=== PATIENT | male | born 1955 | race Caucasian/White ===

== ENCOUNTER 2020-11-22 17:09 | Inpatient (IN) | payer BC ==
--- NOTE | 2020-11-22 18:07 | EDM.PDOC ---
ED HPI GENERAL MEDICAL PROBLEM - General Chief Complaint: General Stated Complaint: FLUE/COLD Time Seen by Provider: 11/22/20 17:52 Source of Information: Reports: Patient History Limitations: Reports: No Limitations - History of Present Illness INITIAL COMMENTS - FREE TEXT/NARRATIVE: 65-year-old male presents to the emergency department today with complaints of shortness of breath, cough, chills, body aches, decreased appetite and diarrhea. Patient states this started about 6 days ago. He has no known contact with any sick individuals. States he has been more short of breath and he does wear CPAP at night however it has been difficult to keep that on. - Related Data Allergies Allergy/AdvReac Type Severity Reaction Status Date / Time No Known Allergies Allergy Verified 11/22/20 21:25 Home Meds: Home Meds Aspirin [Children's Aspirin] 81 mg PO DAILY 03/27/16 [History] Dulaglutide [Trulicity] 1.5 mg SQ WEEKLY 03/27/16 [History] Losartan [Cozaar] 25 mg PO DAILY 03/27/16 [History] Rosuvastatin Calcium [Crestor] 10 mg PO DAILY 03/27/16 [History] Sertraline [Zoloft] 50 mg PO DAILY 03/27/16 [History] Clopidogrel [Plavix] 75 mg PO DAILY 09/09/18 [History] Empagliflozin/Metformin HCl [Synjardy Xr 25-1,000 mg Tablet] 1 each PO DAILY 09/09/18 [History] Glimepiride [Amaryl] 2 mg PO DAILY 09/09/18 [History] Metoprolol Tartrate 75 mg PO BID 09/09/18 [History] Topiramate 50 mg PO BID 11/23/20 [History] Past Medical History Other HEENT History: Recent dental abscess requiring oral surgery Cardiovascular History: Reports: High Cholesterol, Hypertension Respiratory History: Reports: Sleep Apnea Other Gastrointestinal History: Prior food obstruction - 1999 Genitourinary History: Reports: Renal Calculus Other Neuro History: Patient states they were working him up for some type of aneurysm in [place], but doesn't think he had it or they would not have proceeded with oral surgery. Psychiatric History: Reports: Depression Endocrine/Metabolic History: Reports: Diabetes, Type II, Obesity/BMI 30+ Other Dermatologic History: Multiple skin tags - Infectious Disease History Infectious Disease History: Reports: Measles - Past Surgical History HEENT Surgical History: Reports: Other (See Below) Cardiovascular Surgical History: Reports: Coronary Artery Bypass, Other (See Below) Other Cardiovascular Surgeries/Procedures: triple bypass GI Surgical History: Reports: Colonoscopy Male Surgical History: Reports: Kidney Stone Extraction Social & Family History - Tobacco Use Tobacco Use Status *Q: Never Tobacco User - Recreational Drug Use Recreational Drug Use: No - Living Situation & Occupation Living situation: Reports: Occupation: Employed ED ROS GENERAL - Review of Systems Review Of Systems: See Below Constitutional: Reports: Chills, Malaise, Fatigue, Decreased Appetite. Denies: Fever, Diaphoresis HEENT: Reports: No Symptoms Respiratory: Reports: Shortness of Breath, Cough. Denies: Pleuritic Chest Pain, Sputum Cardiovascular: Reports: No Symptoms Endocrine: Reports: No Symptoms GI/Abdominal: Reports: Diarrhea, Decreased Appetite Musculoskeletal: Reports: Other (Generalized body aches) Skin: Reports: No Symptoms Neurological: Reports: No Symptoms. Denies: Headache Psychiatric: Reports: No Symptoms Hematologic/Lymphatic: Reports: No Symptoms Immunologic: Reports: No Symptoms ED EXAM, GENERAL - Physical Exam Exam: See Below Exam Limited By: No Limitations General Appearance: Alert, WD/WN, Mild Distress Eye Exam: Bilateral Eye: PERRL Ears: Normal External Exam, Hearing Grossly Normal Nose: Normal Inspection Throat/Mouth: Normal Inspection, Normal Lips, Normal Voice, No Airway Compromise Head: Atraumatic, Normocephalic Neck: Normal Inspection, Supple, Non-Tender, Full Range of Motion Respiratory/Chest: No Respiratory Distress, No Accessory Muscle Use, Chest Non- Tender, Crackles (Bilateral bases). No: Lungs Clear, Normal Breath Sounds Cardiovascular: Normal Peripheral Pulses, Regular Rate, Rhythm, No Edema, No Murmur Peripheral Pulses: 2+: Radial (L), Radial (R) GI/Abdominal: Normal Bowel Sounds, Soft, Non-Tender, No Distention (Male) Exam: Deferred Rectal (Males) Exam: Deferred Back Exam: Normal Inspection, Full Range of Motion Extremities: Normal Inspection, Normal Range of Motion, Non-Tender, No Pedal Edema, Normal Capillary Refill Neurological: Alert, Oriented, Normal Cognition Psychiatric: Normal Affect, Normal Mood Skin Exam: Warm, Dry, Intact, Normal Color, No Rash Lymphatic: No Adenopathy #1 Interpretation EKG Date: 11/22/20 Time: 17:43 Rhythm: A-Fib Rate (Beats/Min): 110 P-Wave: Absent QRS: Normal ST-T: Normal QT: Normal EKG Interpretation Comments: EKG interpretation per Dr. Higgins: Atrial fib/flutter, rate 110, nonspecific ST changes Course - Vital Signs Text/Narrative:: 65-year-old male with a 6-day history of body aches, chills, cough, shortness of breath, and diarrhea. States that he has had a decreased appetite however he does still have his taste and smell. Upon assessment patient is tachycardic, lung sounds have crackles noted to the bilateral bases. O2 sats upon presentation to the emergency department were 83% on room air. Patient is currently 94% on 2-1/2 L of oxygen per nasal cannula. Patient has a history of quadruple bypass 2 years ago, hypertension and diabetes for which she takes oral agents. I have ordered labs, chest x-ray, Covid swab, and a EKG. Last Recorded V/S: Last Vital Signs Temp 98.2 F 11/23/20 03:22 Pulse 80 11/23/20 09:22 Resp 18 11/23/20 03:22 BP 136/81 11/23/20 09:22 Pulse Ox 93 L 11/23/20 03:22 - Orders/Labs/Meds Orders: Active Orders 24 hr Category Date Time Status Chest 1V Frontal [CR] Stat Exams 11/22/20 18:00 Taken CULTURE BLOOD [BC] Stat Lab 11/22/20 18:18 Received Blood Culture x2 Reflex Set [OM.PC] Stat Oth 11/22/20 18:07 Ordered Isolation [COMM] Routine Oth 11/22/20 18:00 Ordered Medication Orders Acetaminophen (Tylenol) 650 mg PO Q4H PRN PRN Reason: Pain (Mild 1-3)/fever Last Admin: 11/22/20 23:50 Dose: 650 mg Documented by: MARINO Albuterol/Ipratropium (Duoneb 3.0-0.5 Mg/3 Ml) 3 ml NEB Q4H PRN PRN Reason: Shortness Of Breath/wheezing Apixaban (Eliquis) 5 mg PO BID JOJO Last Admin: 11/23/20 09:11 Dose: 5 mg Documented by: Admin: 11/22/20 23:49 Dose: 5 mg Documented by: MARINO Aspirin (Halfprin) 81 mg PO DAILY [facility] Last Admin: 11/23/20 09:21 Dose: 81 mg Documented by: IVORY Cholecalciferol (Vitamin D3) 5,000 unit PO DAILY [facility] [place] Last Admin: 11/23/20 09:11 Dose: 5,000 unit Documented by: IVORY Clopidogrel Bisulfate (Plavix) 75 mg PO DAILY [facility] [place] Last Admin: 11/23/20 09:22 Dose: 75 mg Documented by: IVORY Dexamethasone (Dexamethasone) 6 mg PO DAILY [facility] [place] Stop: 12/01/20 09:01 Last Admin: 11/23/20 09:12 Dose: 6 mg Documented by: Admin: 11/22/20 23:47 Dose: 6 mg Documented by: MARINO Famotidine (Pepcid) 20 mg PO BID [facility] [place] Last Admin: 11/23/20 09:11 Dose: 20 mg Documented by: Admin: 11/22/20 23:49 Dose: 20 mg Documented by: MARINO Remdesivir 100 mg/ Sodium (Chloride) 100 mls @ 100 mls/hr IV Q24H [facility] [place] Stop: 11/26/20 21:59 Ceftriaxone Sodium 2 gm/ (Sodium Chloride) 100 mls @ 200 mls/hr IV Q24H [facility] [place] Stop: 11/26/20 21:59 Last Admin: 11/22/20 23:45 Dose: 200 mls/hr Documented by: MARINO Azithromycin 500 mg/ Sodium (Chloride) 250 mls @ 250 mls/hr IV Q24H [facility] [place] Stop: 11/24/20 21:59 Last Admin: 11/22/20 23:45 Dose: 250 mls/hr Documented by: MARINO Tocilizumab 800 mg/ Sodium (Chloride) 100 mls @ 100 mls/hr IV ONETIME ONE Stop: 11/23/20 12:59 Insulin Glargine (Lantus) 7 unit SUBCUT BIDAC [facility] Insulin Human Lispro (Humalog) 0 unit SUBCUT QIDACANDBED [facility] [place]; Protocol Losartan Potassium (Cozaar) 25 mg PO DAILY [facility] [place] Last Admin: 11/23/20 09:22 Dose: 25 mg Documented by: IVORY Melatonin (Melatonin) 9 mg PO BEDTIME [facility] Metoprolol Tartrate (Lopressor) 75 mg PO BID [facility] [place] Last Admin: 11/23/20 09:22 Dose: 75 mg Documented by: IVORY Rosuvastatin Calcium (Crestor) 10 mg PO DAILY [facility] Last Admin: 11/23/20 09:21 Dose: 10 mg Documented by: IVORY Sertraline HCl (Zoloft) 50 mg PO DAILY [facility] [place] Last Admin: 11/23/20 09:21 Dose: 50 mg Documented by: IVORY Topiramate (Topamax) 50 mg PO BID [facility] [place] Last Admin: 11/23/20 09:22 Dose: 50 mg Documented by: IVORY Zinc Sulfate (Zincate) 220 mg PO DAILY [facility] Last Admin: 11/23/20 09:11 Dose: 220 mg Documented by: IVORY Labs: Laboratory Tests 11/22/20 11/22/20 11/22/20 Range/Units 18:00 18:18 18:18 WBC 3.68 L (4.23-9.07) K/mm3 RBC 4.83 (4.63-6.08) M/mm3 Hgb 14.4 (13.7-17.5) gm/dl Hct 43.3 (40.1-51.0) % MCV 89.6 (79.0-92.2) fl MCH 29.8 (25.7-32.2) pg MCHC 33.3 (32.2-35.5) g/dl RDW Std Deviation 46.1 H (35.1-43.9) fL Plt Count 158 L (163-337) K/mm3 MPV 9.5 (9.4-12.3) fl Neutrophils % (Manual) 66 H (40-60) % Band Neutrophils % 1 (0-10) % Lymphocytes % (Manual) 23 (20-40) % Atypical Lymphs % 0 % Monocytes % (Manual) 9 (2-10) % Eosinophils % (Manual) 1 (0.8-7.0) % Basophils % (Manual) 0 L (0.2-1.2) Platelet Estimate Adequate RBC Morph Comment Normal PT 11.3 (9.7-12.0) SECONDS INR 1.06 D-Dimer, Quantitative 0.61 H (0.19-0.50) mg/L Puncture Site ABG pH (7.35-7.45) ABG pCO2 (35.0-45.0) mmHg ABG pO2 (80.0-100.0) mmHg ABG HCO3 (22.0-26.0) meq/L ABG O2 Saturation (96.0-97.0) % ABG Base Excess (-2-2.0) Joo Test A-a Gradient mmHg O2 Delivery Device Oxygen Flow Rate FiO2 (21.00-100.00) % Sodium (136-145) mEq/L Potassium (3.5-5.1) mEq/L Chloride (98-107) mEq/L Carbon Dioxide (21-32) mEq/L Anion Gap (5-15) BUN (7-18) mg/dL Creatinine (0.7-1.3) mg/dL Est Cr Clr Drug Dosing mL/min Estimated GFR (MDRD) (>60) mL/min BUN/Creatinine Ratio (14-18) Glucose (80-115) mg/dL Lactic Acid (0.4-2.0) mmol/L Calcium (8.5-10.1) mg/dL Magnesium (1.8-2.4) mg/dl Ferritin (26-388) ng/ml Total Bilirubin (0.2-1.0) mg/dL AST (15-37) U/L ALT (16-63) U/L Alkaline Phosphatase (46-116) U/L Lactate Dehydrogenase (85-227) U/L Troponin I (0.00-0.056) ng/mL C-Reactive Protein (<1.0) mg/dL NT-Pro-B Natriuret Pep (0-125) pg/mL Total Protein (6.4-8.2) g/dl Albumin (3.4-5.0) g/dl Globulin gm/dL Albumin/Globulin Ratio (1-2) Influenza Type A RNA Negative (NEGATIVE) Influenza Type B RNA Negative (NEGATIVE) SARS-CoV-2 RNA (MARVIN) Positive H (NEGATIVE) 11/22/20 11/22/20 11/22/20 Range/Units 18:18 18:18 18:18 WBC (4.23-9.07) K/mm3 RBC (4.63-6.08) M/mm3 Hgb (13.7-17.5) gm/dl Hct (40.1-51.0) % MCV (79.0-92.2) fl MCH (25.7-32.2) pg MCHC (32.2-35.5) g/dl RDW Std Deviation (35.1-43.9) fL Plt Count (163-337) K/mm3 MPV (9.4-12.3) fl Neutrophils % (Manual) (40-60) % Band Neutrophils % (0-10) % Lymphocytes % (Manual) (20-40) % Atypical Lymphs % % Monocytes % (Manual) (2-10) % Eosinophils % (Manual) (0.8-7.0) % Basophils % (Manual) (0.2-1.2) Platelet Estimate RBC Morph Comment PT (9.7-12.0) SECONDS INR D-Dimer, Quantitative (0.19-0.50) mg/L Puncture Site ABG pH (7.35-7.45) ABG pCO2 (35.0-45.0) mmHg ABG pO2 (80.0-100.0) mmHg ABG HCO3 (22.0-26.0) meq/L ABG O2 Saturation (96.0-97.0) % ABG Base Excess (-2-2.0) Joo Test A-a Gradient mmHg O2 Delivery Device Oxygen Flow Rate FiO2 (21.00-100.00) % Sodium 139 (136-145) mEq/L Potassium 4.0 (3.5-5.1) mEq/L Chloride 102 (98-107) mEq/L Carbon Dioxide 21 (21-32) mEq/L Anion Gap 20.0 H (5-15) BUN 20 H (7-18) mg/dL Creatinine 1.0 (0.7-1.3) mg/dL Est Cr Clr Drug Dosing 86.77 mL/min Estimated GFR (MDRD) > 60 (>60) mL/min BUN/Creatinine Ratio 20.0 H (14-18) Glucose 147 H (80-115) mg/dL Lactic Acid 0.9 (0.4-2.0) mmol/L Calcium 8.3 L (8.5-10.1) mg/dL Magnesium (1.8-2.4) mg/dl Ferritin 659 H (26-388) ng/ml Total Bilirubin 0.6 (0.2-1.0) mg/dL AST 23 (15-37) U/L ALT 21 (16-63) U/L Alkaline Phosphatase 74 (46-116) U/L Lactate Dehydrogenase (85-227) U/L Troponin I (0.00-0.056) ng/mL C-Reactive Protein 6.6 H* (<1.0) mg/dL NT-Pro-B Natriuret Pep (0-125) pg/mL Total Protein 7.7 (6.4-8.2) g/dl Albumin 3.4 (3.4-5.0) g/dl Globulin 4.3 gm/dL Albumin/Globulin Ratio 0.8 L (1-2) Influenza Type A RNA (NEGATIVE) Influenza Type B RNA (NEGATIVE) SARS-CoV-2 RNA (MARVIN) (NEGATIVE) 11/22/20 11/22/20 11/22/20 Range/Units 18:18 18:18 18:30 WBC (4.23-9.07) K/mm3 RBC (4.63-6.08) M/mm3 Hgb (13.7-17.5) gm/dl Hct (40.1-51.0) % MCV (79.0-92.2) fl MCH (25.7-32.2) pg MCHC (32.2-35.5) g/dl RDW Std Deviation (35.1-43.9) fL Plt Count (163-337) K/mm3 MPV (9.4-12.3) fl Neutrophils % (Manual) (40-60) % Band Neutrophils % (0-10) % Lymphocytes % (Manual) (20-40) % Atypical Lymphs % % Monocytes % (Manual) (2-10) % Eosinophils % (Manual) (0.8-7.0) % Basophils % (Manual) (0.2-1.2) Platelet Estimate RBC Morph Comment PT (9.7-12.0) SECONDS INR D-Dimer, Quantitative (0.19-0.50) mg/L Puncture Site Lt radial ABG pH 7.35 (7.35-7.45) ABG pCO2 38.2 (35.0-45.0) mmHg ABG pO2 75.0 L (80.0-100.0) mmHg ABG HCO3 20.5 L (22.0-26.0) meq/L ABG O2 Saturation 94.4 L (96.0-97.0) % ABG Base Excess -4.2 L (-2-2.0) Joo Test Positive A-a Gradient 105 mmHg O2 Delivery Device Nasal cannula Oxygen Flow Rate 3.0 FiO2 32.00 (21.00-100.00) % Sodium (136-145) mEq/L Potassium (3.5-5.1) mEq/L Chloride (98-107) mEq/L Carbon Dioxide (21-32) mEq/L Anion Gap (5-15) BUN (7-18) mg/dL Creatinine (0.7-1.3) mg/dL Est Cr Clr Drug Dosing mL/min Estimated GFR (MDRD) (>60) mL/min BUN/Creatinine Ratio (14-18) Glucose (80-115) mg/dL Lactic Acid (0.4-2.0) mmol/L Calcium (8.5-10.1) mg/dL Magnesium 2.0 (1.8-2.4) mg/dl Ferritin (26-388) ng/ml Total Bilirubin (0.2-1.0) mg/dL AST (15-37) U/L ALT (16-63) U/L Alkaline Phosphatase (46-116) U/L Lactate Dehydrogenase 284 H (85-227) U/L Troponin I 0.023 (0.00-0.056) ng/mL C-Reactive Protein (<1.0) mg/dL NT-Pro-B Natriuret Pep 81 (0-125) pg/mL Total Protein (6.4-8.2) g/dl Albumin (3.4-5.0) g/dl Globulin gm/dL Albumin/Globulin Ratio (1-2) Influenza Type A RNA (NEGATIVE) Influenza Type B RNA (NEGATIVE) SARS-CoV-2 RNA (MARVIN) (NEGATIVE) Meds: Medications Generic Name Dose Route Start Last Admin Trade Name Freq PRN Reason Stop Dose Admin Acetaminophen 650 mg 11/22/20 21:08 11/22/20 23:50 Tylenol PO 650 mg Q4H PRN Administration Pain (Mild 1-3)/fever Albuterol/Ipratropium 3 ml 11/22/20 21:08 Duoneb 3.0-0.5 Mg/3 Ml NEB Q4H PRN Shortness Of Breath/wheezing Apixaban 5 mg 11/22/20 21:45 11/23/20 09:11 Eliquis PO 5 mg BID JOJO Administration Aspirin 81 mg 11/23/20 09:00 11/23/20 09:21 Halfprin PO 81 mg DAILY JOJO Administration Cholecalciferol 5,000 unit 11/23/20 09:00 11/23/20 09:11 Vitamin D3 PO 5,000 unit DAILY JOJO Administration Clopidogrel Bisulfate 75 mg 11/23/20 09:00 11/23/20 09:22 Plavix PO 75 mg DAILY JOJO Administration Dexamethasone 6 mg 11/22/20 21:15 11/23/20 09:12 Dexamethasone PO 12/01/20 09:01 6 mg DAILY JOJO Administration Famotidine 20 mg 11/22/20 21:30 11/23/20 09:11 Pepcid PO 20 mg BID JOJO Administration Remdesivir 100 mg/ Sodium 100 mls @ 100 mls/hr 11/23/20 21:00 Chloride IV 11/26/20 21:59 Q24H JOJO Ceftriaxone Sodium 2 gm/ 100 mls @ 200 mls/hr 11/22/20 21:30 11/22/20 23:45 Sodium Chloride IV 11/26/20 21:59 200 mls/hr Q24H JOJO Administration Azithromycin 500 mg/ Sodium 250 mls @ 250 mls/hr 11/22/20 21:00 11/22/20 23:45 Chloride IV 11/24/20 21:59 250 mls/hr Q24H JOJO Administration Tocilizumab 800 mg/ Sodium 100 mls @ 100 mls/hr 11/23/20 12:00 Chloride IV 11/23/20 12:59 ONETIME ONE Insulin Glargine 7 unit 11/23/20 16:00 Lantus SUBCUT BIDAC [facility] Insulin Human Lispro 0 unit 11/23/20 11:00 Humalog SUBCUT QIDACANDBED [facility] Protocol Losartan Potassium 25 mg 11/23/20 09:00 11/23/20 09:22 Cozaar PO 25 mg DAILY JOJO Administration Melatonin 9 mg 11/23/20 21:00 Melatonin PO BEDTIME JOJO Metoprolol Tartrate 75 mg 11/23/20 09:00 11/23/20 09:22 Lopressor PO 75 mg BID JOJO Administration Rosuvastatin Calcium 10 mg 11/23/20 09:00 11/23/20 09:21 Crestor PO 10 mg DAILY JOJO Administration Sertraline HCl 50 mg 11/23/20 09:00 11/23/20 09:21 Zoloft PO 50 mg DAILY JOJO Administration Topiramate 50 mg 11/23/20 09:00 11/23/20 09:22 Topamax PO 50 mg BID JOJO Administration Zinc Sulfate 220 mg 11/23/20 09:00 11/23/20 09:11 Zincate PO 220 mg DAILY JOJO Administration Discontinued Medications Generic Name Dose Route Start Last Admin Trade Name Jarrell PRN Reason Stop Dose Admin Remdesivir 200 mg/ Sodium 250 mls @ 250 mls/hr 11/22/20 21:08 11/22/20 23:46 Chloride IV 11/22/20 21:09 250 mls/hr ONETIME ONE Administration Influenza Virus Vaccine 60 mcg 11/23/20 09:00 Fluzone Quad [id number] Syringe IM 11/23/20 09:01 .ONCE ONE Metoprolol Tartrate 75 mg 11/22/20 21:08 11/22/20 23:47 Lopressor PO 11/22/20 21:09 75 mg ONETIME ONE Administration - Radiology Interpretation Free Text/Narrative:: Portable view of the chest reveals infiltrates in the bilateral lobes. Trachea is midline. - Re-Assessments/Exams Free Text/Narrative Re-Assessment/Exam: 11/22/20 19:27 Labs reveal a WBC of 3.68, platelet count 158, PT 11.3, INR 1.06, D-dimer 0.61, sodium 139, potassium 4.0, anion gap 20.0, BUN 20, creatinine 1.0 glucose 147, lactic acid 0.9, calcium 8.3, magnesium 2.0, ferritin 659, LDH 284, troponin 0 0.023, C-reactive protein 6.6, patient is Covid positive 11/22/20 19:[address] Lamas regarding admitting the patient as he is positive for Covid with low O2 saturations and pneumonia. He has accepted care of this patient will be admitting the patient to the hospital. Departure - Departure Time of Disposition: 20:59 Disposition: DC/Tfer to [facility] Condition: Fair Clinical Impression: COVID-19 - Discharge Information Sepsis Event Note (ED) - Evaluation Sepsis Screening Result: No Definite Risk - My Orders Last 24 Hours: My Active Orders 11/22/20 18:00 Chest 1V Frontal [CR] Stat Isolation [COMM] Routine 11/22/20 18:07 Blood Culture x2 Reflex Set [OM.PC] Stat 11/22/20 18:18 CULTURE BLOOD [BC] Stat - Assessment/Plan Last 24 Hours: My Active Orders 11/22/20 18:00 Chest 1V Frontal [CR] Stat Isolation [COMM] Routine 11/22/20 18:07 Blood Culture x2 Reflex Set [OM.PC] Stat 11/22/20 18:18 CULTURE BLOOD [BC] Stat
[2020-11-22 18:49] LABS: CORONAVIRUS COVID-19 NAA POSITIVE (NEGATIVE)
[2020-11-22] MEDS ORDERED: Metoprolol Tartrate 25 MG Tab PO ONE (21:08)
[2020-11-22] MEDS ORDERED: REMDESIVIR 200 MG in Sodium Chloride 0.9% 250 ML IV ONE (21:08)
[2020-11-22] MEDS ORDERED: Albuterol/Ipratropium 3.0-0.5 MG/3 ML Neb Soln NEB PRN (21:08)
--- NOTE | 2020-11-22 21:34 | PCM.HP.2 ---
H&P History of Present Illness - General Date of Service: 11/22/20 Admit Problem/Dx: Admission Diagnosis/Problem Admission Diagnosis/Problem Hypoxia - History of Present Illness Initial Comments - Free Text/Narative: 65-year-old male with history of coronary artery disease, depression, obesity, sleep apnea, type 2 diabetes presents to the emergency department with increasing shortness of breath, cough, chills, body aches, anorexia, and diarrhea. Patient states that his symptoms started approximately 6 days ago. He does not know of any sick close contacts. His has been immunized for COVID-19. Patient was recently seen by his primary care provider and recent labs did show a C-reactive protein of 0.4, TSH 2.350, glycosylated hemoglobin of 7.5. He also had elevated PSA in which his primary care provider referred him to urology. In the emergency department patient was found to be in atrial fibri llation with RVR. Patient is on metoprolol and has not taken that today. Patient states he did not take any of his medications today. SARS-CoV-2 was positive. Patient had a significant hypoxemia requiring 2 to 3 L of FiO2 via nasal cannula. When he initially presented his oxygen saturations were 83%. Today his C-reactive protein is up to 6.6. His white count is slightly low at 3.68. Chest x-ray shows scattered bilateral infiltrates consistent with COVID- 19. Patient does meet SIRS criteria with his heart rate above 90 and his white blood cell count below 4. Unfortunately this is misleading because his heart rate is elevated secondary to atrial fibrillation with RVR not necessarily b ecause of proBNP and troponin were negative. Lactic acid was low at 0.9. - Related Data Allergies/Adverse Reactions: Allergies Allergy/AdvReac Type Severity Reaction Status Date / Time No Known Allergies Allergy Verified 11/22/20 21:25 Home Medications: Home Meds Aspirin [Children's Aspirin] 81 mg PO DAILY 03/27/16 [History] Dulaglutide [Trulicity] 1.5 mg SQ WEEKLY 03/27/16 [History] Losartan [Cozaar] 25 mg PO DAILY 03/27/16 [History] Rosuvastatin Calcium [Crestor] 10 mg PO DAILY 03/27/16 [History] Sertraline [Zoloft] 50 mg PO DAILY 03/27/16 [History] Clopidogrel [Plavix] 75 mg PO DAILY 09/09/18 [History] Empagliflozin/Metformin HCl [Synjardy Xr 25-1,000 mg Tablet] 1 each PO DAILY 09/09/18 [History] Glimepiride [Amaryl] 2 mg PO DAILY 09/09/18 [History] Metoprolol Tartrate 75 mg PO BID 09/09/18 [History] Topiramate 50 mg PO BID 11/23/20 [History] Past Medical History Other HEENT History: Recent dental abscess requiring oral surgery Cardiovascular History: Reports: High Cholesterol, Hypertension Respiratory History: Reports: Sleep Apnea Other Gastrointestinal History: Prior food obstruction - 1999 Genitourinary History: Reports: Renal Calculus Other Neuro History: Patient states they were working him up for some type of aneurysm in [place], but doesn't think he had it or they would not have proceeded with oral surgery. Psychiatric History: Reports: Depression Endocrine/Metabolic History: Reports: Diabetes, Type II, Obesity/BMI 30+ Other Dermatologic History: Multiple skin tags - Infectious Disease History Infectious Disease History: Reports: Measles - Past Surgical History HEENT Surgical History: Reports: Other (See Below) Cardiovascular Surgical History: Reports: Coronary Artery Bypass, Other (See Below) Other Cardiovascular Surgeries/Procedures: triple bypass GI Surgical History: Reports: Colonoscopy Male Surgical History: Reports: Kidney Stone Extraction Social & Family History - Tobacco Use Tobacco Use Status *Q: Never Tobacco User - Recreational Drug Use Recreational Drug Use: No - Living Situation & Occupation Living situation: Reports: Occupation: Employed H&P Review of Systems - Review of Systems: Review Of Systems: Comprehensive ROS is negative, except as noted in HPI. Exam - Exam Exam: See Below - Vital Signs Vital Signs: Last Vital Signs Temp 100.4 F 11/22/20 17:29 Pulse 107 H 11/22/20 20:45 Resp 20 11/22/20 17:29 BP 148/85 H 11/22/20 20:45 Pulse Ox 95 11/22/20 20:45 Weight: 300 lb - Exam Quality Assessment: Supplemental Oxygen General: Alert, Oriented, 4 HEENT: Conjunctiva Clear, Hearing Intact, Mucosa Moist & [place], Normal Nasal Septum Neck: Supple, Trachea Midline Lungs: Normal Respiratory Effort, Crackles (Bibasilar) Cardiovascular: Regular Rate, Regular Rhythm GI/Abdominal Exam: Normal Bowel Sounds, Soft, Non-Tender, No Organomegaly, No Distention, No Abnormal Bruit, No Mass Extremities: Normal Inspection, Normal Range of Motion, Non-Tender, No Pedal Edema, Normal Capillary Refill Peripheral Pulses: 1+: Posterior Tibial (L), Posterior Tibial (R), Dorsalis Pedis (L), Dorsalis Pedis (R) Skin: Warm, Dry, Intact Neuro Extensive - Mental Status: Alert, Oriented x3, Normal Mood/Affect, Normal Cognition, Memory Intact Neuro Extensive - Motor, Sensory, Reflexes: CN II-XII Intact, Normal Gait Psychiatric: Alert, Normal Affect, Normal Mood - Patient Data Lab Results Last 24 hrs: Laboratory Results - last 24 hr 11/22/20 11/22/20 11/22/20 Range/Units 18:00 18:18 18:18 WBC 3.68 L (4.23-9.07) K/mm3 RBC 4.83 (4.63-6.08) M/mm3 Hgb 14.4 (13.7-17.5) gm/dl Hct 43.3 (40.1-51.0) % MCV 89.6 (79.0-92.2) fl MCH 29.8 (25.7-32.2) pg MCHC 33.3 (32.2-35.5) g/dl RDW Std Deviation 46.1 H (35.1-43.9) fL Plt Count 158 L (163-337) K/mm3 MPV 9.5 (9.4-12.3) fl Neutrophils % (Manual) 66 H (40-60) % Band Neutrophils % 1 (0-10) % Lymphocytes % (Manual) 23 (20-40) % Atypical Lymphs % 0 % Monocytes % (Manual) 9 (2-10) % Eosinophils % (Manual) 1 (0.8-7.0) % Basophils % (Manual) 0 L (0.2-1.2) Platelet Estimate Adequate RBC Morph Comment Normal PT 11.3 (9.7-12.0) SECONDS INR 1.06 D-Dimer, Quantitative 0.61 H (0.19-0.50) mg/L Puncture Site ABG pH (7.35-7.45) ABG pCO2 (35.0-45.0) mmHg ABG pO2 (80.0-100.0) mmHg ABG HCO3 (22.0-26.0) meq/L ABG O2 Saturation (96.0-97.0) % ABG Base Excess (-2-2.0) Joo Test A-a Gradient mmHg O2 Delivery Device Oxygen Flow Rate FiO2 (21.00-100.00) % Sodium (136-145) mEq/L Potassium (3.5-5.1) mEq/L Chloride (98-107) mEq/L Carbon Dioxide (21-32) mEq/L Anion Gap (5-15) BUN (7-18) mg/dL Creatinine (0.7-1.3) mg/dL Est Cr Clr Drug Dosing mL/min Estimated GFR (MDRD) (>60) mL/min BUN/Creatinine Ratio (14-18) Glucose (80-115) mg/dL Lactic Acid (0.4-2.0) mmol/L Calcium (8.5-10.1) mg/dL Magnesium (1.8-2.4) mg/dl Ferritin (26-388) ng/ml Total Bilirubin (0.2-1.0) mg/dL AST (15-37) U/L ALT (16-63) U/L Alkaline Phosphatase (46-116) U/L Lactate Dehydrogenase (85-227) U/L Troponin I (0.00-0.056) ng/mL C-Reactive Protein (<1.0) mg/dL NT-Pro-B Natriuret Pep (0-125) pg/mL Total Protein (6.4-8.2) g/dl Albumin (3.4-5.0) g/dl Globulin gm/dL Albumin/Globulin Ratio (1-2) Influenza Type A RNA Negative (NEGATIVE) Influenza Type B RNA Negative (NEGATIVE) SARS-CoV-2 RNA (MARVIN) Positive H (NEGATIVE) 11/22/20 11/22/20 11/22/20 Range/Units 18:18 18:18 18:18 WBC (4.23-9.07) K/mm3 RBC (4.63-6.08) M/mm3 Hgb (13.7-17.5) gm/dl Hct (40.1-51.0) % MCV (79.0-92.2) fl MCH (25.7-32.2) pg MCHC (32.2-35.5) g/dl RDW Std Deviation (35.1-43.9) fL Plt Count (163-337) K/mm3 MPV (9.4-12.3) fl Neutrophils % (Manual) (40-60) % Band Neutrophils % (0-10) % Lymphocytes % (Manual) (20-40) % Atypical Lymphs % % Monocytes % (Manual) (2-10) % Eosinophils % (Manual) (0.8-7.0) % Basophils % (Manual) (0.2-1.2) Platelet Estimate RBC Morph Comment PT (9.7-12.0) SECONDS INR D-Dimer, Quantitative (0.19-0.50) mg/L Puncture Site ABG pH (7.35-7.45) ABG pCO2 (35.0-45.0) mmHg ABG pO2 (80.0-100.0) mmHg ABG HCO3 (22.0-26.0) meq/L ABG O2 Saturation (96.0-97.0) % ABG Base Excess (-2-2.0) Joo Test A-a Gradient mmHg O2 Delivery Device Oxygen Flow Rate FiO2 (21.00-100.00) % Sodium 139 (136-145) mEq/L Potassium 4.0 (3.5-5.1) mEq/L Chloride 102 (98-107) mEq/L Carbon Dioxide 21 (21-32) mEq/L Anion Gap 20.0 H (5-15) BUN 20 H (7-18) mg/dL Creatinine 1.0 (0.7-1.3) mg/dL Est Cr Clr Drug Dosing 86.77 mL/min Estimated GFR (MDRD) > 60 (>60) mL/min BUN/Creatinine Ratio 20.0 H (14-18) Glucose 147 H (80-115) mg/dL Lactic Acid 0.9 (0.4-2.0) mmol/L Calcium 8.3 L (8.5-10.1) mg/dL Magnesium (1.8-2.4) mg/dl Ferritin 659 H (26-388) ng/ml Total Bilirubin 0.6 (0.2-1.0) mg/dL AST 23 (15-37) U/L ALT 21 (16-63) U/L Alkaline Phosphatase 74 (46-116) U/L Lactate Dehydrogenase (85-227) U/L Troponin I (0.00-0.056) ng/mL C-Reactive Protein 6.6 H* (<1.0) mg/dL NT-Pro-B Natriuret Pep (0-125) pg/mL Total Protein 7.7 (6.4-8.2) g/dl Albumin 3.4 (3.4-5.0) g/dl Globulin 4.3 gm/dL Albumin/Globulin Ratio 0.8 L (1-2) Influenza Type A RNA (NEGATIVE) Influenza Type B RNA (NEGATIVE) SARS-CoV-2 RNA (MARVIN) (NEGATIVE) 11/22/20 11/22/20 11/22/20 Range/Units 18:18 18:18 18:30 WBC (4.23-9.07) K/mm3 RBC (4.63-6.08) M/mm3 Hgb (13.7-17.5) gm/dl Hct (40.1-51.0) % MCV (79.0-92.2) fl MCH (25.7-32.2) pg MCHC (32.2-35.5) g/dl RDW Std Deviation (35.1-43.9) fL Plt Count (163-337) K/mm3 MPV (9.4-12.3) fl Neutrophils % (Manual) (40-60) % Band Neutrophils % (0-10) % Lymphocytes % (Manual) (20-40) % Atypical Lymphs % % Monocytes % (Manual) (2-10) % Eosinophils % (Manual) (0.8-7.0) % Basophils % (Manual) (0.2-1.2) Platelet Estimate RBC Morph Comment PT (9.7-12.0) SECONDS INR D-Dimer, Quantitative (0.19-0.50) mg/L Puncture Site Lt radial ABG pH 7.35 (7.35-7.45) ABG pCO2 38.2 (35.0-45.0) mmHg ABG pO2 75.0 L (80.0-100.0) mmHg ABG HCO3 20.5 L (22.0-26.0) meq/L ABG O2 Saturation 94.4 L (96.0-97.0) % ABG Base Excess -4.2 L (-2-2.0) Joo Test Positive A-a Gradient 105 mmHg O2 Delivery Device Nasal cannula Oxygen Flow Rate 3.0 FiO2 32.00 (21.00-100.00) % Sodium (136-145) mEq/L Potassium (3.5-5.1) mEq/L Chloride (98-107) mEq/L Carbon Dioxide (21-32) mEq/L Anion Gap (5-15) BUN (7-18) mg/dL Creatinine (0.7-1.3) mg/dL Est Cr Clr Drug Dosing mL/min Estimated GFR (MDRD) (>60) mL/min BUN/Creatinine Ratio (14-18) Glucose (80-115) mg/dL Lactic Acid (0.4-2.0) mmol/L Calcium (8.5-10.1) mg/dL Magnesium 2.0 (1.8-2.4) mg/dl Ferritin (26-388) ng/ml Total Bilirubin (0.2-1.0) mg/dL AST (15-37) U/L ALT (16-63) U/L Alkaline Phosphatase (46-116) U/L Lactate Dehydrogenase 284 H (85-227) U/L Troponin I 0.023 (0.00-0.056) ng/mL C-Reactive Protein (<1.0) mg/dL NT-Pro-B Natriuret Pep 81 (0-125) pg/mL Total Protein (6.4-8.2) g/dl Albumin (3.4-5.0) g/dl Globulin gm/dL Albumin/Globulin Ratio (1-2) Influenza Type A RNA (NEGATIVE) Influenza Type B RNA (NEGATIVE) SARS-CoV-2 RNA (MARVIN) (NEGATIVE) Result Diagrams: 11/23/20 06:32 11/23/20 06:32 #1 Interpretation EKG Date: 11/23/20 Rhythm: A-Fib Rate (Beats/Min): 110 [place]: Normal P-Wave: Absent QRS: RBBB ST-T: Depressed QT: Normal Sepsis Event Note - Evaluation Sepsis Screening Result: No Definite Risk - Focused Exam Vital Signs: Vital Signs Temp Pulse Resp BP Pulse Ox 11/22/20 20:45 107 H 148/85 H 95 11/22/20 19:45 105 H 142/84 H 93 L 11/22/20 18:45 115 H 137/94 H 94 L 11/22/20 17:29 100.4 F 94 20 173/103 H 83 L - Problem List (1) Coronary artery disease SNOMED Code(s): 72059737 ICD Code: I25.10 - ATHSCL HEART DISEASE OF [place] CORONARY ARTERY W/O ANG PCTRS Status: Acute Current Visit: Yes (2) Atrial fibrillation with RVR SNOMED Code(s): 229349791052318 ICD Code: I48.91 - UNSPECIFIED ATRIAL FIBRILLATION Status: Acute Current Visit: Yes (3) Diabetes mellitus SNOMED Code(s): 61564712 ICD Code: E11.9 - TYPE 2 DIABETES MELLITUS WITHOUT COMPLICATIONS Status: Acute Current Visit: Yes (4) Acute hypoxemic respiratory failure due to COVID-19 SNOMED Code(s): 861378862 ICD Code: U07.1 - COVID-19; J96.01 - ACUTE RESPIRATORY FAILURE WITH HYPOXIA Status: Acute Current Visit: Yes (5) COVID-19 SNOMED Code(s): 387593566 ICD Code: U07.1 - COVID-19 Status: Acute Current Visit: Yes Problem List Initiated/Reviewed/Updated: Yes Orders Last 24hrs: Active Orders 24 hr Category Date Time Status Admission Status [Patient Status] [ADT] Routine ADT 11/22/20 20:09 Active Influenza Vaccine Charge [RC] .DISCHARGE Care 11/22/20 21:27 Active Oxygen Therapy [RC] PRN Care 11/22/20 21:08 Ordered Positioning, Patient [RC] ASDIRECTED Care 11/22/20 21:14 Ordered Pulse Oximetry [RC] CONTINUOUS Care 11/22/20 21:09 Ordered RT Aerosol Therapy [RC] ASDIRECTED Care 11/22/20 21:16 Ordered RT Chest Physiotherapy [RC] ASDIRECTED Care 11/22/20 21:17 Ordered RT Incentive Spirometry [RC] ASDIRECTED Care 11/22/20 21:17 Ordered Up ad Es [RC] ASDIRECTED Care 11/22/20 21:08 Ordered VTE/DVT Education [RC] PER UNIT ROUTINE Care 11/22/20 21:08 Ordered Vital Signs [RC] Q4H Care 11/22/20 21:08 Ordered Regular Diet [DIET] Diet 11/23/20 Breakfast Ordered Chest 1V Frontal [CR] Stat Exams 11/22/20 18:00 Taken C-REACTIVE PROTEIN [CHEM] AM Lab 11/23/20 05:11 Ordered CBC WITH AUTO DIFF [HEME] AM Lab 11/23/20 05:11 Ordered CMP [COMPREHENSIVE METABOLIC PN,CMP] [CHEM] AM Lab 11/23/20 05:11 Ordered CULTURE BLOOD [BC] Stat Lab 11/22/20 18:18 Received DD [D-DIMER QUANTITATIVE] [COAG] AM Lab 11/23/20 05:11 Ordered MAGNESIUM [CHEM] AM Lab 11/23/20 05:11 Ordered PHOSPHORUS [CHEM] AM Lab 11/23/20 05:11 Ordered PROCALCITONIN [REF] Stat Lab 11/22/20 21:08 Ordered Acetaminophen [TylenoL] Med 11/22/20 21:08 Ordered 650 mg PO Q4H PRN Albuterol/Ipratropium [DuoNeb 3.0-0.5 MG/3 ML] Med 11/22/20 21:08 Ordered 3 ml NEB Q4H PRN Apixaban [Eliquis] Med 11/22/20 21:45 Ordered 5 mg PO BID Azithromycin [Zithromax] 500 mg Med 11/22/20 21:30 Ordered Sodium Chloride 0.9% [Normal Saline (AdvBag)] 250 ml IV Q24H Cholecalciferol (Vitamin D3) [Vitamin D3] Med 11/23/20 09:00 Ordered 5,000 unit PO DAILY Famotidine [Pepcid] Med 11/22/20 21:30 Ordered 20 mg PO BID Melatonin Med 11/23/20 21:00 Ordered 9 mg PO BEDTIME Pharmacy to Dose - InFluenza V [Pharmacy to Dose - Med 11/22/20 21:27 Once InFluenza Vaccine] 1 each IM ONETIME ONE Remdesivir 100 mg Med 11/23/20 21:15 Ordered Sodium Chloride 0.9% [Normal Saline] 100 ml IV Q24H Zinc Sulfate [Zincate] Med 11/23/20 09:00 Ordered 220 mg PO DAILY cefTRIAXone [Rocephin] 2 gm Med 11/22/20 21:30 Ordered Sodium Chloride 0.9% [Normal Saline] 100 ml IV Q24H dexAMETHasone Med 11/22/20 21:15 Ordered 6 mg PO DAILY Blood Culture x2 Reflex Set [OM.PC] Stat Oth 11/22/20 18:07 Ordered Isolation [COMM] Routine Oth 11/22/20 18:00 Ordered Resuscitation Status Routine Resus Stat 11/22/20 21:08 Ordered Medication Orders Acetaminophen (Tylenol) 650 mg PO Q4H PRN PRN Reason: Pain (Mild 1-3)/fever Albuterol/Ipratropium (Duoneb 3.0-0.5 Mg/3 Ml) 3 ml NEB Q4H PRN PRN Reason: Shortness Of Breath/wheezing Cholecalciferol (Vitamin D3) 5,000 unit PO DAILY [facility] Dexamethasone (Dexamethasone) 6 mg PO DAILY JOJO Stop: 12/01/20 09:01 Famotidine (Pepcid) 20 mg PO BID [facility] Remdesivir 100 mg/ Sodium (Chloride) 100 mls @ 100 mls/hr IV Q24H JOJO Stop: 11/26/20 22:14 Ceftriaxone Sodium 2 gm/ (Sodium Chloride) 100 mls @ 200 mls/hr IV Q24H JOJO Stop: 11/26/20 21:59 Azithromycin 500 mg/ Sodium (Chloride) 250 mls @ 250 mls/hr IV Q24H JOJO Stop: 11/24/20 21:59 Influenza Virus Vaccine (Pharmacy To Dose - Influenza Vaccine) 1 each IM ONETIME ONE Stop: 11/22/20 21:28 Melatonin (Melatonin) 9 mg PO BEDTIME [facility] Zinc Sulfate (Zincate) 220 mg PO DAILY [facility] Assessment/Plan Comment:: Assessment 65-year-old male with history of coronary artery bypass and CAD, new onset atrial fibrillation, type 2 diabetes, obesity, presents to the emergency department after 6 days of feeling poorly and diagnosed with COVID-19. Unfortunately, this puts him at high risk for complications because of his multiple comorbidities. COVID-19 pneumonia with hypoxemia * Patient presented to the emergency department with oxygen saturations at 83% on room air * He required 2 to 3 L of FiO2 via nasal cannula to get saturations in the low 90s. * C-reactive protein was elevated at 6.6, ferritin 659, D-dimer slightly elevated at 0.61, white count low at 3.7. * Fortunately patient is a never smoker. No history of lung disease. New onset atrial fibrillation History of coronary artery disease with bypass graft * Patient did not take his metoprolol this morning and therefore his heart rate was above 100 with A. fib RVR * Patient is normally on metoprolol 75 mg twice daily. * Troponin and BNP was normal. Type 2 diabetes * Moderate control with his last hemoglobin A1c from November 14 of 7.5% * On for oral medications to control his blood sugars Other medical problems include depression, elevated PSA with BPH, hypertension, obesity, sleep apnea, kidney stones Plan * Admit to medical floor on telemetry * Continuous pulse ox * Remdesivir for 5 days loading dose today * Dexamethasone x10 days * Rocephin 2 g daily for 5 days for COVID-19 pneumonia * Azithromycin 500 mg daily for 3 days * Pepcid, melatonin, zinc, vitamin D. All of them have shown mixed results on treatment of COVID-19 but unlikely to cause any harm. * Encourage prone positioning when awake and asleep * Convalescent plasma has not shown improvement in outcomes will therefore hold on the treatment with convalescent plasma * FiO2 to keep SPO2 between 88 and 94%. * Follow blood sugars closely and likely start long-acting insulin * Stop home oral blood sugar medications because of inconsistencies with absorption and p.o. intake when hospitalized with COVID-19 * Blood sugars will likely worsen secondary to dexamethasone. * Sliding scale insulin * Fingerstick blood sugar 4 times a day * Follow CBC, CMP, magnesium, D-dimer, CRP * Actemra 800 mg if available * Patient is at very high risk for complications secondary to his multiple comorbidities * Start Eliquis 5 mg twice daily for his new onset A. fib * Echocardiogram on Wednesday since it is not available over the weekend * Patient is likely rate controlled on his metoprolol twice daily will start it as soon as pharmacy approves it * VTE prophylaxis will be with Eliquis * CODE STATUS full code - Mortality Measure Prognosis:: Poor
[2020-11-22] MEDS: cefTRIAXone 2 GM in Sodium Chloride 0.9% 100 ML IV SCH (23:45)
[2020-11-22] MEDS: Azithromycin 500 MG in Sodium Chloride 0.9% 250 ML IV SCH (23:45)
[2020-11-22] MEDS: Dexamethasone 4 MG Tab PO SCH (23:47)
[2020-11-22] MEDS: Apixaban 5 MG Tab PO SCH (23:49)
[2020-11-22] MEDS: Famotidine 20 MG Tab PO SCH (23:49)
[2020-11-22] MEDS: Acetaminophen 325 MG Tab PO PRN (23:50)
[2020-11-23] MEDS ORDERED: FLU VACC QS2020-21(6MOS UP)/PF 60 MCG/0.5 ML SYRINGE IM ONE (09:00)
[2020-11-23] MEDS: Cholecalciferol (Vitamin D3) 5,000 UNIT Cap PO SCH (09:11)
[2020-11-23] MEDS: Apixaban 5 MG Tab PO SCH ×2 (09:11→21:04)
[2020-11-23] MEDS: Famotidine 20 MG Tab PO SCH ×2 (09:11→21:04)
[2020-11-23] MEDS: Zinc Sulfate 220 MG Cap PO SCH (09:11)
[2020-11-23] MEDS: Dexamethasone 4 MG Tab PO SCH (09:12)
[2020-11-23] MEDS: Sertraline 50 MG Tab PO SCH (09:21)
[2020-11-23] MEDS: Aspirin 81 MG Tab.EC PO SCH (09:21)
[2020-11-23] MEDS: Rosuvastatin 10 MG Tab PO SCH (09:21)
[2020-11-23] MEDS: Clopidogrel 75 MG Tab PO SCH (09:22)
[2020-11-23] MEDS: Losartan 25 MG Tab PO SCH (09:22)
[2020-11-23] MEDS: Topiramate 25 MG Tab PO SCH ×2 (09:22→21:05)
[2020-11-23] MEDS: Metoprolol Tartrate 25 MG Tab PO SCH ×2 (09:22→21:05)
[2020-11-23 10:17] LABS: HEMOGLOBIN A1C 7.8 %
--- NOTE | 2020-11-23 12:38 | PCM.PN ---
- General Info Date of Service: 11/23/20 Admission Dx/Problem (Free Text): Admission Diagnosis/Problem Admission Diagnosis/Problem Hypoxia Subjective Update: Patient states he slept very well and is feeling better. No significant change in his SPO2. Were unable to get Actemra last night, but we should be able to get it today. Functional Status: Reports: Pain Controlled - Review of Systems General: Reports: No Symptoms HEENT: Reports: No Symptoms Pulmonary: Reports: Shortness of Breath, Cough Cardiovascular: Reports: No Symptoms Gastrointestinal: Reports: No Symptoms Musculoskeletal: Reports: No Symptoms Psychiatric: Reports: No Symptoms - Patient Data Vitals - Most Recent: Last Vital Signs Temp 98.2 F 11/23/20 03:22 Pulse 80 11/23/20 09:22 Resp 18 11/23/20 03:22 BP 136/81 11/23/20 09:22 Pulse Ox 93 L 11/23/20 03:22 Weight - Most Recent: 290 lb 1.6 oz I&O - Last 24 Hours: Intake & Output 11/22/20 11/23/20 11/23/20 22:59 06:59 14:59 Intake Total 1300 120 Output Total 675 Balance 625 120 Lab Results Last 24 Hours: Laboratory Results - last 24 hr 11/22/20 11/22/20 11/22/20 Range/Units 18:00 18:18 18:18 WBC 3.68 L (4.23-9.07) K/mm3 RBC 4.83 (4.63-6.08) M/mm3 Hgb 14.4 (13.7-17.5) gm/dl Hct 43.3 (40.1-51.0) % MCV 89.6 (79.0-92.2) fl MCH 29.8 (25.7-32.2) pg MCHC 33.3 (32.2-35.5) g/dl RDW Std Deviation 46.1 H (35.1-43.9) fL Plt Count 158 L (163-337) K/mm3 MPV 9.5 (9.4-12.3) fl Neut % (Auto) (34.0-67.9) % Lymph % (Auto) (21.8-53.1) % [place] % (Auto) (5.3-12.2) % Eos % (Auto) (0.8-7.0) Baso % (Auto) (0.1-1.2) % Neut # (Auto) (1.78-5.38) K/mm3 Lymph # (Auto) (1.32-3.57) K/mm3 [place] # (Auto) (0.30-0.82) K/mm3 Eos # (Auto) (0.04-0.54) K/mm3 Baso # (Auto) (0.01-0.08) K/mm3 Neutrophils % (Manual) 66 H (40-60) % Band Neutrophils % 1 (0-10) % Lymphocytes % (Manual) 23 (20-40) % Atypical Lymphs % 0 % Monocytes % (Manual) 9 (2-10) % Eosinophils % (Manual) 1 (0.8-7.0) % Basophils % (Manual) 0 L (0.2-1.2) Platelet Estimate Adequate RBC Morph Comment Normal PT 11.3 (9.7-12.0) SECONDS INR 1.06 D-Dimer, Quantitative 0.61 H (0.19-0.50) mg/L Puncture Site ABG pH (7.35-7.45) ABG pCO2 (35.0-45.0) mmHg ABG pO2 (80.0-100.0) mmHg ABG HCO3 (22.0-26.0) meq/L ABG O2 Saturation (96.0-97.0) % ABG Base Excess (-2-2.0) Joo Test A-a Gradient mmHg O2 Delivery Device Oxygen Flow Rate FiO2 (21.00-100.00) % Sodium (136-145) mEq/L Potassium (3.5-5.1) mEq/L Chloride (98-107) mEq/L Carbon Dioxide (21-32) mEq/L Anion Gap (5-15) BUN (7-18) mg/dL Creatinine (0.7-1.3) mg/dL Est Cr Clr Drug Dosing mL/min Estimated GFR (MDRD) (>60) mL/min BUN/Creatinine Ratio (14-18) Glucose (80-115) mg/dL POC Glucose (80-115) mg/dL Hemoglobin A1c ( - 5.6) % Lactic Acid (0.4-2.0) mmol/L Calcium (8.5-10.1) mg/dL Phosphorus (2.6-4.7) mg/dL Magnesium (1.8-2.4) mg/dl Ferritin (26-388) ng/ml Total Bilirubin (0.2-1.0) mg/dL AST (15-37) U/L ALT (16-63) U/L Alkaline Phosphatase (46-116) U/L Lactate Dehydrogenase (85-227) U/L Troponin I (0.00-0.056) ng/mL C-Reactive Protein (<1.0) mg/dL NT-Pro-B Natriuret Pep (0-125) pg/mL Total Protein (6.4-8.2) g/dl Albumin (3.4-5.0) g/dl Globulin gm/dL Albumin/Globulin Ratio (1-2) Influenza Type A RNA Negative (NEGATIVE) Influenza Type B RNA Negative (NEGATIVE) SARS-CoV-2 RNA (MARVIN) Positive H (NEGATIVE) 11/22/20 11/22/20 11/22/20 Range/Units 18:18 18:18 18:18 WBC (4.23-9.07) K/mm3 RBC (4.63-6.08) M/mm3 Hgb (13.7-17.5) gm/dl Hct (40.1-51.0) % MCV (79.0-92.2) fl MCH (25.7-32.2) pg MCHC (32.2-35.5) g/dl RDW Std Deviation (35.1-43.9) fL Plt Count (163-337) K/mm3 MPV (9.4-12.3) fl Neut % (Auto) (34.0-67.9) % Lymph % (Auto) (21.8-53.1) % [place] % (Auto) (5.3-12.2) % Eos % (Auto) (0.8-7.0) Baso % (Auto) (0.1-1.2) % Neut # (Auto) (1.78-5.38) K/mm3 Lymph # (Auto) (1.32-3.57) K/mm3 [place] # (Auto) (0.30-0.82) K/mm3 Eos # (Auto) (0.04-0.54) K/mm3 Baso # (Auto) (0.01-0.08) K/mm3 Neutrophils % (Manual) (40-60) % Band Neutrophils % (0-10) % Lymphocytes % (Manual) (20-40) % Atypical Lymphs % % Monocytes % (Manual) (2-10) % Eosinophils % (Manual) (0.8-7.0) % Basophils % (Manual) (0.2-1.2) Platelet Estimate RBC Morph Comment PT (9.7-12.0) SECONDS INR D-Dimer, Quantitative (0.19-0.50) mg/L Puncture Site ABG pH (7.35-7.45) ABG pCO2 (35.0-45.0) mmHg ABG pO2 (80.0-100.0) mmHg ABG HCO3 (22.0-26.0) meq/L ABG O2 Saturation (96.0-97.0) % ABG Base Excess (-2-2.0) Joo Test A-a Gradient mmHg O2 Delivery Device Oxygen Flow Rate FiO2 (21.00-100.00) % Sodium 139 (136-145) mEq/L Potassium 4.0 (3.5-5.1) mEq/L Chloride 102 (98-107) mEq/L Carbon Dioxide 21 (21-32) mEq/L Anion Gap 20.0 H (5-15) BUN 20 H (7-18) mg/dL Creatinine 1.0 (0.7-1.3) mg/dL Est Cr Clr Drug Dosing 86.77 mL/min Estimated GFR (MDRD) > 60 (>60) mL/min BUN/Creatinine Ratio 20.0 H (14-18) Glucose 147 H (80-115) mg/dL POC Glucose (80-115) mg/dL Hemoglobin A1c ( - 5.6) % Lactic Acid 0.9 (0.4-2.0) mmol/L Calcium 8.3 L (8.5-10.1) mg/dL Phosphorus (2.6-4.7) mg/dL Magnesium (1.8-2.4) mg/dl Ferritin 659 H (26-388) ng/ml Total Bilirubin 0.6 (0.2-1.0) mg/dL AST 23 (15-37) U/L ALT 21 (16-63) U/L Alkaline Phosphatase 74 (46-116) U/L Lactate Dehydrogenase (85-227) U/L Troponin I (0.00-0.056) ng/mL C-Reactive Protein 6.6 H* (<1.0) mg/dL NT-Pro-B Natriuret Pep (0-125) pg/mL Total Protein 7.7 (6.4-8.2) g/dl Albumin 3.4 (3.4-5.0) g/dl Globulin 4.3 gm/dL Albumin/Globulin Ratio 0.8 L (1-2) Influenza Type A RNA (NEGATIVE) Influenza Type B RNA (NEGATIVE) SARS-CoV-2 RNA (MARVIN) (NEGATIVE) 11/22/20 11/22/20 11/22/20 Range/Units 18:18 18:18 18:30 WBC (4.23-9.07) K/mm3 RBC (4.63-6.08) M/mm3 Hgb (13.7-17.5) gm/dl Hct (40.1-51.0) % MCV (79.0-92.2) fl MCH (25.7-32.2) pg MCHC (32.2-35.5) g/dl RDW Std Deviation (35.1-43.9) fL Plt Count (163-337) K/mm3 MPV (9.4-12.3) fl Neut % (Auto) (34.0-67.9) % Lymph % (Auto) (21.8-53.1) % [place] % (Auto) (5.3-12.2) % Eos % (Auto) (0.8-7.0) Baso % (Auto) (0.1-1.2) % Neut # (Auto) (1.78-5.38) K/mm3 Lymph # (Auto) (1.32-3.57) K/mm3 [place] # (Auto) (0.30-0.82) K/mm3 Eos # (Auto) (0.04-0.54) K/mm3 Baso # (Auto) (0.01-0.08) K/mm3 Neutrophils % (Manual) (40-60) % Band Neutrophils % (0-10) % Lymphocytes % (Manual) (20-40) % Atypical Lymphs % % Monocytes % (Manual) (2-10) % Eosinophils % (Manual) (0.8-7.0) % Basophils % (Manual) (0.2-1.2) Platelet Estimate RBC Morph Comment PT (9.7-12.0) SECONDS INR D-Dimer, Quantitative (0.19-0.50) mg/L Puncture Site Lt radial ABG pH 7.35 (7.35-7.45) ABG pCO2 38.2 (35.0-45.0) mmHg ABG pO2 75.0 L (80.0-100.0) mmHg ABG HCO3 20.5 L (22.0-26.0) meq/L ABG O2 Saturation 94.4 L (96.0-97.0) % ABG Base Excess -4.2 L (-2-2.0) Joo Test Positive A-a Gradient 105 mmHg O2 Delivery Device Nasal cannula Oxygen Flow Rate 3.0 FiO2 32.00 (21.00-100.00) % Sodium (136-145) mEq/L Potassium (3.5-5.1) mEq/L Chloride (98-107) mEq/L Carbon Dioxide (21-32) mEq/L Anion Gap (5-15) BUN (7-18) mg/dL Creatinine (0.7-1.3) mg/dL Est Cr Clr Drug Dosing mL/min Estimated GFR (MDRD) (>60) mL/min BUN/Creatinine Ratio (14-18) Glucose (80-115) mg/dL POC Glucose (80-115) mg/dL Hemoglobin A1c ( - 5.6) % Lactic Acid (0.4-2.0) mmol/L Calcium (8.5-10.1) mg/dL Phosphorus (2.6-4.7) mg/dL Magnesium 2.0 (1.8-2.4) mg/dl Ferritin (26-388) ng/ml Total Bilirubin (0.2-1.0) mg/dL AST (15-37) U/L ALT (16-63) U/L Alkaline Phosphatase (46-116) U/L Lactate Dehydrogenase 284 H (85-227) U/L Troponin I 0.023 (0.00-0.056) ng/mL C-Reactive Protein (<1.0) mg/dL NT-Pro-B Natriuret Pep 81 (0-125) pg/mL Total Protein (6.4-8.2) g/dl Albumin (3.4-5.0) g/dl Globulin gm/dL Albumin/Globulin Ratio (1-2) Influenza Type A RNA (NEGATIVE) Influenza Type B RNA (NEGATIVE) SARS-CoV-2 RNA (MARVIN) (NEGATIVE) 11/23/20 11/23/20 11/23/20 Range/Units 06:30 06:32 06:32 WBC 3.17 L (4.23-9.07) K/mm3 RBC 4.72 (4.63-6.08) M/mm3 Hgb 14.1 (13.7-17.5) gm/dl Hct 43.1 (40.1-51.0) % MCV 91.3 (79.0-92.2) fl MCH 29.9 (25.7-32.2) pg MCHC 32.7 (32.2-35.5) g/dl RDW Std Deviation 47.1 H (35.1-43.9) fL Plt Count 150 L (163-337) K/mm3 MPV 9.7 (9.4-12.3) fl Neut % (Auto) 72.9 H (34.0-67.9) % Lymph % (Auto) 19.9 L (21.8-53.1) % [place] % (Auto) 6.6 (5.3-12.2) % Eos % (Auto) 0.3 L (0.8-7.0) Baso % (Auto) 0.0 L (0.1-1.2) % Neut # (Auto) 2.31 (1.78-5.38) K/mm3 Lymph # (Auto) 0.63 L (1.32-3.57) K/mm3 [place] # (Auto) 0.21 L (0.30-0.82) K/mm3 Eos # (Auto) 0.01 L (0.04-0.54) K/mm3 Baso # (Auto) 0.00 L (0.01-0.08) K/mm3 Neutrophils % (Manual) (40-60) % Band Neutrophils % (0-10) % Lymphocytes % (Manual) (20-40) % Atypical Lymphs % % Monocytes % (Manual) (2-10) % Eosinophils % (Manual) (0.8-7.0) % Basophils % (Manual) (0.2-1.2) Platelet Estimate RBC Morph Comment PT (9.7-12.0) SECONDS INR D-Dimer, Quantitative 0.45 (0.19-0.50) mg/L Puncture Site ABG pH (7.35-7.45) ABG pCO2 (35.0-45.0) mmHg ABG pO2 (80.0-100.0) mmHg ABG HCO3 (22.0-26.0) meq/L ABG O2 Saturation (96.0-97.0) % ABG Base Excess (-2-2.0) Joo Test A-a Gradient mmHg O2 Delivery Device Oxygen Flow Rate FiO2 (21.00-100.00) % Sodium (136-145) mEq/L Potassium (3.5-5.1) mEq/L Chloride (98-107) mEq/L Carbon Dioxide (21-32) mEq/L Anion Gap (5-15) BUN (7-18) mg/dL Creatinine (0.7-1.3) mg/dL Est Cr Clr Drug Dosing mL/min Estimated GFR (MDRD) (>60) mL/min BUN/Creatinine Ratio (14-18) Glucose (80-115) mg/dL POC Glucose (80-115) mg/dL Hemoglobin A1c 7.8 H ( - 5.6) % Lactic Acid (0.4-2.0) mmol/L Calcium (8.5-10.1) mg/dL Phosphorus (2.6-4.7) mg/dL Magnesium (1.8-2.4) mg/dl Ferritin (26-388) ng/ml Total Bilirubin (0.2-1.0) mg/dL AST (15-37) U/L ALT (16-63) U/L Alkaline Phosphatase (46-116) U/L Lactate Dehydrogenase (85-227) U/L Troponin I (0.00-0.056) ng/mL C-Reactive Protein (<1.0) mg/dL NT-Pro-B Natriuret Pep (0-125) pg/mL Total Protein (6.4-8.2) g/dl Albumin (3.4-5.0) g/dl Globulin gm/dL Albumin/Globulin Ratio (1-2) Influenza Type A RNA (NEGATIVE) Influenza Type B RNA (NEGATIVE) SARS-CoV-2 RNA (MARVIN) (NEGATIVE) 11/23/20 11/23/20 Range/Units 06:32 12:06 WBC (4.23-9.07) K/mm3 RBC (4.63-6.08) M/mm3 Hgb (13.7-17.5) gm/dl Hct (40.1-51.0) % MCV (79.0-92.2) fl MCH (25.7-32.2) pg MCHC (32.2-35.5) g/dl RDW Std Deviation (35.1-43.9) fL Plt Count (163-337) K/mm3 MPV (9.4-12.3) fl Neut % (Auto) (34.0-67.9) % Lymph % (Auto) (21.8-53.1) % [place] % (Auto) (5.3-12.2) % Eos % (Auto) (0.8-7.0) Baso % (Auto) (0.1-1.2) % Neut # (Auto) (1.78-5.38) K/mm3 Lymph # (Auto) (1.32-3.57) K/mm3 [place] # (Auto) (0.30-0.82) K/mm3 Eos # (Auto) (0.04-0.54) K/mm3 Baso # (Auto) (0.01-0.08) K/mm3 Neutrophils % (Manual) (40-60) % Band Neutrophils % (0-10) % Lymphocytes % (Manual) (20-40) % Atypical Lymphs % % Monocytes % (Manual) (2-10) % Eosinophils % (Manual) (0.8-7.0) % Basophils % (Manual) (0.2-1.2) Platelet Estimate RBC Morph Comment PT (9.7-12.0) SECONDS INR D-Dimer, Quantitative (0.19-0.50) mg/L Puncture Site ABG pH (7.35-7.45) ABG pCO2 (35.0-45.0) mmHg ABG pO2 (80.0-100.0) mmHg ABG HCO3 (22.0-26.0) meq/L ABG O2 Saturation (96.0-97.0) % ABG Base Excess (-2-2.0) Joo Test A-a Gradient mmHg O2 Delivery Device Oxygen Flow Rate FiO2 (21.00-100.00) % Sodium 139 (136-145) mEq/L Potassium 5.1 (3.5-5.1) mEq/L Chloride 104 (98-107) mEq/L Carbon Dioxide 24 (21-32) mEq/L Anion Gap 16.1 H (5-15) BUN 21 H (7-18) mg/dL Creatinine 1.0 (0.7-1.3) mg/dL Est Cr Clr Drug Dosing 86.77 mL/min Estimated GFR (MDRD) > 60 (>60) mL/min BUN/Creatinine Ratio 21.0 H (14-18) Glucose 208 H (80-115) mg/dL POC Glucose 308 H (80-115) mg/dL Hemoglobin A1c ( - 5.6) % Lactic Acid (0.4-2.0) mmol/L Calcium 8.1 L (8.5-10.1) mg/dL Phosphorus 3.6 (2.6-4.7) mg/dL Magnesium 2.2 (1.8-2.4) mg/dl Ferritin (26-388) ng/ml Total Bilirubin 0.5 (0.2-1.0) mg/dL AST 27 (15-37) U/L ALT 25 (16-63) U/L Alkaline Phosphatase 68 (46-116) U/L Lactate Dehydrogenase (85-227) U/L Troponin I (0.00-0.056) ng/mL C-Reactive Protein 7.7 H* (<1.0) mg/dL NT-Pro-B Natriuret Pep (0-125) pg/mL Total Protein 7.9 (6.4-8.2) g/dl Albumin 3.1 L (3.4-5.0) g/dl Globulin 4.8 gm/dL Albumin/Globulin Ratio 0.7 L (1-2) Influenza Type A RNA (NEGATIVE) Influenza Type B RNA (NEGATIVE) SARS-CoV-2 RNA (MARVIN) (NEGATIVE) Med Orders - Current: Current Medications Acetaminophen (Tylenol) 650 mg PO Q4H PRN PRN Reason: Pain (Mild 1-3)/fever Last Admin: 11/22/20 23:50 Dose: 650 mg Documented by: Albuterol/Ipratropium (Duoneb 3.0-0.5 Mg/3 Ml) 3 ml NEB Q4H PRN PRN Reason: Shortness Of Breath/wheezing Apixaban (Eliquis) 5 mg PO BID [facility] Last Admin: 11/23/20 09:11 Dose: 5 mg Documented by: Aspirin (Halfprin) 81 mg PO DAILY [facility] Last Admin: 11/23/20 09:21 Dose: 81 mg Documented by: Cholecalciferol (Vitamin D3) 5,000 unit PO DAILY [facility] Last Admin: 11/23/20 09:11 Dose: 5,000 unit Documented by: Clopidogrel Bisulfate (Plavix) 75 mg PO DAILY [facility] Last Admin: 11/23/20 09:22 Dose: 75 mg Documented by: Dexamethasone (Dexamethasone) 6 mg PO DAILY [facility] Stop: 12/01/20 09:01 Last Admin: 11/23/20 09:12 Dose: 6 mg Documented by: Famotidine (Pepcid) 20 mg PO BID [facility] Last Admin: 11/23/20 09:11 Dose: 20 mg Documented by: Remdesivir 100 mg/ Sodium (Chloride) 100 mls @ 100 mls/hr IV Q24H [facility] Stop: 11/26/20 21:59 Ceftriaxone Sodium 2 gm/ (Sodium Chloride) 100 mls @ 200 mls/hr IV Q24H [facility] Stop: 11/26/20 21:59 Last Admin: 11/22/20 23:45 Dose: 200 mls/hr Documented by: Azithromycin 500 mg/ Sodium (Chloride) 250 mls @ 250 mls/hr IV Q24H [facility] Stop: 11/24/20 21:59 Last Admin: 11/22/20 23:45 Dose: 250 mls/hr Documented by: Tocilizumab 800 mg/ Sodium (Chloride) 100 mls @ 100 mls/hr IV ONETIME ONE Stop: 11/23/20 12:59 Insulin Glargine (Lantus) 7 unit SUBCUT BIDAC [facility] Insulin Human Lispro (Humalog) 0 unit SUBCUT QIDACANDBED [facility]; Protocol Losartan Potassium (Cozaar) 25 mg PO DAILY [facility] Last Admin: 11/23/20 09:22 Dose: 25 mg Documented by: Melatonin (Melatonin) 9 mg PO BEDTIME [facility] Metoprolol Tartrate (Lopressor) 75 mg PO BID [facility] Last Admin: 11/23/20 09:22 Dose: 75 mg Documented by: Rosuvastatin Calcium (Crestor) 10 mg PO DAILY [facility] Last Admin: 11/23/20 09:21 Dose: 10 mg Documented by: Sertraline HCl (Zoloft) 50 mg PO DAILY [facility] Last Admin: 11/23/20 09:21 Dose: 50 mg Documented by: Topiramate (Topamax) 50 mg PO BID [facility] Last Admin: 11/23/20 09:22 Dose: 50 mg Documented by: Zinc Sulfate (Zincate) 220 mg PO DAILY [facility] Last Admin: 11/23/20 09:11 Dose: 220 mg Documented by: Discontinued Medications Remdesivir 200 mg/ Sodium (Chloride) 250 mls @ 250 mls/hr IV ONETIME ONE Stop: 11/22/20 21:09 Last Admin: 11/22/20 23:46 Dose: 250 mls/hr Documented by: Influenza Virus Vaccine (Fluzone Quad Syringe) 60 mcg IM .ONCE ONE Stop: 11/23/20 09:01 Metoprolol Tartrate (Lopressor) 75 mg PO ONETIME ONE Stop: 11/22/20 21:09 Last Admin: 11/22/20 23:47 Dose: 75 mg Documented by: - Exam Quality Assessment: Supplemental Oxygen General: Alert, Oriented HEENT: Pupils Equal, Mucous Membr. Moist/[place] Neck: Supple Lungs: Normal Respiratory Effort, Crackles (Bibasilar) Cardiovascular: Regular Rate, Irregular Rhythm GI/Abdominal Exam: Normal Bowel Sounds, Soft, Non-Tender, No Organomegaly, No Distention Extremities: Normal Inspection, Normal Range of Motion, Non-Tender, No Pedal Edema, Normal Capillary Refill Peripheral Pulses: 2+: Posterior Tibial (L), Posterior Tibial (R), Dorsalis Pedis (L), Dorsalis Pedis (R) Skin: Warm, Dry, Intact Psy/Mental Status: Alert, Normal Affect, Normal Mood - Patient Data Lab Results Last 24 hrs: Laboratory Results - last 24 hr 11/22/20 11/22/20 11/22/20 Range/Units 18:00 18:18 18:18 WBC 3.68 L (4.23-9.07) K/mm3 RBC 4.83 (4.63-6.08) M/mm3 Hgb 14.4 (13.7-17.5) gm/dl Hct 43.3 (40.1-51.0) % MCV 89.6 (79.0-92.2) fl MCH 29.8 (25.7-32.2) pg MCHC 33.3 (32.2-35.5) g/dl RDW Std Deviation 46.1 H (35.1-43.9) fL Plt Count 158 L (163-337) K/mm3 MPV 9.5 (9.4-12.3) fl Neut % (Auto) (34.0-67.9) % Lymph % (Auto) (21.8-53.1) % [place] % (Auto) (5.3-12.2) % Eos % (Auto) (0.8-7.0) Baso % (Auto) (0.1-1.2) % Neut # (Auto) (1.78-5.38) K/mm3 Lymph # (Auto) (1.32-3.57) K/mm3 [place] # (Auto) (0.30-0.82) K/mm3 Eos # (Auto) (0.04-0.54) K/mm3 Baso # (Auto) (0.01-0.08) K/mm3 Neutrophils % (Manual) 66 H (40-60) % Band Neutrophils % 1 (0-10) % Lymphocytes % (Manual) 23 (20-40) % Atypical Lymphs % 0 % Monocytes % (Manual) 9 (2-10) % Eosinophils % (Manual) 1 (0.8-7.0) % Basophils % (Manual) 0 L (0.2-1.2) Platelet Estimate Adequate RBC Morph Comment Normal PT 11.3 (9.7-12.0) SECONDS INR 1.06 D-Dimer, Quantitative 0.61 H (0.19-0.50) mg/L Puncture Site ABG pH (7.35-7.45) ABG pCO2 (35.0-45.0) mmHg ABG pO2 (80.0-100.0) mmHg ABG HCO3 (22.0-26.0) meq/L ABG O2 Saturation (96.0-97.0) % ABG Base Excess (-2-2.0) Joo Test A-a Gradient mmHg O2 Delivery Device Oxygen Flow Rate FiO2 (21.00-100.00) % Sodium (136-145) mEq/L Potassium (3.5-5.1) mEq/L Chloride (98-107) mEq/L Carbon Dioxide (21-32) mEq/L Anion Gap (5-15) BUN (7-18) mg/dL Creatinine (0.7-1.3) mg/dL Est Cr Clr Drug Dosing mL/min Estimated GFR (MDRD) (>60) mL/min BUN/Creatinine Ratio (14-18) Glucose (80-115) mg/dL POC Glucose (80-115) mg/dL Hemoglobin A1c ( - 5.6) % Lactic Acid (0.4-2.0) mmol/L Calcium (8.5-10.1) mg/dL Phosphorus (2.6-4.7) mg/dL Magnesium (1.8-2.4) mg/dl Ferritin (26-388) ng/ml Total Bilirubin (0.2-1.0) mg/dL AST (15-37) U/L ALT (16-63) U/L Alkaline Phosphatase (46-116) U/L Lactate Dehydrogenase (85-227) U/L Troponin I (0.00-0.056) ng/mL C-Reactive Protein (<1.0) mg/dL NT-Pro-B Natriuret Pep (0-125) pg/mL Total Protein (6.4-8.2) g/dl Albumin (3.4-5.0) g/dl Globulin gm/dL Albumin/Globulin Ratio (1-2) Influenza Type A RNA Negative (NEGATIVE) Influenza Type B RNA Negative (NEGATIVE) SARS-CoV-2 RNA (MARVIN) Positive H (NEGATIVE) 11/22/20 11/22/20 11/22/20 Range/Units 18:18 18:18 18:18 WBC (4.23-9.07) K/mm3 RBC (4.63-6.08) M/mm3 Hgb (13.7-17.5) gm/dl Hct (40.1-51.0) % MCV (79.0-92.2) fl MCH (25.7-32.2) pg MCHC (32.2-35.5) g/dl RDW Std Deviation (35.1-43.9) fL Plt Count (163-337) K/mm3 MPV (9.4-12.3) fl Neut % (Auto) (34.0-67.9) % Lymph % (Auto) (21.8-53.1) % [place] % (Auto) (5.3-12.2) % Eos % (Auto) (0.8-7.0) Baso % (Auto) (0.1-1.2) % Neut # (Auto) (1.78-5.38) K/mm3 Lymph # (Auto) (1.32-3.57) K/mm3 [place] # (Auto) (0.30-0.82) K/mm3 Eos # (Auto) (0.04-0.54) K/mm3 Baso # (Auto) (0.01-0.08) K/mm3 Neutrophils % (Manual) (40-60) % Band Neutrophils % (0-10) % Lymphocytes % (Manual) (20-40) % Atypical Lymphs % % Monocytes % (Manual) (2-10) % Eosinophils % (Manual) (0.8-7.0) % Basophils % (Manual) (0.2-1.2) Platelet Estimate RBC Morph Comment PT (9.7-12.0) SECONDS INR D-Dimer, Quantitative (0.19-0.50) mg/L Puncture Site ABG pH (7.35-7.45) ABG pCO2 (35.0-45.0) mmHg ABG pO2 (80.0-100.0) mmHg ABG HCO3 (22.0-26.0) meq/L ABG O2 Saturation (96.0-97.0) % ABG Base Excess (-2-2.0) Joo Test A-a Gradient mmHg O2 Delivery Device Oxygen Flow Rate FiO2 (21.00-100.00) % Sodium 139 (136-145) mEq/L Potassium 4.0 (3.5-5.1) mEq/L Chloride 102 (98-107) mEq/L Carbon Dioxide 21 (21-32) mEq/L Anion Gap 20.0 H (5-15) BUN 20 H (7-18) mg/dL Creatinine 1.0 (0.7-1.3) mg/dL Est Cr Clr Drug Dosing 86.77 mL/min Estimated GFR (MDRD) > 60 (>60) mL/min BUN/Creatinine Ratio 20.0 H (14-18) Glucose 147 H (80-115) mg/dL POC Glucose (80-115) mg/dL Hemoglobin A1c ( - 5.6) % Lactic Acid 0.9 (0.4-2.0) mmol/L Calcium 8.3 L (8.5-10.1) mg/dL Phosphorus (2.6-4.7) mg/dL Magnesium (1.8-2.4) mg/dl Ferritin 659 H (26-388) ng/ml Total Bilirubin 0.6 (0.2-1.0) mg/dL AST 23 (15-37) U/L ALT 21 (16-63) U/L Alkaline Phosphatase 74 (46-116) U/L Lactate Dehydrogenase (85-227) U/L Troponin I (0.00-0.056) ng/mL C-Reactive Protein 6.6 H* (<1.0) mg/dL NT-Pro-B Natriuret Pep (0-125) pg/mL Total Protein 7.7 (6.4-8.2) g/dl Albumin 3.4 (3.4-5.0) g/dl Globulin 4.3 gm/dL Albumin/Globulin Ratio 0.8 L (1-2) Influenza Type A RNA (NEGATIVE) Influenza Type B RNA (NEGATIVE) SARS-CoV-2 RNA ([facility]) (NEGATIVE) 11/22/20 11/22/20 11/22/20 Range/Units 18:18 18:18 18:30 WBC (4.23-9.07) K/mm3 RBC (4.63-6.08) M/mm3 Hgb (13.7-17.5) gm/dl Hct (40.1-51.0) % MCV (79.0-92.2) fl MCH (25.7-32.2) pg MCHC (32.2-35.5) g/dl RDW Std Deviation (35.1-43.9) fL Plt Count (163-337) K/mm3 MPV (9.4-12.3) fl Neut % (Auto) (34.0-67.9) % Lymph % (Auto) (21.8-53.1) % [place] % (Auto) (5.3-12.2) % Eos % (Auto) (0.8-7.0) Baso % (Auto) (0.1-1.2) % Neut # (Auto) (1.78-5.38) K/mm3 Lymph # (Auto) (1.32-3.57) K/mm3 [place] # (Auto) (0.30-0.82) K/mm3 Eos # (Auto) (0.04-0.54) K/mm3 Baso # (Auto) (0.01-0.08) K/mm3 Neutrophils % (Manual) (40-60) % Band Neutrophils % (0-10) % Lymphocytes % (Manual) (20-40) % Atypical Lymphs % % Monocytes % (Manual) (2-10) % Eosinophils % (Manual) (0.8-7.0) % Basophils % (Manual) (0.2-1.2) Platelet Estimate RBC Morph Comment PT (9.7-12.0) SECONDS INR D-Dimer, Quantitative (0.19-0.50) mg/L Puncture Site Lt radial ABG pH 7.35 (7.35-7.45) ABG pCO2 38.2 (35.0-45.0) mmHg ABG pO2 75.0 L (80.0-100.0) mmHg ABG HCO3 20.5 L (22.0-26.0) meq/L ABG O2 Saturation 94.4 L (96.0-97.0) % ABG Base Excess -4.2 L (-2-2.0) Joo Test Positive A-a Gradient 105 mmHg O2 Delivery Device Nasal cannula Oxygen Flow Rate 3.0 FiO2 32.00 (21.00-100.00) % Sodium (136-145) mEq/L Potassium (3.5-5.1) mEq/L Chloride (98-107) mEq/L Carbon Dioxide (21-32) mEq/L Anion Gap (5-15) BUN (7-18) mg/dL Creatinine (0.7-1.3) mg/dL Est Cr Clr Drug Dosing mL/min Estimated GFR (MDRD) (>60) mL/min BUN/Creatinine Ratio (14-18) Glucose (80-115) mg/dL POC Glucose (80-115) mg/dL Hemoglobin A1c ( - 5.6) % Lactic Acid (0.4-2.0) mmol/L Calcium (8.5-10.1) mg/dL Phosphorus (2.6-4.7) mg/dL Magnesium 2.0 (1.8-2.4) mg/dl Ferritin (26-388) ng/ml Total Bilirubin (0.2-1.0) mg/dL AST (15-37) U/L ALT (16-63) U/L Alkaline Phosphatase (46-116) U/L Lactate Dehydrogenase 284 H (85-227) U/L Troponin I 0.023 (0.00-0.056) ng/mL C-Reactive Protein (<1.0) mg/dL NT-Pro-B Natriuret Pep 81 (0-125) pg/mL Total Protein (6.4-8.2) g/dl Albumin (3.4-5.0) g/dl Globulin gm/dL Albumin/Globulin Ratio (1-2) Influenza Type A RNA (NEGATIVE) Influenza Type B RNA (NEGATIVE) SARS-CoV-2 RNA ([facility]) (NEGATIVE) 11/23/20 11/23/20 11/23/20 Range/Units 06:30 06:32 06:32 WBC 3.17 L (4.23-9.07) K/mm3 RBC 4.72 (4.63-6.08) M/mm3 Hgb 14.1 (13.7-17.5) gm/dl Hct 43.1 (40.1-51.0) % MCV 91.3 (79.0-92.2) fl MCH 29.9 (25.7-32.2) pg MCHC 32.7 (32.2-35.5) g/dl RDW Std Deviation 47.1 H (35.1-43.9) fL Plt Count 150 L (163-337) K/mm3 MPV 9.7 (9.4-12.3) fl Neut % (Auto) 72.9 H (34.0-67.9) % Lymph % (Auto) 19.9 L (21.8-53.1) % [place] % (Auto) 6.6 (5.3-12.2) % Eos % (Auto) 0.3 L (0.8-7.0) Baso % (Auto) 0.0 L (0.1-1.2) % Neut # (Auto) 2.31 (1.78-5.38) K/mm3 Lymph # (Auto) 0.63 L (1.32-3.57) K/mm3 [place] # (Auto) 0.21 L (0.30-0.82) K/mm3 Eos # (Auto) 0.01 L (0.04-0.54) K/mm3 Baso # (Auto) 0.00 L (0.01-0.08) K/mm3 Neutrophils % (Manual) (40-60) % Band Neutrophils % (0-10) % Lymphocytes % (Manual) (20-40) % Atypical Lymphs % % Monocytes % (Manual) (2-10) % Eosinophils % (Manual) (0.8-7.0) % Basophils % (Manual) (0.2-1.2) Platelet Estimate RBC Morph Comment PT (9.7-12.0) SECONDS INR D-Dimer, Quantitative 0.45 (0.19-0.50) mg/L Puncture Site ABG pH (7.35-7.45) ABG pCO2 (35.0-45.0) mmHg ABG pO2 (80.0-100.0) mmHg ABG HCO3 (22.0-26.0) meq/L ABG O2 Saturation (96.0-97.0) % ABG Base Excess (-2-2.0) Joo Test A-a Gradient mmHg O2 Delivery Device Oxygen Flow Rate FiO2 (21.00-100.00) % Sodium (136-145) mEq/L Potassium (3.5-5.1) mEq/L Chloride (98-107) mEq/L Carbon Dioxide (21-32) mEq/L Anion Gap (5-15) BUN (7-18) mg/dL Creatinine (0.7-1.3) mg/dL Est Cr Clr Drug Dosing mL/min Estimated GFR (MDRD) (>60) mL/min BUN/Creatinine Ratio (14-18) Glucose (80-115) mg/dL POC Glucose (80-115) mg/dL Hemoglobin A1c 7.8 H ( - 5.6) % Lactic Acid (0.4-2.0) mmol/L Calcium (8.5-10.1) mg/dL Phosphorus (2.6-4.7) mg/dL Magnesium (1.8-2.4) mg/dl Ferritin (26-388) ng/ml Total Bilirubin (0.2-1.0) mg/dL AST (15-37) U/L ALT (16-63) U/L Alkaline Phosphatase (46-116) U/L Lactate Dehydrogenase (85-227) U/L Troponin I (0.00-0.056) ng/mL C-Reactive Protein (<1.0) mg/dL NT-Pro-B Natriuret Pep (0-125) pg/mL Total Protein (6.4-8.2) g/dl Albumin (3.4-5.0) g/dl Globulin gm/dL Albumin/Globulin Ratio (1-2) Influenza Type A RNA (NEGATIVE) Influenza Type B RNA (NEGATIVE) SARS-CoV-2 RNA (MARVIN) (NEGATIVE) 11/23/20 11/23/20 Range/Units 06:32 12:06 WBC (4.23-9.07) K/mm3 RBC (4.63-6.08) M/mm3 Hgb (13.7-17.5) gm/dl Hct (40.1-51.0) % MCV (79.0-92.2) fl MCH (25.7-32.2) pg MCHC (32.2-35.5) g/dl RDW Std Deviation (35.1-43.9) fL Plt Count (163-337) K/mm3 MPV (9.4-12.3) fl Neut % (Auto) (34.0-67.9) % Lymph % (Auto) (21.8-53.1) % [place] % (Auto) (5.3-12.2) % Eos % (Auto) (0.8-7.0) Baso % (Auto) (0.1-1.2) % Neut # (Auto) (1.78-5.38) K/mm3 Lymph # (Auto) (1.32-3.57) K/mm3 [place] # (Auto) (0.30-0.82) K/mm3 Eos # (Auto) (0.04-0.54) K/mm3 Baso # (Auto) (0.01-0.08) K/mm3 Neutrophils % (Manual) (40-60) % Band Neutrophils % (0-10) % Lymphocytes % (Manual) (20-40) % Atypical Lymphs % % Monocytes % (Manual) (2-10) % Eosinophils % (Manual) (0.8-7.0) % Basophils % (Manual) (0.2-1.2) Platelet Estimate RBC Morph Comment PT (9.7-12.0) SECONDS INR D-Dimer, Quantitative (0.19-0.50) mg/L Puncture Site ABG pH (7.35-7.45) ABG pCO2 (35.0-45.0) mmHg ABG pO2 (80.0-100.0) mmHg ABG HCO3 (22.0-26.0) meq/L ABG O2 Saturation (96.0-97.0) % ABG Base Excess (-2-2.0) Joo Test A-a Gradient mmHg O2 Delivery Device Oxygen Flow Rate FiO2 (21.00-100.00) % Sodium 139 (136-145) mEq/L Potassium 5.1 (3.5-5.1) mEq/L Chloride 104 (98-107) mEq/L Carbon Dioxide 24 (21-32) mEq/L Anion Gap 16.1 H (5-15) BUN 21 H (7-18) mg/dL Creatinine 1.0 (0.7-1.3) mg/dL Est Cr Clr Drug Dosing 86.77 mL/min Estimated GFR (MDRD) > 60 (>60) mL/min BUN/Creatinine Ratio 21.0 H (14-18) Glucose 208 H (80-115) mg/dL POC Glucose 308 H (80-115) mg/dL Hemoglobin A1c ( - 5.6) % Lactic Acid (0.4-2.0) mmol/L Calcium 8.1 L (8.5-10.1) mg/dL Phosphorus 3.6 (2.6-4.7) mg/dL Magnesium 2.2 (1.8-2.4) mg/dl Ferritin (26-388) ng/ml Total Bilirubin 0.5 (0.2-1.0) mg/dL AST 27 (15-37) U/L ALT 25 (16-63) U/L Alkaline Phosphatase 68 (46-116) U/L Lactate Dehydrogenase (85-227) U/L Troponin I (0.00-0.056) ng/mL C-Reactive Protein 7.7 H* (<1.0) mg/dL NT-Pro-B Natriuret Pep (0-125) pg/mL Total Protein 7.9 (6.4-8.2) g/dl Albumin 3.1 L (3.4-5.0) g/dl Globulin 4.8 gm/dL Albumin/Globulin Ratio 0.7 L (1-2) Influenza Type A RNA (NEGATIVE) Influenza Type B RNA (NEGATIVE) SARS-CoV-2 RNA (MARVIN) (NEGATIVE) Result Diagrams: 11/23/20 06:32 11/23/20 06:32 Sepsis Event Note - Evaluation Sepsis Screening Result: No Definite Risk - Focused Exam Vital Signs: Vital Signs Temp Pulse Resp BP Pulse Ox 11/23/20 09:22 80 136/81 11/23/20 03:22 98.2 F 78 18 116/76 93 L - Problem List & Annotations (1) Coronary artery disease SNOMED Code(s): 59356150 Code(s): I25.10 - ATHSCL HEART DISEASE OF [place] CORONARY ARTERY W/O ANG PCTRS Status: Acute Current Visit: Yes (2) Atrial fibrillation with RVR SNOMED Code(s): 701971842124573 Code(s): I48.91 - UNSPECIFIED ATRIAL FIBRILLATION Status: Acute Current Visit: Yes (3) Diabetes mellitus SNOMED Code(s): 19702054 Code(s): E11.9 - TYPE 2 DIABETES MELLITUS WITHOUT COMPLICATIONS Status: Acute Current Visit: Yes (4) Acute hypoxemic respiratory failure due to COVID-19 SNOMED Code(s): 467401655 Code(s): U07.1 - COVID-19; J96.01 - ACUTE RESPIRATORY FAILURE WITH HYPOXIA Status: Acute Current Visit: Yes (5) COVID-19 SNOMED Code(s): 486497316 Code(s): U07.1 - COVID-19 Status: Acute Current Visit: Yes - Problem List Review Problem List Initiated/Reviewed/Updated: Yes - My Orders Last 24 Hours: My Active Orders 11/22/20 18:38 PROCALCITONIN [REF] Stat 11/22/20 21:00 Azithromycin [Zithromax] 500 mg Sodium Chloride 0.9% [Normal Saline (AdvBag)] 250 ml IV Q24H 11/22/20 21:08 Oxygen Therapy [RC] PRN Up ad Es [RC] ASDIRECTED VTE/DVT Education [RC] PER UNIT ROUTINE Vital Signs [RC] Q4HR Acetaminophen [TylenoL] 650 mg PO Q4H PRN Albuterol/Ipratropium [DuoNeb 3.0-0.5 MG/3 ML] 3 ml NEB Q4H PRN Resuscitation Status Routine 11/22/20 21:09 Pulse Oximetry [RC] CONTINUOUS 11/22/20 21:14 Positioning, Patient [RC] ASDIRECTED 11/22/20 21:15 dexAMETHasone 6 mg PO DAILY 11/22/20 21:16 RT Aerosol Therapy [RC] ASDIRECTED 11/22/20 21:17 RT Chest Physiotherapy [RC] ASDIRECTED RT Incentive Spirometry [RC] ASDIRECTED 11/22/20 21:27 Influenza Vaccine Charge [RC] .DISCHARGE 11/22/20 21:30 Famotidine [Pepcid] 20 mg PO BID cefTRIAXone [Rocephin] 2 gm Sodium Chloride 0.9% [Normal Saline] 100 ml IV Q24H 11/22/20 21:45 Apixaban [Eliquis] 5 mg PO BID 11/23/20 Breakfast Regular Diet [DIET] 11/23/20 09:00 Aspirin [Halfprin] 81 mg PO DAILY Cholecalciferol (Vitamin D3) [Vitamin D3] 5,000 unit PO DAILY Clopidogrel [Plavix] 75 mg PO DAILY Losartan [Cozaar] 25 mg PO DAILY Metoprolol Tartrate [Lopressor] 75 mg PO BID Rosuvastatin [Crestor] 10 mg PO DAILY Sertraline [Zoloft] 50 mg PO DAILY Topiramate [Topamax] 50 mg PO BID Zinc Sulfate [Zincate] 220 mg PO DAILY 11/23/20 09:54 Blood Glucose Check, Bedside [RC] WITHMEALSANDBED 11/23/20 11:00 Insulin Lispro [HumaLOG] See Protocol SUBCUT QIDACANDBED 11/23/20 12:00 Tocilizumab [Actemra] 800 mg Sodium Chloride 0.9% [Normal Saline] 60 ml IV ONETIME 11/23/20 16:00 Insulin Glarg,Human.Rec.Analog [LantUS] 7 unit SUBCUT BIDAC 11/23/20 21:00 Melatonin 9 mg PO BEDTIME Remdesivir 100 mg Sodium Chloride 0.9% [Normal Saline] 100 ml IV Q24H 11/24/20 05:11 C-REACTIVE PROTEIN [CHEM] AM CBC WITH AUTO DIFF [HEME] AM CMP [COMPREHENSIVE METABOLIC PN,CMP] [CHEM] AM MAGNESIUM [CHEM] AM 11/25/20 05:11 C-REACTIVE PROTEIN [CHEM] AM CBC WITH AUTO DIFF [HEME] AM CMP [COMPREHENSIVE METABOLIC PN,CMP] [CHEM] AM MAGNESIUM [CHEM] AM - Plan Plan:: 11/22/2020 Assessment 65-year-old male with history of coronary artery bypass and CAD, new onset atrial fibrillation, type 2 diabetes, obesity, presents to the emergency department after 6 days of feeling poorly and diagnosed with COVID-19. Unfortunately, this puts him at high risk for complications because of his multiple comorbidities. COVID-19 pneumonia with hypoxemia * Patient presented to the emergency department with oxygen saturations at 83% on room air * He required 2 to 3 L of FiO2 via nasal cannula to get saturations in the low 90s. * C-reactive protein was elevated at 6.6, ferritin 659, D-dimer slightly elevated at 0.61, white count low at 3.7. * Fortunately patient is a never smoker. No history of lung disease. New onset atrial fibrillation History of coronary artery disease with bypass graft * Patient did not take his metoprolol this morning and therefore his heart rate was above 100 with A. fib RVR * Patient is normally on metoprolol 75 mg twice daily. * Troponin and BNP was normal. Type 2 diabetes * Moderate control with his last hemoglobin A1c from November 14 of 7.5% * On for oral medications to control his blood sugars Other medical problems include depression, elevated PSA with BPH, hypertension, obesity, sleep apnea, kidney stones Plan * Admit to medical floor on telemetry * Continuous pulse ox * Remdesivir for 5 days loading dose today * Dexamethasone x10 days * Rocephin 2 g daily for 5 days for COVID-19 pneumonia * Azithromycin 500 mg daily for 3 days * Pepcid, melatonin, zinc, vitamin D. All of them have shown mixed results on treatment of COVID-19 but unlikely to cause any harm. * Encourage prone positioning when awake and asleep * Convalescent plasma has not shown improvement in outcomes will therefore hold on the treatment with convalescent plasma * FiO2 to keep SPO2 between 88 and 94%. * Follow blood sugars closely and likely start long-acting insulin * Stop home oral blood sugar medications because of inconsistencies with absorption and p.o. intake when hospitalized with COVID-19 * Blood sugars will likely worsen secondary to dexamethasone. * Sliding scale insulin * Fingerstick blood sugar 4 times a day * Follow CBC, CMP, magnesium, D-dimer, CRP * Actemra 800 mg if available * Patient is at very high risk for complications secondary to his multiple comorbidities * Start Eliquis 5 mg twice daily for his new onset A. fib * Echocardiogram on Wednesday since it is not available over the weekend * Patient is likely rate controlled on his metoprolol twice daily will start it as soon as pharmacy approves it * VTE prophylaxis will be with Eliquis * CODE STATUS full code 11/23/2020 No significant change in oxygenation overnight. We will continue on COVID-19 treatment as outlined above. We will be able to obtain Actemra 800 mg for today. Patient's blood sugars are increased so we will add Lantus 7 units twice daily for today but will likely need to increase that substantially over the next few days. Continue with sliding scale insulin and 4 times daily finger blood sugars. D-dimer did decrease to normal which is reassuring. C-reactive protein unfortunately increased to 7.7. Other lab work is not substantially different from yesterday. Patient's rate has been controlled on the metoprolol 75 mg twice daily. Echocardiogram on Wednesday. Appetite so far is good. No significant change overnight.
[2020-11-23] MEDS ORDERED: Insulin Glarg,Human.Rec.Analog 100 Unit/ML SUBCUT SCH (16:00)
[2020-11-23] MEDS: REMDESIVIR 100 MG in Sodium Chloride 0.9% 100 ML IV SCH (20:57)
[2020-11-23] MEDS: cefTRIAXone 2 GM in Sodium Chloride 0.9% 100 ML IV SCH (21:00)
[2020-11-23] MEDS: Azithromycin 500 MG in Sodium Chloride 0.9% 250 ML IV SCH (21:01)
[2020-11-23] MEDS: Melatonin 3 MG Tab PO SCH (21:04)
[2020-11-24] MEDS: Insulin Glarg,Human.Rec.Analog 100 Unit/ML SUBCUT SCH ×2 (06:52→16:30)
[2020-11-24] MEDS: Rosuvastatin 10 MG Tab PO SCH (08:06)
[2020-11-24] MEDS: Metoprolol Tartrate 25 MG Tab PO SCH ×2 (08:06→21:31)
[2020-11-24] MEDS: Zinc Sulfate 220 MG Cap PO SCH (08:07)
[2020-11-24] MEDS: Sertraline 50 MG Tab PO SCH (08:07)
[2020-11-24] MEDS: Cholecalciferol (Vitamin D3) 5,000 UNIT Cap PO SCH (08:07)
[2020-11-24] MEDS: Losartan 25 MG Tab PO SCH (08:07)
[2020-11-24] MEDS: Aspirin 81 MG Tab.EC PO SCH (08:08)
[2020-11-24] MEDS: Famotidine 20 MG Tab PO SCH ×2 (08:08→21:30)
[2020-11-24] MEDS: Topiramate 25 MG Tab PO SCH ×2 (08:08→21:31)
[2020-11-24] MEDS: Dexamethasone 4 MG Tab PO SCH (08:08)
[2020-11-24] MEDS: Clopidogrel 75 MG Tab PO SCH (08:09)
[2020-11-24] MEDS: Apixaban 5 MG Tab PO SCH ×2 (08:09→21:32)
--- NOTE | 2020-11-24 11:23 | PCM.PN ---
- General Info Date of Service: 11/24/20 Admission Dx/Problem (Free Text): Admission Diagnosis/Problem Admission Diagnosis/Problem Hypoxia Subjective Update: Patient states that he continues to feel well. Appetite is good but his blood sugars have been poorly controlled. On review of his diet he is on a regular diet and this morning he was given 2 apple juices. Adjustments are already been made to his insulin and diet. Otherwise patient states he is feeling better. Functional Status: Reports: Pain Controlled - Review of Systems General: Reports: No Symptoms HEENT: Reports: No Symptoms Pulmonary: Reports: No Symptoms Cardiovascular: Reports: No Symptoms Gastrointestinal: Reports: No Symptoms Musculoskeletal: Reports: No Symptoms Neurological: Reports: No Symptoms Psychiatric: Reports: No Symptoms - Patient Data Vitals - Most Recent: Last Vital Signs Temp 98.1 F 11/24/20 10:40 Pulse 74 11/24/20 10:40 Resp 20 11/24/20 10:40 BP 100/69 11/24/20 10:40 Pulse Ox 94 L 11/24/20 10:40 Weight - Most Recent: 288 lb 14.4 oz I&O - Last 24 Hours: Intake & Output 11/23/20 11/24/20 11/24/20 22:59 06:59 14:59 Intake Total 2330 2250 120 Output Total 2000 2100 Balance 330 150 120 Lab Results Last 24 Hours: Laboratory Results - last 24 hr 11/23/20 11/23/20 11/23/20 Range/Units 12:06 17:20 21:22 WBC (4.23-9.07) K/mm3 RBC (4.63-6.08) M/mm3 Hgb (13.7-17.5) gm/dl Hct (40.1-51.0) % MCV (79.0-92.2) fl MCH (25.7-32.2) pg MCHC (32.2-35.5) g/dl RDW Std Deviation (35.1-43.9) fL Plt Count (163-337) K/mm3 MPV (9.4-12.3) fl Neut % (Auto) (34.0-67.9) % Lymph % (Auto) (21.8-53.1) % [place] % (Auto) (5.3-12.2) % Eos % (Auto) (0.8-7.0) Baso % (Auto) (0.1-1.2) % Neut # (Auto) (1.78-5.38) K/mm3 Lymph # (Auto) (1.32-3.57) K/mm3 [place] # (Auto) (0.30-0.82) K/mm3 Eos # (Auto) (0.04-0.54) K/mm3 Baso # (Auto) (0.01-0.08) K/mm3 Sodium (136-145) mEq/L Potassium (3.5-5.1) mEq/L Chloride (98-107) mEq/L Carbon Dioxide (21-32) mEq/L Anion Gap (5-15) BUN (7-18) mg/dL Creatinine (0.7-1.3) mg/dL Est Cr Clr Drug Dosing mL/min Estimated GFR (MDRD) (>60) mL/min BUN/Creatinine Ratio (14-18) Glucose 412 H (80-115) mg/dL POC Glucose 308 H 336 H (80-115) mg/dL Calcium (8.5-10.1) mg/dL Magnesium (1.8-2.4) mg/dl Total Bilirubin (0.2-1.0) mg/dL AST (15-37) U/L ALT (16-63) U/L Alkaline Phosphatase (46-116) U/L C-Reactive Protein (<1.0) mg/dL Total Protein (6.4-8.2) g/dl Albumin (3.4-5.0) g/dl Globulin gm/dL Albumin/Globulin Ratio (1-2) 11/24/20 11/24/20 11/24/20 Range/Units 06:20 06:20 06:30 WBC 3.52 L (4.23-9.07) K/mm3 RBC 4.56 L (4.63-6.08) M/mm3 Hgb 13.5 L (13.7-17.5) gm/dl Hct 41.3 (40.1-51.0) % MCV 90.6 (79.0-92.2) fl MCH 29.6 (25.7-32.2) pg MCHC 32.7 (32.2-35.5) g/dl RDW Std Deviation 46.1 H (35.1-43.9) fL Plt Count 173 (163-337) K/mm3 MPV 9.6 (9.4-12.3) fl Neut % (Auto) 72.7 H (34.0-67.9) % Lymph % (Auto) 17.6 L (21.8-53.1) % [place] % (Auto) 9.1 (5.3-12.2) % Eos % (Auto) 0.3 L (0.8-7.0) Baso % (Auto) 0.0 L (0.1-1.2) % Neut # (Auto) 2.56 (1.78-5.38) K/mm3 Lymph # (Auto) 0.62 L (1.32-3.57) K/mm3 [place] # (Auto) 0.32 (0.30-0.82) K/mm3 Eos # (Auto) 0.01 L (0.04-0.54) K/mm3 Baso # (Auto) 0.00 L (0.01-0.08) K/mm3 Sodium 141 (136-145) mEq/L Potassium 5.2 H (3.5-5.1) mEq/L Chloride 106 (98-107) mEq/L Carbon Dioxide 25 (21-32) mEq/L Anion Gap 15.2 H (5-15) BUN 33 H (7-18) mg/dL Creatinine 1.1 (0.7-1.3) mg/dL Est Cr Clr Drug Dosing 78.88 mL/min Estimated GFR (MDRD) > 60 (>60) mL/min BUN/Creatinine Ratio 30.0 H (14-18) Glucose 293 H (80-115) mg/dL POC Glucose 293 H (80-115) mg/dL Calcium 8.6 (8.5-10.1) mg/dL Magnesium 2.5 H (1.8-2.4) mg/dl Total Bilirubin 0.3 (0.2-1.0) mg/dL AST 19 (15-37) U/L ALT 27 (16-63) U/L Alkaline Phosphatase 61 (46-116) U/L C-Reactive Protein 4.5 H* (<1.0) mg/dL Total Protein 6.9 (6.4-8.2) g/dl Albumin 2.8 L (3.4-5.0) g/dl Globulin 4.1 gm/dL Albumin/Globulin Ratio 0.7 L (1-2) 11/24/20 Range/Units 11:08 WBC (4.23-9.07) K/mm3 RBC (4.63-6.08) M/mm3 Hgb (13.7-17.5) gm/dl Hct (40.1-51.0) % MCV (79.0-92.2) fl MCH (25.7-32.2) pg MCHC (32.2-35.5) g/dl RDW Std Deviation (35.1-43.9) fL Plt Count (163-337) K/mm3 MPV (9.4-12.3) fl Neut % (Auto) (34.0-67.9) % Lymph % (Auto) (21.8-53.1) % [place] % (Auto) (5.3-12.2) % Eos % (Auto) (0.8-7.0) Baso % (Auto) (0.1-1.2) % Neut # (Auto) (1.78-5.38) K/mm3 Lymph # (Auto) (1.32-3.57) K/mm3 [place] # (Auto) (0.30-0.82) K/mm3 Eos # (Auto) (0.04-0.54) K/mm3 Baso # (Auto) (0.01-0.08) K/mm3 Sodium (136-145) mEq/L Potassium (3.5-5.1) mEq/L Chloride (98-107) mEq/L Carbon Dioxide (21-32) mEq/L Anion Gap (5-15) BUN (7-18) mg/dL Creatinine (0.7-1.3) mg/dL Est Cr Clr Drug Dosing mL/min Estimated GFR (MDRD) (>60) mL/min BUN/Creatinine Ratio (14-18) Glucose (80-115) mg/dL POC Glucose 301 H (80-115) mg/dL Calcium (8.5-10.1) mg/dL Magnesium (1.8-2.4) mg/dl Total Bilirubin (0.2-1.0) mg/dL AST (15-37) U/L ALT (16-63) U/L Alkaline Phosphatase (46-116) U/L C-Reactive Protein (<1.0) mg/dL Total Protein (6.4-8.2) g/dl Albumin (3.4-5.0) g/dl Globulin gm/dL Albumin/Globulin Ratio (1-2) Arnol Results Last 24 Hours: Microbiology 11/22/20 18:18 Aerobic Blood Culture - Preliminary Blood - Venous NO GROWTH AFTER 1 DAY Anaerobic Blood Culture - Preliminary NO GROWTH AFTER 1 DAY Med Orders - Current: Current Medications Acetaminophen (Tylenol) 650 mg PO Q4H PRN PRN Reason: Pain (Mild 1-3)/fever Last Admin: 11/22/20 23:50 Dose: 650 mg Documented by: Albuterol/Ipratropium (Duoneb 3.0-0.5 Mg/3 Ml) 3 ml NEB Q4H PRN PRN Reason: Shortness Of Breath/wheezing Apixaban (Eliquis) 5 mg PO BID [facility] Last Admin: 11/24/20 08:09 Dose: 5 mg Documented by: Aspirin (Halfprin) 81 mg PO DAILY [facility] Last Admin: 11/24/20 08:08 Dose: 81 mg Documented by: Cholecalciferol (Vitamin D3) 5,000 unit PO DAILY [facility] Last Admin: 11/24/20 08:07 Dose: 5,000 unit Documented by: Clopidogrel Bisulfate (Plavix) 75 mg PO DAILY [facility] Last Admin: 11/24/20 08:09 Dose: 75 mg Documented by: Dexamethasone (Dexamethasone) 6 mg PO DAILY [facility] Stop: 12/01/20 09:01 Last Admin: 11/24/20 08:08 Dose: 6 mg Documented by: Famotidine (Pepcid) 20 mg PO BID [facility] Last Admin: 11/24/20 08:08 Dose: 20 mg Documented by: Remdesivir 100 mg/ Sodium (Chloride) 100 mls @ 100 mls/hr IV Q24H [facility] Stop: 11/26/20 21:59 Last Admin: 11/23/20 20:57 Dose: 100 mls/hr Documented by: Ceftriaxone Sodium 2 gm/ (Sodium Chloride) 100 mls @ 200 mls/hr IV Q24H [facility] Stop: 11/26/20 21:59 Last Admin: 11/23/20 21:00 Dose: 200 mls/hr Documented by: Azithromycin 500 mg/ Sodium (Chloride) 250 mls @ 250 mls/hr IV Q24H [facility] Stop: 11/24/20 21:59 Last Admin: 11/23/20 21:01 Dose: 250 mls/hr Documented by: Tocilizumab 300 mg/ Sodium (Chloride) 100 mls @ 100 mls/hr IV ONETIME ONE Stop: 11/24/20 14:29 Insulin Glargine (Lantus) 12 unit SUBCUT BIDAC [facility] Last Admin: 11/24/20 06:52 Dose: 12 units Documented by: Insulin Human Lispro (Humalog) 0 unit SUBCUT QIDACANDBED [facility]; Protocol Last Admin: 11/24/20 08:09 Dose: 9 units Documented by: Insulin Human Lispro (Humalog) 5 unit SUBCUT TIDAC [facility] Last Admin: 11/24/20 08:09 Dose: 5 units Documented by: Losartan Potassium (Cozaar) 25 mg PO DAILY [facility] Last Admin: 11/24/20 08:07 Dose: 25 mg Documented by: Melatonin (Melatonin) 9 mg PO BEDTIME [facility] Last Admin: 11/23/20 21:04 Dose: 9 mg Documented by: Metoprolol Tartrate (Lopressor) 75 mg PO BID [facility] Last Admin: 11/24/20 08:06 Dose: 75 mg Documented by: Rosuvastatin Calcium (Crestor) 10 mg PO DAILY [facility] Last Admin: 11/24/20 08:06 Dose: 10 mg Documented by: Sertraline HCl (Zoloft) 50 mg PO DAILY [facility] Last Admin: 11/24/20 08:07 Dose: 50 mg Documented by: Topiramate (Topamax) 50 mg PO BID [facility] Last Admin: 11/24/20 08:08 Dose: 50 mg Documented by: Zinc Sulfate (Zincate) 220 mg PO DAILY [facility] Last Admin: 11/24/20 08:07 Dose: 220 mg Documented by: Discontinued Medications Remdesivir 200 mg/ Sodium (Chloride) 250 mls @ 250 mls/hr IV ONETIME ONE Stop: 11/22/20 21:09 Last Admin: 11/22/20 23:46 Dose: 250 mls/hr Documented by: Tocilizumab 800 mg/ Sodium (Chloride) 100 mls @ 100 mls/hr IV ONETIME ONE Stop: 11/23/20 12:59 Last Admin: 11/23/20 14:04 Dose: Not Given Documented by: Tocilizumab 800 mg/ Sodium (Chloride) 100 mls @ 100 mls/hr IV ONETIME ONE Stop: 11/23/20 14:29 Last Admin: 11/23/20 13:33 Dose: 100 mls/hr Documented by: Influenza Virus Vaccine (Fluzone Quad [id number] Syringe) 60 mcg IM .ONCE ONE Stop: 11/23/20 09:01 Insulin Glargine (Lantus) 7 unit SUBCUT BIDAC [facility] Last Admin: 11/23/20 17:46 Dose: 7 unit Documented by: Insulin Human Lispro (Humalog) 0 unit SUBCUT QIDACANDBED [facility]; Protocol Last Admin: 11/23/20 17:47 Dose: 8 unit Documented by: Metoprolol Tartrate (Lopressor) 75 mg PO ONETIME ONE Stop: 11/22/20 21:09 Last Admin: 11/22/20 23:47 Dose: 75 mg Documented by: - Exam Quality Assessment: Supplemental Oxygen General: Alert, Oriented HEENT: Pupils Equal, EOMI, Mucous Membr. Moist/[place] Neck: Supple Lungs: Normal Respiratory Effort, Crackles (Throughout both lung dahl) Cardiovascular: Regular Rate, Regular Rhythm GI/Abdominal Exam: Normal Bowel Sounds, Soft, Non-Tender, No Distention Skin: Warm, Dry, Intact Psy/Mental Status: Alert, Normal Affect, Normal Mood - Patient Data Lab Results Last 24 hrs: Laboratory Results - last 24 hr 11/23/20 11/23/20 11/23/20 Range/Units 12:06 17:20 21:22 WBC (4.23-9.07) K/mm3 RBC (4.63-6.08) M/mm3 Hgb (13.7-17.5) gm/dl Hct (40.1-51.0) % MCV (79.0-92.2) fl MCH (25.7-32.2) pg MCHC (32.2-35.5) g/dl RDW Std Deviation (35.1-43.9) fL Plt Count (163-337) K/mm3 MPV (9.4-12.3) fl Neut % (Auto) (34.0-67.9) % Lymph % (Auto) (21.8-53.1) % [place] % (Auto) (5.3-12.2) % Eos % (Auto) (0.8-7.0) Baso % (Auto) (0.1-1.2) % Neut # (Auto) (1.78-5.38) K/mm3 Lymph # (Auto) (1.32-3.57) K/mm3 [place] # (Auto) (0.30-0.82) K/mm3 Eos # (Auto) (0.04-0.54) K/mm3 Baso # (Auto) (0.01-0.08) K/mm3 Sodium (136-145) mEq/L Potassium (3.5-5.1) mEq/L Chloride (98-107) mEq/L Carbon Dioxide (21-32) mEq/L Anion Gap (5-15) BUN (7-18) mg/dL Creatinine (0.7-1.3) mg/dL Est Cr Clr Drug Dosing mL/min Estimated GFR (MDRD) (>60) mL/min BUN/Creatinine Ratio (14-18) Glucose 412 H (80-115) mg/dL POC Glucose 308 H 336 H (80-115) mg/dL Calcium (8.5-10.1) mg/dL Magnesium (1.8-2.4) mg/dl Total Bilirubin (0.2-1.0) mg/dL AST (15-37) U/L ALT (16-63) U/L Alkaline Phosphatase (46-116) U/L C-Reactive Protein (<1.0) mg/dL Total Protein (6.4-8.2) g/dl Albumin (3.4-5.0) g/dl Globulin gm/dL Albumin/Globulin Ratio (1-2) 11/24/20 11/24/20 11/24/20 Range/Units 06:20 06:20 06:30 WBC 3.52 L (4.23-9.07) K/mm3 RBC 4.56 L (4.63-6.08) M/mm3 Hgb 13.5 L (13.7-17.5) gm/dl Hct 41.3 (40.1-51.0) % MCV 90.6 (79.0-92.2) fl MCH 29.6 (25.7-32.2) pg MCHC 32.7 (32.2-35.5) g/dl RDW Std Deviation 46.1 H (35.1-43.9) fL Plt Count 173 (163-337) K/mm3 MPV 9.6 (9.4-12.3) fl Neut % (Auto) 72.7 H (34.0-67.9) % Lymph % (Auto) 17.6 L (21.8-53.1) % [place] % (Auto) 9.1 (5.3-12.2) % Eos % (Auto) 0.3 L (0.8-7.0) Baso % (Auto) 0.0 L (0.1-1.2) % Neut # (Auto) 2.56 (1.78-5.38) K/mm3 Lymph # (Auto) 0.62 L (1.32-3.57) K/mm3 [place] # (Auto) 0.32 (0.30-0.82) K/mm3 Eos # (Auto) 0.01 L (0.04-0.54) K/mm3 Baso # (Auto) 0.00 L (0.01-0.08) K/mm3 Sodium 141 (136-145) mEq/L Potassium 5.2 H (3.5-5.1) mEq/L Chloride 106 (98-107) mEq/L Carbon Dioxide 25 (21-32) mEq/L Anion Gap 15.2 H (5-15) BUN 33 H (7-18) mg/dL Creatinine 1.1 (0.7-1.3) mg/dL Est Cr Clr Drug Dosing 78.88 mL/min Estimated GFR (MDRD) > 60 (>60) mL/min BUN/Creatinine Ratio 30.0 H (14-18) Glucose 293 H (80-115) mg/dL POC Glucose 293 H (80-115) mg/dL Calcium 8.6 (8.5-10.1) mg/dL Magnesium 2.5 H (1.8-2.4) mg/dl Total Bilirubin 0.3 (0.2-1.0) mg/dL AST 19 (15-37) U/L ALT 27 (16-63) U/L Alkaline Phosphatase 61 (46-116) U/L C-Reactive Protein 4.5 H* (<1.0) mg/dL Total Protein 6.9 (6.4-8.2) g/dl Albumin 2.8 L (3.4-5.0) g/dl Globulin 4.1 gm/dL Albumin/Globulin Ratio 0.7 L (1-2) 11/24/20 Range/Units 11:08 WBC (4.23-9.07) K/mm3 RBC (4.63-6.08) M/mm3 Hgb (13.7-17.5) gm/dl Hct (40.1-51.0) % MCV (79.0-92.2) fl MCH (25.7-32.2) pg MCHC (32.2-35.5) g/dl RDW Std Deviation (35.1-43.9) fL Plt Count (163-337) K/mm3 MPV (9.4-12.3) fl Neut % (Auto) (34.0-67.9) % Lymph % (Auto) (21.8-53.1) % [place] % (Auto) (5.3-12.2) % Eos % (Auto) (0.8-7.0) Baso % (Auto) (0.1-1.2) % Neut # (Auto) (1.78-5.38) K/mm3 Lymph # (Auto) (1.32-3.57) K/mm3 [place] # (Auto) (0.30-0.82) K/mm3 Eos # (Auto) (0.04-0.54) K/mm3 Baso # (Auto) (0.01-0.08) K/mm3 Sodium (136-145) mEq/L Potassium (3.5-5.1) mEq/L Chloride (98-107) mEq/L Carbon Dioxide (21-32) mEq/L Anion Gap (5-15) BUN (7-18) mg/dL Creatinine (0.7-1.3) mg/dL Est Cr Clr Drug Dosing mL/min Estimated GFR (MDRD) (>60) mL/min BUN/Creatinine Ratio (14-18) Glucose (80-115) mg/dL POC Glucose 301 H (80-115) mg/dL Calcium (8.5-10.1) mg/dL Magnesium (1.8-2.4) mg/dl Total Bilirubin (0.2-1.0) mg/dL AST (15-37) U/L ALT (16-63) U/L Alkaline Phosphatase (46-116) U/L C-Reactive Protein (<1.0) mg/dL Total Protein (6.4-8.2) g/dl Albumin (3.4-5.0) g/dl Globulin gm/dL Albumin/Globulin Ratio (1-2) Result Diagrams: 11/24/20 06:20 11/24/20 06:20 Arnol Results Last 24 hrs: Microbiology 11/22/20 18:18 Aerobic Blood Culture - Preliminary Blood - Venous NO GROWTH AFTER 1 DAY Anaerobic Blood Culture - Preliminary NO GROWTH AFTER 1 DAY Sepsis Event Note - Evaluation Sepsis Screening Result: No Definite Risk - Focused Exam Vital Signs: Vital Signs Temp Pulse Resp BP Pulse Ox Pulse Ox 11/24/20 10:40 98.1 F 74 20 100/69 94 L 11/24/20 08:35 91 L 11/24/20 08:07 130/74 11/24/20 08:06 74 130/74 11/24/20 08:05 74 20 130/74 93 L 11/24/20 05:18 98.6 F 71 16 107/74 92 L - Problem List & Annotations (1) Coronary artery disease SNOMED Code(s): 04339953 Code(s): I25.10 - ATHSCL HEART DISEASE OF [place] CORONARY ARTERY W/O ANG P DRAPERY [employer]EMMER [employer] Status: Acute Current Visit: Yes (2) Atrial fibrillation with RVR SNOMED Code(s): 598844683593239 Code(s): I48.91 - UNSPECIFIED ATRIAL FIBRILLATION Status: Acute Current Visit: Yes (3) Diabetes mellitus SNOMED Code(s): 07867705 Code(s): E11.9 - TYPE 2 DIABETES MELLITUS WITHOUT COMPLICATIONS Status: Acute Current Visit: Yes (4) Acute hypoxemic respiratory failure due to COVID-19 SNOMED Code(s): 248507762 Code(s): U07.1 - COVID-19; J96.01 - ACUTE RESPIRATORY FAILURE WITH HYPOXIA Status: Acute Current Visit: Yes (5) COVID-19 SNOMED Code(s): 854836242 Code(s): U07.1 - COVID-19 Status: Acute Current Visit: Yes - Problem List Review Problem List Initiated/Reviewed/Updated: Yes - My Orders Last 24 Hours: My Active Orders 11/23/20 21:00 Melatonin 9 mg PO BEDTIME Remdesivir 100 mg Sodium Chloride 0.9% [Normal Saline] 100 ml IV Q24H 11/23/20 22:00 Insulin Lispro [HumaLOG] See Protocol SUBCUT QIDACANDBED 11/24/20 06:00 Insulin Glarg,Human.Rec.Analog [LantUS] 12 unit SUBCUT BIDAC 11/24/20 07:00 Insulin Lispro [HumaLOG] 5 unit SUBCUT TIDAC 11/24/20 Lunch Consistent Carbohydrate Diet [DIET] 11/24/20 13:30 Tocilizumab [Actemra] 300 mg Sodium Chloride 0.9% [Normal Saline] 85 ml IV ONETIME 11/25/20 05:11 C-REACTIVE PROTEIN [CHEM] AM CBC WITH AUTO DIFF [HEME] AM CMP [COMPREHENSIVE METABOLIC PN,CMP] [CHEM] AM MAGNESIUM [CHEM] AM - Plan Plan:: 11/22/2020 Assessment 65-year-old male with history of coronary artery bypass and CAD, new onset atrial fibrillation, type 2 diabetes, obesity, presents to the emergency department after 6 days of feeling poorly and diagnosed with COVID-19. Un fortunately, this puts him at high risk for complications because of his multiple comorbidities. COVID-19 pneumonia with hypoxemia * Patient presented to the emergency department with oxygen saturations at 83% on room air * He required 2 to 3 L of FiO2 via nasal cannula to get saturations in the low 90s. * C-reactive protein was elevated at 6.6, ferritin 659, D-dimer slightly elevated at 0.61, white count low at 3.7. * Fortunately patient is a never smoker. No history of lung disease. New onset atrial fibrillation History of coronary artery disease with bypass graft * Patient did not take his metoprolol this morning and therefore his heart rate was above 100 with A. fib RVR * Patient is normally on metoprolol 75 mg twice daily. * Troponin and BNP was normal. Type 2 diabetes * Moderate control with his last hemoglobin A1c from November 14 of 7.5% * On for oral medications to control his blood sugars Other medical problems include depression, elevated PSA with BPH, hypertension, obesity, sleep apnea, kidney stones Plan * Admit to medical floor on telemetry * Continuous pulse ox * Remdesivir for 5 days loading dose today * Dexamethasone x10 days * Rocephin 2 g daily for 5 days for COVID-19 pneumonia * Azithromycin 500 mg daily for 3 days * Pepcid, melatonin, zinc, vitamin D. All of them have shown mixed results on treatment of COVID-19 but unlikely to cause any harm. * Encourage prone positioning when awake and asleep * Convalescent plasma has not shown improvement in outcomes will therefore hold on the treatment with convalescent plasma * FiO2 to keep SPO2 between 88 and 94%. * Follow blood sugars closely and likely start long-acting insulin * Stop home oral blood sugar medications because of inconsistencies with absorption and p.o. intake when hospitalized with COVID-19 * Blood sugars will likely worsen secondary to dexamethasone. * Sliding scale insulin * Fingerstick blood sugar 4 times a day * Follow CBC, CMP, magnesium, D-dimer, CRP * Actemra 800 mg if available * Patient is at very high risk for complications secondary to his multiple comorbidities * Start Eliquis 5 mg twice daily for his new onset A. fib * Echocardiogram on Wednesday since it is not available over the weekend * Patient is likely rate controlled on his metoprolol twice daily will start it as soon as pharmacy approves it * VTE prophylaxis will be with Eliquis * CODE STATUS full code 11/23/2020 No significant change in oxygenation overnight. We will continue on COVID-19 treatment as outlined above. We will be able to obtain Actemra 800 mg for today. Patient's blood sugars are increased so we will add Lantus 7 units twice daily for today but will likely need to increase that substantially over the next few days. Continue with sliding scale insulin and 4 times daily finger blood sugars. D-dimer did decrease to normal which is reassuring. C-reactive protein unfortunately increased to 7.7. Other lab work is not substantially different from yesterday. Patient's rate has been controlled on the metoprolol 75 mg twice daily. Echocardiogram on Wednesday. Appetite so far is good. No si gnificant change overnight. 11/24/2020 Patient is making progress. O2 requirements are decreasing and he is symptomatically better. D-dimer and C-reactive protein have both decreased. He did get Actemra yesterday at 800 mg and will get 300 mg today. Even with good appetite and regular diet his albumin has dropped to 2.8. Blood sugars right now are his biggest problems and I have aggressively increase his insulin. Lantus 12 units twice daily with Humalog 5 units with each meal and high dose sliding scale. Hemoglobin A1c was 7.8% on admission. Echocardiogram for tomorrow for his new onset A. fib. Rate has been well controlled on metoprolol. He continues on Eliquis for stroke prevention and VTE prophylaxis. Continue to follow Covid labs daily. He is on day 3 of 3 of azithromycin and day 3 of 5 of Zithromax. He is on day 3 of remdesivir. He is on day 3 of 10 of dexamethasone or until discharge. Prognosis is guarded secondary to his multiple comorbidities but he is looking better.
[2020-11-24] MEDS: cefTRIAXone 2 GM in Sodium Chloride 0.9% 100 ML IV SCH (21:18)
[2020-11-24] MEDS: Azithromycin 500 MG in Sodium Chloride 0.9% 250 ML IV SCH (21:25)
[2020-11-24] MEDS: REMDESIVIR 100 MG in Sodium Chloride 0.9% 100 ML IV SCH (21:29)
[2020-11-24] MEDS: Melatonin 3 MG Tab PO SCH (21:31)
[2020-11-25] MEDS: Insulin Glarg,Human.Rec.Analog 100 Unit/ML SUBCUT SCH ×2 (06:58→17:19)
--- NOTE | 2020-11-25 07:55 | PCM.PN ---
- General Info Date of Service: 11/25/20 Admission Dx/Problem (Free Text): Admission Diagnosis/Problem Admission Diagnosis/Problem Hypoxia Subjective Update: No overnight or acute issues. He feels he is getting better. He is febrile w/o leukocytosis. His insulin remains uncontrolled. He is on oral steroid. He is now down to 2L NC sating adequately. Functional Status: Reports: Pain Controlled, Tolerating Diet. Denies: New Symptoms - Review of Systems General: Denies: Fever, Weakness, Chills HEENT: Reports: No Symptoms Pulmonary: Denies: Shortness of Breath, Cough Cardiovascular: Denies: Chest Pain Gastrointestinal: Denies: Abdominal Pain, Nausea, Vomiting Genitourinary: Denies: Dysuria, Burning Musculoskeletal: Denies: Joint Pain Skin: Denies: Cyanosis, Dryness, Rash Neurological: Denies: Confusion, Gait Disturbance Psychiatric: Denies: Depression, Anxiety - Patient Data Vitals - Most Recent: Last Vital Signs Temp 36.9 C 11/25/20 05:23 Pulse 78 11/25/20 05:23 Resp 14 11/25/20 05:23 BP 144/86 H 11/25/20 05:23 Pulse Ox 92 L 11/25/20 05:23 Weight - Most Recent: 131.043 kg I&O - Last 24 Hours: Intake & Output 11/24/20 11/25/20 11/25/20 22:59 06:59 14:59 Intake Total 2625 450 Output Total 1500 Balance 1125 450 Lab Results Last 24 Hours: Laboratory Results - last 24 hr 11/22/20 11/24/20 11/24/20 Range/Units 18:38 11:08 16:34 WBC (4.23-9.07) K/mm3 RBC (4.63-6.08) M/mm3 Hgb (13.7-17.5) gm/dl Hct (40.1-51.0) % MCV (79.0-92.2) fl MCH (25.7-32.2) pg MCHC (32.2-35.5) g/dl RDW Std Deviation (35.1-43.9) fL Plt Count (163-337) K/mm3 MPV (9.4-12.3) fl Neut % (Auto) (34.0-67.9) % Lymph % (Auto) (21.8-53.1) % [place] % (Auto) (5.3-12.2) % Eos % (Auto) (0.8-7.0) Baso % (Auto) (0.1-1.2) % Neut # (Auto) (1.78-5.38) K/mm3 Lymph # (Auto) (1.32-3.57) K/mm3 [place] # (Auto) (0.30-0.82) K/mm3 Eos # (Auto) (0.04-0.54) K/mm3 Baso # (Auto) (0.01-0.08) K/mm3 Sodium (136-145) mEq/L Potassium (3.5-5.1) mEq/L Chloride (98-107) mEq/L Carbon Dioxide (21-32) mEq/L Anion Gap (5-15) BUN (7-18) mg/dL Creatinine (0.7-1.3) mg/dL Est Cr Clr Drug Dosing mL/min Estimated GFR (MDRD) (>60) mL/min BUN/Creatinine Ratio (14-18) Glucose (80-115) mg/dL POC Glucose 301 H 315 H (80-115) mg/dL Calcium (8.5-10.1) mg/dL Magnesium (1.8-2.4) mg/dl Total Bilirubin (0.2-1.0) mg/dL AST (15-37) U/L ALT (16-63) U/L Alkaline Phosphatase (46-116) U/L C-Reactive Protein (<1.0) mg/dL Total Protein (6.4-8.2) g/dl Albumin (3.4-5.0) g/dl Globulin gm/dL Albumin/Globulin Ratio (1-2) Procalcitonin 0.19 H ng/mL 11/24/20 11/25/20 11/25/20 Range/Units 21:38 06:14 06:14 WBC 4.43 (4.23-9.07) K/mm3 RBC 4.73 (4.63-6.08) M/mm3 Hgb 14.0 (13.7-17.5) gm/dl Hct 42.9 (40.1-51.0) % MCV 90.7 (79.0-92.2) fl MCH 29.6 (25.7-32.2) pg MCHC 32.6 (32.2-35.5) g/dl RDW Std Deviation 45.8 H (35.1-43.9) fL Plt Count 187 (163-337) K/mm3 MPV 9.6 (9.4-12.3) fl Neut % (Auto) 77.9 H (34.0-67.9) % Lymph % (Auto) 15.6 L (21.8-53.1) % [place] % (Auto) 6.1 (5.3-12.2) % Eos % (Auto) 0.2 L (0.8-7.0) Baso % (Auto) 0.0 L (0.1-1.2) % Neut # (Auto) 3.45 (1.78-5.38) K/mm3 Lymph # (Auto) 0.69 L (1.32-3.57) K/mm3 [place] # (Auto) 0.27 L (0.30-0.82) K/mm3 Eos # (Auto) 0.01 L (0.04-0.54) K/mm3 Baso # (Auto) 0.00 L (0.01-0.08) K/mm3 Sodium 142 (136-145) mEq/L Potassium 5.0 (3.5-5.1) mEq/L Chloride 107 (98-107) mEq/L Carbon Dioxide 25 (21-32) mEq/L Anion Gap 15.0 (5-15) BUN 33 H (7-18) mg/dL Creatinine 1.0 (0.7-1.3) mg/dL Est Cr Clr Drug Dosing 86.77 mL/min Estimated GFR (MDRD) > 60 (>60) mL/min BUN/Creatinine Ratio 33.0 H (14-18) Glucose 242 H (80-115) mg/dL POC Glucose 317 H (80-115) mg/dL Calcium 8.6 (8.5-10.1) mg/dL Magnesium 2.2 (1.8-2.4) mg/dl Total Bilirubin 0.3 (0.2-1.0) mg/dL AST 21 (15-37) U/L ALT 22 (16-63) U/L Alkaline Phosphatase 59 (46-116) U/L C-Reactive Protein 1.8 H* (<1.0) mg/dL Total Protein 6.8 (6.4-8.2) g/dl Albumin 2.9 L (3.4-5.0) g/dl Globulin 3.9 gm/dL Albumin/Globulin Ratio 0.7 L (1-2) Procalcitonin ng/mL 11/25/20 Range/Units 06:57 WBC (4.23-9.07) K/mm3 RBC (4.63-6.08) M/mm3 Hgb (13.7-17.5) gm/dl Hct (40.1-51.0) % MCV (79.0-92.2) fl MCH (25.7-32.2) pg MCHC (32.2-35.5) g/dl RDW Std Deviation (35.1-43.9) fL Plt Count (163-337) K/mm3 MPV (9.4-12.3) fl Neut % (Auto) (34.0-67.9) % Lymph % (Auto) (21.8-53.1) % [place] % (Auto) (5.3-12.2) % Eos % (Auto) (0.8-7.0) Baso % (Auto) (0.1-1.2) % Neut # (Auto) (1.78-5.38) K/mm3 Lymph # (Auto) (1.32-3.57) K/mm3 [place] # (Auto) (0.30-0.82) K/mm3 Eos # (Auto) (0.04-0.54) K/mm3 Baso # (Auto) (0.01-0.08) K/mm3 Sodium (136-145) mEq/L Potassium (3.5-5.1) mEq/L Chloride (98-107) mEq/L Carbon Dioxide (21-32) mEq/L Anion Gap (5-15) BUN (7-18) mg/dL Creatinine (0.7-1.3) mg/dL Est Cr Clr Drug Dosing mL/min Estimated GFR (MDRD) (>60) mL/min BUN/Creatinine Ratio (14-18) Glucose (80-115) mg/dL POC Glucose 246 H (80-115) mg/dL Calcium (8.5-10.1) mg/dL Magnesium (1.8-2.4) mg/dl Total Bilirubin (0.2-1.0) mg/dL AST (15-37) U/L ALT (16-63) U/L Alkaline Phosphatase (46-116) U/L C-Reactive Protein (<1.0) mg/dL Total Protein (6.4-8.2) g/dl Albumin (3.4-5.0) g/dl Globulin gm/dL Albumin/Globulin Ratio (1-2) Procalcitonin ng/mL Arnol Results Last 24 Hours: Microbiology 11/22/20 18:18 Aerobic Blood Culture - Preliminary Blood - Venous NO GROWTH AFTER 2 DAYS Anaerobic Blood Culture - Preliminary NO GROWTH AFTER 2 DAYS Med Orders - Current: Current Medications Acetaminophen (Tylenol) 650 mg PO Q4H PRN PRN Reason: Pain (Mild 1-3)/fever Last Admin: 11/22/20 23:50 Dose: 650 mg Documented by: Albuterol/Ipratropium (Duoneb 3.0-0.5 Mg/3 Ml) 3 ml NEB Q4H PRN PRN Reason: Shortness Of Breath/wheezing Apixaban (Eliquis) 5 mg PO BID [facility] Last Admin: 11/24/20 21:32 Dose: 5 mg Documented by: Aspirin (Halfprin) 81 mg PO DAILY [facility] Last Admin: 11/24/20 08:08 Dose: 81 mg Documented by: Cholecalciferol (Vitamin D3) 5,000 unit PO DAILY [facility] Last Admin: 11/24/20 08:07 Dose: 5,000 unit Documented by: Clopidogrel Bisulfate (Plavix) 75 mg PO DAILY [facility] Last Admin: 11/24/20 08:09 Dose: 75 mg Documented by: Dexamethasone (Dexamethasone) 6 mg PO DAILY [facility] Stop: 12/01/20 09:01 Last Admin: 11/24/20 08:08 Dose: 6 mg Documented by: Famotidine (Pepcid) 20 mg PO BID [facility] Last Admin: 11/24/20 21:30 Dose: 20 mg Documented by: Remdesivir 100 mg/ Sodium (Chloride) 100 mls @ 100 mls/hr IV Q24H [facility] Stop: 11/26/20 21:59 Last Admin: 11/24/20 21:29 Dose: 100 mls/hr Documented by: Ceftriaxone Sodium 2 gm/ (Sodium Chloride) 100 mls @ 200 mls/hr IV Q24H [facility] Stop: 11/26/20 21:59 Last Admin: 11/24/20 21:18 Dose: 200 mls/hr Documented by: Insulin Glargine (Lantus) 12 unit SUBCUT BIDAC [facility] Last Admin: 11/25/20 06:58 Dose: 12 units Documented by: Insulin Human Lispro (Humalog) 0 unit SUBCUT QIDACANDBED [facility]; Protocol Last Admin: 11/24/20 21:39 Dose: 12 units Documented by: Insulin Human Lispro (Humalog) 7 unit SUBCUT TIDAC [facility] Losartan Potassium (Cozaar) 25 mg PO DAILY [facility] Last Admin: 11/24/20 08:07 Dose: 25 mg Documented by: Melatonin (Melatonin) 9 mg PO BEDTIME [facility] Last Admin: 11/24/20 21:31 Dose: 9 mg Documented by: Metoprolol Tartrate (Lopressor) 75 mg PO BID [facility] Last Admin: 11/24/20 21:31 Dose: 75 mg Documented by: Rosuvastatin Calcium (Crestor) 10 mg PO DAILY [facility] Last Admin: 11/24/20 08:06 Dose: 10 mg Documented by: Sertraline HCl (Zoloft) 50 mg PO DAILY [facility] Last Admin: 11/24/20 08:07 Dose: 50 mg Documented by: Topiramate (Topamax) 50 mg PO BID [facility] Last Admin: 11/24/20 21:31 Dose: 50 mg Documented by: Zinc Sulfate (Zincate) 220 mg PO DAILY [facility] Last Admin: 11/24/20 08:07 Dose: 220 mg Documented by: Discontinued Medications Remdesivir 200 mg/ Sodium (Chloride) 250 mls @ 250 mls/hr IV ONETIME ONE Stop: 11/22/20 21:09 Last Admin: 11/22/20 23:46 Dose: 250 mls/hr Documented by: Azithromycin 500 mg/ Sodium (Chloride) 250 mls @ 250 mls/hr IV Q24H [facility] Stop: 11/24/20 21:59 Last Admin: 11/24/20 21:25 Dose: 250 mls/hr Documented by: Tocilizumab 800 mg/ Sodium (Chloride) 100 mls @ 100 mls/hr IV ONETIME ONE Stop: 11/23/20 12:59 Last Admin: 11/23/20 14:04 Dose: Not Given Documented by: Tocilizumab 800 mg/ Sodium (Chloride) 100 mls @ 100 mls/hr IV ONETIME ONE Stop: 11/23/20 14:29 Last Admin: 11/23/20 13:33 Dose: 100 mls/hr Documented by: Tocilizumab 300 mg/ Sodium (Chloride) 100 mls @ 100 mls/hr IV ONETIME ONE Stop: 11/24/20 14:29 Last Admin: 11/24/20 12:45 Dose: 100 mls/hr Documented by: Influenza Virus Vaccine (Fluzone Quad [id number] Syringe) 60 mcg IM .ONCE ONE Stop: 11/23/20 09:01 Insulin Glargine (Lantus) 7 unit SUBCUT BIDAC [facility] Last Admin: 11/23/20 17:46 Dose: 7 unit Documented by: Insulin Human Lispro (Humalog) 0 unit SUBCUT QIDACANDBED [facility]; Protocol Last Admin: 11/23/20 17:47 Dose: 8 unit Documented by: Insulin Human Lispro (Humalog) 5 unit SUBCUT TIDAC [facility] Last Admin: 11/24/20 17:17 Dose: 5 units Documented by: Metoprolol Tartrate (Lopressor) 75 mg PO ONETIME ONE Stop: 11/22/20 21:09 Last Admin: 11/22/20 23:47 Dose: 75 mg Documented by: - Exam Quality Assessment: Supplemental Oxygen, DVT Prophylaxis General: Alert, Oriented, Cooperative, No Acute Distress, Other (Obese) HEENT: Pupils Equal, Pupils Reactive, EOMI, Mucous Membr. Moist/[place] Neck: Supple Lungs: Normal Respiratory Effort, Decreased Breath Sounds, Other (sternal scar) Cardiovascular: Regular Rate, Regular Rhythm GI/Abdominal Exam: Normal Bowel Sounds, Soft, Non-Tender, No Organomegaly, No Distention, Other (Obese) (Male) Exam: Deferred Back Exam: Normal Inspection, Decreased Range of Motion Extremities: Normal Inspection, Normal Range of Motion, Non-Tender, No Pedal Edema, Normal Capillary Refill Peripheral Pulses: 2+: Dorsalis Pedis (L), Dorsalis Pedis (R) Skin: Warm, Dry, Intact Neurological: No New Focal Deficit Psy/Mental Status: Alert, Normal Affect, Normal Mood - Patient Data Lab Results Last 24 hrs: Laboratory Results - last 24 hr 11/22/20 11/24/20 11/24/20 Range/Units 18:38 11:08 16:34 WBC (4.23-9.07) K/mm3 RBC (4.63-6.08) M/mm3 Hgb (13.7-17.5) gm/dl Hct (40.1-51.0) % MCV (79.0-92.2) fl MCH (25.7-32.2) pg MCHC (32.2-35.5) g/dl RDW Std Deviation (35.1-43.9) fL Plt Count (163-337) K/mm3 MPV (9.4-12.3) fl Neut % (Auto) (34.0-67.9) % Lymph % (Auto) (21.8-53.1) % [place] % (Auto) (5.3-12.2) % Eos % (Auto) (0.8-7.0) Baso % (Auto) (0.1-1.2) % Neut # (Auto) (1.78-5.38) K/mm3 Lymph # (Auto) (1.32-3.57) K/mm3 [place] # (Auto) (0.30-0.82) K/mm3 Eos # (Auto) (0.04-0.54) K/mm3 Baso # (Auto) (0.01-0.08) K/mm3 Sodium (136-145) mEq/L Potassium (3.5-5.1) mEq/L Chloride (98-107) mEq/L Carbon Dioxide (21-32) mEq/L Anion Gap (5-15) BUN (7-18) mg/dL Creatinine (0.7-1.3) mg/dL Est Cr Clr Drug Dosing mL/min Estimated GFR (MDRD) (>60) mL/min BUN/Creatinine Ratio (14-18) Glucose (80-115) mg/dL POC Glucose 301 H 315 H (80-115) mg/dL Calcium (8.5-10.1) mg/dL Magnesium (1.8-2.4) mg/dl Total Bilirubin (0.2-1.0) mg/dL AST (15-37) U/L ALT (16-63) U/L Alkaline Phosphatase (46-116) U/L C-Reactive Protein (<1.0) mg/dL Total Protein (6.4-8.2) g/dl Albumin (3.4-5.0) g/dl Globulin gm/dL Albumin/Globulin Ratio (1-2) Procalcitonin 0.19 H ng/mL 11/24/20 11/25/20 11/25/20 Range/Units 21:38 06:14 06:14 WBC 4.43 (4.23-9.07) K/mm3 RBC 4.73 (4.63-6.08) M/mm3 Hgb 14.0 (13.7-17.5) gm/dl Hct 42.9 (40.1-51.0) % MCV 90.7 (79.0-92.2) fl MCH 29.6 (25.7-32.2) pg MCHC 32.6 (32.2-35.5) g/dl RDW Std Deviation 45.8 H (35.1-43.9) fL Plt Count 187 (163-337) K/mm3 MPV 9.6 (9.4-12.3) fl Neut % (Auto) 77.9 H (34.0-67.9) % Lymph % (Auto) 15.6 L (21.8-53.1) % [place] % (Auto) 6.1 (5.3-12.2) % Eos % (Auto) 0.2 L (0.8-7.0) Baso % (Auto) 0.0 L (0.1-1.2) % Neut # (Auto) 3.45 (1.78-5.38) K/mm3 Lymph # (Auto) 0.69 L (1.32-3.57) K/mm3 [place] # (Auto) 0.27 L (0.30-0.82) K/mm3 Eos # (Auto) 0.01 L (0.04-0.54) K/mm3 Baso # (Auto) 0.00 L (0.01-0.08) K/mm3 Sodium 142 (136-145) mEq/L Potassium 5.0 (3.5-5.1) mEq/L Chloride 107 (98-107) mEq/L Carbon Dioxide 25 (21-32) mEq/L Anion Gap 15.0 (5-15) BUN 33 H (7-18) mg/dL Creatinine 1.0 (0.7-1.3) mg/dL Est Cr Clr Drug Dosing 86.77 mL/min Estimated GFR (MDRD) > 60 (>60) mL/min BUN/Creatinine Ratio 33.0 H (14-18) Glucose 242 H (80-115) mg/dL POC Glucose 317 H (80-115) mg/dL Calcium 8.6 (8.5-10.1) mg/dL Magnesium 2.2 (1.8-2.4) mg/dl Total Bilirubin 0.3 (0.2-1.0) mg/dL AST 21 (15-37) U/L ALT 22 (16-63) U/L Alkaline Phosphatase 59 (46-116) U/L C-Reactive Protein 1.8 H* (<1.0) mg/dL Total Protein 6.8 (6.4-8.2) g/dl Albumin 2.9 L (3.4-5.0) g/dl Globulin 3.9 gm/dL Albumin/Globulin Ratio 0.7 L (1-2) Procalcitonin ng/mL 11/25/20 Range/Units 06:57 WBC (4.23-9.07) K/mm3 RBC (4.63-6.08) M/mm3 Hgb (13.7-17.5) gm/dl Hct (40.1-51.0) % MCV (79.0-92.2) fl MCH (25.7-32.2) pg MCHC (32.2-35.5) g/dl RDW Std Deviation (35.1-43.9) fL Plt Count (163-337) K/mm3 MPV (9.4-12.3) fl Neut % (Auto) (34.0-67.9) % Lymph % (Auto) (21.8-53.1) % [place] % (Auto) (5.3-12.2) % Eos % (Auto) (0.8-7.0) Baso % (Auto) (0.1-1.2) % Neut # (Auto) (1.78-5.38) K/mm3 Lymph # (Auto) (1.32-3.57) K/mm3 [place] # (Auto) (0.30-0.82) K/mm3 Eos # (Auto) (0.04-0.54) K/mm3 Baso # (Auto) (0.01-0.08) K/mm3 Sodium (136-145) mEq/L Potassium (3.5-5.1) mEq/L Chloride (98-107) mEq/L Carbon Dioxide (21-32) mEq/L Anion Gap (5-15) BUN (7-18) mg/dL Creatinine (0.7-1.3) mg/dL Est Cr Clr Drug Dosing mL/min Estimated GFR (MDRD) (>60) mL/min BUN/Creatinine Ratio (14-18) Glucose (80-115) mg/dL POC Glucose 246 H (80-115) mg/dL Calcium (8.5-10.1) mg/dL Magnesium (1.8-2.4) mg/dl Total Bilirubin (0.2-1.0) mg/dL AST (15-37) U/L ALT (16-63) U/L Alkaline Phosphatase (46-116) U/L C-Reactive Protein (<1.0) mg/dL Total Protein (6.4-8.2) g/dl Albumin (3.4-5.0) g/dl Globulin gm/dL Albumin/Globulin Ratio (1-2) Procalcitonin ng/mL Result Diagrams: 11/26/20 08:25 11/26/20 08:25 Arnol Results Last 24 hrs: Microbiology 11/22/20 18:18 Aerobic Blood Culture - Preliminary Blood - Venous NO GROWTH AFTER 2 DAYS Anaerobic Blood Culture - Preliminary NO GROWTH AFTER 2 DAYS Sepsis Event Note - Evaluation Sepsis Screening Result: No Definite Risk - Focused Exam Vital Signs: Vital Signs Temp Pulse Resp BP BP Pulse Ox Pulse Ox 11/25/20 05:23 36.9 C 78 14 144/86 H 92 L 11/25/20 00:00 93 L 11/24/20 21:31 81 128/71 11/24/20 21:18 92 L 11/24/20 21:17 36.8 C 81 16 128/71 90 L 11/24/20 20:19 91 L - Problem List Review Problem List Initiated/Reviewed/Updated: Yes - Plan Plan:: 11/22/2020 Assessment 65-year-old male with history of coronary artery bypass and CAD, new onset atrial fibrillation, type 2 diabetes, obesity, presents to the emergency department after 6 days of feeling poorly and diagnosed with COVID-19. Unfortunately, this puts him at high risk for complications because of his multiple comorbidities. COVID-19 pneumonia with hypoxemia Leukopenia, POA, resolved Elevated CRP of 7.7, POA, continues to improve * Patient presented to the emergency department with oxygen saturations at 83% on room air * He required 2 to 3 L of FiO2 via nasal cannula to get saturations in the low 90s. * C-reactive protein was elevated at 6.6, ferritin 659, D-dimer slightly elevated at 0.61, white count low at 3.7. * Fortunately patient is a never smoker. No history of lung disease. * Rocephin 2 grams daily 11/29 * Dexamethasone 6 mg po on 01/04 New onset atrial fibrillation * He may be in atrial fib/flutter * On Metoprolol for rate control agent * Eliquis for stroke prophylaxis * 2D echo ordered History of coronary artery disease with bypass graft * Patient did not take his metoprolol this morning and therefore his heart rate was above 100 with A. fib RVR * On ASA and plavix for CAD * Patient is normally on metoprolol 75 mg twice daily; rate control agent * Troponin and BNP was normal. * HR now controlled * Eliquis 5 mg po BID started 11/22/2020 fro stroke prophylaxis Type 2 diabetes * BS not controlled * Moderate control with his last hemoglobin A1c from November 14 of 7.5% * On for oral medications to control his blood sugars * Repeat A1C is 7.8 * He is on steroid * Changes to insulin regimen: Lantus 15 units BID and continue high intensity ISS * Resume home dose Trulicity and Glimepieride * Hold home dose Synjardy for now Hypoalbuminemia Class II Obese * Albumin of 2.9 * BMI of 37 * Discussed LSM * [employer] following Other medical problems include depression, elevated PSA with BPH, hypertension, obesity, sleep apnea, kidney stones Plan * Admit to medical floor on telemetry * Continuous pulse ox * Remdesivir for 5 days loading dose today * Dexamethasone x10 days * Rocephin 2 g daily for 5 days for COVID-19 pneumonia * Azithromycin 500 mg daily for 3 days * Pepcid, melatonin, zinc, vitamin D. All of them have shown mixed results on treatment of COVID-19 but unlikely to cause any harm. * Encourage prone positioning when awake and asleep * Convalescent plasma has not shown improvement in outcomes will therefore hold on the treatment with convalescent plasma * FiO2 to keep SPO2 between 88 and 94%. * Follow blood sugars closely and likely start long-acting insulin * Stop home oral blood sugar medications because of inconsistencies with absorption and p.o. intake when hospitalized with COVID-19 * Blood sugars will likely worsen secondary to dexamethasone. * Sliding scale insulin * Fingerstick blood sugar 4 times a day * Follow CBC, CMP, magnesium, D-dimer, CRP * Actemra 800 mg if available * Patient is at very high risk for complications secondary to his multiple comorbidities * Start Eliquis 5 mg twice daily for his new onset A. fib * Echocardiogram on Wednesday since it is not available over the weekend * Patient is likely rate controlled on his metoprolol twice daily will start it as soon as pharmacy approves it * VTE prophylaxis will be with Eliquis * CODE STATUS full code 11/23/2020 No significant change in oxygenation overnight. We will continue on COVID-19 treatment as outlined above. We will be able to obtain Actemra 800 mg for today. Patient's blood sugars are increased so we will add Lantus 7 units twice daily for today but will likely need to increase that substantially over the next few days. Continue with sliding scale insulin and 4 times daily finger blood sugars. D-dimer did decrease to normal which is reassuring. C-reactive protein unfortunately increased to 7.7. Other lab work is not substantially different from yesterday. Patient's rate has been controlled on the metoprolol 75 mg twice daily. Echocardiogram on Wednesday. Appetite so far is good. No significant change overnight. 11/24/2020 Patient is making progress. O2 requirements are decreasing and he is symptomatically better. D-dimer and C-reactive protein have both decreased. He did get Actemra yesterday at 800 mg and will get 300 mg today. Even with good appetite and regular diet his albumin has dropped to 2.8. Blood sugars right now are his biggest problems and I have aggressively increase his insulin. Lantus 12 units twice daily with Humalog 5 units with each meal and high dose sliding scale. Hemoglobin A1c was 7.8% on admission. Echocardiogram for tomorrow for his new onset A. fib. Rate has been well controlled on metoprolol. He continues on Eliquis for stroke prevention and VTE prophylaxis. Continue to follow Covid labs daily. He is on day 3 of 3 of azithromycin and day 3 of 5 of Zithromax. He is on day 3 of remdesivir. He is on day 3 of 10 of dexamethasone or until discharge. Prognosis is guarded secondary to his multiple comorbidities but he is looking better. 11/25/2020 Patient continues to do well. He is now down to 2L NC. However his blood glucose is not well controlled. Will make changes to his insulin regimen. We will also resume home dose Trulicity and Glimepiride. Encourage to use IS and FV as directed. Ambulate inside his room as many times as he can. Routine AM Labs. Continue current Covid-19 treatment. P/OT following. DVT/Stroke prophylaxis: on Eliquis. 2D echo for new onset of atrial fibrillation. Code status is full. Prognosis is good at this point.
[2020-11-25] MEDS ORDERED: Glimepiride 2 MG Tab PO SCH (09:00)
[2020-11-25] MEDS: Topiramate 25 MG Tab PO SCH ×2 (09:03→20:32)
[2020-11-25] MEDS: Famotidine 20 MG Tab PO SCH ×2 (09:03→20:31)
[2020-11-25] MEDS: Zinc Sulfate 220 MG Cap PO SCH (09:03)
[2020-11-25] MEDS: Metoprolol Tartrate 25 MG Tab PO SCH ×2 (09:05→20:32)
[2020-11-25] MEDS: Cholecalciferol (Vitamin D3) 5,000 UNIT Cap PO SCH (09:05)
[2020-11-25] MEDS: Dexamethasone 4 MG Tab PO SCH (09:06)
[2020-11-25] MEDS: Rosuvastatin 10 MG Tab PO SCH (09:07)
[2020-11-25] MEDS: Apixaban 5 MG Tab PO SCH ×2 (09:08→20:31)
[2020-11-25] MEDS: Aspirin 81 MG Tab.EC PO SCH (09:08)
[2020-11-25] MEDS: Clopidogrel 75 MG Tab PO SCH (09:08)
[2020-11-25] MEDS: Sertraline 50 MG Tab PO SCH (09:09)
[2020-11-25] MEDS: Losartan 25 MG Tab PO SCH (09:09)
--- NOTE | 2020-11-25 14:40 | CR ---
Chest: Portable view of the chest was obtained. Comparison: No prior chest x-ray, previous chest CT of 02/13/11. Heart is enlarged. Upper mediastinum is slightly widened which is believed to be chronic. Previous sternotomy is noted. Lungs show questionable increased pulmonary vessels. Minimal atelectasis is noted within the left lung base. Impression: 1. Findings suspicious for minimal CHF. 2. Minimal atelectasis within the left lung base. Diagnostic code #3
[2020-11-25] MEDS ORDERED: Insulin Glarg,Human.Rec.Analog 100 Unit/ML SUBCUT SCH ×2 (16:00)
[2020-11-25] MEDS: REMDESIVIR 100 MG in Sodium Chloride 0.9% 100 ML IV SCH (20:29)
[2020-11-25] MEDS: Melatonin 3 MG Tab PO SCH (20:32)
[2020-11-25] MEDS: cefTRIAXone 2 GM in Sodium Chloride 0.9% 100 ML IV SCH (21:34)
[2020-11-26] MEDS: Insulin Glarg,Human.Rec.Analog 100 Unit/ML SUBCUT SCH (06:50)
--- NOTE | 2020-11-26 07:35 | PCM.PN ---
- General Info Date of Service: 11/26/20 Admission Dx/Problem (Free Text): Admission Diagnosis/Problem Admission Diagnosis/Problem Hypoxia Subjective Update: He continues to do well. No significant issues overnight. No new complaints this AM. He is on 2-3L NC sating adequately. Functional Status: Reports: Pain Controlled, Tolerating Diet, Ambulating, Urinating. Denies: New Symptoms - Review of Systems General: Denies: Fever, Chills HEENT: Reports: No Symptoms Pulmonary: Denies: Shortness of Breath, Cough Cardiovascular: Denies: Chest Pain Gastrointestinal: Denies: Abdominal Pain, Nausea, Vomiting Genitourinary: Denies: Dysuria, Burning Musculoskeletal: Denies: Joint Pain Skin: Denies: Cyanosis, Jaundice, Mottled Neurological: Reports: No Symptoms Psychiatric: Denies: Depression, Anxiety - Patient Data Vitals - Most Recent: Last Vital Signs Temp 36.7 C 11/26/20 02:47 Pulse 81 11/26/20 02:47 Resp 18 11/26/20 02:47 BP 127/87 11/26/20 02:47 Pulse Ox 91 L 11/26/20 06:37 Weight - Most Recent: 130.408 kg I&O - Last 24 Hours: Intake & Output 11/25/20 11/26/20 11/26/20 22:59 06:59 14:59 Intake Total 1240 700 Output Total 1400 1000 Balance -160 -300 Lab Results Last 24 Hours: Laboratory Results - last 24 hr 11/25/20 11/25/20 11/25/20 Range/Units 11:13 16:42 20:23 POC Glucose 242 H 305 H 333 H (80-115) mg/dL Arnol Results Last 24 Hours: Microbiology 11/22/20 18:18 Aerobic Blood Culture - Preliminary Blood - Venous NO GROWTH AFTER 3 DAYS Anaerobic Blood Culture - Preliminary NO GROWTH AFTER 3 DAYS Med Orders - Current: Current Medications Acetaminophen (Tylenol) 650 mg PO Q4H PRN PRN Reason: Pain (Mild 1-3)/fever Last Admin: 11/22/20 23:50 Dose: 650 mg Documented by: Albuterol/Ipratropium (Duoneb 3.0-0.5 Mg/3 Ml) 3 ml NEB Q4H PRN PRN Reason: Shortness Of Breath/wheezing Apixaban (Eliquis) 5 mg PO BID JOJO Last Admin: 11/25/20 20:31 Dose: 5 mg Documented by: Aspirin (Halfprin) 81 mg PO DAILY [facility] Last Admin: 11/25/20 09:08 Dose: 81 mg Documented by: Cholecalciferol (Vitamin D3) 5,000 unit PO DAILY [facility] Last Admin: 11/25/20 09:05 Dose: 5,000 unit Documented by: Clopidogrel Bisulfate (Plavix) 75 mg PO DAILY [facility] Last Admin: 11/25/20 09:08 Dose: 75 mg Documented by: Dexamethasone (Dexamethasone) 6 mg PO DAILY [facility] Stop: 12/01/20 09:01 Last Admin: 11/25/20 09:06 Dose: 6 mg Documented by: Famotidine (Pepcid) 20 mg PO BID [facility] Last Admin: 11/25/20 20:31 Dose: 20 mg Documented by: Glimepiride (Amaryl) 2 mg PO BID [facility] Remdesivir 100 mg/ Sodium (Chloride) 100 mls @ 100 mls/hr IV Q24H [facility] Stop: 11/26/20 21:59 Last Admin: 11/25/20 20:29 Dose: 100 mls/hr Documented by: Ceftriaxone Sodium 2 gm/ (Sodium Chloride) 100 mls @ 200 mls/hr IV Q24H [facility] Stop: 11/26/20 21:59 Last Admin: 11/25/20 21:34 Dose: 200 mls/hr Documented by: Insulin Glargine (Lantus) 20 unit SUBCUT BIDAC [facility] Insulin Human Lispro (Humalog) 0 unit SUBCUT TIDAC [facility]; Protocol Last Admin: 11/25/20 17:19 Dose: 12 units Documented by: Losartan Potassium (Cozaar) 25 mg PO DAILY [facility] Last Admin: 11/25/20 09:09 Dose: 25 mg Documented by: Melatonin (Melatonin) 9 mg PO BEDTIME [facility] Last Admin: 11/25/20 20:32 Dose: 9 mg Documented by: Metoprolol Tartrate (Lopressor) 75 mg PO BID [facility] Last Admin: 11/25/20 20:32 Dose: 75 mg Documented by: Dulaglutide [ Trulicity] 1.5 Mg Ptom 0 mg SQ Fr [facility] Rosuvastatin Calcium (Crestor) 10 mg PO DAILY [facility] Last Admin: 11/25/20 09:07 Dose: 10 mg Documented by: Sertraline HCl (Zoloft) 50 mg PO DAILY [facility] Last Admin: 11/25/20 09:09 Dose: 50 mg Documented by: Topiramate (Topamax) 50 mg PO BID [facility] Last Admin: 11/25/20 20:32 Dose: 50 mg Documented by: Zinc Sulfate (Zincate) 220 mg PO DAILY [facility] Last Admin: 11/25/20 09:03 Dose: 220 mg Documented by: Discontinued Medications Glimepiride (Amaryl) 2 mg PO DAILY [facility] Last Admin: 11/25/20 09:04 Dose: 2 mg Documented by: Remdesivir 200 mg/ Sodium (Chloride) 250 mls @ 250 mls/hr IV ONETIME ONE Stop: 11/22/20 21:09 Last Admin: 11/22/20 23:46 Dose: 250 mls/hr Documented by: Azithromycin 500 mg/ Sodium (Chloride) 250 mls @ 250 mls/hr IV Q24H [facility] Stop: 11/24/20 21:59 Last Admin: 11/24/20 21:25 Dose: 250 mls/hr Documented by: Tocilizumab 800 mg/ Sodium (Chloride) 100 mls @ 100 mls/hr IV ONETIME ONE Stop: 11/23/20 12:59 Last Admin: 11/23/20 14:04 Dose: Not Given Documented by: Tocilizumab 800 mg/ Sodium (Chloride) 100 mls @ 100 mls/hr IV ONETIME ONE Stop: 11/23/20 14:29 Last Admin: 11/23/20 13:33 Dose: 100 mls/hr Documented by: Tocilizumab 300 mg/ Sodium (Chloride) 100 mls @ 100 mls/hr IV ONETIME ONE Stop: 11/24/20 14:29 Last Admin: 11/24/20 12:45 Dose: 100 mls/hr Documented by: Influenza Virus Vaccine (Fluzone Quad [id number] Syringe) 60 mcg IM .ONCE ONE Stop: 11/23/20 09:01 Insulin Glargine (Lantus) 7 unit SUBCUT BIDAC [facility] Last Admin: 11/23/20 17:46 Dose: 7 unit Documented by: Insulin Glargine (Lantus) 12 unit SUBCUT BIDAC [facility] Last Admin: 11/25/20 06:58 Dose: 12 units Documented by: Insulin Glargine (Lantus) 15 unit SUBCUT BIDAC [facility] Insulin Glargine (Lantus) 17 unit SUBCUT BIDAC JOJO Insulin Glargine (Lantus) 15 unit SUBCUT BIDAC [facility] Last Admin: 11/26/20 06:50 Dose: 15 units Documented by: Insulin Human Lispro (Humalog) 0 unit SUBCUT QIDACANDBED [facility]; Protocol Last Admin: 11/23/20 17:47 Dose: 8 unit Documented by: Insulin Human Lispro (Humalog) 0 unit SUBCUT QIDACANDBED [facility]; Protocol Last Admin: 11/25/20 08:12 Dose: Not Given Documented by: Insulin Human Lispro (Humalog) 5 unit SUBCUT TIDAC [facility] Last Admin: 11/24/20 17:17 Dose: 5 units Documented by: Insulin Human Lispro (Humalog) 7 unit SUBCUT TIDAC [facility] Last Admin: 11/25/20 08:12 Dose: Not Given Documented by: Metoprolol Tartrate (Lopressor) 75 mg PO ONETIME ONE Stop: 11/22/20 21:09 Last Admin: 11/22/20 23:47 Dose: 75 mg Documented by: - Exam Quality Assessment: Supplemental Oxygen General: Alert, Oriented, Cooperative, No Acute Distress, Other (Obese) HEENT: Pupils Equal, Pupils Reactive, EOMI, Mucous Membr. Moist/[place] Neck: Supple Lungs: Normal Respiratory Effort, Decreased Breath Sounds Cardiovascular: Irregular Rhythm GI/Abdominal Exam: Normal Bowel Sounds, Soft, Non-Tender, No Organomegaly, No Distention, No Abnormal Bruit, Other (Obese) (Male) Exam: Deferred Back Exam: Normal Inspection, Decreased Range of Motion Extremities: Normal Inspection, Normal Range of Motion, Non-Tender, No Pedal Edema, Normal Capillary Refill Peripheral Pulses: 2+: Dorsalis Pedis (L), Dorsalis Pedis (R) Skin: Warm, Dry, Intact Neurological: No New Focal Deficit Psy/Mental Status: Alert, Normal Affect, Normal Mood - Patient Data Lab Results Last 24 hrs: Laboratory Results - last 24 hr 11/25/20 11/25/20 11/25/20 Range/Units 11:13 16:42 20:23 POC Glucose 242 H 305 H 333 H (80-115) mg/dL Result Diagrams: 11/26/20 08:25 11/26/20 08:25 Arnol Results Last 24 hrs: Microbiology 11/22/20 18:18 Aerobic Blood Culture - Preliminary Blood - Venous NO GROWTH AFTER 3 DAYS Anaerobic Blood Culture - Preliminary NO GROWTH AFTER 3 DAYS Sepsis Event Note - Evaluation Sepsis Screening Result: No Definite Risk - Focused Exam Vital Signs: Vital Signs Temp Pulse Resp BP Pulse Ox Pulse Ox 11/26/20 06:37 91 L 11/26/20 02:47 36.7 C 81 18 127/87 91 L 11/25/20 21:00 92 L 11/25/20 20:32 84 133/68 11/25/20 20:30 36.6 C 84 18 133/68 92 L - Problem List Review Problem List Initiated/Reviewed/Updated: Yes - My Orders Last 24 Hours: My Active Orders 11/25/20 08:15 Insulin Lispro [HumaLOG] See Protocol SUBCUT TIDAC 11/26/20 07:32 CBC WITH AUTO DIFF [HEME] Stat CMP [COMPREHENSIVE METABOLIC PN,CMP] [CHEM] Stat 11/26/20 07:33 MAGNESIUM [CHEM] Stat 11/26/20 07:34 CRP [C-REACTIVE PROTEIN] [CHEM] Stat 11/26/20 09:00 Glimepiride [Amaryl] 2 mg PO BID 11/26/20 16:00 Insulin Glarg,Human.Rec.Analog [LantUS] 20 unit SUBCUT BIDAC 11/27/20 05:11 CBC WITH AUTO DIFF [HEME] AM CMP [COMPREHENSIVE METABOLIC PN,CMP] [CHEM] AM CRP [C-REACTIVE PROTEIN] [CHEM] AM MAGNESIUM [CHEM] AM 11/28/20 05:11 CBC WITH AUTO DIFF [HEME] AM CMP [COMPREHENSIVE METABOLIC PN,CMP] [CHEM] AM CRP [C-REACTIVE PROTEIN] [CHEM] AM MAGNESIUM [CHEM] AM 11/29/20 05:11 CBC WITH AUTO DIFF [HEME] AM CMP [COMPREHENSIVE METABOLIC PN,CMP] [CHEM] AM CRP [C-REACTIVE PROTEIN] [CHEM] AM MAGNESIUM [CHEM] AM 11/29/20 09:00 Dulaglutide [Trulicity] 0 mg SQ Fr 11/30/20 05:11 CBC WITH AUTO DIFF [HEME] AM CMP [COMPREHENSIVE METABOLIC PN,CMP] [CHEM] AM CRP [C-REACTIVE PROTEIN] [CHEM] AM MAGNESIUM [CHEM] AM 12/01/20 05:11 CBC WITH AUTO DIFF [HEME] AM CMP [COMPREHENSIVE METABOLIC PN,CMP] [CHEM] AM CRP [C-REACTIVE PROTEIN] [CHEM] AM MAGNESIUM [CHEM] AM - Plan Plan:: 11/22/2020 Assessment 65-year-old male with history of coronary artery bypass and CAD, new onset atrial fibrillation, type 2 diabetes, obesity, presents to the emergency department after 6 days of feeling poorly and diagnosed with COVID-19. Unfortunately, this puts him at high risk for complications because of his multiple comorbidities. COVID-19 pneumonia with hypoxemia Leukopenia, POA, resolved Elevated CRP of 7.7, POA, continues to improve * Patient presented to the emergency department with oxygen saturations at 83% on room air * He required 2 to 3 L of FiO2 via nasal cannula to get saturations in the low 90s. * C-reactive protein was elevated at 6.6, ferritin 659, D-dimer slightly elevated at 0.61, white count low at 3.7. * Fortunately patient is a never smoker. No history of lung disease. * Rocephin 2 grams daily 12/30 * Dexamethasone 6 mg po on 02/03 Now in Atrial Flutter, Controlled HR * He may be in atrial fib/flutter * Repeat EKG shows atrial flutter with HR of 83 * On Metoprolol and Eliquis for maintenance medications * 2D echo report read as LVEF of 55%. No RWMA. RVSP is normal at 28 mmHg. No cardiac valves abnormality. History of coronary artery disease with bypass graft * Patient did not take his metoprolol this morning and therefore his heart rate was above 100 with A. fib RVR * On ASA and plavix for CAD * Patient is normally on metoprolol 75 mg twice daily; rate control agent * Troponin and BNP was normal. * HR now controlled * Eliquis 5 mg po BID started 11/22/2020 fro stroke prophylaxis Type 2 diabetes * BS not controlled * Moderate control with his last hemoglobin A1c from November 14 of 7.5% * On for oral medications to control his blood sugars * Repeat A1C is 7.8 * He is on steroid * Changes to insulin regimen: Lantus 15 units BID and continue high intensity ISS * Resume home dose Trulicity and Glimepieride * Hold home dose Synjardy for now Hypoalbuminemia Class II Obese * Albumin of 2.9 * BMI of 37 * Discussed LSM * Stretcher Helper following Other medical problems include depression, elevated PSA with BPH, hypertension, obesity, sleep apnea, kidney stones Plan * Admit to medical floor on telemetry * Continuous pulse ox * Remdesivir for 5 days loading dose today * Dexamethasone x10 days * Rocephin 2 g daily for 5 days for COVID-19 pneumonia * Azithromycin 500 mg daily for 3 days * Pepcid, melatonin, zinc, vitamin D. All of them have shown mixed results on treatment of COVID-19 but unlikely to cause any harm. * Encourage prone positioning when awake and asleep * Convalescent plasma has not shown improvement in outcomes will therefore hold on the treatment with convalescent plasma * FiO2 to keep SPO2 between 88 and 94%. * Follow blood sugars closely and likely start long-acting insulin * Stop home oral blood sugar medications because of inconsistencies with absorption and p.o. intake when hospitalized with COVID-19 * Blood sugars will likely worsen secondary to dexamethasone. * Sliding scale insulin * Fingerstick blood sugar 4 times a day * Follow CBC, CMP, magnesium, D-dimer, CRP * Actemra 800 mg if available * Patient is at very high risk for complications secondary to his multiple comorbidities * Start Eliquis 5 mg twice daily for his new onset A. fib * Echocardiogram on Wednesday since it is not available over the weekend * Patient is likely rate controlled on his metoprolol twice daily will start it as soon as pharmacy approves it * VTE prophylaxis will be with Eliquis * CODE STATUS full code 11/23/2020 No significant change in oxygenation overnight. We will continue on COVID-19 treatment as outlined above. We will be able to obtain Actemra 800 mg for today. Patient's blood sugars are increased so we will add Lantus 7 units twice daily for today but will likely need to increase that substantially over the next few days. Continue with sliding scale insulin and 4 times daily finger blood sugars. D-dimer did decrease to normal which is reassuring. C-reactive protein unfortunately increased to 7.7. Other lab work is not substantially different from yesterday. Patient's rate has been controlled on the metoprolol 75 mg twice daily. Echocardiogram on Wednesday. Appetite so far is good. No significant change overnight. 11/24/2020 Patient is making progress. O2 requirements are decreasing and he is symptomatically better. D-dimer and C-reactive protein have both decreased. He did get Actemra yesterday at 800 mg and will get 300 mg today. Even with good appetite and regular diet his albumin has dropped to 2.8. Blood sugars right now are his biggest problems and I have aggressively increase his insulin. Lantus 12 units twice daily with Humalog 5 units with each meal and high dose sliding scale. Hemoglobin A1c was 7.8% on admission. Echocardiogram for tomorrow for his new onset A. fib. Rate has been well controlled on metoprolol. He continues on Eliquis for stroke prevention and VTE prophylaxis. Continue t o follow Covid labs daily. He is on day 3 of 3 of azithromycin and day 3 of 5 of Zithromax. He is on day 3 of remdesivir. He is on day 3 of 10 of dexamethasone or until discharge. Prognosis is guarded secondary to his multiple comorbidities but he is looking better. 11/25/2020 Patient continues to do well. He is now down to 2-3L NC. However his blood glucose is not well controlled. Will make changes to his insulin regimen. We will also resume home dose Trulicity and Glimepiride. Encourage to use IS and FV as directed. Ambulate inside his room as many times as he can. Routine AM Labs. Continue curent Covdi-19 treatment. PT/OT following. DVT/Stroke prophylaxis: on Eliquis. 2D echo for new onset of atrial fibrillation. Code status is full. Prognosis is good at this point. 11/26/2020 He remains relatively stable. He remains on 2-3 L NC. Blood glucose remains uncontrolled. We will go up on insulin to 15 units subQ BID and Glimepiride 2 mg po BID. Encourage to use IS and FV as directed. Ambulate inside his room as many times as he can. Routine AM Labs. Continue current Covid-19 treatment. PT/OT following. DVT/Stroke prophylaxis: on Eliquis. Code status is full. Prognosis remains good.
[2020-11-26] MEDS: Dexamethasone 4 MG Tab PO SCH (09:10)
[2020-11-26] MEDS: Sertraline 50 MG Tab PO SCH (09:12)
[2020-11-26] MEDS: Losartan 25 MG Tab PO SCH (09:13)
[2020-11-26] MEDS: Cholecalciferol (Vitamin D3) 5,000 UNIT Cap PO SCH (09:13)
[2020-11-26] MEDS: Topiramate 25 MG Tab PO SCH ×2 (09:14→20:16)
[2020-11-26] MEDS: Famotidine 20 MG Tab PO SCH ×2 (09:14→20:21)
[2020-11-26] MEDS: Metoprolol Tartrate 25 MG Tab PO SCH ×2 (09:15→20:17)
[2020-11-26] MEDS: Rosuvastatin 10 MG Tab PO SCH (09:16)
[2020-11-26] MEDS: Glimepiride 2 MG Tab PO SCH ×2 (09:17→20:20)
[2020-11-26] MEDS: Zinc Sulfate 220 MG Cap PO SCH (09:17)
[2020-11-26] MEDS: Aspirin 81 MG Tab.EC PO SCH (09:18)
[2020-11-26] MEDS: Clopidogrel 75 MG Tab PO SCH (09:18)
[2020-11-26] MEDS: Apixaban 5 MG Tab PO SCH ×2 (09:18→20:15)
[2020-11-26] MEDS ORDERED: Insulin Glarg,Human.Rec.Analog 100 Unit/ML SUBCUT SCH (16:00)
[2020-11-26] MEDS: Melatonin 3 MG Tab PO SCH (20:19)
[2020-11-26] MEDS: REMDESIVIR 100 MG in Sodium Chloride 0.9% 100 ML IV SCH (20:23)
[2020-11-26] MEDS: cefTRIAXone 2 GM in Sodium Chloride 0.9% 100 ML IV SCH (21:33)
--- NOTE | 2020-11-27 05:33 | PCM.PN ---
- General Info Date of Service: 11/27/20 Admission Dx/Problem (Free Text): Admission Diagnosis/Problem Admission Diagnosis/Problem Hypoxia Subjective Update: No significant issues overnight. Again, he has no complaints this AM and states he feels pretty good. He remains on 3L NC sating adequately. He seems to be using his IS as directed. HR is controlled. Functional Status: Reports: Pain Controlled, Tolerating Diet, Ambulating, Urinating, Incentive Spirometry. Denies: New Symptoms - Review of Systems General: Denies: Fever, Weakness, Fatigue, Chills HEENT: Reports: No Symptoms Pulmonary: Denies: Shortness of Breath, Cough Cardiovascular: Denies: Chest Pain Gastrointestinal: Denies: Abdominal Pain, Nausea, Vomiting Genitourinary: Reports: No Symptoms Musculoskeletal: Reports: No Symptoms Skin: Denies: Cyanosis, Pallor, Diaphoresis Neurological: Denies: Confusion Psychiatric: Denies: Depression, Anxiety - Patient Data Vitals - Most Recent: Last Vital Signs Temp 36.5 C 11/27/20 00:23 Pulse 79 11/27/20 00:23 Resp 22 H 11/27/20 00:23 BP 153/96 H 11/27/20 00:23 Pulse Ox 90 L 11/27/20 00:23 Weight - Most Recent: 130.408 kg I&O - Last 24 Hours: Intake & Output 11/26/20 11/26/20 11/27/20 14:59 22:59 06:59 Intake Total 200 460 200 Output Total 1500 Balance 200 -1040 200 Lab Results Last 24 Hours: Laboratory Results - last 24 hr 11/26/20 11/26/20 Range/Units 08:25 08:25 WBC 3.71 L (4.23-9.07) K/mm3 RBC 4.90 (4.63-6.08) M/mm3 Hgb 14.2 (13.7-17.5) gm/dl Hct 44.2 (40.1-51.0) % MCV 90.2 (79.0-92.2) fl MCH 29.0 (25.7-32.2) pg MCHC 32.1 L (32.2-35.5) g/dl RDW Std Deviation 45.6 H (35.1-43.9) fL Plt Count 201 (163-337) K/mm3 MPV 9.5 (9.4-12.3) fl Neut % (Auto) 73.8 H (34.0-67.9) % Lymph % (Auto) 18.6 L (21.8-53.1) % Barber % (Auto) 5.4 (5.3-12.2) % Eos % (Auto) 1.9 (0.8-7.0) Baso % (Auto) 0.0 L (0.1-1.2) % Neut # (Auto) 2.74 (1.78-5.38) K/mm3 Lymph # (Auto) 0.69 L (1.32-3.57) K/mm3 Barber # (Auto) 0.20 L (0.30-0.82) K/mm3 Eos # (Auto) 0.07 (0.04-0.54) K/mm3 Baso # (Auto) 0.00 L (0.01-0.08) K/mm3 Sodium 142 (136-145) mEq/L Potassium 5.2 H (3.5-5.1) mEq/L Chloride 106 (98-107) mEq/L Carbon Dioxide 25 (21-32) mEq/L Anion Gap 16.2 H (5-15) BUN 29 H (7-18) mg/dL Creatinine 1.0 (0.7-1.3) mg/dL Est Cr Clr Drug Dosing 86.77 mL/min Estimated GFR (MDRD) > 60 (>60) mL/min BUN/Creatinine Ratio 29.0 H (14-18) Glucose 217 H (80-115) mg/dL Calcium 8.6 (8.5-10.1) mg/dL Magnesium 2.0 (1.8-2.4) mg/dl Total Bilirubin 0.4 (0.2-1.0) mg/dL AST 25 (15-37) U/L ALT 24 (16-63) U/L Alkaline Phosphatase 58 (46-116) U/L C-Reactive Protein 0.8 (<1.0) mg/dL Total Protein 6.7 (6.4-8.2) g/dl Albumin 2.9 L (3.4-5.0) g/dl Globulin 3.8 gm/dL Albumin/Globulin Ratio 0.8 L (1-2) Arnol Results Last 24 Hours: Microbiology 11/22/20 18:18 Aerobic Blood Culture - Preliminary Blood - Venous NO GROWTH AFTER 4 DAYS Anaerobic Blood Culture - Preliminary NO GROWTH AFTER 4 DAYS Med Orders - Current: Current Medications Acetaminophen (Tylenol) 650 mg PO Q4H PRN PRN Reason: Pain (Mild 1-3)/fever Last Admin: 11/22/20 23:50 Dose: 650 mg Documented by: Albuterol/Ipratropium (Duoneb 3.0-0.5 Mg/3 Ml) 3 ml NEB Q4H PRN PRN Reason: Shortness Of Breath/wheezing Apixaban (Eliquis) 5 mg PO BID [facility] Last Admin: 11/26/20 20:15 Dose: 5 mg Documented by: Aspirin (Halfprin) 81 mg PO DAILY [facility] Last Admin: 11/26/20 09:18 Dose: 81 mg Documented by: Cholecalciferol (Vitamin D3) 5,000 unit PO DAILY [facility] Last Admin: 11/26/20 09:13 Dose: 5,000 unit Documented by: Clopidogrel Bisulfate (Plavix) 75 mg PO DAILY [facility] Last Admin: 11/26/20 09:18 Dose: 75 mg Documented by: Dexamethasone (Dexamethasone) 6 mg PO DAILY [facility] Stop: 12/01/20 09:01 Last Admin: 11/26/20 09:10 Dose: 6 mg Documented by: Famotidine (Pepcid) 20 mg PO BID [facility] Last Admin: 11/26/20 20:21 Dose: 20 mg Documented by: Glimepiride (Amaryl) 2 mg PO BID [facility] Last Admin: 11/26/20 20:20 Dose: 2 mg Documented by: Insulin Glargine (Lantus) 20 unit SUBCUT BID@0700,1700 [facility] Insulin Human Lispro (Humalog) 0 unit SUBCUT TIDAC [facility]; Protocol Last Admin: 11/26/20 18:40 Dose: 9 units Documented by: Losartan Potassium (Cozaar) 25 mg PO DAILY [facility] Last Admin: 11/26/20 09:13 Dose: 25 mg Documented by: Melatonin (Melatonin) 9 mg PO BEDTIME [facility] Last Admin: 11/26/20 20:19 Dose: 9 mg Documented by: Metoprolol Tartrate (Lopressor) 75 mg PO BID [facility] Last Admin: 11/26/20 20:17 Dose: 75 mg Documented by: Dulaglutide [ Trulicity] 1.5 Mg Ptom 0 mg SQ [facility] Rosuvastatin Calcium (Crestor) 10 mg PO DAILY [facility] Last Admin: 11/26/20 09:16 Dose: 10 mg Documented by: Sertraline HCl (Zoloft) 50 mg PO DAILY [facility] Last Admin: 11/26/20 09:12 Dose: 50 mg Documented by: Topiramate (Topamax) 50 mg PO BID [facility] Last Admin: 11/26/20 20:16 Dose: 50 mg Documented by: Zinc Sulfate (Zincate) 220 mg PO DAILY [facility] Last Admin: 11/26/20 09:17 Dose: 220 mg Documented by: Discontinued Medications Glimepiride (Amaryl) 2 mg PO DAILY [facility] Last Admin: 11/25/20 09:04 Dose: 2 mg Documented by: Remdesivir 200 mg/ Sodium (Chloride) 250 mls @ 250 mls/hr IV ONETIME ONE Stop: 11/22/20 21:09 Last Admin: 11/22/20 23:46 Dose: 250 mls/hr Documented by: Remdesivir 100 mg/ Sodium (Chloride) 100 mls @ 100 mls/hr IV Q24H [facility] Stop: 11/26/20 21:59 Last Admin: 11/26/20 20:23 Dose: 100 mls/hr Documented by: Ceftriaxone Sodium 2 gm/ (Sodium Chloride) 100 mls @ 200 mls/hr IV Q24H [facility] Stop: 11/26/20 21:59 Last Admin: 11/26/20 21:33 Dose: 200 mls/hr Documented by: Azithromycin 500 mg/ Sodium (Chloride) 250 mls @ 250 mls/hr IV Q24H [facility] Stop: 11/24/20 21:59 Last Admin: 11/24/20 21:25 Dose: 250 mls/hr Documented by: Tocilizumab 800 mg/ Sodium (Chloride) 100 mls @ 100 mls/hr IV ONETIME ONE Stop: 11/23/20 12:59 Last Admin: 11/23/20 14:04 Dose: Not Given Documented by: Tocilizumab 800 mg/ Sodium (Chloride) 100 mls @ 100 mls/hr IV ONETIME ONE Stop: 11/23/20 14:29 Last Admin: 11/23/20 13:33 Dose: 100 mls/hr Documented by: Tocilizumab 300 mg/ Sodium (Chloride) 100 mls @ 100 mls/hr IV ONETIME ONE Stop: 11/24/20 14:29 Last Admin: 11/24/20 12:45 Dose: 100 mls/hr Documented by: Influenza Virus Vaccine (Fluzone Quad Syringe) 60 mcg IM .ONCE ONE Stop: 11/23/20 09:01 Insulin Glargine (Lantus) 7 unit SUBCUT BIDAC [facility] Last Admin: 11/23/20 17:46 Dose: 7 unit Documented by: Insulin Glargine (Lantus) 12 unit SUBCUT BIDAC [facility] Last Admin: 11/25/20 06:58 Dose: 12 units Documented by: Insulin Glargine (Lantus) 15 unit SUBCUT BIDAC [facility] Insulin Glargine (Lantus) 17 unit SUBCUT BIDAC [facility] Insulin Glargine (Lantus) 15 unit SUBCUT BIDAC [facility] Last Admin: 11/26/20 06:50 Dose: 15 units Documented by: Insulin Glargine (Lantus) 20 unit SUBCUT BIDAC [facility] Last Admin: 11/26/20 18:40 Dose: 20 units Documented by: Insulin Human Lispro (Humalog) 0 unit SUBCUT QIDACANDBED [facility]; Protocol Last Admin: 11/23/20 17:47 Dose: 8 unit Documented by: Insulin Human Lispro (Humalog) 0 unit SUBCUT QIDACANDBED [facility]; Protocol Last Admin: 11/25/20 08:12 Dose: Not Given Documented by: Insulin Human Lispro (Humalog) 5 unit SUBCUT TIDAC [facility] Last Admin: 11/24/20 17:17 Dose: 5 units Documented by: Insulin Human Lispro (Humalog) 7 unit SUBCUT TIDAC [facility] Last Admin: 11/25/20 08:12 Dose: Not Given Documented by: Metoprolol Tartrate (Lopressor) 75 mg PO ONETIME ONE Stop: 11/22/20 21:09 Last Admin: 11/22/20 23:47 Dose: 75 mg Documented by: - Exam Quality Assessment: Supplemental Oxygen, DVT Prophylaxis General: Alert, Oriented, Cooperative, No Acute Distress, Other (Obese) HEENT: Pupils Equal, Pupils Reactive, EOMI, Mucous Membr. Moist/[place] Lungs: Normal Respiratory Effort Cardiovascular: Irregular Rhythm GI/Abdominal Exam: Normal Bowel Sounds, Soft, Non-Tender, No Organomegaly, No Distention, No Mass, Pelvis Stable, Other (Obese) (Male) Exam: Deferred Back Exam: Normal Inspection, Decreased Range of Motion Extremities: Normal Inspection, Normal Range of Motion, Non-Tender, No Pedal Edema, Normal Capillary Refill Peripheral Pulses: 2+: Dorsalis Pedis (L), Dorsalis Pedis (R) Skin: Warm, Dry, Intact Neurological: No New Focal Deficit Psy/Mental Status: Alert, Normal Affect, Normal Mood - Patient Data Lab Results Last 24 hrs: Laboratory Results - last 24 hr 11/26/20 11/26/20 Range/Units 08:25 08:25 WBC 3.71 L (4.23-9.07) K/mm3 RBC 4.90 (4.63-6.08) M/mm3 Hgb 14.2 (13.7-17.5) gm/dl Hct 44.2 (40.1-51.0) % MCV 90.2 (79.0-92.2) fl MCH 29.0 (25.7-32.2) pg MCHC 32.1 L (32.2-35.5) g/dl RDW Std Deviation 45.6 H (35.1-43.9) fL Plt Count 201 (163-337) K/mm3 MPV 9.5 (9.4-12.3) fl Neut % (Auto) 73.8 H (34.0-67.9) % Lymph % (Auto) 18.6 L (21.8-53.1) % Barber % (Auto) 5.4 (5.3-12.2) % Eos % (Auto) 1.9 (0.8-7.0) Baso % (Auto) 0.0 L (0.1-1.2) % Neut # (Auto) 2.74 (1.78-5.38) K/mm3 Lymph # (Auto) 0.69 L (1.32-3.57) K/mm3 Barber # (Auto) 0.20 L (0.30-0.82) K/mm3 Eos # (Auto) 0.07 (0.04-0.54) K/mm3 Baso # (Auto) 0.00 L (0.01-0.08) K/mm3 Sodium 142 (136-145) mEq/L Potassium 5.2 H (3.5-5.1) mEq/L Chloride 106 (98-107) mEq/L Carbon Dioxide 25 (21-32) mEq/L Anion Gap 16.2 H (5-15) BUN 29 H (7-18) mg/dL Creatinine 1.0 (0.7-1.3) mg/dL Est Cr Clr Drug Dosing 86.77 mL/min Estimated GFR (MDRD) > 60 (>60) mL/min BUN/Creatinine Ratio 29.0 H (14-18) Glucose 217 H (80-115) mg/dL Calcium 8.6 (8.5-10.1) mg/dL Magnesium 2.0 (1.8-2.4) mg/dl Total Bilirubin 0.4 (0.2-1.0) mg/dL AST 25 (15-37) U/L ALT 24 (16-63) U/L Alkaline Phosphatase 58 (46-116) U/L C-Reactive Protein 0.8 (<1.0) mg/dL Total Protein 6.7 (6.4-8.2) g/dl Albumin 2.9 L (3.4-5.0) g/dl Globulin 3.8 gm/dL Albumin/Globulin Ratio 0.8 L (1-2) Result Diagrams: 11/28/20 06:54 11/28/20 06:54 Arnol Results Last 24 hrs: Microbiology 11/22/20 18:18 Aerobic Blood Culture - Preliminary Blood - Venous NO GROWTH AFTER 4 DAYS Anaerobic Blood Culture - Preliminary NO GROWTH AFTER 4 DAYS Sepsis Event Note - Evaluation Sepsis Screening Result: No Definite Risk - Focused Exam Vital Signs: Vital Signs Temp Pulse Resp BP Pulse Ox Pulse Ox 11/27/20 00:23 36.5 C 79 22 H 153/96 H 90 L 11/26/20 21:00 93 L 11/26/20 20:20 36.5 C 85 22 H 135/77 93 L 11/26/20 20:17 85 133/77 11/26/20 19:51 92 L 11/26/20 19:36 36.4 C 84 22 H 138/85 87 L - Problem List Review Problem List Initiated/Reviewed/Updated: Yes - My Orders Last 24 Hours: My Active Orders 11/26/20 08:44 EKG 12 Lead [EKG Documentation Completion] [RC] .PRN 11/26/20 09:00 Glimepiride [Amaryl] 2 mg PO BID 11/27/20 05:11 CBC WITH AUTO DIFF [HEME] AM CMP [COMPREHENSIVE METABOLIC PN,CMP] [CHEM] AM CRP [C-REACTIVE PROTEIN] [CHEM] AM MAGNESIUM [CHEM] AM 11/27/20 07:00 Insulin Glarg,Human.Rec.Analog [LantUS] 20 unit SUBCUT BID@0700,1700 11/28/20 05:11 CBC WITH AUTO DIFF [HEME] AM CMP [COMPREHENSIVE METABOLIC PN,CMP] [CHEM] AM CRP [C-REACTIVE PROTEIN] [CHEM] AM MAGNESIUM [CHEM] AM 11/29/20 05:11 CBC WITH AUTO DIFF [HEME] AM CMP [COMPREHENSIVE METABOLIC PN,CMP] [CHEM] AM CRP [C-REACTIVE PROTEIN] [CHEM] AM MAGNESIUM [CHEM] AM 11/29/20 09:00 Dulaglutide [Trulicity] 0 mg SQ Fr 11/30/20 05:11 CBC WITH AUTO DIFF [HEME] AM CMP [COMPREHENSIVE METABOLIC PN,CMP] [CHEM] AM CRP [C-REACTIVE PROTEIN] [CHEM] AM MAGNESIUM [CHEM] AM 12/01/20 05:11 CBC WITH AUTO DIFF [HEME] AM CMP [COMPREHENSIVE METABOLIC PN,CMP] [CHEM] AM CRP [C-REACTIVE PROTEIN] [CHEM] AM MAGNESIUM [CHEM] AM - Plan Plan:: 11/22/2020 Assessment 65-year-old male with history of coronary artery bypass and CAD, new onset atrial fibrillation, type 2 diabetes, obesity, presents to the emergency department after 6 days of feeling poorly and diagnosed with COVID-19. Unfortunately, this puts him at high risk for complications because of his multiple comorbidities. COVID-19 pneumonia with hypoxemia Leukopenia, POA, resolved Elevated CRP of 7.7, POA, now wnl * Risk factors: DM2, ISABEL, Class II Obese * Patient presented to the emergency department with oxygen saturations at 83% on room air * He required 2 to 3 L of FiO2 via nasal cannula to get saturations in the low 90s. * C-reactive protein was elevated at 6.6, ferritin 659, D-dimer slightly elevated at 0.61, white count low at 3.7 * Fortunately patient is a never smoker. No history of lung disease. * Azithromycin 500 mg IV daily completed 11/24/2020 * Rocephin 2 grams daily completed 11/26/2020 * Actemra completed 11/23/2020 * Dexamethasone 6 mg po on 03/06 Atrial Flutter, Controlled HR * He may be in atrial fib/flutter * Repeat EKG shows atrial flutter with HR of 83 * On Metoprolol and Eliquis for maintenance medications * 2D echo report read as LVEF of 55%. No RWMA. RVSP is normal at 28 mmHg. No cardiac valves abnormality History of coronary artery disease with bypass graft * Patient did not take his metoprolol this morning and therefore his heart rate was above 100 with A. fib RVR * On ASA and plavix for CAD * Patient is normally on metoprolol 75 mg twice daily; rate control agent * Troponin and BNP was normal. * HR now controlled * Eliquis 5 mg po BID started 11/22/2020 fro stroke prophylaxis Type 2 diabetes * BS not controlled * Moderate control with his last hemoglobin A1c from November 14 of 7.5% * On for oral medications to control his blood sugars * Repeat A1C is 7.8 * He is on steroid * Changes to insulin regimen: Lantus 15 units BID and continue high intensity ISS * Resume home dose Trulicity and Glimepiride * Hold home dose Synjardy for now Hypoalbuminemia Class II Obese * Albumin of 2.9 * BMI of 37 * Discussed LSM * Lead Assistant Manager following Other medical problems include depression, elevated PSA with BPH, hypertension, obesity, sleep apnea, kidney stones Plan * Admit to medical floor on telemetry * Continuous pulse ox * Remdesivir for 5 days loading dose today * Dexamethasone x10 days * Rocephin 2 g daily for 5 days for COVID-19 pneumonia * Azithromycin 500 mg daily for 3 days * Pepcid, melatonin, zinc, vitamin D. All of them have shown mixed results on treatment of COVID-19 but unlikely to cause any harm. * Encourage prone positioning when awake and asleep * Convalescent plasma has not shown improvement in outcomes will therefore hold on the treatment with convalescent plasma * FiO2 to keep SPO2 between 88 and 94%. * Follow blood sugars closely and likely start long-acting insulin * Stop home oral blood sugar medications because of inconsistencies with absorption and p.o. intake when hospitalized with COVID-19 * Blood sugars will likely worsen secondary to dexamethasone. * Sliding scale insulin * Fingerstick blood sugar 4 times a day * Follow CBC, CMP, magnesium, D-dimer, CRP * Actemra 800 mg if available * Patient is at very high risk for complications secondary to his multiple comorbidities * Start Eliquis 5 mg twice daily for his new onset A. fib * Echocardiogram on Wednesday since it is not available over the weekend * Patient is likely rate controlled on his metoprolol twice daily will start it as soon as pharmacy approves it * VTE prophylaxis will be with Eliquis * CODE STATUS full code 11/23/2020 No significant change in oxygenation overnight. We will continue on COVID-19 treatment as outlined above. We will be able to obtain Actemra 800 mg for today. Patient's blood sugars are increased so we will add Lantus 7 units twice daily for today but will likely need to increase that substantially over the next few days. Continue with sliding scale insulin and 4 times daily finger blood sugars. D-dimer did decrease to normal which is reassuring. C-reactive protein unfortunately increased to 7.7. Other lab work is not substantially different from yesterday. Patient's rate has been controlled on the metoprolol 75 mg twice daily. Echocardiogram on Wednesday. Appetite so far is good. No significant change overnight. 11/24/2020 Patient is making progress. O2 requirements are decreasing and he is symptomatically better. D-dimer and C-reactive protein have both decreased. He did get Actemra yesterday at 800 mg and will get 300 mg today. Even with good appetite and regular diet his albumin has dropped to 2.8. Blood sugars right now are his biggest problems and I have aggressively increase his insulin. Lantus 12 units twice daily with Humalog 5 units with each meal and high dose sliding scale. Hemoglobin A1c was 7.8% on admission. Echocardiogram for tomorrow for his new onset A. fib. Rate has been well controlled on metoprolol. He continues on Eliquis for stroke prevention and VTE prophylaxis. Continue to follow Covid labs daily. He is on day 3 of 3 of azithromycin and day 3 of 5 of Zithromax. He is on day 3 of remdesivir. He is on day 3 of 10 of dexamethasone or until discharge. Prognosis is guarded secondary to his multiple comorbidities but he is looking better. 11/25/2020 Patient continues to do well. He is now down to 2-3L NC. However his blood glucose is not well controlled. Will make changes to his insulin regimen. We will also resume home dose Trulicity and Glimepiride. Encourage to use IS and FV as directed. Ambulate inside his room as many times as he can. Routine AM L abs. Continue current Covid-19 treatment. PT/OT following. DVT/Stroke prophylaxis: on Eliquis. 2D echo for new onset of atrial fibrillation. Code status is full. Prognosis is good at this point. 11/26/2020 He remains relatively stable. He remains on 2-3 L NC. Blood glucose remains uncontrolled. We will go up on insulin to 15 units subQ BID and Glimepiride 2 mg po BID. Encourage to use IS and FV as directed. Ambulate inside his room as many times as he can. Routine AM Labs. Continue current Covid-19 treatment. PT/OT following. DVT/Stroke prophylaxis: on Eliquis. Code status is full. Prognosis remains good. 11/27/2020 He looks clinically stable and in no acute respiratory distress. He is on 3 L NC. Blood glucose has improved. We will go up on Glimepiride to 4 mg po BID. Continue to encourage to use IS and FV as directed. Ambulate inside his room as many times as he can. Routine AM Labs. Continue current Covid-19 treatment. Repeat chest x-ray this AM.PT/OT following. DVT/Stroke prophylaxis: on Eliquis. Code status is full. Prognosis is good-guarded at this point. 0915: Repeat chest x-ray shows worsening appearance of chest. We will initiate proning position as many times as he can. Questionable compliance with bedside activities. Patient appears to be unmotivated. 1716: Called and updated about his clinical progress. Advised to have all Twan's immediately family to do social media with him, to lift his spirits up and encourage him to prone as many times as he can, ambulate inside his room and use his IS and FV as directed.
--- NOTE | 2020-11-27 07:59 | CR ---
Chest: Portable view of the chest was obtained. Comparison: Prior chest x-ray of 11/22/20. Increasing parenchymal densities are seen within the right upper and right lower lung as well as within the left mid and lower lung. Heart is enlarged. Sternotomy is noted. Bony structures are grossly intact. Impression: 1. Worsening appearance of the chest compatible with increasing COVID pneumonia. Diagnostic code #3
[2020-11-27] MEDS: Insulin Glarg,Human.Rec.Analog 100 Unit/ML SUBCUT SCH ×2 (08:27→17:40)
[2020-11-27] MEDS: Metoprolol Tartrate 25 MG Tab PO SCH ×2 (08:29→20:45)
[2020-11-27] MEDS: Cholecalciferol (Vitamin D3) 5,000 UNIT Cap PO SCH (08:29)
[2020-11-27] MEDS: Sertraline 50 MG Tab PO SCH (08:29)
[2020-11-27] MEDS: Dexamethasone 4 MG Tab PO SCH (08:30)
[2020-11-27] MEDS: Zinc Sulfate 220 MG Cap PO SCH (08:31)
[2020-11-27] MEDS: Apixaban 5 MG Tab PO SCH ×2 (08:31→20:45)
[2020-11-27] MEDS: Glimepiride 2 MG Tab PO SCH ×2 (08:31→20:44)
[2020-11-27] MEDS: Topiramate 25 MG Tab PO SCH ×2 (08:32→20:44)
[2020-11-27] MEDS: Losartan 25 MG Tab PO SCH (08:32)
[2020-11-27] MEDS: Clopidogrel 75 MG Tab PO SCH (08:32)
[2020-11-27] MEDS: Famotidine 20 MG Tab PO SCH ×2 (08:32→20:44)
[2020-11-27] MEDS: Rosuvastatin 10 MG Tab PO SCH (08:32)
[2020-11-27] MEDS: Aspirin 81 MG Tab.EC PO SCH (08:32)
[2020-11-27] MEDS: Melatonin 3 MG Tab PO SCH (20:44)
--- NOTE | 2020-11-28 06:44 | PCM.PN ---
- General Info Date of Service: 11/28/20 Admission Dx/Problem (Free Text): Admission Diagnosis/Problem Admission Diagnosis/Problem Hypoxia Subjective Update: No significant issues overnight. He looks melancholic. He reports no chest pain or shortness of breath. He endorses mild productive cough. He is not able to tell me if his phlegm is colored. Day nurse found him in the mid 80s while on 3L NC early this AM. He has been assessed by RT and currently on high flow of 60L with 85% FiO2. He reports no acute issues. HR remains controlled and his blood pressure is stable. His D-dimer is elevated at 3.56. Patient is on ASA/Plavix and Eliquis for DVT/Stroke prophylaxis. His chest x-ray yesterday looks worse. Patient prones but does not stay long enough or he does modified proning i.e. lays on his side. Functional Status: Reports: Pain Controlled, Tolerating Diet, Ambulating, Urinating, Incentive Spirometry. Denies: New Symptoms - Review of Systems General: Denies: Fever, Chills HEENT: Denies: Contact Lenses Pulmonary: Reports: Cough, Sputum. Denies: Shortness of Breath Cardiovascular: Denies: Chest Pain, Dyspnea on Exertion, Lightheadedness Gastrointestinal: Denies: Abdominal Pain, Decreased Appetite, Nausea, Vomiting Genitourinary: Denies: Dysuria, Burning, Urgency Skin: Denies: Cyanosis, Mottled Neurological: Denies: Confusion, Difficulty Walking, Weakness, Gait Disturbance Psychiatric: Denies: Depression, Anxiety - Patient Data Vitals - Most Recent: Last Vital Signs Temp 36.7 C 11/28/20 06:00 Pulse 84 11/28/20 06:00 Resp 18 11/28/20 06:00 BP 148/93 H 11/28/20 06:00 Pulse Ox 90 L 11/28/20 06:00 Weight - Most Recent: 130.181 kg I&O - Last 24 Hours: Intake & Output 11/27/20 11/27/20 11/28/20 14:59 22:59 06:59 Intake Total 360 800 400 Output Total 1700 850 Balance 360 -900 -450 Lab Results Last 24 Hours: Laboratory Results - last 24 hr 11/27/20 11/27/20 Range/Units 06:16 06:16 WBC 4.17 L (4.23-9.07) K/mm3 RBC 4.87 (4.63-6.08) M/mm3 Hgb 14.5 (13.7-17.5) gm/dl Hct 43.5 (40.1-51.0) % MCV 89.3 (79.0-92.2) fl MCH 29.8 (25.7-32.2) pg MCHC 33.3 (32.2-35.5) g/dl RDW Std Deviation 44.0 H (35.1-43.9) fL Plt Count 228 (163-337) K/mm3 MPV 9.6 (9.4-12.3) fl Neut % (Auto) 74.7 H (34.0-67.9) % Lymph % (Auto) 17.0 L (21.8-53.1) % Millard % (Auto) 4.8 L (5.3-12.2) % Eos % (Auto) 3.1 (0.8-7.0) Baso % (Auto) 0.2 (0.1-1.2) % Neut # (Auto) 3.11 (1.78-5.38) K/mm3 Lymph # (Auto) 0.71 L (1.32-3.57) K/mm3 Millard # (Auto) 0.20 L (0.30-0.82) K/mm3 Eos # (Auto) 0.13 (0.04-0.54) K/mm3 Baso # (Auto) 0.01 (0.01-0.08) K/mm3 Sodium 141 (136-145) mEq/L Potassium 4.1 (3.5-5.1) mEq/L Chloride 105 (98-107) mEq/L Carbon Dioxide 25 (21-32) mEq/L Anion Gap 15.1 H (5-15) BUN 25 H (7-18) mg/dL Creatinine 1.0 (0.7-1.3) mg/dL Est Cr Clr Drug Dosing 86.77 mL/min Estimated GFR (MDRD) > 60 (>60) mL/min BUN/Creatinine Ratio 25.0 H (14-18) Glucose 163 H (80-115) mg/dL Calcium 8.7 (8.5-10.1) mg/dL Magnesium 2.0 (1.8-2.4) mg/dl Total Bilirubin 0.5 (0.2-1.0) mg/dL AST 25 (15-37) U/L ALT 27 (16-63) U/L Alkaline Phosphatase 62 (46-116) U/L C-Reactive Protein 0.4 (<1.0) mg/dL Total Protein 6.7 (6.4-8.2) g/dl Albumin 3.0 L (3.4-5.0) g/dl Globulin 3.7 gm/dL Albumin/Globulin Ratio 0.8 L (1-2) Arnol Results Last 24 Hours: Microbiology 11/22/20 18:18 Aerobic Blood Culture - Preliminary Blood - Venous NO GROWTH AFTER 5 DAYS Anaerobic Blood Culture - Preliminary NO GROWTH AFTER 5 DAYS Med Orders - Current: Current Medications Acetaminophen (Tylenol) 650 mg PO Q4H PRN PRN Reason: Pain (Mild 1-3)/fever Last Admin: 11/22/20 23:50 Dose: 650 mg Documented by: Albuterol/Ipratropium (Duoneb 3.0-0.5 Mg/3 Ml) 3 ml NEB Q4H PRN PRN Reason: Shortness Of Breath/wheezing Apixaban (Eliquis) 5 mg PO BID [facility] Last Admin: 11/27/20 20:45 Dose: 5 mg Documented by: Aspirin (Halfprin) 81 mg PO DAILY [facility] Last Admin: 11/27/20 08:32 Dose: 81 mg Documented by: Cholecalciferol (Vitamin D3) 5,000 unit PO DAILY [facility] Last Admin: 11/27/20 08:29 Dose: 5,000 unit Documented by: Clopidogrel Bisulfate (Plavix) 75 mg PO DAILY [facility] Last Admin: 11/27/20 08:32 Dose: 75 mg Documented by: Dexamethasone (Dexamethasone) 6 mg PO DAILY [facility] Stop: 12/01/20 09:01 Last Admin: 11/27/20 08:30 Dose: 6 mg Documented by: Famotidine (Pepcid) 20 mg PO BID [facility] Last Admin: 11/27/20 20:44 Dose: 20 mg Documented by: Glimepiride (Amaryl) 4 mg PO BID [facility] Last Admin: 11/27/20 20:44 Dose: 4 mg Documented by: Insulin Glargine (Lantus) 20 unit SUBCUT BID@0700,1700 [facility] Last Admin: 11/27/20 17:40 Dose: 20 units Documented by: Insulin Human Lispro (Humalog) 0 unit SUBCUT TIDAC [facility]; Protocol Last Admin: 11/28/20 06:11 Dose: Not Given Documented by: Losartan Potassium (Cozaar) 25 mg PO DAILY [facility] Last Admin: 11/27/20 08:32 Dose: 25 mg Documented by: Melatonin (Melatonin) 9 mg PO BEDTIME [facility] Last Admin: 11/27/20 20:44 Dose: 9 mg Documented by: Metoprolol Tartrate (Lopressor) 75 mg PO BID [facility] Last Admin: 11/27/20 20:45 Dose: 75 mg Documented by: Dulaglutide [ Trulicity] 1.5 Mg Ptom 0 mg SQ [facility] Rosuvastatin Calcium (Crestor) 10 mg PO DAILY [facility] Last Admin: 11/27/20 08:32 Dose: 10 mg Documented by: Sertraline HCl (Zoloft) 50 mg PO DAILY [facility] Last Admin: 11/27/20 08:29 Dose: 50 mg Documented by: Topiramate (Topamax) 50 mg PO BID [facility] Last Admin: 11/27/20 20:44 Dose: 50 mg Documented by: Zinc Sulfate (Zincate) 220 mg PO DAILY [facility] Last Admin: 11/27/20 08:31 Dose: 220 mg Documented by: Discontinued Medications Glimepiride (Amaryl) 2 mg PO DAILY [facility] Last Admin: 11/25/20 09:04 Dose: 2 mg Documented by: Glimepiride (Amaryl) 2 mg PO BID [facility] Last Admin: 11/26/20 20:20 Dose: 2 mg Documented by: Remdesivir 200 mg/ Sodium (Chloride) 250 mls @ 250 mls/hr IV ONETIME ONE Stop: 11/22/20 21:09 Last Admin: 11/22/20 23:46 Dose: 250 mls/hr Documented by: Remdesivir 100 mg/ Sodium (Chloride) 100 mls @ 100 mls/hr IV Q24H [facility] Stop: 11/26/20 21:59 Last Admin: 11/26/20 20:23 Dose: 100 mls/hr Documented by: Ceftriaxone Sodium 2 gm/ (Sodium Chloride) 100 mls @ 200 mls/hr IV Q24H [facility] Stop: 11/26/20 21:59 Last Admin: 11/26/20 21:33 Dose: 200 mls/hr Documented by: Azithromycin 500 mg/ Sodium (Chloride) 250 mls @ 250 mls/hr IV Q24H [facility] Stop: 11/24/20 21:59 Last Admin: 11/24/20 21:25 Dose: 250 mls/hr Documented by: Tocilizumab 800 mg/ Sodium (Chloride) 100 mls @ 100 mls/hr IV ONETIME ONE Stop: 11/23/20 12:59 Last Admin: 11/23/20 14:04 Dose: Not Given Documented by: Tocilizumab 800 mg/ Sodium (Chloride) 100 mls @ 100 mls/hr IV ONETIME ONE Stop: 11/23/20 14:29 Last Admin: 11/23/20 13:33 Dose: 100 mls/hr Documented by: Tocilizumab 300 mg/ Sodium (Chloride) 100 mls @ 100 mls/hr IV ONETIME ONE Stop: 11/24/20 14:29 Last Admin: 11/24/20 12:45 Dose: 100 mls/hr Documented by: Influenza Virus Vaccine (Fluzone Quad Syringe) 60 mcg IM .ONCE ONE Stop: 11/23/20 09:01 Insulin Glargine (Lantus) 7 unit SUBCUT [facility]IDAC [facility] Last Admin: 11/23/20 17:46 Dose: 7 unit Documented by: Insulin Glargine (Lantus) 12 unit SUBCUT BIDAC [facility] Last Admin: 11/25/20 06:58 Dose: 12 units Documented by: Insulin Glargine (Lantus) 15 unit SUBCUT [facility]IDAC [facility] Insulin Glargine (Lantus) 17 unit SUBCUT [facility]IDAC [facility] Insulin Glargine (Lantus) 15 unit SUBCUT BIDAC [facility] Last Admin: 11/26/20 06:50 Dose: 15 units Documented by: Insulin Glargine (Lantus) 20 unit SUBCUT BIDAC [facility] Last Admin: 11/26/20 18:40 Dose: 20 units Documented by: Insulin Human Lispro (Humalog) 0 unit SUBCUT [facility]IDACANDBED [facility]; Protocol Last Admin: 11/23/20 17:47 Dose: 8 unit Documented by: Insulin Human Lispro (Humalog) 0 unit SUBCUT [facility]ACANDBED [facility]; Protocol Last Admin: 11/25/20 08:12 Dose: Not Given Documented by: Insulin Human Lispro (Humalog) 5 unit SUBCUT [facility] Last Admin: 11/24/20 17:17 Dose: 5 units Documented by: Insulin Human Lispro (Humalog) 7 unit SUBCUT [facility] Last Admin: 11/25/20 08:12 Dose: Not Given Documented by: Metoprolol Tartrate (Lopressor) 75 mg PO ONETIME ONE Stop: 11/22/20 21:09 Last Admin: 11/22/20 23:47 Dose: 75 mg Documented by: - Exam Quality Assessment: Supplemental Oxygen, DVT Prophylaxis General: Alert, Oriented, Cooperative, No Acute Distress, Other (Obese) HEENT: Pupils Equal, Pupils Reactive, EOMI Neck: Supple Lungs: Normal Respiratory Effort, Decreased Breath Sounds, Wheezing, Other (no accessory muscle use; he is not in acutre respiratory distress) GI/Abdominal Exam: Normal Bowel Sounds, Soft, Non-Tender, No Organomegaly, No Distention, No Abnormal Bruit, Other (Obese) (Male) Exam: Deferred Back Exam: Normal Inspection, Decreased Range of Motion Extremities: Normal Inspection, Normal Range of Motion, Non-Tender, No Pedal Edema, Normal Capillary Refill Peripheral Pulses: 2+: Dorsalis Pedis (L), Dorsalis Pedis (R) Skin: Warm, Dry, Intact Neurological: No New Focal Deficit Psy/Mental Status: Alert, Normal Affect, Depressed - Patient Data Lab Results Last 24 hrs: Laboratory Results - last 24 hr 11/27/20 11/27/20 Range/Units 06:16 06:16 WBC 4.17 L (4.23-9.07) K/mm3 RBC 4.87 (4.63-6.08) M/mm3 Hgb 14.5 (13.7-17.5) gm/dl Hct 43.5 (40.1-51.0) % MCV 89.3 (79.0-92.2) fl MCH 29.8 (25.7-32.2) pg MCHC 33.3 (32.2-35.5) g/dl RDW Std Deviation 44.0 H (35.1-43.9) fL Plt Count 228 (163-337) K/mm3 MPV 9.6 (9.4-12.3) fl Neut % (Auto) 74.7 H (34.0-67.9) % Lymph % (Auto) 17.0 L (21.8-53.1) % Millard % (Auto) 4.8 L (5.3-12.2) % Eos % (Auto) 3.1 (0.8-7.0) Baso % (Auto) 0.2 (0.1-1.2) % Neut # (Auto) 3.11 (1.78-5.38) K/mm3 Lymph # (Auto) 0.71 L (1.32-3.57) K/mm3 Millard # (Auto) 0.20 L (0.30-0.82) K/mm3 Eos # (Auto) 0.13 (0.04-0.54) K/mm3 Baso # (Auto) 0.01 (0.01-0.08) K/mm3 Sodium 141 (136-145) mEq/L Potassium 4.1 (3.5-5.1) mEq/L Chloride 105 (98-107) mEq/L Carbon Dioxide 25 (21-32) mEq/L Anion Gap 15.1 H (5-15) BUN 25 H (7-18) mg/dL Creatinine 1.0 (0.7-1.3) mg/dL Est Cr Clr Drug Dosing 86.77 mL/min Estimated GFR (MDRD) > 60 (>60) mL/min BUN/Creatinine Ratio 25.0 H (14-18) Glucose 163 H (80-115) mg/dL Calcium 8.7 (8.5-10.1) mg/dL Magnesium 2.0 (1.8-2.4) mg/dl Total Bilirubin 0.5 (0.2-1.0) mg/dL AST 25 (15-37) U/L ALT 27 (16-63) U/L Alkaline Phosphatase 62 (46-116) U/L C-Reactive Protein 0.4 (<1.0) mg/dL Total Protein 6.7 (6.4-8.2) g/dl Albumin 3.0 L (3.4-5.0) g/dl Globulin 3.7 gm/dL Albumin/Globulin Ratio 0.8 L (1-2) Result Diagrams: 11/28/20 06:54 11/28/20 06:54 Arnol Results Last 24 hrs: Microbiology 11/22/20 18:18 Aerobic Blood Culture - Preliminary Blood - Venous NO GROWTH AFTER 5 DAYS Anaerobic Blood Culture - Preliminary NO GROWTH AFTER 5 DAYS Sepsis Event Note - Evaluation Sepsis Screening Result: No Definite Risk - Focused Exam Vital Signs: Vital Signs Temp Pulse Resp BP Pulse Ox Pulse Ox 11/28/20 06:00 36.7 C 84 18 148/93 H 90 L 11/27/20 23:07 36.4 C 82 16 112/70 92 L 11/27/20 21:00 92 L 11/27/20 20:45 86 130/83 11/27/20 20:33 36.7 C 86 16 130/83 91 L 11/27/20 20:30 91 L - Problem List Review Problem List Initiated/Reviewed/Updated: Yes - My Orders Last 24 Hours: My Active Orders 11/27/20 07:00 Insulin Glarg,Human.Rec.Analog [LantUS] 20 unit SUBCUT BID@0700,1700 11/27/20 09:00 Glimepiride [Amaryl] 4 mg PO BID 11/28/20 05:11 CBC WITH AUTO DIFF [HEME] AM CMP [COMPREHENSIVE METABOLIC PN,CMP] [CHEM] AM CRP [C-REACTIVE PROTEIN] [CHEM] AM MAGNESIUM [CHEM] AM 11/29/20 05:11 CBC WITH AUTO DIFF [HEME] AM CMP [COMPREHENSIVE METABOLIC PN,CMP] [CHEM] AM CRP [C-REACTIVE PROTEIN] [CHEM] AM MAGNESIUM [CHEM] AM 11/29/20 09:00 Dulaglutide [Trulicity] 0 mg SQ Fr 11/30/20 05:11 CBC WITH AUTO DIFF [HEME] AM CMP [COMPREHENSIVE METABOLIC PN,CMP] [CHEM] AM CRP [C-REACTIVE PROTEIN] [CHEM] AM MAGNESIUM [CHEM] AM 12/01/20 05:11 CBC WITH AUTO DIFF [HEME] AM CMP [COMPREHENSIVE METABOLIC PN,CMP] [CHEM] AM CRP [C-REACTIVE PROTEIN] [CHEM] AM MAGNESIUM [CHEM] AM - Plan Plan:: 11/22/2020 Assessment 65-year-old male with history of coronary artery bypass and CAD, new onset atrial fibrillation, type 2 diabetes, obesity, presents to the emergency department after 6 days of feeling poorly and diagnosed with COVID-19. Unfortunately, this puts him at high risk for complications because of his multiple comorbidities. COVID-19 pneumonia with hypoxemia Leukopenia, POA, resolved Elevated CRP of 7.7, POA, is now wnl * Risk factors: DM2, ISABEL, Class II Obese * Patient presented to the emergency department with oxygen saturations at 83% on room air * He required 2 to 3 L of FiO2 via nasal cannula to get saturations in the low 90s. * C-reactive protein was elevated at 6.6, ferritin 659, D-dimer slightly elevated at 0.61, white count low at 3.7 * Fortunately patient is a never smoker. No history of lung disease. * Repeat chest x-ray was worse yesterday * Azithromycin 500 mg IV daily completed 11/24/2020 * Rocephin 2 grams daily completed 11/26/2020 * Actemra completed 11/23/2020 * Dexamethasone 6 mg po on 04/05 * He is going backward/getting worse * Goal is aggressive proning Atrial Flutter, Controlled HR * He may be in atrial fib/flutter * Repeat EKG shows atrial flutter with HR of 83 * On Metoprolol and Eliquis for maintenance medications * 2D echo report read as LVEF of 55%. No RWMA. RVSP is normal at 28 mmHg. No cardiac valves abnormality History of coronary artery disease with bypass graft * Patient did not take his metoprolol this morning and therefore his heart rate was above 100 with A. fib RVR * On ASA and plavix for CAD * Patient is normally on metoprolol 75 mg twice daily; rate control agent * Troponin and BNP was normal. * HR now controlled * Eliquis 5 mg po BID started 11/22/2020 fro stroke prophylaxis Type 2 diabetes * BS not controlled * Moderate control with his last hemoglobin A1c from November 14 of 7.5% * On for oral medications to control his blood sugars * Repeat A1C is 7.8 * He is on steroid * Changes to insulin regimen: Lantus 15 units BID and continue high intensity ISS * Resume home dose Trulicity and Glimepiride * Hold home dose Synjardy for now Hypoalbuminemia Class II Obese * Albumin of 2.9 * BMI of 37 * Discussed LSM * [employer] following Other medical problems include depression, elevated PSA with BPH, hypertension, obesity, sleep apnea, kidney stones Plan * Admit to medical floor on telemetry * Continuous pulse ox * Remdesivir for 5 days loading dose today * Dexamethasone x10 days * Rocephin 2 g daily for 5 days for COVID-19 pneumonia * Azithromycin 500 mg daily for 3 days * Pepcid, melatonin, zinc, vitamin D. All of them have shown mixed results on treatment of COVID-19 but unlikely to cause any harm. * Encourage prone positioning when awake and asleep * Convalescent plasma has not shown improvement in outcomes will therefore hold on the treatment with convalescent plasma * FiO2 to keep SPO2 between 88 and 94%. * Follow blood sugars closely and likely start long-acting insulin * Stop home oral blood sugar medications because of inconsistencies with absorption and p.o. intake when hospitalized with COVID-19 * Blood sugars will likely worsen secondary to dexamethasone. * Sliding scale insulin * Fingerstick blood sugar 4 times a day * Follow CBC, CMP, magnesium, D-dimer, CRP * Actemra 800 mg if available * Patient is at very high risk for complications secondary to his multiple comorbidities * Start Eliquis 5 mg twice daily for his new onset A. fib * Echocardiogram on Wednesday since it is not available over the weekend * Patient is likely rate controlled on his metoprolol twice daily will start it as soon as pharmacy approves it * VTE prophylaxis will be with Eliquis * CODE STATUS full code 11/23/2020 No significant change in oxygenation overnight. We will continue on COVID-19 treatment as outlined above. We will be able to obtain Actemra 800 mg for today. Patient's blood sugars are increased so we will add Lantus 7 units twice daily for today but will likely need to increase that substantially over the next few days. Continue with sliding scale insulin and 4 times daily finger blood sugars. D-dimer did decrease to normal which is reassuring. C-reactive protein unfortunately increased to 7.7. Other lab work is not substantially different from yesterday. Patient's rate has been controlled on the metoprolol 75 mg twice daily. Echocardiogram on Wednesday. Appetite so far is good. No significant change overnight. 11/24/2020 Patient is making progress. O2 requirements are decreasing and he is symptomatically better. D-dimer and C-reactive protein have both decreased. He did get Actemra yesterday at 800 mg and will get 300 mg today. Even with good appetite and regular diet his albumin has dropped to 2.8. Blood sugars right now are his biggest problems and I have aggressively increase his insulin. Lantus 12 units twice daily with Humalog 5 units with each meal and high dose sliding scale. Hemoglobin A1c was 7.8% on admission. Echocardiogram for tomorrow for his new onset A. fib. Rate has been well controlled on metoprolol. He continues on Eliquis for stroke prevention and VTE prophylaxis. Continue to follow Covid labs daily. He is on day 3 of 3 of azithromycin and day 3 of 5 of Zithromax. He is on day 3 of remdesivir. He is on day 3 of 10 of dexamethasone or until discharge. Prognosis is guarded secondary to his multiple comorbidities but he is looking better. 11/25/2020 Patient continues to do well. He is now down to 2-3L NC. However his blood glucose is not well controlled. Will make changes to his insulin regimen. We will also resume home dose Trulicity and Glimepiride. Encourage to use IS and FV as directed. Ambulate inside his room as many times as he can. Routine AM Labs. Continue current Covid-19 treatment. PT/OT following. DVT/Stroke prophylaxis: on Eliquis. 2D echo for new onset of atrial fibrillation. Code status is full. Prognosis is good at this point. 11/26/2020 He remains relatively stable. He remains on 2-3 L NC. Blood glucose remains uncontrolled. We will go up on insulin to 15 units subQ BID and Glimepiride 2 mg po BID. Encourage to use IS and FV as directed. Ambulate inside his room as many times as he can. Routine AM Labs. Continue current Covid-19 treatment. PT/OT following. DVT/Stroke prophylaxis: on Eliquis. Code status is full. Progn osis remains good. 11/27/2020 He looks clinically stable and in no acute respiratory distress. He is on 3 L NC. Blood glucose has improved. We will go up on Glimepiride to 4 mg po BID. Continue to encourage to use IS and FV as directed. Ambulate inside his room as many times as he can. Routine AM Labs. Continue current Covid-19 treatment. Repeat chest x-ray this AM.PT/OT following. DVT/Stroke prophylaxis: on Eliquis. Code status is full. Prognosis remains good. 0915: Repeat chest x-ray shows worsening appearance of chest. We will initiate proning position as many times as he can. 1715: Called and updated his about his clinical progress. Advised to have all Twan's immediately family to do social media with him, lift his spirits up and encourage him to prone as many times as he can, ambulate inside his room and use his IS and FV as directed. 11/28/2020 He looks comfortable and and not in acute respiratory distress. He is now on high flow due to hypoxia on on supplemental O2. Blood glucose has improved considerably. Continue to encourage to use IS and FV as directed. Ambulate inside his room as many times as he can. Routine AM Labs. Continue current Covid-19 treatment. Repeat chest x-ray this AM. PT/OT following. DVT/Stroke prophylaxis: on Eliquis. Code status is full. Prognosis is guarded at this point. Re-educated patient about proper proning. However I feel like he does not stay long enough to benefit from it. I have gone into his room yesterday 3 times caught him on his side not on his belly/stomach. Called and updated his son and about his clinical progress and discussed possible compliance issue with bedside activities and pulmonary exercise.
[2020-11-28] MEDS: Insulin Glarg,Human.Rec.Analog 100 Unit/ML SUBCUT SCH ×2 (09:12→17:30)
[2020-11-28] MEDS: Zinc Sulfate 220 MG Cap PO SCH (09:13)
[2020-11-28] MEDS: Topiramate 25 MG Tab PO SCH ×2 (09:13→21:01)
[2020-11-28] MEDS: Clopidogrel 75 MG Tab PO SCH (09:14)
[2020-11-28] MEDS: Metoprolol Tartrate 25 MG Tab PO SCH ×2 (09:14→20:59)
[2020-11-28] MEDS: Dexamethasone 4 MG Tab PO SCH (09:14)
[2020-11-28] MEDS: Aspirin 81 MG Tab.EC PO SCH (09:14)
[2020-11-28] MEDS: Apixaban 5 MG Tab PO SCH ×2 (09:15→21:02)
[2020-11-28] MEDS: Glimepiride 2 MG Tab PO SCH ×2 (09:15→21:02)
[2020-11-28] MEDS: Sertraline 50 MG Tab PO SCH (09:16)
[2020-11-28] MEDS: Famotidine 20 MG Tab PO SCH ×2 (09:16→21:01)
[2020-11-28] MEDS: Rosuvastatin 10 MG Tab PO SCH (09:16)
[2020-11-28] MEDS: Losartan 25 MG Tab PO SCH (09:16)
[2020-11-28] MEDS: Cholecalciferol (Vitamin D3) 5,000 UNIT Cap PO SCH (09:16)
--- NOTE | 2020-11-28 13:32 | CR ---
Chest: Portable view of the chest was obtained. Comparison: Prior chest x-ray in 11/27/20 as well as prior chest of 11/22/20. Mild increasing parenchymal change is seen within both lungs from prior studies. Heart is enlarged. Prior sternotomy is noted. Bony structures are grossly intact. Impression: 1. Worsening change within both lungs compatible with worsening COVID pneumonia. Diagnostic code #3
[2020-11-28] MEDS: Melatonin 3 MG Tab PO SCH (21:01)
--- NOTE | 2020-11-29 06:37 | PCM.PN ---
- General Info Date of Service: 11/29/20 Admission Dx/Problem (Free Text): Admission Diagnosis/Problem Admission Diagnosis/Problem Hypoxia Subjective Update: No significant issues overnight. Again, he reports no complaints or acute issues. His glucose is controlled. He is on high flow 60L but FIO2 is now down to 75%. However late this morning he started to shree'd in the upper 30 to low mid 40s. His ABG shows pO2 of 79 worse than yesterday. He states he feels fine. Functional Status: Reports: Pain Controlled, Tolerating Diet, Urinating. Denies: New Symptoms - Review of Systems General: Denies: Fever, Weakness, Fatigue, Malaise Pulmonary: Denies: Shortness of Breath, Cough, Sputum Cardiovascular: Denies: Chest Pain Gastrointestinal: Denies: Abdominal Pain, Nausea, Vomiting Skin: Denies: Cyanosis, Bruising Neurological: Denies: Weakness Psychiatric: Denies: Depression, Anxiety - Patient Data Vitals - Most Recent: Last Vital Signs Temp 36.4 C 11/28/20 20:20 Pulse 90 11/28/20 20:59 Resp 24 H 11/28/20 20:20 BP 126/67 11/28/20 20:59 Pulse Ox 91 L 11/28/20 21:55 Weight - Most Recent: 129.818 kg I&O - Last 24 Hours: Intake & Output 11/28/20 11/28/20 11/29/20 14:59 22:59 06:59 Intake Total 640 800 500 Output Total 700 600 Balance 640 100 -100 Lab Results Last 24 Hours: Laboratory Results - last 24 hr 11/28/20 11/28/20 11/28/20 Range/Units 06:54 06:54 11:05 WBC 4.37 (4.23-9.07) K/mm3 RBC 5.04 (4.63-6.08) M/mm3 Hgb 14.8 (13.7-17.5) gm/dl Hct 44.5 (40.1-51.0) % MCV 88.3 (79.0-92.2) fl MCH 29.4 (25.7-32.2) pg MCHC 33.3 (32.2-35.5) g/dl RDW Std Deviation 44.1 H (35.1-43.9) fL Plt Count 229 (163-337) K/mm3 MPV 9.3 L (9.4-12.3) fl Neut % (Auto) 74.0 H (34.0-67.9) % Lymph % (Auto) 14.2 L (21.8-53.1) % Aurora % (Auto) 5.0 L (5.3-12.2) % Eos % (Auto) 5.7 (0.8-7.0) Baso % (Auto) 0.2 (0.1-1.2) % Neut # (Auto) 3.23 (1.78-5.38) K/mm3 Lymph # (Auto) 0.62 L (1.32-3.57) K/mm3 Aurora # (Auto) 0.22 L (0.30-0.82) K/mm3 Eos # (Auto) 0.25 (0.04-0.54) K/mm3 Baso # (Auto) 0.01 (0.01-0.08) K/mm3 D-Dimer, Quantitative 3.56 H (0.19-0.50) mg/L Puncture Site ABG pH (7.35-7.45) ABG pCO2 (35.0-45.0) mmHg ABG pO2 (80.0-100.0) mmHg ABG HCO3 (22.0-26.0) meq/L ABG O2 Saturation (96.0-97.0) % ABG Base Excess (-2-2.0) A-a Gradient mmHg O2 Delivery Device Oxygen Flow Rate FiO2 (21.00-100.00) % Sodium 142 (136-145) mEq/L Potassium 4.0 (3.5-5.1) mEq/L Chloride 107 (98-107) mEq/L Carbon Dioxide 26 (21-32) mEq/L Anion Gap 13.0 (5-15) BUN 25 H (7-18) mg/dL Creatinine 1.0 (0.7-1.3) mg/dL Est Cr Clr Drug Dosing 86.77 mL/min Estimated GFR (MDRD) > 60 (>60) mL/min BUN/Creatinine Ratio 25.0 H (14-18) Glucose 95 (80-115) mg/dL Calcium 8.4 L (8.5-10.1) mg/dL Magnesium 2.0 (1.8-2.4) mg/dl Total Bilirubin 0.6 (0.2-1.0) mg/dL AST 34 (15-37) U/L ALT 32 (16-63) U/L Alkaline Phosphatase 60 (46-116) U/L C-Reactive Protein 0.2 (<1.0) mg/dL Total Protein 6.5 (6.4-8.2) g/dl Albumin 3.0 L (3.4-5.0) g/dl Globulin 3.5 gm/dL Albumin/Globulin Ratio 0.9 L (1-2) 11/28/20 Range/Units 12:08 WBC (4.23-9.07) K/mm3 RBC (4.63-6.08) M/mm3 Hgb (13.7-17.5) gm/dl Hct (40.1-51.0) % MCV (79.0-92.2) fl MCH (25.7-32.2) pg MCHC (32.2-35.5) g/dl RDW Std Deviation (35.1-43.9) fL Plt Count (163-337) K/mm3 MPV (9.4-12.3) fl Neut % (Auto) (34.0-67.9) % Lymph % (Auto) (21.8-53.1) % Aurora % (Auto) (5.3-12.2) % Eos % (Auto) (0.8-7.0) Baso % (Auto) (0.1-1.2) % Neut # (Auto) (1.78-5.38) K/mm3 Lymph # (Auto) (1.32-3.57) K/mm3 Aurora # (Auto) (0.30-0.82) K/mm3 Eos # (Auto) (0.04-0.54) K/mm3 Baso # (Auto) (0.01-0.08) K/mm3 D-Dimer, Quantitative (0.19-0.50) mg/L Puncture Site Lt radial ABG pH 7.40 (7.35-7.45) ABG pCO2 35.5 (35.0-45.0) mmHg ABG pO2 88.0 (80.0-100.0) mmHg ABG HCO3 21.4 L (22.0-26.0) meq/L ABG O2 Saturation 96.9 (96.0-97.0) % ABG Base Excess -2.3 L (-2-2.0) A-a Gradient 474 mmHg O2 Delivery Device Hiflow nasal cannula Oxygen Flow Rate 60.0 FiO2 85.00 (21.00-100.00) % Sodium (136-145) mEq/L Potassium (3.5-5.1) mEq/L Chloride (98-107) mEq/L Carbon Dioxide (21-32) mEq/L Anion Gap (5-15) BUN (7-18) mg/dL Creatinine (0.7-1.3) mg/dL Est Cr Clr Drug Dosing mL/min Estimated GFR (MDRD) (>60) mL/min BUN/Creatinine Ratio (14-18) Glucose (80-115) mg/dL Calcium (8.5-10.1) mg/dL Magnesium (1.8-2.4) mg/dl Total Bilirubin (0.2-1.0) mg/dL AST (15-37) U/L ALT (16-63) U/L Alkaline Phosphatase (46-116) U/L C-Reactive Protein (<1.0) mg/dL Total Protein (6.4-8.2) g/dl Albumin (3.4-5.0) g/dl Globulin gm/dL Albumin/Globulin Ratio (1-2) Arnol Results Last 24 Hours: Microbiology 11/22/20 18:18 Aerobic Blood Culture - Preliminary Blood - Venous NO GROWTH AFTER 6 DAYS Anaerobic Blood Culture - Preliminary NO GROWTH AFTER 6 DAYS Med Orders - Current: Current Medications Acetaminophen (Tylenol) 650 mg PO Q4H PRN PRN Reason: Pain (Mild 1-3)/fever Last Admin: 11/22/20 23:50 Dose: 650 mg Documented by: Albuterol/Ipratropium (Duoneb 3.0-0.5 Mg/3 Ml) 3 ml NEB Q4H PRN PRN Reason: Shortness Of Breath/wheezing Last Admin: 11/28/20 09:41 Dose: 3 ml Documented by: Apixaban (Eliquis) 5 mg PO BID [facility] Last Admin: 11/28/20 21:02 Dose: 5 mg Documented by: Aspirin (Halfprin) 81 mg PO DAILY [facility] Last Admin: 11/28/20 09:14 Dose: 81 mg Documented by: Cholecalciferol (Vitamin D3) 5,000 unit PO DAILY [facility] Last Admin: 11/28/20 09:16 Dose: 5,000 unit Documented by: Clopidogrel Bisulfate (Plavix) 75 mg PO DAILY [facility] Last Admin: 11/28/20 09:14 Dose: 75 mg Documented by: Dexamethasone (Dexamethasone) 6 mg PO DAILY [facility] Stop: 12/01/20 09:01 Last Admin: 11/28/20 09:14 Dose: 6 mg Documented by: Famotidine (Pepcid) 20 mg PO BID [facility] Last Admin: 11/28/20 21:01 Dose: 20 mg Documented by: Glimepiride (Amaryl) 4 mg PO BID [facility] Last Admin: 11/28/20 21:02 Dose: 4 mg Documented by: Insulin Glargine (Lantus) 20 unit SUBCUT BID@0700,1700 [facility] Last Admin: 11/28/20 17:30 Dose: 20 units Documented by: Insulin Human Lispro (Humalog) 0 unit SUBCUT TIDAC [facility]; Protocol Last Admin: 11/28/20 17:29 Dose: 6 units Documented by: Losartan Potassium (Cozaar) 25 mg PO DAILY [facility] Last Admin: 11/28/20 09:16 Dose: 25 mg Documented by: Melatonin (Melatonin) 9 mg PO BEDTIME [facility] Last Admin: 11/28/20 21:01 Dose: 9 mg Documented by: Metoprolol Tartrate (Lopressor) 75 mg PO BID [facility] Last Admin: 11/28/20 20:59 Dose: 75 mg Documented by: Dulaglutide [ Trulicity] 1.5 Mg Ptom 0 mg SQ Fr [facility] Rosuvastatin Calcium (Crestor) 10 mg PO DAILY [facility] Last Admin: 11/28/20 09:16 Dose: 10 mg Documented by: Sertraline HCl (Zoloft) 50 mg PO DAILY [facility] Last Admin: 11/28/20 09:16 Dose: 50 mg Documented by: Topiramate (Topamax) 50 mg PO BID [facility] Last Admin: 11/28/20 21:01 Dose: 50 mg Documented by: Zinc Sulfate (Zincate) 220 mg PO DAILY [facility] Last Admin: 11/28/20 09:13 Dose: 220 mg Documented by: Discontinued Medications Glimepiride (Amaryl) 2 mg PO DAILY [facility] Last Admin: 11/25/20 09:04 Dose: 2 mg Documented by: Glimepiride (Amaryl) 2 mg PO BID [facility] Last Admin: 11/26/20 20:20 Dose: 2 mg Documented by: Remdesivir 200 mg/ Sodium (Chloride) 250 mls @ 250 mls/hr IV ONETIME ONE Stop: 11/22/20 21:09 Last Admin: 11/22/20 23:46 Dose: 250 mls/hr Documented by: Remdesivir 100 mg/ Sodium (Chloride) 100 mls @ 100 mls/hr IV Q24H [facility] Stop: 11/26/20 21:59 Last Admin: 11/26/20 20:23 Dose: 100 mls/hr Documented by: Ceftriaxone Sodium 2 gm/ (Sodium Chloride) 100 mls @ 200 mls/hr IV Q24H [facility] Stop: 11/26/20 21:59 Last Admin: 11/26/20 21:33 Dose: 200 mls/hr Documented by: Azithromycin 500 mg/ Sodium (Chloride) 250 mls @ 250 mls/hr IV Q24H [facility] Stop: 11/24/20 21:59 Last Admin: 11/24/20 21:25 Dose: 250 mls/hr Documented by: Tocilizumab 800 mg/ Sodium (Chloride) 100 mls @ 100 mls/hr IV ONETIME ONE Stop: 11/23/20 12:59 Last Admin: 11/23/20 14:04 Dose: Not Given Documented by: Tocilizumab 800 mg/ Sodium (Chloride) 100 mls @ 100 mls/hr IV ONETIME ONE Stop: 11/23/20 14:29 Last Admin: 11/23/20 13:33 Dose: 100 mls/hr Documented by: Tocilizumab 300 mg/ Sodium (Chloride) 100 mls @ 100 mls/hr IV ONETIME ONE Stop: 11/24/20 14:29 Last Admin: 11/24/20 12:45 Dose: 100 mls/hr Documented by: Influenza Virus Vaccine (Fluzone Quad Syringe) 60 mcg IM .ONCE ONE Stop: 11/23/20 09:01 Insulin [facility]ine ([facility]antus) [facility] Last Admin: 11/23/20 17:46 Dose: 7 unit Documented by: Insulin Glargine (Lantus) 12 unit SUBCUT BIDAC [facility] Last Admin: 11/25/20 06:58 Dose: 12 units Documented by: Insulin Glargine (Lantus) 15 unit SUBCUT BIDAC [facility] Insulin Glargine (Lantus) 17 unit SUBCUT BIDAC [facility] Insulin Glargine (Lantus) 15 unit SUBCUT BIDAC [facility] Last Admin: 11/26/20 06:50 Dose: 15 units Documented by: Insulin Glargine (Lantus) 20 unit SUBCUT BIDAC [facility] Last Admin: 11/26/20 18:40 Dose: 20 units Documented by: Insulin Human Lispro (Humalog) 0 unit SUBCUT QIDACANDBED [facility]; Protocol Last Admin: 11/23/20 17:47 Dose: 8 unit Documented by: Insulin Human Lispro (Humalog) 0 unit SUBCUT QIDACANDBED [facility]; Protocol Last Admin: 11/25/20 08:12 Dose: Not Given Documented by: Insulin Human Lispro (Humalog) 5 unit SUBCUT TIDAC [facility] Last Admin: 11/24/20 17:17 Dose: 5 units Documented by: Insulin Human Lispro (Humalog) 7 unit SUBCUT TIDAC [facility] Last Admin: 11/25/20 08:12 Dose: Not Given Documented by: Metoprolol Tartrate (Lopressor) 75 mg PO ONETIME ONE Stop: 11/22/20 21:09 Last Admin: 11/22/20 23:47 Dose: 75 mg Documented by: - Exam Quality Assessment: Supplemental Oxygen, DVT Prophylaxis General: Alert, Oriented, Cooperative, No Acute Distress, Other (Obese) HEENT: Pupils Equal, Pupils Reactive, EOMI, Mucous Membr. Moist/[place] Neck: Supple Lungs: Normal Respiratory Effort, Decreased Breath Sounds, Crackles (fine at ) Cardiovascular: Irregular Rhythm, Bradycardia GI/Abdominal Exam: Normal Bowel Sounds, Soft, Non-Tender, No Organomegaly, No Distention, No Abnormal Bruit, Other (Obese) (Male) Exam: Deferred Back Exam: Normal Inspection, Decreased Range of Motion Extremities: Normal Inspection, Normal Range of Motion, Non-Tender, No Pedal Edema, Normal Capillary Refill Peripheral Pulses: 2+: Dorsalis Pedis (L), Dorsalis Pedis (R) Skin: Warm, Dry, Intact Neurological: No New Focal Deficit Psy/Mental Status: Alert, Normal Affect, Normal Mood - Patient Data Lab Results Last 24 hrs: Laboratory Results - last 24 hr 11/28/20 11/28/20 11/28/20 Range/Units 06:54 06:54 11:05 WBC 4.37 (4.23-9.07) K/mm3 RBC 5.04 (4.63-6.08) M/mm3 Hgb 14.8 (13.7-17.5) gm/dl Hct 44.5 (40.1-51.0) % MCV 88.3 (79.0-92.2) fl MCH 29.4 (25.7-32.2) pg MCHC 33.3 (32.2-35.5) g/dl RDW Std Deviation 44.1 H (35.1-43.9) fL Plt Count 229 (163-337) K/mm3 MPV 9.3 L (9.4-12.3) fl Neut % (Auto) 74.0 H (34.0-67.9) % Lymph % (Auto) 14.2 L (21.8-53.1) % Aurora % (Auto) 5.0 L (5.3-12.2) % Eos % (Auto) 5.7 (0.8-7.0) Baso % (Auto) 0.2 (0.1-1.2) % Neut # (Auto) 3.23 (1.78-5.38) K/mm3 Lymph # (Auto) 0.62 L (1.32-3.57) K/mm3 Aurora # (Auto) 0.22 L (0.30-0.82) K/mm3 Eos # (Auto) 0.25 (0.04-0.54) K/mm3 Baso # (Auto) 0.01 (0.01-0.08) K/mm3 D-Dimer, Quantitative 3.56 H (0.19-0.50) mg/L Puncture Site ABG pH (7.35-7.45) ABG pCO2 (35.0-45.0) mmHg ABG pO2 (80.0-100.0) mmHg ABG HCO3 (22.0-26.0) meq/L ABG O2 Saturation (96.0-97.0) % ABG Base Excess (-2-2.0) A-a Gradient mmHg O2 Delivery Device Oxygen Flow Rate FiO2 (21.00-100.00) % Sodium 142 (136-145) mEq/L Potassium 4.0 (3.5-5.1) mEq/L Chloride 107 (98-107) mEq/L Carbon Dioxide 26 (21-32) mEq/L Anion Gap 13.0 (5-15) BUN 25 H (7-18) mg/dL Creatinine 1.0 (0.7-1.3) mg/dL Est Cr Clr Drug Dosing 86.77 mL/min Estimated GFR (MDRD) > 60 (>60) mL/min BUN/Creatinine Ratio 25.0 H (14-18) Glucose 95 (80-115) mg/dL Calcium 8.4 L (8.5-10.1) mg/dL Magnesium 2.0 (1.8-2.4) mg/dl Total Bilirubin 0.6 (0.2-1.0) mg/dL AST 34 (15-37) U/L ALT 32 (16-63) U/L Alkaline Phosphatase 60 (46-116) U/L C-Reactive Protein 0.2 (<1.0) mg/dL Total Protein 6.5 (6.4-8.2) g/dl Albumin 3.0 L (3.4-5.0) g/dl Globulin 3.5 gm/dL Albumin/Globulin Ratio 0.9 L (1-2) 11/28/20 Range/Units 12:08 WBC (4.23-9.07) K/mm3 RBC (4.63-6.08) M/mm3 Hgb (13.7-17.5) gm/dl Hct (40.1-51.0) % MCV (79.0-92.2) fl MCH (25.7-32.2) pg MCHC (32.2-35.5) g/dl RDW Std Deviation (35.1-43.9) fL Plt Count (163-337) K/mm3 MPV (9.4-12.3) fl Neut % (Auto) (34.0-67.9) % Lymph % (Auto) (21.8-53.1) % Aurora % (Auto) (5.3-12.2) % Eos % (Auto) (0.8-7.0) Baso % (Auto) (0.1-1.2) % Neut # (Auto) (1.78-5.38) K/mm3 Lymph # (Auto) (1.32-3.57) K/mm3 Aurora # (Auto) (0.30-0.82) K/mm3 Eos # (Auto) (0.04-0.54) K/mm3 Baso # (Auto) (0.01-0.08) K/mm3 D-Dimer, Quantitative (0.19-0.50) mg/L Puncture Site Lt radial ABG pH 7.40 (7.35-7.45) ABG pCO2 35.5 (35.0-45.0) mmHg ABG pO2 88.0 (80.0-100.0) mmHg ABG HCO3 21.4 L (22.0-26.0) meq/L ABG O2 Saturation 96.9 (96.0-97.0) % ABG Base Excess -2.3 L (-2-2.0) A-a Gradient 474 mmHg O2 Delivery Device Hiflow nasal cannula Oxygen Flow Rate 60.0 FiO2 85.00 (21.00-100.00) % Sodium (136-145) mEq/L Potassium (3.5-5.1) mEq/L Chloride (98-107) mEq/L Carbon Dioxide (21-32) mEq/L Anion Gap (5-15) BUN (7-18) mg/dL Creatinine (0.7-1.3) mg/dL Est Cr Clr Drug Dosing mL/min Estimated GFR (MDRD) (>60) mL/min BUN/Creatinine Ratio (14-18) Glucose (80-115) mg/dL Calcium (8.5-10.1) mg/dL Magnesium (1.8-2.4) mg/dl Total Bilirubin (0.2-1.0) mg/dL AST (15-37) U/L ALT (16-63) U/L Alkaline Phosphatase (46-116) U/L C-Reactive Protein (<1.0) mg/dL Total Protein (6.4-8.2) g/dl Albumin (3.4-5.0) g/dl Globulin gm/dL Albumin/Globulin Ratio (1-2) Result Diagrams: 11/30/20 05:19 11/30/20 05:19 Arnol Results Last 24 hrs: Microbiology 11/22/20 18:18 Aerobic Blood Culture - Preliminary Blood - Venous NO GROWTH AFTER 6 DAYS Anaerobic Blood Culture - Preliminary NO GROWTH AFTER 6 DAYS Sepsis Event Note - Evaluation Sepsis Screening Result: No Definite Risk - Focused Exam Vital Signs: Vital Signs Temp Pulse Resp BP Pulse Ox Pulse Ox 11/28/20 21:55 91 L 11/28/20 21:00 94 L 11/28/20 20:59 90 126/67 11/28/20 20:20 36.4 C 74 24 H 126/67 94 L - Problem List Review Problem List Initiated/Reviewed/Updated: Yes - My Orders Last 24 Hours: My Active Orders 11/28/20 10:16 ABG [RT Arterial Blood Gases, ABG] [RC] Click to Edit Add On Test [COMM] Stat 11/29/20 06:03 CBC WITH AUTO DIFF [HEME] AM CMP [COMPREHENSIVE METABOLIC PN,CMP] [CHEM] AM CRP [C-REACTIVE PROTEIN] [CHEM] AM MAGNESIUM [CHEM] AM 11/29/20 09:00 Dulaglutide [Trulicity] 0 mg SQ Fr 11/30/20 05:11 CBC WITH AUTO DIFF [HEME] AM CMP [COMPREHENSIVE METABOLIC PN,CMP] [CHEM] AM CRP [C-REACTIVE PROTEIN] [CHEM] AM MAGNESIUM [CHEM] AM 12/01/20 05:11 CBC WITH AUTO DIFF [HEME] AM CMP [COMPREHENSIVE METABOLIC PN,CMP] [CHEM] AM CRP [C-REACTIVE PROTEIN] [CHEM] AM MAGNESIUM [CHEM] AM - Plan Plan:: 11/22/2020 Assessment 65-year-old male with history of coronary artery bypass and CAD, new onset atrial fibrillation, type 2 diabetes, obesity, presents to the emergency depart ment after 6 days of feeling poorly and diagnosed with COVID-19. Unfortunately, this puts him at high risk for complications because of his multiple comorbidities. COVID-19 pneumonia with hypoxemia Leukopenia, POA, resolved Elevated CRP of 7.7, POA, is now wnl * Risk factors: DM2, ISABEL, Class II Obese * Patient presented to the emergency department with oxygen saturations at 83% on room air * He required 2 to 3 L of FiO2 via nasal cannula to get saturations in the low 90s. * C-reactive protein was elevated at 6.6, ferritin 659, D-dimer slightly elevated at 0.61, white count low at 3.7 * Fortunately patient is a never smoker. No history of lung disease. * Repeat chest x-ray was worse yesterday * Azithromycin 500 mg IV daily completed 11/24/2020 * Rocephin 2 grams daily completed 11/26/2020 * Actemra completed 11/23/2020 * Dexamethasone 6 mg po on 04/05 * He is going backward/getting worse * Repeat chest x-ray shows worsening lungs compared to previous study * Goal is aggressive proning Atrial Flutter, Controlled HR * He may be in atrial fib/flutter * Repeat EKG shows atrial flutter with HR of 83 * On Metoprolol and Eliquis for maintenance medications * 2D echo report read as LVEF of 55%. No RWMA. RVSP is normal at 28 mmHg. No cardiac valves abnormality History of coronary artery disease with bypass graft * Patient did not take his metoprolol this morning and therefore his heart rate was above 100 with A. fib RVR * On ASA and plavix for CAD * Patient is normally on metoprolol 75 mg twice daily; rate control agent * Troponin and BNP was normal. * HR now controlled * Eliquis 5 mg po BID started 11/22/2020 fro stroke prophylaxis Type 2 diabetes * BS not controlled * Moderate control with his last hemoglobin A1c from November 14 of 7.5% * On for oral medications to control his blood sugars * Repeat A1C is 7.8 * He is on steroid * Changes to insulin regimen: Lantus 15 units BID and continue high intensity I SS * Resume home dose Trulicity and Glimepiride * Hold home dose Synjardy for now Hypoalbuminemia Class II Obese * Albumin of 2.9 * BMI of 37 * Discussed LSM * Percussion Instructor following Other medical problems include depression, elevated PSA with BPH, hypertension, obesity, sleep apnea, kidney stones Plan * Admit to medical floor on telemetry * Continuous pulse ox * Remdesivir for 5 days loading dose today * Dexamethasone x10 days * Rocephin 2 g daily for 5 days for COVID-19 pneumonia * Azithromycin 500 mg daily for 3 days * Pepcid, melatonin, zinc, vitamin D. All of them have shown mixed results on treatment of COVID-19 but unlikely to cause any harm. * Encourage prone positioning when awake and asleep * Convalescent plasma has not shown improvement in outcomes will therefore hold on the treatment with convalescent plasma * FiO2 to keep SPO2 between 88 and 94%. * Follow blood sugars closely and likely start long-acting insulin * Stop home oral blood sugar medications because of inconsistencies with absorption and p.o. intake when hospitalized with COVID-19 * Blood sugars will likely worsen secondary to dexamethasone. * Sliding scale insulin * Fingerstick blood sugar 4 times a day * Follow CBC, CMP, magnesium, D-dimer, CRP * Actemra 800 mg if available * Patient is at very high risk for complications secondary to his multiple comorbidities * Start Eliquis 5 mg twice daily for his new onset A. fib * Echocardiogram on Wednesday since it is not available over the weekend * Patient is likely rate controlled on his metoprolol twice daily will start it as soon as pharmacy approves it * VTE prophylaxis will be with Eliquis * CODE STATUS full code 11/23/2020 No significant change in oxygenation overnight. We will continue on COVID-19 treatment as outlined above. We will be able to obtain Actemra 800 mg for today. Patient's blood sugars are increased so we will add Lantus 7 units twice daily for today but will likely need to increase that substantially over the next few days. Continue with sliding scale insulin and 4 times daily finger blood sugars. D-dimer did decrease to normal which is reassuring. C-reactive protein unfortunately increased to 7.7. Other lab work is not substantially different from yesterday. Patient's rate has been controlled on the metoprolol 75 mg twice daily. Echocardiogram on Wednesday. Appetite so far is good. No significant change overnight. 11/24/2020 Patient is making progress. O2 requirements are decreasing and he is symptomatically better. D-dimer and C-reactive protein have both decreased. He did get Actemra yesterday at 800 mg and will get 300 mg today. Even with good appetite and regular diet his albumin has dropped to 2.8. Blood sugars right now are his biggest problems and I have aggressively increase his insulin. Lantus 12 units twice daily with Humalog 5 units with each meal and high dose sliding scale. Hemoglobin A1c was 7.8% on admission. Echocardiogram for tomorrow for his new onset A. fib. Rate has been well controlled on metoprolol. He continues on Eliquis for stroke prevention and VTE prophylaxis. Continue to follow Covid labs daily. He is on day 3 of 3 of azithromycin and day 3 of 5 of Zithromax. He is on day 3 of remdesivir. He is on day 3 of 10 of dexamethasone or until discharge. Prognosis is guarded secondary to his multiple comorbidities but he is looking better. 11/25/2020 Patient continues to do well. He is now down to 2-3L NC. However his blood glucose is not well controlled. Will make changes to his insulin regimen. We will also resume home dose Trulicity and Glimepiride. Encourage to use IS and FV as directed. Ambulate inside his room as many times as he can. Routine AM Labs. Continue current Covid-19 treatment. PT/OT following. DVT/Stroke prophylaxis: on Eliquis. 2D echo for new onset of atrial fibrillation. Code status is full. Prognosis is good at this point. 11/26/2020 He remains relatively stable. He remains on 2-3 L NC. Blood glucose remains uncontrolled. We will go up on insulin to 15 units subQ BID and Glimepiride 2 mg po BID. Encourage to use IS and FV as directed. Ambulate inside his room as many times as he can. Routine AM Labs. Continue current Covid-19 treatment. PT/OT following. DVT/Stroke prophylaxis: on Eliquis. Code status is full. Prognosis remains good. 11/27/2020 He looks clinically stable and in no acute respiratory distress. He is on 3 L NC. Blood glucose has improved. We will go up on Glimepiride to 4 mg po BID. Continue to encourage to use IS and FV as directed. Ambulate inside his room as many times as he can. Routine AM Labs. Continue current Covid-19 treatment. Repeat chest x-ray this AM.PT/OT following. DVT/Stroke prophylaxis: on Eliquis. Code status is full. Prognosis remains good. 0915: Repeat chest x-ray shows worsening appearance of chest. We will initiate proning position as many times as he can. 171: Called and updated his about his clinical progress. Advised to have all [employer] immediately family to do social media with him, lift his spirits up and encourage him to prone as many times as he can, ambulate inside his room and use his IS and FV as directed. 11/28/2020 He looks comfortable and not in acute respiratory distress. He is now on high flow due to hypoxia on l O2. Blood glucose has improved considerably. Continue to encourage to use IS and FV as directed. Ambulate inside his room as many times as he can. Routine AM Labs. Continue current Covid-19 treatment. Repeat chest x-ray this AM. PT/OT following. DVT/Stroke prophylaxis: on Eliquis. Code status is full. Prognosis is guarded at this point. Re-educated patient about proper proning. However I feel like he does not stay long enough to benefit from it. I have gone into his room yesterday 3 times caught him on his side not on his belly/stomach. Called and updated his son and about his clinical progress and discussed possible compliance issue with bedside activities and pulmonary exercise. 11/29/2020 He looks comfortable but respiratory michel he is not doing good. He remains on high flow due to considerable hypoxia. Continue to encourage to use IS and FV as directed. Ambulate inside his room as many times as he can. Routine AM Labs. Continue current Covid-19 treatment. Repeat ABG and chest x-ray this AM. PT/OT following. DVT/Stroke prophylaxis: on Eliquis. Code status is full. Prognosis is guarded at this point. May transfer him to the unit for more aggressive treatment and to closely monitor him. Updated son and about his clinical progress. 1456: D-dimer is 4.27. Chest CTA shows no PE. Patient is already on Eliquis for DVT/Stroke prophylaxis. His HR has improved after brief treatment of Dopamine gtt.
[2020-11-29] MEDS ORDERED: Dulaglutide [Trulicity] 1.5 MG **PTOM SQ SCH (09:00)
[2020-11-29] MEDS: Apixaban 5 MG Tab PO SCH ×2 (09:29→20:23)
[2020-11-29] MEDS: Cholecalciferol (Vitamin D3) 5,000 UNIT Cap PO SCH (09:29)
[2020-11-29] MEDS: Aspirin 81 MG Tab.EC PO SCH (09:29)
[2020-11-29] MEDS: Topiramate 25 MG Tab PO SCH ×2 (09:29→20:23)
[2020-11-29] MEDS: Sertraline 50 MG Tab PO SCH (09:29)
[2020-11-29] MEDS: Famotidine 20 MG Tab PO SCH ×2 (09:29→20:22)
[2020-11-29] MEDS: Metoprolol Tartrate 25 MG Tab PO SCH ×2 (09:30→20:24)
[2020-11-29] MEDS: Rosuvastatin 10 MG Tab PO SCH (09:32)
[2020-11-29] MEDS: Glimepiride 2 MG Tab PO SCH ×2 (09:32→20:22)
[2020-11-29] MEDS: Zinc Sulfate 220 MG Cap PO SCH (09:32)
[2020-11-29] MEDS: Clopidogrel 75 MG Tab PO SCH (09:33)
[2020-11-29] MEDS: Dexamethasone 4 MG Tab PO SCH (09:33)
[2020-11-29] MEDS: Losartan 25 MG Tab PO SCH (09:33)
[2020-11-29] MEDS: Insulin Glarg,Human.Rec.Analog 100 Unit/ML SUBCUT SCH ×2 (09:34→17:26)
[2020-11-29] MEDS: DOPamine/Dextrose 5%-Water 400 MG/250 ML BAG IV SCH (12:06)
[2020-11-29] MEDS ORDERED: Sodium Chloride 0.9% 500 ML IV ONE (12:26)
[2020-11-29] MEDS ORDERED: Sodium Chloride 0.9% 10 ML Syringe FLUSH PRN (13:14)
[2020-11-29] MEDS ORDERED: Iopamidol 755 Mg/ML 100 ML Bottle IVPUSH ONE (13:14)
[2020-11-29] MEDS ORDERED: Sodium Chloride 0.9% 100 ML IV SCH (13:15)
[2020-11-29] MEDS ORDERED: hydrALAZINE 20 MG/ML SDV ONE (13:19)
[2020-11-29] MEDS: hydrALAZINE 20 MG/ML SDV IVPUSH PRN ×2 (13:24→22:07)
--- NOTE | 2020-11-29 14:28 | CT ---
CT chest Technique: Multiple axial sections through the chest were obtained. Intravenous contrast was utilized. Study has been performed with contrast as a pulmonary angiogram protocol. Comparison: Prior CT chest of 02/13/11. Findings: Pulmonary arteries are well opacified. No filling defects are seen to indicate pulmonary embolism. Thoracic aorta shows atherosclerotic change without aneurysm. No mediastinal adenopathy is seen. No pericardial thickening is seen. Small portion of the visualized upper abdominal structures show a small cyst within the right and left kidneys. Lung window settings were reviewed which show diffuse parenchymal infiltrates within the upper lungs and lower lungs as well as within the lingula and right middle lobe. There are no pleural effusions being seen. Bone window settings were reviewed to show scattered degenerative change within the spine. No acute osseous abnormality is appreciated. Impression: 1. Diffuse parenchymal changes scattered throughout both lungs. Findings are compatible with COVID pneumonia. 2. No findings of pulmonary embolism are seen. 3. Other findings believed to be incidental as noted above. Diagnostic code #3
[2020-11-29] MEDS: Melatonin 3 MG Tab PO SCH (20:23)
[2020-11-29] MEDS ORDERED: Metoprolol Tartrate 5 MG/5 ML SDV IVPUSH PRN (20:46)
[2020-11-29] MEDS ORDERED: Metoprolol Tartrate 5 MG/5 ML SDV IVPUSH ONE (20:53)
--- NOTE | 2020-11-30 08:24 | PCM.PN ---
- General Info Date of Service: 11/30/20 Admission Dx/Problem (Free Text): Admission Diagnosis/Problem Admission Diagnosis/Problem Hypoxia Subjective Update: No significant issues overnight. No complaints or acute issues as usual. He is on high flow 60L with FIO2 of 75%. His heart rate again dropped in the upper 50s with low dose Metoprolol of 25 mg po BID. He recovered back in 70s-80s after low dose dopamine gtt was initiated. He looks much better and appears to be in good spirit this morning. Functional Status: Reports: Pain Controlled - Review of Systems General: Denies: Fever, Weakness, Fatigue, Malaise, Chills HEENT: Reports: No Symptoms Pulmonary: Denies: Shortness of Breath Cardiovascular: Denies: Chest Pain Gastrointestinal: Denies: Abdominal Pain, Nausea, Vomiting Genitourinary: Denies: Dysuria Skin: Denies: Cyanosis, Mottled Neurological: Denies: Difficulty Walking, Weakness, Gait Disturbance Psychiatric: Denies: Confusion, Depression, Anxiety - Patient Data Vitals - Most Recent: Last Vital Signs Temp 36.2 C 11/30/20 04:00 Pulse 93 11/30/20 06:00 Resp 18 11/30/20 06:00 BP 108/77 11/30/20 06:00 Pulse Ox 91 L 11/30/20 06:00 Weight - Most Recent: 128.911 kg I&O - Last 24 Hours: Intake & Output 11/29/20 11/30/20 11/30/20 22:59 06:59 14:59 Intake Total 643 358 Output Total 400 450 300 Balance 243 -92 -300 Lab Results Last 24 Hours: Laboratory Results - last 24 hr 11/29/20 11/29/20 11/29/20 Range/Units 10:40 12:48 12:48 WBC (4.23-9.07) K/mm3 RBC (4.63-6.08) M/mm3 Hgb (13.7-17.5) gm/dl Hct (40.1-51.0) % MCV (79.0-92.2) fl MCH (25.7-32.2) pg MCHC (32.2-35.5) g/dl RDW Std Deviation (35.1-43.9) fL Plt Count (163-337) K/mm3 MPV (9.4-12.3) fl Neut % (Auto) (34.0-67.9) % Lymph % (Auto) (21.8-53.1) % Rooks % (Auto) (5.3-12.2) % Eos % (Auto) (0.8-7.0) Baso % (Auto) (0.1-1.2) % Neut # (Auto) (1.78-5.38) K/mm3 Lymph # (Auto) (1.32-3.57) K/mm3 Rooks # (Auto) (0.30-0.82) K/mm3 Eos # (Auto) (0.04-0.54) K/mm3 Baso # (Auto) (0.01-0.08) K/mm3 Manual Slide Review D-Dimer, Quantitative 4.27 H (0.19-0.50) mg/L Puncture Site Lt radial ABG pH 7.39 (7.35-7.45) ABG pCO2 35.3 (35.0-45.0) mmHg ABG pO2 79.0 L (80.0-100.0) mmHg ABG HCO3 21.0 L (22.0-26.0) meq/L ABG O2 Saturation 96.5 (96.0-97.0) % ABG Base Excess -2.8 L (-2-2.0) Joo Test Positive A-a Gradient 411 mmHg O2 Delivery Device Hiflow nasal cannula Oxygen Flow Rate 60.0 FiO2 75.00 (21.00-100.00) % Sodium (136-145) mEq/L Potassium (3.5-5.1) mEq/L Chloride (98-107) mEq/L Carbon Dioxide (21-32) mEq/L Anion Gap (5-15) BUN (7-18) mg/dL Creatinine (0.7-1.3) mg/dL Est Cr Clr Drug Dosing mL/min Estimated GFR (MDRD) (>60) mL/min BUN/Creatinine Ratio (14-18) Glucose (80-115) mg/dL Calcium (8.5-10.1) mg/dL Magnesium (1.8-2.4) mg/dl Total Bilirubin (0.2-1.0) mg/dL AST (15-37) U/L ALT (16-63) U/L Alkaline Phosphatase (46-116) U/L Troponin I < 0.017 (0.00-0.056) ng/mL C-Reactive Protein (<1.0) mg/dL Total Protein (6.4-8.2) g/dl Albumin (3.4-5.0) g/dl Globulin gm/dL Albumin/Globulin Ratio (1-2) 11/30/20 11/30/20 Range/Units 05:19 05:19 WBC 4.44 (4.23-9.07) K/mm3 RBC 4.92 (4.63-6.08) M/mm3 Hgb 14.9 (13.7-17.5) gm/dl Hct 43.7 (40.1-51.0) % MCV 88.8 (79.0-92.2) fl MCH 30.3 (25.7-32.2) pg MCHC 34.1 (32.2-35.5) g/dl RDW Std Deviation 45.0 H (35.1-43.9) fL Plt Count 245 (163-337) K/mm3 MPV 9.4 (9.4-12.3) fl Neut % (Auto) 74.8 H (34.0-67.9) % Lymph % (Auto) 13.5 L (21.8-53.1) % Rooks % (Auto) 7.0 (5.3-12.2) % Eos % (Auto) 4.5 (0.8-7.0) Baso % (Auto) 0.2 (0.1-1.2) % Neut # (Auto) 3.32 (1.78-5.38) K/mm3 Lymph # (Auto) 0.60 L (1.32-3.57) K/mm3 Rooks # (Auto) 0.31 (0.30-0.82) K/mm3 Eos # (Auto) 0.20 (0.04-0.54) K/mm3 Baso # (Auto) 0.01 (0.01-0.08) K/mm3 Manual Slide Review Not Reportable D-Dimer, Quantitative (0.19-0.50) mg/L Puncture Site ABG pH (7.35-7.45) ABG pCO2 (35.0-45.0) mmHg ABG pO2 (80.0-100.0) mmHg ABG HCO3 (22.0-26.0) meq/L ABG O2 Saturation (96.0-97.0) % ABG Base Excess (-2-2.0) Joo Test A-a Gradient mmHg O2 Delivery Device Oxygen Flow Rate FiO2 (21.00-100.00) % Sodium 139 (136-145) mEq/L Potassium 4.0 (3.5-5.1) mEq/L Chloride 107 (98-107) mEq/L Carbon Dioxide 23 (21-32) mEq/L Anion Gap 13.0 (5-15) BUN 24 H (7-18) mg/dL Creatinine 0.9 (0.7-1.3) mg/dL Est Cr Clr Drug Dosing 96.41 mL/min Estimated GFR (MDRD) > 60 (>60) mL/min BUN/Creatinine Ratio 26.7 H (14-18) Glucose 100 (80-115) mg/dL Calcium 8.5 (8.5-10.1) mg/dL Magnesium 2.1 (1.8-2.4) mg/dl Total Bilirubin 0.6 (0.2-1.0) mg/dL AST 27 (15-37) U/L ALT 41 (16-63) U/L Alkaline Phosphatase 58 (46-116) U/L Troponin I (0.00-0.056) ng/mL C-Reactive Protein < 0.2 (<1.0) mg/dL Total Protein 6.3 L (6.4-8.2) g/dl Albumin 2.9 L (3.4-5.0) g/dl Globulin 3.4 gm/dL Albumin/Globulin Ratio 0.9 L (1-2) Arnol Results Last 24 Hours: Microbiology 11/22/20 18:18 Aerobic Blood Culture - Final Blood - Venous NO GROWTH AFTER 7 DAYS Anaerobic Blood Culture - Final NO GROWTH AFTER 7 DAYS Med Orders - Current: Current Medications Acetaminophen (Tylenol) 650 mg PO Q4H PRN PRN Reason: Pain (Mild 1-3)/fever Last Admin: 11/22/20 23:50 Dose: 650 mg Documented by: Albuterol/Ipratropium (Duoneb 3.0-0.5 Mg/3 Ml) 3 ml NEB Q4H PRN PRN Reason: Shortness Of Breath/wheezing Last Admin: 11/28/20 09:41 Dose: 3 ml Documented by: Apixaban (Eliquis) 5 mg PO BID [facility] Last Admin: 11/29/20 20:23 Dose: 5 mg Documented by: Aspirin (Halfprin) 81 mg PO DAILY [facility] Last Admin: 11/29/20 09:29 Dose: 81 mg Documented by: Cholecalciferol (Vitamin D3) 5,000 unit PO DAILY [facility] Last Admin: 11/29/20 09:29 Dose: 5,000 unit Documented by: Clopidogrel Bisulfate (Plavix) 75 mg PO DAILY [facility] Last Admin: 11/29/20 09:33 Dose: 75 mg Documented by: Dexamethasone (Dexamethasone) 6 mg PO DAILY [facility] Stop: 12/01/20 09:01 Last Admin: 11/29/20 09:33 Dose: 6 mg Documented by: Famotidine (Pepcid) 20 mg PO BID [facility] Last Admin: 11/29/20 20:22 Dose: 20 mg Documented by: Glimepiride (Amaryl) 4 mg PO BID [facility] Last Admin: 11/29/20 20:22 Dose: 4 mg Documented by: Hydralazine HCl (Apresoline) 10 mg IVPUSH Q4H PRN PRN Reason: Hypertension Last Admin: 11/29/20 22:07 Dose: 10 mg Documented by: Dopamine HCl/Dextrose (Dopamine In D5w 400 Mg/250 Ml) 400 mg in 250 mls @ 9.679 mls/hr IV TITRATE [facility]; Protocol Last Titration: 11/29/20 22:54 Dose: 0 mcg/kg/min, 0 mls/hr Documented by: Insulin Glargine (Lantus) 20 unit SUBCUT BID@0700,1700 [facility] Last Admin: 11/29/20 17:26 Dose: 20 units Documented by: Insulin Human Lispro (Humalog) 0 unit SUBCUT TIDAC [facility]; Protocol Last Admin: 11/29/20 17:26 Dose: 3 units Documented by: Losartan Potassium (Cozaar) 25 mg PO DAILY [facility] Last Admin: 11/29/20 09:33 Dose: 25 mg Documented by: Melatonin (Melatonin) 9 mg PO BEDTIME [facility] Last Admin: 11/29/20 20:23 Dose: 9 mg Documented by: Metoprolol Tartrate (Lopressor) 5 mg IVPUSH Q4H PRN PRN Reason: Tachycardia Metoprolol Tartrate (Lopressor) 25 mg PO BID [facility] Dulaglutide [ Trulicity] 1.5 Mg Ptom 0 mg SQ Fr [facility] Last Admin: 11/29/20 12:44 Dose: Not Given Documented by: Rosuvastatin Calcium (Crestor) 10 mg PO DAILY [facility] Last Admin: 11/29/20 09:32 Dose: 10 mg Documented by: Sertraline HCl (Zoloft) 50 mg PO DAILY [facility] Last Admin: 11/29/20 09:29 Dose: 50 mg Documented by: Topiramate (Topamax) 50 mg PO BID [facility] Last Admin: 11/29/20 20:23 Dose: 50 mg Documented by: Zinc Sulfate (Zincate) 220 mg PO DAILY [facility] Last Admin: 11/29/20 09:32 Dose: 220 mg Documented by: Discontinued Medications Glimepiride (Amaryl) 2 mg PO DAILY [facility] Last Admin: 11/25/20 09:04 Dose: 2 mg Documented by: Glimepiride (Amaryl) 2 mg PO BID [facility] Last Admin: 11/26/20 20:20 Dose: 2 mg Documented by: Hydralazine HCl (Apresoline) Confirm Administered Dose 20 mg .ROUTE .STK-MED ONE Stop: 11/29/20 13:20 Last Admin: 11/29/20 13:34 Dose: Not Given Documented by: Remdesivir 200 mg/ Sodium (Chloride) 250 mls @ 250 mls/hr IV ONETIME ONE Stop: 11/22/20 21:09 Last Admin: 11/22/20 23:46 Dose: 250 mls/hr Documented by: Remdesivir 100 mg/ Sodium (Chloride) 100 mls @ 100 mls/hr IV Q24H [facility] Stop: 11/26/20 21:59 Last Admin: 11/26/20 20:23 Dose: 100 mls/hr Documented by: Ceftriaxone Sodium 2 gm/ (Sodium Chloride) 100 mls @ 200 mls/hr IV Q24H [facility] Stop: 11/26/20 21:59 Last Admin: 11/26/20 21:33 Dose: 200 mls/hr Documented by: Azithromycin 500 mg/ Sodium (Chloride) 250 mls @ 250 mls/hr IV Q24H [facility] Stop: 11/24/20 21:59 Last Admin: 11/24/20 21:25 Dose: 250 mls/hr Documented by: Tocilizumab 800 mg/ Sodium (Chloride) 100 mls @ 100 mls/hr IV ONETIME ONE Stop: 11/23/20 12:59 Last Admin: 11/23/20 14:04 Dose: Not Given Documented by: Tocilizumab 800 mg/ Sodium (Chloride) 100 mls @ 100 mls/hr IV ONETIME ONE Stop: 11/23/20 14:29 Last Admin: 11/23/20 13:33 Dose: 100 mls/hr Documented by: Tocilizumab 300 mg/ Sodium (Chloride) 100 mls @ 100 mls/hr IV ONETIME ONE Stop: 11/24/20 14:29 Last Admin: 11/24/20 12:45 Dose: 100 mls/hr Documented by: Sodium Chloride (Normal Saline) 500 mls @ 50 mls/hr IV .BOLUS ONE Stop: 11/29/20 22:25 Last Admin: 11/29/20 12:53 Dose: 50 mls/hr Documented by: Sodium Chloride (Normal Saline) 100 mls @ 75 mls/hr IV ASDIRECTED JOJO Stop: 11/29/20 18:00 Last Admin: 11/29/20 14:09 Dose: 75 mls/hr Documented by: Influenza Virus Vaccine (Fluzone Quad [id number] Syringe) 60 mcg IM .ONCE ONE Stop: 11/23/20 09:01 Last Admin: 11/29/20 13:23 Dose: Not Given Documented by: Insulin Glargine (Lantus) 7 unit SUBCUT BIDAC [facility] Last Admin: 11/23/20 17:46 Dose: 7 unit Documented by: Insulin Glargine (Lantus) 12 unit SUBCUT BIDAC [facility] Last Admin: 11/25/20 06:58 Dose: 12 units Documented by: Insulin Glargine (Lantus) 15 unit SUBCUT BIDAC [facility] Insulin Glargine (Lantus) 17 unit SUBCUT BIDAC [facility] Insulin Glargine (Lantus) 15 unit SUBCUT BIDAC [facility] Last Admin: 11/26/20 06:50 Dose: 15 units Documented by: Insulin Glargine (Lantus) 20 unit SUBCUT BIDAC [facility] Last Admin: 11/26/20 18:40 Dose: 20 units Documented by: Insulin Human Lispro (Humalog) 0 unit SUBCUT QIDACANDBED [facility]; Protocol Last Admin: 11/23/20 17:47 Dose: 8 unit Documented by: Insulin Human Lispro (Humalog) 0 unit SUBCUT QIDACANDBED [facility]; Protocol Last Admin: 11/25/20 08:12 Dose: Not Given Documented by: [facility] Last Admin: 11/24/20 17:17 Dose: 5 units Documented by: Insulin Human Lispro (Humalog) [facility] Last Admin: 11/25/20 08:12 Dose: Not Given Documented by: Iopamidol (Isovue-370 (76%)) 100 ml IVPUSH ONETIME ONE Stop: 11/29/20 13:15 Last Admin: 11/29/20 14:09 Dose: 100 ml Documented by: Metoprolol Tartrate (Lopressor) 75 mg PO ONETIME ONE Stop: 11/22/20 21:09 Last Admin: 11/22/20 23:47 Dose: 75 mg Documented by: Metoprolol Tartrate (Lopressor) 75 mg PO BID [facility] Last Admin: 11/29/20 20:24 Dose: 75 mg Documented by: Metoprolol Tartrate (Lopressor) 5 mg IVPUSH ONETIME ONE Stop: 11/29/20 20:54 Last Admin: 11/30/20 03:52 Dose: Not Given Documented by: Sodium Chloride (Saline Flush) 10 ml FLUSH ONETIME PRN PRN Reason: IV FLUSH Stop: 11/29/20 18:00 Last Admin: 11/29/20 14:09 Dose: 10 ml Documented by: - Exam Quality Assessment: Supplemental Oxygen General: Alert, Oriented, Cooperative, No Acute Distress, Other (Obese) HEENT: Pupils Equal, Pupils Reactive, EOMI, Mucous Membr. Moist/[place] Neck: Supple Lungs: Normal Respiratory Effort, Decreased Breath Sounds, Crackles (mild at the bases) Cardiovascular: Regular Rate, Irregular Rhythm GI/Abdominal Exam: Normal Bowel Sounds, Soft, Non-Tender, No Organomegaly, No Distention, No Abnormal Bruit, No Mass, Other (Obese) (Male) Exam: Deferred Back Exam: Normal Inspection, Decreased Range of Motion Extremities: Normal Inspection, Normal Range of Motion, Non-Tender, No Pedal Edema, Normal Capillary Refill Peripheral Pulses: 2+: Dorsalis Pedis (L), Dorsalis Pedis (R) Skin: Warm, Dry, Intact Neurological: No New Focal Deficit Psy/Mental Status: Alert, Normal Affect, Normal Mood - Patient Data Lab Results Last 24 hrs: Laboratory Results - last 24 hr 11/29/20 11/29/20 11/29/20 Range/Units 10:40 12:48 12:48 WBC (4.23-9.07) K/mm3 RBC (4.63-6.08) M/mm3 Hgb (13.7-17.5) gm/dl Hct (40.1-51.0) % MCV (79.0-92.2) fl MCH (25.7-32.2) pg MCHC (32.2-35.5) g/dl RDW Std Deviation (35.1-43.9) fL Plt Count (163-337) K/mm3 MPV (9.4-12.3) fl Neut % (Auto) (34.0-67.9) % Lymph % (Auto) (21.8-53.1) % Rooks % (Auto) (5.3-12.2) % Eos % (Auto) (0.8-7.0) Baso % (Auto) (0.1-1.2) % Neut # (Auto) (1.78-5.38) K/mm3 Lymph # (Auto) (1.32-3.57) K/mm3 Rooks # (Auto) (0.30-0.82) K/mm3 Eos # (Auto) (0.04-0.54) K/mm3 Baso # (Auto) (0.01-0.08) K/mm3 Manual Slide Review D-Dimer, Quantitative 4.27 H (0.19-0.50) mg/L Puncture Site Lt radial ABG pH 7.39 (7.35-7.45) ABG pCO2 35.3 (35.0-45.0) mmHg ABG pO2 79.0 L (80.0-100.0) mmHg ABG HCO3 21.0 L (22.0-26.0) meq/L ABG O2 Saturation 96.5 (96.0-97.0) % ABG Base Excess -2.8 L (-2-2.0) Joo Test Positive A-a Gradient 411 mmHg O2 Delivery Device Hiflow nasal cannula Oxygen Flow Rate 60.0 FiO2 75.00 (21.00-100.00) % Sodium (136-145) mEq/L Potassium (3.5-5.1) mEq/L Chloride (98-107) mEq/L Carbon Dioxide (21-32) mEq/L Anion Gap (5-15) BUN (7-18) mg/dL Creatinine (0.7-1.3) mg/dL Est Cr Clr Drug Dosing mL/min Estimated GFR (MDRD) (>60) mL/min BUN/Creatinine Ratio (14-18) Glucose (80-115) mg/dL Calcium (8.5-10.1) mg/dL Magnesium (1.8-2.4) mg/dl Total Bilirubin (0.2-1.0) mg/dL AST (15-37) U/L ALT (16-63) U/L Alkaline Phosphatase (46-116) U/L Troponin I < 0.017 (0.00-0.056) ng/mL C-Reactive Protein (<1.0) mg/dL Total Protein (6.4-8.2) g/dl Albumin (3.4-5.0) g/dl Globulin gm/dL Albumin/Globulin Ratio (1-2) 11/30/20 11/30/20 Range/Units 05:19 05:19 WBC 4.44 (4.23-9.07) K/mm3 RBC 4.92 (4.63-6.08) M/mm3 Hgb 14.9 (13.7-17.5) gm/dl Hct 43.7 (40.1-51.0) % MCV 88.8 (79.0-92.2) fl MCH 30.3 (25.7-32.2) pg MCHC 34.1 (32.2-35.5) g/dl RDW Std Deviation 45.0 H (35.1-43.9) fL Plt Count 245 (163-337) K/mm3 MPV 9.4 (9.4-12.3) fl Neut % (Auto) 74.8 H (34.0-67.9) % Lymph % (Auto) 13.5 L (21.8-53.1) % Rooks % (Auto) 7.0 (5.3-12.2) % Eos % (Auto) 4.5 (0.8-7.0) Baso % (Auto) 0.2 (0.1-1.2) % Neut # (Auto) 3.32 (1.78-5.38) K/mm3 Lymph # (Auto) 0.60 L (1.32-3.57) K/mm3 Rooks # (Auto) 0.31 (0.30-0.82) K/mm3 Eos # (Auto) 0.20 (0.04-0.54) K/mm3 Baso # (Auto) 0.01 (0.01-0.08) K/mm3 Manual Slide Review Not Reportable D-Dimer, Quantitative (0.19-0.50) mg/L Puncture Site ABG pH (7.35-7.45) ABG pCO2 (35.0-45.0) mmHg ABG pO2 (80.0-100.0) mmHg ABG HCO3 (22.0-26.0) meq/L ABG O2 Saturation (96.0-97.0) % ABG Base Excess (-2-2.0) Joo Test A-a Gradient mmHg O2 Delivery Device Oxygen Flow Rate FiO2 (21.00-100.00) % Sodium 139 (136-145) mEq/L Potassium 4.0 (3.5-5.1) mEq/L Chloride 107 (98-107) mEq/L Carbon Dioxide 23 (21-32) mEq/L Anion Gap 13.0 (5-15) BUN 24 H (7-18) mg/dL Creatinine 0.9 (0.7-1.3) mg/dL Est Cr Clr Drug Dosing 96.41 mL/min Estimated GFR (MDRD) > 60 (>60) mL/min BUN/Creatinine Ratio 26.7 H (14-18) Glucose 100 (80-115) mg/dL Calcium 8.5 (8.5-10.1) mg/dL Magnesium 2.1 (1.8-2.4) mg/dl Total Bilirubin 0.6 (0.2-1.0) mg/dL AST 27 (15-37) U/L ALT 41 (16-63) U/L Alkaline Phosphatase 58 (46-116) U/L Troponin I (0.00-0.056) ng/mL C-Reactive Protein < 0.2 (<1.0) mg/dL Total Protein 6.3 L (6.4-8.2) g/dl Albumin 2.9 L (3.4-5.0) g/dl Globulin 3.4 gm/dL Albumin/Globulin Ratio 0.9 L (1-2) Result Diagrams: 11/30/20 05:19 11/30/20 05:19 Arnol Results Last 24 hrs: Microbiology 11/22/20 18:18 Aerobic Blood Culture - Final Blood - Venous NO GROWTH AFTER 7 DAYS Anaerobic Blood Culture - Final NO GROWTH AFTER 7 DAYS Sepsis Event Note - Evaluation Sepsis Screening Result: No Definite Risk - Focused Exam Vital Signs: Vital Signs Temp Pulse Pulse Resp BP BP Pulse Ox 11/30/20 06:00 93 18 108/77 91 L 11/30/20 05:00 98 16 105/77 96 11/30/20 04:00 36.2 C 102 H 18 106/80 91 L 11/30/20 03:00 68 19 98/75 93 L 11/30/20 02:37 11/30/20 02:00 70 18 88/67 L 97 11/30/20 01:00 77 18 87/69 L 94 L 11/30/20 00:22 11/30/20 00:00 86 20 88/63 L 98 11/29/20 23:00 68 18 83/54 L 96 11/29/20 22:40 11/29/20 22:00 77 17 150/88 H 98 11/29/20 21:00 54 L 19 181/93 H 99 11/29/20 20:24 65 108/69 Pulse Ox 11/30/20 06:00 11/30/20 05:00 11/30/20 04:00 11/30/20 03:00 11/30/20 02:37 98 11/30/20 02:00 11/30/20 01:00 11/30/20 00:22 98 11/30/20 00:00 11/29/20 23:00 11/29/20 22:40 95 11/29/20 22:00 11/29/20 21:00 11/29/20 20:24 - Problem List Review Problem List Initiated/Reviewed/Updated: Yes - My Orders Last 24 Hours: My Active Orders 11/29/20 09:00 Dulaglutide [Trulicity] 0 mg SQ Fr 11/29/20 11:45 DOPamine/Dextrose 5%-Water [DOPamine in D5W 400 MG/250 ML] 400 mg in 250 ml IV TITRATE 11/29/20 12:03 Patient Status [ADT] Routine 11/29/20 13:17 hydrALAZINE [Apresoline] 10 mg IVPUSH Q4H PRN 11/29/20 20:46 Metoprolol Tartrate [Lopressor] 5 mg IVPUSH Q4H PRN 11/30/20 09:00 Metoprolol Tartrate [Lopressor] 25 mg PO BID 12/01/20 05:11 CBC WITH AUTO DIFF [HEME] AM CMP [COMPREHENSIVE METABOLIC PN,CMP] [CHEM] AM CRP [C-REACTIVE PROTEIN] [CHEM] AM MAGNESIUM [CHEM] AM - Plan Plan:: 11/22/2020 Assessment 65-year-old male with history of coronary artery bypass and CAD, new onset atrial fibrillation, type 2 diabetes, obesity, presents to the emergency department after 6 days of feeling poorly and diagnosed with COVID-19. Unfortunately, this puts him at high risk for complications because of his multiple comorbidities. COVID-19 pneumonia with hypoxemia Leukopenia, POA, resolved Elevated CRP of 7.7, POA, is now wnl * Risk factors: DM2, ISABEL, Class II Obese * Patient presented to the emergency department with oxygen saturations at 83% on room air * He required 2 to 3 L of FiO2 via nasal cannula to get saturations in the low 90s. * C-reactive protein was elevated at 6.6, ferritin 659, D-dimer slightly elevated at 0.61, white count low at 3.7 * Fortunately patient is a never smoker. No history of lung disease. * Repeat chest x-ray was worse yesterday * Azithromycin 500 mg IV daily completed 11/24/2020 * Rocephin 2 grams daily completed 11/26/2020 * Actemra completed 11/23/2020 * Dexamethasone 6 mg po on 04/05 * He is going backward/getting worse * Repeat CTA yesterday report read as diffuse parenchymal changes scattered throughout both lungs. No PE. * Goal is aggressive proning Atrial Flutter, Controlled HR * He may be in atrial fib/flutter * Repeat EKG shows atrial flutter with HR of 83 * Has had episode of bradycardia. He was taking 75 mg po BID but remains sensitive to 25 mg po BID. Will discontinue and may switch to Coreg instead with some alpha blockade component * On Metoprolol and Eliquis for maintenance medications * 2D echo report read as LVEF of 55%. No RWMA. RVSP is normal at 28 mmHg. No cardiac valves abnormality History of coronary artery disease with bypass graft * Patient did not take his metoprolol this morning and therefore his heart rate was above 100 with A. fib RVR * On ASA and plavix for CAD * Patient is normally on metoprolol 75 mg twice daily; rate control agent * Troponin and BNP was normal. * HR now controlled * Eliquis 5 mg po BID started 11/22/2020 fro stroke prophylaxis Type 2 diabetes * BS not controlled; now controlled * Moderate control with his last hemoglobin A1c from November 14 of 7.5% * On for oral medications to control his blood sugars * Repeat A1C is 7.8 * He is on steroid * Changes to insulin regimen: Lantus 15 units BID and continue high intensity ISS * Resume home dose Trulicity and Glimepiride * Hold home dose Synjardy for now Hypoalbuminemia Class II Obese * Albumin of 2.9 * BMI of 37 * Discussed LSM * [employer] following Other medical problems include depression, elevated PSA with BPH, hypertension, obesity, sleep apnea, kidney stones Plan * Admit to medical floor on telemetry * Continuous pulse ox * Remdesivir for 5 days loading dose today * Dexamethasone x10 days * Rocephin 2 g daily for 5 days for COVID-19 pneumonia * Azithromycin 500 mg daily for 3 days * Pepcid, melatonin, zinc, vitamin D. All of them have shown mixed results on treatment of COVID-19 but unlikely to cause any harm. * Encourage prone positioning when awake and asleep * Convalescent plasma has not shown improvement in outcomes will therefore hold on the treatment with convalescent plasma * FiO2 to keep SPO2 between 88 and 94%. * Follow blood sugars closely and likely start long-acting insulin * Stop home oral blood sugar medications because of inconsistencies with absorption and p.o. intake when hospitalized with COVID-19 * Blood sugars will likely worsen secondary to dexamethasone. * Sliding scale insulin * Fingerstick blood sugar 4 times a day * Follow CBC, CMP, magnesium, D-dimer, CRP * Actemra 800 mg if available * Patient is at very high risk for complications secondary to his multiple comorbidities * Start Eliquis 5 mg twice daily for his new onset A. fib * Echocardiogram on Wednesday since it is not available over the weekend * Patient is likely rate controlled on his metoprolol twice daily will start it as soon as pharmacy approves it * VTE prophylaxis will be with Eliquis * CODE STATUS full code 11/23/2020 No significant change in oxygenation overnight. We will continue on COVID-19 treatment as outlined above. We will be able to obtain Actemra 800 mg for today. Patient's blood sugars are increased so we will add Lantus 7 units twice daily for today but will likely need to increase that substantially over the next few days. Continue with sliding scale insulin and 4 times daily finger blood sugars. D-dimer did decrease to normal which is reassuring. C-reactive protein unfortunately increased to 7.7. Other lab work is not substantially different from yesterday. Patient's rate has been controlled on the metoprolol 75 mg twice daily. Echocardiogram on Wednesday. Appetite so far is good. No significant change overnight. 11/24/2020 Patient is making progress. O2 requirements are decreasing and he is symptomatically better. D-dimer and C-reactive protein have both decreased. He did get Actemra yesterday at 800 mg and will get 300 mg today. Even with good appetite and regular diet his albumin has dropped to 2.8. Blood sugars right now are his biggest problems and I have aggressively increase his insulin. Lantus 12 units twice daily with Humalog 5 units with each meal and high dose sliding scale. Hemoglobin A1c was 7.8% on admission. Echocardiogram for tomorrow for his new onset A. fib. Rate has been well controlled on metoprolol. He continues on Eliquis for stroke prevention and VTE prophylaxis. Continue to follow Covid labs daily. He is on day 3 of 3 of azithromycin and day 3 of 5 of Zithromax. He is on day 3 of remdesivir. He is on day 3 of 10 of dexamethasone or until discharge. Prognosis is guarded secondary to his mul tiple comorbidities but he is looking better. 11/25/2020 Patient continues to do well. He is now down to 2-3L NC. However his blood glucose is not well controlled. Will make changes to his insulin regimen. We will also resume home dose Trulicity and Glimepiride. Encourage to use IS and FV as directed. Ambulate inside his room as many times as he can. Routine AM Labs. Continue current Covid-19 treatment. PT/OT following. DVT/Stroke prophylaxis: on Eliquis. 2D echo for new onset of atrial fibrillation. Code status is full. Prognosis is good at this point. 11/26/2020 He remains relatively stable. He remains on 2-3 L NC. Blood glucose remains u ncontrolled. We will go up on insulin to 15 units subQ BID and Glimepiride 2 mg po BID. Encourage to use IS and FV as directed. Ambulate inside his room as many times as he can. Routine AM Labs. Continue current Covid-19 treatment. PT/OT following. DVT/Stroke prophylaxis: on Eliquis. Code status is full. Prognosis remains good. 11/27/2020 He looks clinically stable and in no acute respiratory distress. He is on 3 L NC. Blood glucose has improved. We will go up on Glimepiride to 4 mg po BID. Continue to encourage to use IS and FV as directed. Ambulate inside his room as many times as he can. Routine AM Labs. Continue current Covid-19 treatment. Repeat chest x-ray this AM.PT/OT following. DVT/Stroke prophylaxis: on Eliquis. Code status is full. Prognosis remains good. 0915: Repeat chest x-ray shows worsening appearance of chest. We will initiate proning position as many times as he can. 1716: Called and updated his about his clinical progress. Advised to have all Tw[employer] immediately family to do social media with him, lift his spirits up and encourage him to prone as many times as he can, ambulate inside his room and use his IS and FV as directed. 11/28/2020 He looks comfortable and not in acute respiratory distress. He is now on high flow due to hypoxia on l O2. Blood glucose has improved considerably. Continue to encourage to use IS and FV as directed. Ambulate inside his room as many times as he can. Routine AM Labs. Continue current Covid-19 treatment. Repeat chest x-ray this AM. PT/OT following. DVT/Stroke prophylaxis: on Eliquis. Code status is full. Prognosis is guarded at this point. Re-educated patient about proper proning. However I feel like he does not stay long enough to benefit from it. I have gone into his room yesterday 3 times caught him on his side not on his belly/stomach. Called and updated his son and about his clinical progress and discussed possible compliance issue with bedside activities and pulmonary exercise. 11/29/2020 He looks comfortable but respiratory michel he is not doing good. He remains on high flow due to considerable hypoxia. Continue to encourage to use IS and FV as directed. Ambulate inside his room as many times as he can. Routine AM Labs. Continue current Covid-19 treatment. Repeat ABG and chest x-ray this AM. PT/OT following. DVT/Stroke prophylaxis: on Eliquis. Code status is full. Prognosis is guarded at this point. May transfer him to the unit for more aggressive treatment and to closely monitor him. Updated son and about his clinical progress. 1456: D-dimer is 4.27. Chest CTA shows no PE. Patient is already on Eliquis for DVT/Stroke prophylaxis. His HR has improved after brief treatment of Dopamine gtt. 11/30/2020 He looks clinically better and in good spirits. His lungs remain worse. He is still on high flow due to considerable hypoxia. Continue to encourage to use IS and FV as directed. Ambulate inside his room as many times as he can. Routine AM Labs. Continue current Covid-19 treatment. Repeat chest x-ray in AM. PT/OT following. DVT/Stroke prophylaxis: on Eliquis. Code status is full. Prognosis is guarded at this point. Goal: Aggressive proning, use of IS/FV and ambulated inside his room as much as he can.
[2020-11-30] MEDS: Glimepiride 2 MG Tab PO SCH ×2 (08:43→20:53)
[2020-11-30] MEDS: Cholecalciferol (Vitamin D3) 5,000 UNIT Cap PO SCH (08:44)
[2020-11-30] MEDS: Losartan 25 MG Tab PO SCH (08:44)
[2020-11-30] MEDS: Zinc Sulfate 220 MG Cap PO SCH (08:46)
[2020-11-30] MEDS: Aspirin 81 MG Tab.EC PO SCH (08:46)
[2020-11-30] MEDS: Sertraline 50 MG Tab PO SCH (08:46)
[2020-11-30] MEDS: Dexamethasone 4 MG Tab PO SCH (08:46)
[2020-11-30] MEDS: Clopidogrel 75 MG Tab PO SCH (08:46)
[2020-11-30] MEDS: Rosuvastatin 10 MG Tab PO SCH (08:46)
[2020-11-30] MEDS: Apixaban 5 MG Tab PO SCH ×2 (08:47→20:51)
[2020-11-30] MEDS: Topiramate 25 MG Tab PO SCH ×2 (08:47→20:52)
[2020-11-30] MEDS ORDERED: Metoprolol Tartrate 25 MG Tab PO SCH (09:00)
[2020-11-30] MEDS: Insulin Glarg,Human.Rec.Analog 100 Unit/ML SUBCUT SCH ×2 (10:39→16:56)
[2020-11-30] MEDS: Famotidine 20 MG Tab PO SCH ×2 (10:40→20:56)
[2020-11-30] MEDS ORDERED: Sodium Chloride 0.9% 500 ML IV ONE (11:58)
[2020-11-30] MEDS ORDERED: Sodium Chloride 0.9% 1,000 ML ONE (11:59)
[2020-11-30] MEDS: DOPamine/Dextrose 5%-Water 400 MG/250 ML BAG IV SCH (12:01)
[2020-11-30] MEDS ORDERED: Furosemide 20 MG/2 ML VIAL IVPUSH ONE ×2 (14:00→20:00)
[2020-11-30] MEDS: Melatonin 3 MG Tab PO SCH (20:52)
--- NOTE | 2020-12-01 07:03 | PCM.PN ---
- General Info Date of Service: 12/01/20 Admission Dx/Problem (Free Text): Admission Diagnosis/Problem Admission Diagnosis/Problem Hypoxia Subjective Update: No significant issues overnight. He feels pretty good this morning. No trouble with his vitals. His morning labs are essentially unremarkable. D-dimer is slightly elevated from yesterday. His chest x-ray shows some improvement of the right lung. Functional Status: Reports: Pain Controlled, Tolerating Diet, Ambulating, Urinating, Incentive Spirometry - Review of Systems General: Denies: Fever, Weakness, Fatigue, Malaise, Chills HEENT: Denies: Contact Lenses Pulmonary: Reports: Cough, Sputum. Denies: Shortness of Breath Cardiovascular: Denies: Chest Pain Gastrointestinal: Denies: Abdominal Pain, Nausea, Vomiting Genitourinary: Denies: Frequency Musculoskeletal: Reports: No Symptoms Skin: Denies: Cyanosis Neurological: Denies: Confusion, Difficulty Walking, Weakness, Gait Disturbance Psychiatric: Denies: Depression, Anxiety - Patient Data Vitals - Most Recent: Last Vital Signs Temp 36.7 C 12/01/20 06:00 Pulse 79 12/01/20 06:00 Resp 18 12/01/20 06:00 BP 115/89 12/01/20 06:00 Pulse Ox 95 12/01/20 06:00 Weight - Most Recent: 128.73 kg I&O - Last 24 Hours: Intake & Output 11/30/20 12/01/20 12/01/20 22:59 06:59 14:59 Intake Total 1310 450 Output Total 340 300 Balance 970 150 Lab Results Last 24 Hours: Laboratory Results - last 24 hr 11/30/20 12/01/20 12/01/20 Range/Units 05:19 05:11 05:11 WBC 5.26 (4.23-9.07) K/mm3 RBC 4.87 (4.63-6.08) M/mm3 Hgb 14.6 (13.7-17.5) gm/dl Hct 43.7 (40.1-51.0) % MCV 89.7 (79.0-92.2) fl MCH 30.0 (25.7-32.2) pg MCHC 33.4 (32.2-35.5) g/dl RDW Std Deviation 45.2 H (35.1-43.9) fL Plt Count 254 (163-337) K/mm3 MPV 9.3 L (9.4-12.3) fl Neut % (Auto) 72.0 H (34.0-67.9) % Lymph % (Auto) 15.2 L (21.8-53.1) % [place] % (Auto) 8.0 (5.3-12.2) % Eos % (Auto) 3.6 (0.8-7.0) Baso % (Auto) 0.2 (0.1-1.2) % Neut # (Auto) 3.79 (1.78-5.38) K/mm3 Lymph # (Auto) 0.80 L (1.32-3.57) K/mm3 [place] # (Auto) 0.42 (0.30-0.82) K/mm3 Eos # (Auto) 0.19 (0.04-0.54) K/mm3 Baso # (Auto) 0.01 (0.01-0.08) K/mm3 Manual Slide Review Normal smear D-Dimer, Quantitative (0.19-0.50) mg/L Sodium 141 (136-145) mEq/L Potassium 3.9 (3.5-5.1) mEq/L Chloride 107 (98-107) mEq/L Carbon Dioxide 23 (21-32) mEq/L Anion Gap 14.9 (5-15) BUN 27 H (7-18) mg/dL Creatinine 0.9 (0.7-1.3) mg/dL Est Cr Clr Drug Dosing 96.41 mL/min Estimated GFR (MDRD) > 60 (>60) mL/min BUN/Creatinine Ratio 30.0 H (14-18) Glucose 83 (80-115) mg/dL Calcium 8.4 L (8.5-10.1) mg/dL Magnesium 2.1 (1.8-2.4) mg/dl Total Bilirubin 0.7 (0.2-1.0) mg/dL AST 25 (15-37) U/L ALT 39 (16-63) U/L Alkaline Phosphatase 55 (46-116) U/L C-Reactive Protein < 0.2 (<1.0) mg/dL Total Protein 6.1 L (6.4-8.2) g/dl Albumin 3.0 L (3.4-5.0) g/dl Globulin 3.1 gm/dL Albumin/Globulin Ratio 1.0 (1-2) 12/01/20 Range/Units 05:11 WBC (4.23-9.07) K/mm3 RBC (4.63-6.08) M/mm3 Hgb (13.7-17.5) gm/dl Hct (40.1-51.0) % MCV (79.0-92.2) fl MCH (25.7-32.2) pg MCHC (32.2-35.5) g/dl RDW Std Deviation (35.1-43.9) fL Plt Count (163-337) K/mm3 MPV (9.4-12.3) fl Neut % (Auto) (34.0-67.9) % Lymph % (Auto) (21.8-53.1) % [place] % (Auto) (5.3-12.2) % Eos % (Auto) (0.8-7.0) Baso % (Auto) (0.1-1.2) % Neut # (Auto) (1.78-5.38) K/mm3 Lymph # (Auto) (1.32-3.57) K/mm3 [place] # (Auto) (0.30-0.82) K/mm3 Eos # (Auto) (0.04-0.54) K/mm3 Baso # (Auto) (0.01-0.08) K/mm3 Manual Slide Review D-Dimer, Quantitative 5.31 H (0.19-0.50) mg/L Sodium (136-145) mEq/L Potassium (3.5-5.1) mEq/L Chloride (98-107) mEq/L Carbon Dioxide (21-32) mEq/L Anion Gap (5-15) BUN (7-18) mg/dL Creatinine (0.7-1.3) mg/dL Est Cr Clr Drug Dosing mL/min Estimated GFR (MDRD) (>60) mL/min BUN/Creatinine Ratio (14-18) Glucose (80-115) mg/dL Calcium (8.5-10.1) mg/dL Magnesium (1.8-2.4) mg/dl Total Bilirubin (0.2-1.0) mg/dL AST (15-37) U/L ALT (16-63) U/L Alkaline Phosphatase (46-116) U/L C-Reactive Protein (<1.0) mg/dL Total Protein (6.4-8.2) g/dl Albumin (3.4-5.0) g/dl Globulin gm/dL Albumin/Globulin Ratio (1-2) Med Orders - Current: Current Medications Acetaminophen (Tylenol) 650 mg PO Q4H PRN PRN Reason: Pain (Mild 1-3)/fever Last Admin: 11/22/20 23:50 Dose: 650 mg Documented by: Albuterol/Ipratropium (Duoneb 3.0-0.5 Mg/3 Ml) 3 ml NEB Q4H PRN PRN Reason: Shortness Of Breath/wheezing Last Admin: 11/28/20 09:41 Dose: 3 ml Documented by: Apixaban (Eliquis) 5 mg PO BID [facility] Last Admin: 11/30/20 20:51 Dose: 5 mg Documented by: Aspirin (Halfprin) 81 mg PO DAILY [facility] Last Admin: 11/30/20 08:46 Dose: 81 mg Documented by: Cholecalciferol (Vitamin D3) 5,000 unit PO DAILY [facility] Last Admin: 11/30/20 08:44 Dose: 5,000 unit Documented by: Clopidogrel Bisulfate (Plavix) 75 mg PO DAILY [facility] Last Admin: 11/30/20 08:46 Dose: 75 mg Documented by: Dexamethasone (Dexamethasone) 6 mg PO DAILY [facility] Stop: 12/01/20 09:01 Last Admin: 11/30/20 08:46 Dose: 6 mg Documented by: Famotidine (Pepcid) 20 mg PO BID [facility] Last Admin: 11/30/20 20:56 Dose: 20 mg Documented by: Furosemide (Lasix) 5 mg IVPUSH DAILY [facility] Stop: 12/04/20 09:01 Glimepiride (Amaryl) 4 mg PO BID [facility] Last Admin: 11/30/20 20:53 Dose: 4 mg Documented by: Hydralazine HCl (Apresoline) 10 mg IVPUSH Q4H PRN PRN Reason: Hypertension Last Admin: 11/29/20 22:07 Dose: 10 mg Documented by: Dopamine HCl/Dextrose (Dopamine In D5w 400 Mg/250 Ml) 400 mg in 250 mls @ 9.679 mls/hr IV TITRATE [facility]; Protocol Last Titration: 11/30/20 13:15 Dose: 0 mcg/kg/min, 0 mls/hr Documented by: Insulin Glargine (Lantus) 20 unit SUBCUT BID@0700,1700 [facility] Last Admin: 11/30/20 16:56 Dose: 20 units Documented by: Insulin Human Lispro (Humalog) 0 unit SUBCUT TIDAC [facility]; Protocol Last Admin: 12/01/20 06:42 Dose: Not Given Documented by: Losartan Potassium (Cozaar) 25 mg PO DAILY [facility] Last Admin: 11/30/20 08:44 Dose: 25 mg Documented by: Melatonin (Melatonin) 9 mg PO BEDTIME [facility] Last Admin: 11/30/20 20:52 Dose: 9 mg Documented by: Metoprolol Tartrate (Lopressor) 5 mg IVPUSH Q4H PRN PRN Reason: Tachycardia Dulaglutide [ Trulicity] 1.5 Mg Ptom 0 mg SQ Fr [facility] Last Admin: 11/29/20 12:44 Dose: Not Given Documented by: Rosuvastatin Calcium (Crestor) 10 mg PO DAILY [facility] Last Admin: 11/30/20 08:46 Dose: 10 mg Documented by: Sertraline HCl (Zoloft) 50 mg PO DAILY [facility] Last Admin: 11/30/20 08:46 Dose: 50 mg Documented by: Topiramate (Topamax) 50 mg PO BID [facility] Last Admin: 11/30/20 20:52 Dose: 50 mg Documented by: Zinc Sulfate (Zincate) 220 mg PO DAILY [facility] Last Admin: 11/30/20 08:46 Dose: 220 mg Documented by: Discontinued Medications Furosemide (Lasix) 5 mg IVPUSH NOW ONE Stop: 11/30/20 14:01 Last Admin: 11/30/20 14:12 Dose: 5 mg Documented by: Furosemide (Lasix) 10 mg IVPUSH ONETIME ONE Stop: 11/30/20 20:01 Last Admin: 11/30/20 21:00 Dose: 10 mg Documented by: Glimepiride (Amaryl) 2 mg PO DAILY [facility] Last Admin: 11/25/20 09:04 Dose: 2 mg Documented by: Glimepiride (Amaryl) 2 mg PO BID [facility] Last Admin: 11/26/20 20:20 Dose: 2 mg Documented by: Hydralazine HCl (Apresoline) Confirm Administered Dose 20 mg .ROUTE .STK-MED ONE Stop: 11/29/20 13:20 Last Admin: 11/29/20 13:34 Dose: Not Given Documented by: Remdesivir 200 mg/ Sodium (Chloride) 250 mls @ 250 mls/hr IV ONETIME ONE Stop: 11/22/20 21:09 Last Admin: 11/22/20 23:46 Dose: 250 mls/hr Documented by: Remdesivir 100 mg/ Sodium (Chloride) 100 mls @ 100 mls/hr IV Q24H JO[facility] Stop: 11/26/20 21:59 Last Admin: 11/26/20 20:23 Dose: 100 mls/hr Documented by: Ceftriaxone Sodium 2 gm/ (Sodium Chloride) 100 mls @ 200 mls/hr IV Q24H JOJO Stop: 11/26/20 21:59 Last Admin: 11/26/20 21:33 Dose: 200 mls/hr Documented by: Azithromycin 500 mg/ Sodium (Chloride) 250 mls @ 250 mls/hr IV Q24H [facility]JO Stop: 11/24/20 21:59 Last Admin: 11/24/20 21:25 Dose: 250 mls/hr Documented by: Tocilizumab 800 mg/ Sodium (Chloride) 100 mls @ 100 mls/hr IV ONETIME ONE Stop: 11/23/20 12:59 Last Admin: 11/23/20 14:04 Dose: Not Given Documented by: Tocilizumab 800 mg/ Sodium (Chloride) 100 mls @ 100 mls/hr IV ONETIME ONE Stop: 11/23/20 14:29 Last Admin: 11/23/20 13:33 Dose: 100 mls/hr Documented by: Tocilizumab 300 mg/ Sodium (Chloride) 100 mls @ 100 mls/hr IV ONETIME ONE Stop: 11/24/20 14:29 Last Admin: 11/24/20 12:45 Dose: 100 mls/hr Documented by: Sodium Chloride (Normal Saline) 500 mls @ 50 mls/hr IV .BOLUS ONE Stop: 11/29/20 22:25 Last Admin: 11/29/20 12:53 Dose: 50 mls/hr Documented by: Sodium Chloride (Normal Saline) 100 mls @ 75 mls/hr IV ASDIRECTED JOJO Stop: 11/29/20 18:00 Last Admin: 11/29/20 14:09 Dose: 75 mls/hr Documented by: Sodium Chloride (Normal Saline) 500 mls @ 999 mls/hr IV .BOLUS ONE Stop: 11/30/20 12:28 Last Admin: 11/30/20 12:02 Dose: 999 mls/hr Documented by: Sodium Chloride (Normal Saline) Confirm Administered Dose 1,000 mls @ as directed .ROUTE .STK-MED ONE Stop: 11/30/20 12:00 Last Admin: 11/30/20 13:13 Dose: Not Given Documented by: Influenza Virus Vaccine (Fluzone Quad Syringe) 60 mcg IM .ONCE ONE Stop: 11/23/20 09:01 Last Admin: 11/29/20 13:23 Dose: Not Given Documented by: Insulin Glargine (Lantus) 7 unit SUBCUT BIDAC [facility] Last Admin: 11/23/20 17:46 Dose: 7 unit Documented by: Insulin Glargine (Lantus) 12 unit SUBCUT BIDAC [facility] Last Admin: 11/25/20 06:58 Dose: 12 units Documented by: Insulin Glargine (Lantus) 15 unit SUBCUT BIDAC [facility] Insulin Glargine (Lantus) 17 unit SUBCUT BIDAC [facility] Insulin Glargine (Lantus) 15 unit SUBCUT BIDAC [facility] Last Admin: 11/26/20 06:50 Dose: 15 units Documented by: Insulin Glargine (Lantus) 20 unit SUBCUT BIDAC [facility] Last Admin: 11/26/20 18:40 Dose: 20 units Documented by: Insulin Human Lispro (Humalog) 0 unit SUBCUT QIDACANDBED [facility]; Protocol Last Admin: 11/23/20 17:47 Dose: 8 unit Documented by: Insulin Human Lispro (Humalog) 0 unit SUBCUT QIDACANDBED [facility]; Protocol Last Admin: 11/25/20 08:12 Dose: Not Given Documented by: Insulin Human Lispro (Humalog) 5 unit SUBCUT TIDAC [facility] Last Admin: 11/24/20 17:17 Dose: 5 units Documented by: Insulin Human Lispro (Humalog) 7 unit SUBCUT TIDAC [facility] Last Admin: 11/25/20 08:12 Dose: Not Given Documented by: Iopamidol (Isovue-370 (76%)) 100 ml IVPUSH ONETIME ONE Stop: 11/29/20 13:15 Last Admin: 11/29/20 14:09 Dose: 100 ml Documented by: Metoprolol Tartrate (Lopressor) 75 mg PO ONETIME ONE Stop: 11/22/20 21:09 Last Admin: 11/22/20 23:47 Dose: 75 mg Documented by: Metoprolol Tartrate (Lopressor) 75 mg PO BID [facility] Last Admin: 11/29/20 20:24 Dose: 75 mg Documented by: Metoprolol Tartrate (Lopressor) 5 mg IVPUSH ONETIME ONE Stop: 11/29/20 20:54 Last Admin: 11/30/20 03:52 Dose: Not Given Documented by: Metoprolol Tartrate (Lopressor) 25 mg PO BID [facility] Last Admin: 11/30/20 08:44 Dose: 25 mg Documented by: Sodium Chloride (Saline Flush) 10 ml FLUSH ONETIME PRN PRN Reason: IV FLUSH Stop: 11/29/20 18:00 Last Admin: 11/29/20 14:09 Dose: 10 ml Documented by: - Exam Quality Assessment: Supplemental Oxygen General: Alert, Oriented, Cooperative, No Acute Distress, Other (Obese) HEENT: Pupils Equal, Pupils Reactive, EOMI, Mucous Membr. Moist/[place] Neck: Supple Lungs: Normal Respiratory Effort, Decreased Breath Sounds Cardiovascular: Irregular Rhythm GI/Abdominal Exam: Normal Bowel Sounds, Soft, Non-Tender, No Organomegaly, No Distention, No Abnormal Bruit, Other (Obese) (Male) Exam: Deferred Back Exam: Normal Inspection, Decreased Range of Motion Extremities: Normal Inspection, Normal Range of Motion, Non-Tender, No Pedal Ed ivy, Normal Capillary Refill Peripheral Pulses: 2+: Dorsalis Pedis (L), Dorsalis Pedis (R) Skin: Warm, Dry, Intact Neurological: No New Focal Deficit, Normal Gait Psy/Mental Status: Alert, Normal Affect, Normal Mood - Patient Data Lab Results Last 24 hrs: Laboratory Results - last 24 hr 11/30/20 12/01/20 12/01/20 Range/Units 05:19 05:11 05:11 WBC 5.26 (4.23-9.07) K/mm3 RBC 4.87 (4.63-6.08) M/mm3 Hgb 14.6 (13.7-17.5) gm/dl Hct 43.7 (40.1-51.0) % MCV 89.7 (79.0-92.2) fl MCH 30.0 (25.7-32.2) pg MCHC 33.4 (32.2-35.5) g/dl RDW Std Deviation 45.2 H (35.1-43.9) fL Plt Count 254 (163-337) K/mm3 MPV 9.3 L (9.4-12.3) fl Neut % (Auto) 72.0 H (34.0-67.9) % Lymph % (Auto) 15.2 L (21.8-53.1) % [place] % (Auto) 8.0 (5.3-12.2) % Eos % (Auto) 3.6 (0.8-7.0) Baso % (Auto) 0.2 (0.1-1.2) % Neut # (Auto) 3.79 (1.78-5.38) K/mm3 Lymph # (Auto) 0.80 L (1.32-3.57) K/mm3 [place] # (Auto) 0.42 (0.30-0.82) K/mm3 Eos # (Auto) 0.19 (0.04-0.54) K/mm3 Baso # (Auto) 0.01 (0.01-0.08) K/mm3 Manual Slide Review Normal smear D-Dimer, Quantitative (0.19-0.50) mg/L Sodium 141 (136-145) mEq/L Potassium 3.9 (3.5-5.1) mEq/L Chloride 107 (98-107) mEq/L Carbon Dioxide 23 (21-32) mEq/L Anion Gap 14.9 (5-15) BUN 27 H (7-18) mg/dL Creatinine 0.9 (0.7-1.3) mg/dL Est Cr Clr Drug Dosing 96.41 mL/min Estimated GFR (MDRD) > 60 (>60) mL/min BUN/Creatinine Ratio 30.0 H (14-18) Glucose 83 (80-115) mg/dL Calcium 8.4 L (8.5-10.1) mg/dL Magnesium 2.1 (1.8-2.4) mg/dl Total Bilirubin 0.7 (0.2-1.0) mg/dL AST 25 (15-37) U/L ALT 39 (16-63) U/L Alkaline Phosphatase 55 (46-116) U/L C-Reactive Protein < 0.2 (<1.0) mg/dL Total Protein 6.1 L (6.4-8.2) g/dl Albumin 3.0 L (3.4-5.0) g/dl Globulin 3.1 gm/dL Albumin/Globulin Ratio 1.0 (1-2) 12/01/20 Range/Units 05:11 WBC (4.23-9.07) K/mm3 RBC (4.63-6.08) M/mm3 Hgb (13.7-17.5) gm/dl Hct (40.1-51.0) % MCV (79.0-92.2) fl MCH (25.7-32.2) pg MCHC (32.2-35.5) g/dl RDW Std Deviation (35.1-43.9) fL Plt Count (163-337) K/mm3 MPV (9.4-12.3) fl Neut % (Auto) (34.0-67.9) % Lymph % (Auto) (21.8-53.1) % [place] % (Auto) (5.3-12.2) % Eos % (Auto) (0.8-7.0) Baso % (Auto) (0.1-1.2) % Neut # (Auto) (1.78-5.38) K/mm3 Lymph # (Auto) (1.32-3.57) K/mm3 [place] # (Auto) (0.30-0.82) K/mm3 Eos # (Auto) (0.04-0.54) K/mm3 Baso # (Auto) (0.01-0.08) K/mm3 Manual Slide Review D-Dimer, Quantitative 5.31 H (0.19-0.50) mg/L Sodium (136-145) mEq/L Potassium (3.5-5.1) mEq/L Chloride (98-107) mEq/L Carbon Dioxide (21-32) mEq/L Anion Gap (5-15) BUN (7-18) mg/dL Creatinine (0.7-1.3) mg/dL Est Cr Clr Drug Dosing mL/min Estimated GFR (MDRD) (>60) mL/min BUN/Creatinine Ratio (14-18) Glucose (80-115) mg/dL Calcium (8.5-10.1) mg/dL Magnesium (1.8-2.4) mg/dl Total Bilirubin (0.2-1.0) mg/dL AST (15-37) U/L ALT (16-63) U/L Alkaline Phosphatase (46-116) U/L C-Reactive Protein (<1.0) mg/dL Total Protein (6.4-8.2) g/dl Albumin (3.4-5.0) g/dl Globulin gm/dL Albumin/Globulin Ratio (1-2) Result Diagrams: 12/02/20 05:36 12/02/20 05:36 Sepsis Event Note - Evaluation Sepsis Screening Result: No Definite Risk - Focused Exam Vital Signs: Vital Signs Temp Pulse Resp BP Pulse Ox Pulse Ox 12/01/20 06:00 36.7 C 79 18 115/89 95 12/01/20 04:00 81 20 122/87 96 12/01/20 02:00 75 18 121/91 H 97 12/01/20 00:00 84 20 104/80 95 11/30/20 22:15 94 L 11/30/20 22:00 90 18 109/73 93 L 11/30/20 21:00 91 L 11/30/20 20:00 36.4 C 84 18 138/89 93 L - Problem List Review Problem List Initiated/Reviewed/Updated: Yes - My Orders Last 24 Hours: My Active Orders 12/01/20 07:00 Chest 1V Frontal [CR] Routine 12/01/20 09:00 Furosemide [Lasix] 5 mg IVPUSH DAILY - Plan Plan:: 11/22/2020 Assessment 65-year-old male with history of coronary artery bypass and CAD, new onset atrial fibrillation, type 2 diabetes, obesity, presents to the emergency department after 6 days of feeling poorly and diagnosed with COVID-19. Unfortunately, this puts him at high risk for complications because of his multiple comorbidities. COVID-19 pneumonia with hypoxemia Leukopenia, POA, resolved Elevated CRP of 7.7, POA, is now wnl * Risk factors: DM2, ISABEL, Class II Obese * Patient presented to the emergency department with oxygen saturations at 83% on room air * He required 2 to 3 L of FiO2 via nasal cannula to get saturations in the low 90s. * C-reactive protein was elevated at 6.6, ferritin 659, D-dimer slightly elevated at 0.61, white count low at 3.7 * Fortunately patient is a never smoker. No history of lung disease. * Repeat chest x-ray was worse yesterday * Azithromycin 500 mg IV daily completed 11/24/2020 * Rocephin 2 grams daily completed 11/26/2020 * Actemra completed 11/23/2020 * Dexamethasone 6 mg po on 04/05 * He is going backward/getting worse * Repeat CTA yesterday report read as diffuse parenchymal changes scattered throughout both lungs. No PE. * Goal is aggressive proning Atrial Flutter, Controlled HR * He may be in atrial fib/flutter * Repeat EKG shows atrial flutter with HR of 83 * Has had episode of bradycardia. He was taking 75 mg po BID but remains se nsitive to 25 mg po BID. Will discontinue and may switch to Coreg instead with some alpha blockade component * On Metoprolol and Eliquis for maintenance medications * 2D echo report read as LVEF of 55%. No RWMA. RVSP is normal at 28 mmHg. No cardiac valves abnormality History of coronary artery disease with bypass graft * Patient did not take his metoprolol this morning and therefore his heart rate was above 100 with A. fib RVR * On ASA and plavix for CAD * Patient is normally on metoprolol 75 mg twice daily; rate control agent * Troponin and BNP was normal. * HR now controlled * Eliquis 5 mg po BID started 11/22/2020 fro stroke prophylaxis Type 2 diabetes * BS not controlled; now controlled * Moderate control with his last hemoglobin A1c from November 14 of 7.5% * On for oral medications to control his blood sugars * Repeat A1C is 7.8 * He is on steroid * Changes to insulin regimen: Lantus 15 units BID and continue high intensity ISS * Resume home dose Trulicity and Glimepiride * Hold home dose Synjardy for now Hypoalbuminemia Class II Obese * Albumin of 2.9 * BMI of 37 * Discussed LSM * Machine Packaging Technician following Other medical problems include depression, elevated PSA with BPH, hypertension, obesity, sleep apnea, kidney stones Plan * Admit to medical floor on telemetry * Continuous pulse ox * Remdesivir for 5 days loading dose today * Dexamethasone x10 days * Rocephin 2 g daily for 5 days for COVID-19 pneumonia * Azithromycin 500 mg daily for 3 days * Pepcid, melatonin, zinc, vitamin D. All of them have shown mixed results on treatment of COVID-19 but unlikely to cause any harm. * Encourage prone positioning when awake and asleep * Convalescent plasma has not shown improvement in outcomes will therefore hold on the treatment with convalescent plasma * FiO2 to keep SPO2 between 88 and 94%. * Follow blood sugars closely and likely start long-acting insulin * Stop home oral blood sugar medications because of inconsistencies with absorption and p.o. intake when hospitalized with COVID-19 * Blood sugars will likely worsen secondary to dexamethasone. * Sliding scale insulin * Fingerstick blood sugar 4 times a day * Follow CBC, CMP, magnesium, D-dimer, CRP * Actemra 800 mg if available * Patient is at very high risk for complications secondary to his multiple comorbidities * Start Eliquis 5 mg twice daily for his new onset A. fib * Echocardiogram on Wednesday since it is not available over the weekend * Patient is likely rate controlled on his metoprolol twice daily will start it as soon as pharmacy approves it * VTE prophylaxis will be with Eliquis * CODE STATUS full code 11/23/2020 No significant change in oxygenation overnight. We will continue on COVID-19 treatment as outlined above. We will be able to obtain Actemra 800 mg for today. Patient's blood sugars are increased so we will add Lantus 7 units twice daily for today but will likely need to increase that substantially over the next few days. Continue with sliding scale insulin and 4 times daily finger blood sugars. D-dimer did decrease to normal which is reassuring. C-reactive protein unfortunately increased to 7.7. Other lab work is not substantially different from yesterday. Patient's rate has been controlled on the metoprolol 75 mg twice daily. Echocardiogram on Wednesday. Appetite so far is good. No significant change overnight. 11/24/2020 Patient is making progress. O2 requirements are decreasing and he is symptomatically better. D-dimer and C-reactive protein have both decreased. He did get Actemra yesterday at 800 mg and will get 300 mg today. Even with good appetite and regular diet his albumin has dropped to 2.8. Blood sugars right now are his biggest problems and I have aggressively increase his insulin. Lantus 12 units twice daily with Humalog 5 units with each meal and high dose sliding scale. Hemoglobin A1c was 7.8% on admission. Echocardiogram for tomorrow for his new onset A. fib. Rate has been well controlled on metoprolol. He continues on Eliquis for stroke prevention and VTE prophylaxis. Continue to follow Covid labs daily. He is on day 3 of 3 of azithromycin and day 3 of 5 of Zithromax. He is on day 3 of remdesivir. He is on day 3 of 10 of dexamethasone or until discharge. Prognosis is guarded secondary to his multiple comorbidities but he is looking better. 11/25/2020 Patient continues to do well. He is now down to 2-3L NC. However his blood glucose is not well controlled. Will make changes to his insulin regimen. We will also resume home dose Trulicity and Glimepiride. Encourage to use IS and FV as directed. Ambulate inside his room as many times as he can. Routine AM Labs. Continue current Covid-19 treatment. PT/OT following. DVT/Stroke prophylaxis: on Eliquis. 2D echo for new onset of atrial fibrillation. Code status is full. Prognosis is good at this point. 11/26/2020 He remains relatively stable. He remains on 2-3 L NC. Blood glucose remains uncontrolled. We will go up on insulin to 15 units subQ BID and Glimepiride 2 mg po BID. Encourage to use IS and FV as directed. Ambulate inside his room as many times as he can. Routine AM Labs. Continue current Covid-19 treatment. PT/OT following. DVT/Stroke prophylaxis: on Eliquis. Code status is full. Prognosis remains good. 11/27/2020 He looks clinically stable and in no acute respiratory distress. He is on 3 L NC. Blood glucose has improved. We will go up on Glimepiride to 4 mg po BID. Continue to encourage to use IS and FV as directed. Ambulate inside his room as many times as he can. Routine AM Labs. Continue current Covid-19 treatment. Repeat chest x-ray this AM.PT/OT following. DVT/Stroke prophylaxis: on Eliquis. Code status is full. Prognosis remains good. 0915: Repeat chest x-ray shows worsening appearance of chest. We will initiate proning position as many times as he can. 1716: Called and updated his about his clinical progress. Advised to have all [employer] immediately family to do social media with him, lift his spirits up and encourage him to prone as many times as he can, ambulate inside his room and use his IS and FV as directed. 11/28/2020 He looks comfortable and not in acute respiratory distress. He is now on high flow due to hypoxia on l O2. Blood glucose has improved considerably. Continue to encourage to use IS and FV as directed. Ambulate inside his room as many times as he can. Routine AM Labs. Continue current Covid-19 treatment. Repeat chest x-ray this AM. PT/OT following. DVT/Stroke prophylaxis: on Eliquis. Code status is full. Prognosis is guarded at this point. Re-educated patient about pr oper proning. However I feel like he does not stay long enough to benefit from it. I have gone into his room yesterday 3 times caught him on his side not on his belly/stomach. Called and updated his son and about his clinical progress and discussed possible compliance issue with bedside activities and pulmonary exercise. 11/29/2020 He looks comfortable but respiratory michel he is not doing good. He remains on high flow due to considerable hypoxia. Continue to encourage to use IS and FV as directed. Ambulate inside his room as many times as he can. Routine AM Labs. Continue current Covid-19 treatment. Repeat ABG and chest x-ray this AM. PT/OT following. DVT/Stroke prophylaxis: on Eliquis. Code status is full. Prognosis is guarded at this point. May transfer him to the unit for more aggressive treatment and to closely monitor him. Updated son and about his clinical progress. 1456: D-dimer is 4.27. Chest CTA shows no PE. Patient is already on Eliquis for DVT/Stroke prophylaxis. His HR has improved after brief treatment of Dopamine gtt. 11/30/2020 He looks clinically better and in good spirits. His lungs remain worse. He is still on high flow due to considerable hypoxia. Continue to encourage to use IS and FV as directed. Ambulate inside his room as many times as he can. Routine AM Labs. Continue current Covid-19 treatment. Repeat chest x-ray in AM. PT/OT following. DVT/Stroke prophylaxis: on Eliquis. Code status is full. Prognosis is guarded at this point. Goal: Aggressive proning, use of IS/FV and ambulated inside his room as much as he can. 12/01/2020 No change in condition. His lungs remain worse. He is on EZ-pap now and tolerating better. Continue to encourage to use IS and FV as directed. Ambulate inside his room as many times as he can. Routine AM Labs. Continue current Covid-19 treatment. PT/OT following. DVT/Stroke prophylaxis: on Eliquis. Code status is full. Prognosis remains guarded. Goal: Aggressive proning, use of IS/FV and ambulated inside his room as much as he can. Educated patient the importance of medical adherence to treatment. Critical time spent: > 15 mins Will update son sometime today.
[2020-12-01] MEDS: Insulin Glarg,Human.Rec.Analog 100 Unit/ML SUBCUT SCH ×2 (09:14→16:09)
[2020-12-01] MEDS: Cholecalciferol (Vitamin D3) 5,000 UNIT Cap PO SCH (09:15)
[2020-12-01] MEDS: Sertraline 50 MG Tab PO SCH (09:15)
[2020-12-01] MEDS: Glimepiride 2 MG Tab PO SCH ×2 (09:15→20:33)
[2020-12-01] MEDS: Rosuvastatin 10 MG Tab PO SCH (09:15)
[2020-12-01] MEDS: Dexamethasone 4 MG Tab PO SCH (09:16)
[2020-12-01] MEDS: Zinc Sulfate 220 MG Cap PO SCH (09:16)
[2020-12-01] MEDS: Apixaban 5 MG Tab PO SCH ×2 (09:16→20:22)
[2020-12-01] MEDS: Clopidogrel 75 MG Tab PO SCH (09:16)
[2020-12-01] MEDS: Topiramate 25 MG Tab PO SCH ×2 (09:16→20:23)
[2020-12-01] MEDS: Losartan 25 MG Tab PO SCH (09:16)
[2020-12-01] MEDS: Furosemide 20 MG/2 ML VIAL IVPUSH SCH (09:17)
[2020-12-01] MEDS: Famotidine 20 MG Tab PO SCH ×2 (09:17→20:21)
[2020-12-01] MEDS: Aspirin 81 MG Tab.EC PO SCH (09:17)
--- NOTE | 2020-12-01 10:23 | CR ---
Chest: Portable view of the chest was obtained. Comparison: Prior chest CT of 11/29/20 and chest x-ray 11/28/20. Patchy areas of increased densities are seen on both sides of the chest. Findings are similar to previous studies. No new abnormality is seen within either lung. Heart size is felt to be slightly enlarged. Previous sternotomy is noted. No acute osseous finding is appreciated. Impression: 1. Stable findings of bilateral Covid pneumonia. 2. Heart size is mildly enlarged with nothing acute seen from prior chest imaging. Diagnostic code #3
[2020-12-01] MEDS: Melatonin 3 MG Tab PO SCH (20:22)
[2020-12-02] MEDS: Insulin Glarg,Human.Rec.Analog 100 Unit/ML SUBCUT SCH ×2 (06:39→18:06)
[2020-12-02] MEDS: Rosuvastatin 10 MG Tab PO SCH (07:59)
[2020-12-02] MEDS: Clopidogrel 75 MG Tab PO SCH (07:59)
[2020-12-02] MEDS: Zinc Sulfate 220 MG Cap PO SCH (07:59)
[2020-12-02] MEDS: Topiramate 25 MG Tab PO SCH ×2 (07:59→21:50)
[2020-12-02] MEDS: Aspirin 81 MG Tab.EC PO SCH (07:59)
[2020-12-02] MEDS: Glimepiride 2 MG Tab PO SCH (07:59)
[2020-12-02] MEDS: Apixaban 5 MG Tab PO SCH ×2 (07:59→21:49)
[2020-12-02] MEDS: Famotidine 20 MG Tab PO SCH ×2 (07:59→21:50)
[2020-12-02] MEDS: Furosemide 20 MG/2 ML VIAL IVPUSH SCH (08:00)
[2020-12-02] MEDS: Cholecalciferol (Vitamin D3) 5,000 UNIT Cap PO SCH (08:00)
[2020-12-02] MEDS: Sertraline 50 MG Tab PO SCH (08:00)
[2020-12-02] MEDS: Losartan 25 MG Tab PO SCH (08:01)
--- NOTE | 2020-12-02 11:17 | PCM.PN ---
- General Info Date of Service: 12/02/20 Admission Dx/Problem (Free Text): Admission Diagnosis/Problem Admission Diagnosis/Problem Hypoxia Subjective Update: Patient states that he is feeling better. He is on less O2 support. He feels best and his oxygenation is best when he is on his home CPAP at 6 L bled in. When he is on high flow he requires 60 L with 60% which is improved from a couple of days ago. Functional Status: Reports: Pain Controlled - Review of Systems General: Reports: No Symptoms HEENT: Reports: No Symptoms Pulmonary: Reports: Shortness of Breath Cardiovascular: Reports: No Symptoms Gastrointestinal: Reports: No Symptoms Musculoskeletal: Reports: No Symptoms Neurological: Reports: No Symptoms - Patient Data Vitals - Most Recent: Last Vital Signs Temp 97.0 F 12/02/20 08:00 Pulse 80 12/02/20 06:00 Resp 24 H 12/02/20 10:00 BP 115/82 12/02/20 10:00 Pulse Ox 96 12/02/20 10:00 Weight - Most Recent: 283 lb 1.6 oz I&O - Last 24 Hours: Intake & Output 12/01/20 12/02/20 12/02/20 22:59 06:59 14:59 Intake Total 1420 750 800 Output Total 800 650 400 Balance 620 100 400 Lab Results Last 24 Hours: Laboratory Results - last 24 hr 12/02/20 12/02/20 12/02/20 Range/Units 05:36 05:36 05:36 WBC 5.62 (4.23-9.07) K/mm3 RBC 4.80 (4.63-6.08) M/mm3 Hgb 14.3 (13.7-17.5) gm/dl Hct 43.2 (40.1-51.0) % MCV 90.0 (79.0-92.2) fl MCH 29.8 (25.7-32.2) pg MCHC 33.1 (32.2-35.5) g/dl RDW Std Deviation 44.7 H (35.1-43.9) fL Plt Count 249 (163-337) K/mm3 MPV 9.1 L (9.4-12.3) fl D-Dimer, Quantitative 4.09 H (0.19-0.50) mg/L Sodium 140 (136-145) mEq/L Potassium 4.1 (3.5-5.1) mEq/L Chloride 106 (98-107) mEq/L Carbon Dioxide 24 (21-32) mEq/L Anion Gap 14.1 (5-15) BUN 27 H (7-18) mg/dL Creatinine 0.7 (0.7-1.3) mg/dL Est Cr Clr Drug Dosing 123.95 mL/min Estimated GFR (MDRD) > 60 (>60) mL/min BUN/Creatinine Ratio 38.6 H (14-18) Glucose 128 H (80-115) mg/dL Calcium 8.0 L (8.5-10.1) mg/dL Total Bilirubin 0.5 (0.2-1.0) mg/dL AST 21 (15-37) U/L ALT 40 (16-63) U/L Alkaline Phosphatase 52 (46-116) U/L Total Protein 5.7 L (6.4-8.2) g/dl Albumin 2.9 L (3.4-5.0) g/dl Globulin 2.8 gm/dL Albumin/Globulin Ratio 1.0 (1-2) Med Orders - Current: Current Medications Acetaminophen (Tylenol) 650 mg PO Q4H PRN PRN Reason: Pain (Mild 1-3)/fever Last Admin: 11/22/20 23:50 Dose: 650 mg Documented by: Albuterol/Ipratropium (Duoneb 3.0-0.5 Mg/3 Ml) 3 ml NEB Q4H PRN PRN Reason: Shortness Of Breath/wheezing Last Admin: 11/28/20 09:41 Dose: 3 ml Documented by: Apixaban (Eliquis) 5 mg PO BID [facility] Last Admin: 12/02/20 07:59 Dose: 5 mg Documented by: Aspirin (Halfprin) 81 mg PO DAILY [facility] Last Admin: 12/02/20 07:59 Dose: 81 mg Documented by: Cholecalciferol (Vitamin D3) 5,000 unit PO DAILY [facility] Last Admin: 12/02/20 08:00 Dose: 5,000 unit Documented by: Clopidogrel Bisulfate (Plavix) 75 mg PO DAILY [facility] Last Admin: 12/02/20 07:59 Dose: 75 mg Documented by: Famotidine (Pepcid) 20 mg PO BID [facility] Last Admin: 12/02/20 07:59 Dose: 20 mg Documented by: Glimepiride (Amaryl) 4 mg PO BID [facility] Last Admin: 12/02/20 07:59 Dose: 4 mg Documented by: Hydralazine HCl (Apresoline) 10 mg IVPUSH Q4H PRN PRN Reason: Hypertension Last Admin: 11/29/20 22:07 Dose: 10 mg Documented by: Dopamine HCl/Dextrose (Dopamine In D5w 400 Mg/250 Ml) 400 mg in 250 mls @ 9.679 mls/hr IV TITRATE [facility]; Protocol Last Titration: 11/30/20 13:15 Dose: 0 mcg/kg/min, 0 mls/hr Documented by: Insulin Glargine (Lantus) 20 unit SUBCUT BID@0700,1700 [facility] Last Admin: 12/02/20 06:39 Dose: 20 units Documented by: Insulin Human Lispro (Humalog) 0 unit SUBCUT TIDAC [facility]; Protocol Last Admin: 12/02/20 06:38 Dose: Not Given Documented by: Losartan Potassium (Cozaar) 25 mg PO DAILY [facility] Last Admin: 12/02/20 08:01 Dose: 25 mg Documented by: Melatonin (Melatonin) 9 mg PO BEDTIME [facility] Last Admin: 12/01/20 20:22 Dose: 9 mg Documented by: Metoprolol Tartrate (Lopressor) 5 mg IVPUSH Q4H PRN PRN Reason: Tachycardia Dulaglutide [ Trulicity] 1.5 Mg Ptom 0 mg SQ Fr [facility] Last Admin: 11/29/20 12:44 Dose: Not Given Documented by: Rosuvastatin Calcium (Crestor) 10 mg PO DAILY [facility] Last Admin: 12/02/20 07:59 Dose: 10 mg Documented by: Sertraline HCl (Zoloft) 50 mg PO DAILY [facility] Last Admin: 12/02/20 08:00 Dose: 50 mg Documented by: Topiramate (Topamax) 50 mg PO BID [facility] Last Admin: 12/02/20 07:59 Dose: 50 mg Documented by: Zinc Sulfate (Zincate) 220 mg PO DAILY [facility] Last Admin: 12/02/20 07:59 Dose: 220 mg Documented by: Discontinued Medications Dexamethasone (Dexamethasone) 6 mg PO DAILY [facility] Stop: 12/01/20 09:01 Last Admin: 12/01/20 09:16 Dose: 6 mg Documented by: Furosemide (Lasix) 5 mg IVPUSH NOW ONE Stop: 11/30/20 14:01 Last Admin: 11/30/20 14:12 Dose: 5 mg Documented by: Furosemide (Lasix) 5 mg IVPUSH DAILY [facility] Stop: 12/04/20 09:01 Last Admin: 12/02/20 08:00 Dose: 5 mg Documented by: Furosemide (Lasix) 10 mg IVPUSH ONETIME ONE Stop: 11/30/20 20:01 Last Admin: 11/30/20 21:00 Dose: 10 mg Documented by: Glimepiride (Amaryl) 2 mg PO DAILY [facility] Last Admin: 11/25/20 09:04 Dose: 2 mg Documented by: Glimepiride (Amaryl) 2 mg PO BID [facility] Last Admin: 11/26/20 20:20 Dose: 2 mg Documented by: Hydralazine HCl (Apresoline) Confirm Administered Dose 20 mg .ROUTE .STK-MED ONE Stop: 11/29/20 13:20 Last Admin: 11/29/20 13:34 Dose: Not Given Documented by: Remdesivir 200 mg/ Sodium (Chloride) 250 mls @ 250 mls/hr IV ONETIME ONE Stop: 11/22/20 21:09 Last Admin: 11/22/20 23:46 Dose: 250 mls/hr Documented by: Remdesivir 100 mg/ Sodium (Chloride) 100 mls @ 100 mls/hr IV Q24H [facility] Stop: 11/26/20 21:59 Last Admin: 11/26/20 20:23 Dose: 100 mls/hr Documented by: Ceftriaxone Sodium 2 gm/ (Sodium Chloride) 100 mls @ 200 mls/hr IV Q24H [facility] Stop: 11/26/20 21:59 Last Admin: 11/26/20 21:33 Dose: 200 mls/hr Documented by: Azithromycin 500 mg/ Sodium (Chloride) 250 mls @ 250 mls/hr IV Q24H [facility] Stop: 11/24/20 21:59 Last Admin: 11/24/20 21:25 Dose: 250 mls/hr Documented by: Tocilizumab 800 mg/ Sodium (Chloride) 100 mls @ 100 mls/hr IV ONETIME ONE Stop: 11/23/20 12:59 Last Admin: 11/23/20 14:04 Dose: Not Given Documented by: Tocilizumab 800 mg/ Sodium (Chloride) 100 mls @ 100 mls/hr IV ONETIME ONE Stop: 11/23/20 14:29 Last Admin: 11/23/20 13:33 Dose: 100 mls/hr Documented by: Tocilizumab 300 mg/ Sodium (Chloride) 100 mls @ 100 mls/hr IV ONETIME ONE Stop: 11/24/20 14:29 Last Admin: 11/24/20 12:45 Dose: 100 mls/hr Documented by: Sodium Chloride (Normal Saline) 500 mls @ 50 mls/hr IV .BOLUS ONE Stop: 11/29/20 22:25 Last Admin: 11/29/20 12:53 Dose: 50 mls/hr Documented by: Sodium Chloride (Normal Saline) 100 mls @ 75 mls/hr IV ASDIRECTED JOJO Stop: 11/29/20 18:00 Last Admin: 11/29/20 14:09 Dose: 75 mls/hr Documented by: Sodium Chloride (Normal Saline) 500 mls @ 999 mls/hr IV .BOLUS ONE Stop: 11/30/20 12:28 Last Admin: 11/30/20 12:02 Dose: 999 mls/hr Documented by: Sodium Chloride (Normal Saline) Confirm Administered Dose 1,000 mls @ as directed .ROUTE .STK-MED ONE Stop: 11/30/20 12:00 Last Admin: 11/30/20 13:13 Dose: Not Given Documented by: Influenza Virus Vaccine (Fluzone Quad [id number] Syringe) 60 mcg IM .ONCE ONE Stop: 11/23/20 09:01 Last Admin: 11/29/20 13:23 Dose: Not Given Documented by: Insulin Glargine (Lantus) 7 unit SUBCUT BIDAC [facility] Last Admin: 11/23/20 17:46 Dose: 7 unit Documented by: Insulin Glargine (Lantus) 12 unit SUBCUT BIDAC JOJO Last Admin: 11/25/20 06:58 Dose: 12 units Documented by: Insulin Glargine (Lantus) 15 unit SUBCUT BIDAC [facility] Insulin Glargine (Lantus) 17 unit SUBCUT BIDAC [facility] Insulin Glargine (Lantus) 15 unit SUBCUT BIDAC JOJO Last Admin: 11/26/20 06:50 Dose: 15 units Documented by: Insulin Glargine (Lantus) 20 unit SUBCUT BIDAC [facility] Last Admin: 11/26/20 18:40 Dose: 20 units Documented by: Insulin Human Lispro (Humalog) 0 unit SUBCUT QIDACANDBED [facility]; Protocol Last Admin: 11/23/20 17:47 Dose: 8 unit Documented by: Insulin Human Lispro (Humalog) 0 unit SUBCUT QIDACANDBED [facility]; Protocol Last Admin: 11/25/20 08:12 Dose: Not Given Documented by: Insulin Human Lispro (Humalog) 5 unit SUBCUT TIDAC [facility] Last Admin: 11/24/20 17:17 Dose: 5 units Documented by: Insulin Human Lispro (Humalog) 7 unit SUBCUT TIDAC [facility] Last Admin: 11/25/20 08:12 Dose: Not Given Documented by: Insulin Human Lispro (Humalog) 15 unit SUBCUT ONETIME ONE Stop: 12/01/20 21:05 Last Admin: 12/01/20 22:57 Dose: 15 units Documented by: Iopamidol (Isovue-370 (76%)) 100 ml IVPUSH ONETIME ONE Stop: 11/29/20 13:15 Last Admin: 11/29/20 14:09 Dose: 100 ml Documented by: Metoprolol Tartrate (Lopressor) 75 mg PO ONETIME ONE Stop: 11/22/20 21:09 Last Admin: 11/22/20 23:47 Dose: 75 mg Documented by: Metoprolol Tartrate (Lopressor) 75 mg PO BID [facility] Last Admin: 11/29/20 20:24 Dose: 75 mg Documented by: Metoprolol Tartrate (Lopressor) 5 mg IVPUSH ONETIME ONE Stop: 11/29/20 20:54 Last Admin: 11/30/20 03:52 Dose: Not Given Documented by: Metoprolol Tartrate (Lopressor) 25 mg PO BID [facility] Last Admin: 11/30/20 08:44 Dose: 25 mg Documented by: Sodium Chloride (Saline Flush) 10 ml FLUSH ONETIME PRN PRN Reason: IV FLUSH Stop: 11/29/20 18:00 Last Admin: 11/29/20 14:09 Dose: 10 ml Documented by: - Exam Quality Assessment: Supplemental Oxygen General: Alert, Oriented HEENT: Pupils Equal, Mucous Membr. Moist/Edith Endave Neck: Supple Lungs: Rales (Throughout both lung dahl). No: Normal Respiratory Effort (Increased respiratory rate) Cardiovascular: Regular Rate, Regular Rhythm GI/Abdominal Exam: Normal Bowel Sounds, Soft, Non-Tender, No Distention Skin: Warm, Dry, Intact Neurological: No New Focal Deficit Psy/Mental Status: Alert, Normal Affect, Normal Mood - Patient Data Lab Results Last 24 hrs: Laboratory Results - last 24 hr 12/02/20 12/02/20 12/02/20 Range/Units 05:36 05:36 05:36 WBC 5.62 (4.23-9.07) K/mm3 RBC 4.80 (4.63-6.08) M/mm3 Hgb 14.3 (13.7-17.5) gm/dl Hct 43.2 (40.1-51.0) % MCV 90.0 (79.0-92.2) fl MCH 29.8 (25.7-32.2) pg MCHC 33.1 (32.2-35.5) g/dl RDW Std Deviation 44.7 H (35.1-43.9) fL Plt Count 249 (163-337) K/mm3 MPV 9.1 L (9.4-12.3) fl D-Dimer, Quantitative 4.09 H (0.19-0.50) mg/L Sodium 140 (136-145) mEq/L Potassium 4.1 (3.5-5.1) mEq/L Chloride 106 (98-107) mEq/L Carbon Dioxide 24 (21-32) mEq/L Anion Gap 14.1 (5-15) BUN 27 H (7-18) mg/dL Creatinine 0.7 (0.7-1.3) mg/dL Est Cr Clr Drug Dosing 123.95 mL/min Estimated GFR (MDRD) > 60 (>60) mL/min BUN/Creatinine Ratio 38.6 H (14-18) Glucose 128 H (80-115) mg/dL Calcium 8.0 L (8.5-10.1) mg/dL Total Bilirubin 0.5 (0.2-1.0) mg/dL AST 21 (15-37) U/L ALT 40 (16-63) U/L Alkaline Phosphatase 52 (46-116) U/L Total Protein 5.7 L (6.4-8.2) g/dl Albumin 2.9 L (3.4-5.0) g/dl Globulin 2.8 gm/dL Albumin/Globulin Ratio 1.0 (1-2) Result Diagrams: 12/02/20 05:36 12/02/20 05:36 Sepsis Event Note - Evaluation Sepsis Screening Result: No Definite Risk - Focused Exam Vital Signs: Vital Signs Temp Pulse Resp BP BP Pulse Ox Pulse Ox 12/02/20 10:00 24 H 115/82 96 12/02/20 08:01 124/85 12/02/20 08:00 97.0 F 16 124/85 97 12/02/20 07:30 97 12/02/20 06:00 80 18 128/97 H 99 12/02/20 04:00 68 18 114/89 99 12/02/20 02:00 84 18 125/87 98 12/02/20 00:00 97.7 F 84 16 115/87 99 - Problem List & Annotations (1) Coronary artery disease SNOMED Code(s): 53847750 Code(s): I25.10 - ATHSCL HEART DISEASE OF [place] CORONARY ARTERY W/O ANG PCTRS Status: Acute Current Visit: Yes (2) Atrial fibrillation with RVR SNOMED Code(s): 754551189483526 Code(s): I48.91 - UNSPECIFIED ATRIAL FIBRILLATION Status: Acute Current Visit: Yes (3) Diabetes mellitus SNOMED Code(s): 09360400 Code(s): E11.9 - TYPE 2 DIABETES MELLITUS WITHOUT COMPLICATIONS Status: Acute Current Visit: Yes (4) Acute hypoxemic respiratory failure due to COVID-19 SNOMED Code(s): 644988050 Code(s): U07.1 - COVID-19; J96.01 - ACUTE RESPIRATORY FAILURE WITH HYPOXIA Status: Acute Current Visit: Yes (5) COVID-19 SNOMED Code(s): 410591231 Code(s): U07.1 - COVID-19 Status: Acute Current Visit: Yes - Problem List Review Problem List Initiated/Reviewed/Updated: Yes - Plan Plan:: 11/22/2020 Assessment 65-year-old male with history of coronary artery bypass and CAD, new onset atrial fibrillation, type 2 diabetes, obesity, presents to the emergency department after 6 days of feeling poorly and diagnosed with COVID-19. Unfortunately, this puts him at high risk for complications because of his multiple comorbidities. COVID-19 pneumonia with hypoxemia Leukopenia, POA, resolved Elevated CRP of 7.7, POA, is now wnl * Risk factors: DM2, ISABEL, Class II Obese * Patient presented to the emergency department with oxygen saturations at 83% on room air * He required 2 to 3 L of FiO2 via nasal cannula to get saturations in the low 90s. * C-reactive protein was elevated at 6.6, ferritin 659, D-dimer slightly elevated at 0.61, white count low at 3.7 * Fortunately patient is a never smoker. No history of lung disease. * Repeat chest x-ray was worse yesterday * Azithromycin 500 mg IV daily completed 11/24/2020 * Rocephin 2 grams daily completed 11/26/2020 * Actemra completed 11/23/2020 * Dexamethasone 6 mg po on 04/05 * He is going backward/getting worse * Repeat CTA yesterday report read as diffuse parenchymal changes scattered throughout both lungs. No PE. * Goal is aggressive proning Atrial Flutter, Controlled HR * He may be in atrial fib/flutter * Repeat EKG shows atrial flutter with HR of 83 * Has had episode of bradycardia. He was taking 75 mg po BID but remains sensitive to 25 mg po BID. Will discontinue and may switch to Coreg instead with some alpha blockade component * On Metoprolol and Eliquis for maintenance medications * 2D echo report read as LVEF of 55%. No RWMA. RVSP is normal at 28 mmHg. No cardiac valves abnormality History of coronary artery disease with bypass graft * Patient did not take his metoprolol this morning and therefore his heart rate was above 100 with A. fib RVR * On ASA and plavix for CAD * Patient is normally on metoprolol 75 mg twice daily; rate control agent * Troponin and BNP was normal. * HR now controlled * Eliquis 5 mg po BID started 11/22/2020 fro stroke prophylaxis Type 2 diabetes * BS not controlled; now controlled * Moderate control with his last hemoglobin A1c from November 14 of 7.5% * On for oral medications to control his blood sugars * Repeat A1C is 7.8 * He is on steroid * Changes to insulin regimen: Lantus 15 units BID and continue high intensity ISS * Resume home dose Trulicity and Glimepiride * Hold home dose Synjardy for now Hypoalbuminemia Class II Obese * Albumin of 2.9 * BMI of 37 * Discussed LSM * Night Shift following Other medical problems include depression, elevated PSA with BPH, hypertension, obesity, sleep apnea, kidney stones Plan * Admit to medical floor on telemetry * Continuous pulse ox * Remdesivir for 5 days loading dose today * Dexamethasone x10 days * Rocephin 2 g daily for 5 days for COVID-19 pneumonia * Azithromycin 500 mg daily for 3 days * Pepcid, melatonin, zinc, vitamin D. All of them have shown mixed results on treatment of COVID-19 but unlikely to cause any harm. * Encourage prone positioning when awake and asleep * Convalescent plasma has not shown improvement in outcomes will therefore hold on the treatment with convalescent plasma * FiO2 to keep SPO2 between 88 and 94%. * Follow blood sugars closely and likely start long-acting insulin * Stop home oral blood sugar medications because of inconsistencies with absorption and p.o. intake when hospitalized with COVID-19 * Blood sugars will likely worsen secondary to dexamethasone. * Sliding scale insulin * Fingerstick blood sugar 4 times a day * Follow CBC, CMP, magnesium, D-dimer, CRP * Actemra 800 mg if available * Patient is at very high risk for complications secondary to his multiple comorbidities * Start Eliquis 5 mg twice daily for his new onset A. fib * Echocardiogram on Wednesday since it is not available over the weekend * Patient is likely rate controlled on his metoprolol twice daily will start it as soon as pharmacy approves it * VTE prophylaxis will be with Eliquis * CODE STATUS full code 11/23/2020 No significant change in oxygenation overnight. We will continue on COVID-19 treatment as outlined above. We will be able to obtain Actemra 800 mg for today. Patient's blood sugars are increased so we will add Lantus 7 units twice daily for today but will likely need to increase that substantially over the next few days. Continue with sliding scale insulin and 4 times daily finger blood sugars. D-dimer did decrease to normal which is reassuring. C-reactive protein unfortunately increased to 7.7. Other lab work is not substantially different from yesterday. Patient's rate has been controlled on the metoprolol 75 mg twice daily. Echocardiogram on Wednesday. Appetite so far is good. No significant change overnight. 11/24/2020 Patient is making progress. O2 requirements are decreasing and he is symptomatically better. D-dimer and C-reactive protein have both decreased. He did get Actemra yesterday at 800 mg and will get 300 mg today. Even with good appetite and regular diet his albumin has dropped to 2.8. Blood sugars right now are his biggest problems and I have aggressively increase his insulin. Lantus 12 units twice daily with Humalog 5 units with each meal and high dose sliding scale. Hemoglobin A1c was 7.8% on admission. Echocardiogram for tomorrow for his new onset A. fib. Rate has been well controlled on metoprolol. He continues on Eliquis for stroke prevention and VTE prophylaxis. Continue to follow Covid labs daily. He is on day 3 of 3 of azithromycin and day 3 of 5 of Zithromax. He is on day 3 of remdesivir. He is on day 3 of 10 of dexamethasone or until discharge. Prognosis is guarded secondary to his multiple comorbidities but he is looking better. 11/25/2020 Patient continues to do well. He is now down to 2-3L NC. However his blood glucose is not well controlled. Will make changes to his insulin regimen. We will also resume home dose Trulicity and Glimepiride. Encourage to use IS and FV as directed. Ambulate inside his room as many times as he can. Routine AM Labs. Continue current Covid-19 treatment. PT/OT following. DVT/Stroke prophylaxis: on Eliquis. 2D echo for new onset of atrial fibrillation. Code status is full. Prognosis is good at this point. 11/26/2020 He remains relatively stable. He remains on 2-3 L NC. Blood glucose remains uncontrolled. We will go up on insulin to 15 units subQ BID and Glimepiride 2 mg po BID. Encourage to use IS and FV as directed. Ambulate inside his room as many times as he can. Routine AM Labs. Continue current Covid-19 treatment. PT/OT following. DVT/Stroke prophylaxis: on Eliquis. Code status is full. Prognosis remains good. 11/27/2020 He looks clinically stable and in no acute respiratory distress. He is on 3 L NC. Blood glucose has improved. We will go up on Glimepiride to 4 mg po BID. Continue to encourage to use IS and FV as directed. Ambulate inside his room as many times as he can. Routine AM Labs. Continue current Covid-19 treatment. Repeat chest x-ray this AM.PT/OT following. DVT/Stroke prophylaxis: on Eliquis. Code status is full. Prognosis remains good. 0915: Repeat chest x-ray shows worsening appearance of chest. We will initiate proning position as many times as he can. 1716: Called and updated his about his clinical progress. Advised to have all Twan's immediately family to do social media with him, lift his spirits up and encourage him to prone as many times as he can, ambulate inside his room and use his IS and FV as directed. 11/28/2020 He looks comfortable and not in acute respiratory distress. He is now on high flow due to hypoxia on l O2. Blood glucose has improved considerably. Continue to encourage to use IS and FV as directed. Ambulate inside his room as many times as he can. Routine AM Labs. Continue current Covid-19 treatment. Repeat chest x-ray this AM. PT/OT following. DVT/Stroke prophylaxis: on Eliquis. Code status is full. Prognosis is guarded at this point. Re-educated patient about proper proning. However I feel like he does not stay long enough to benefit from it. I have gone into his room yesterday 3 times caught him on his side not on his belly/stomach. Called and updated his son and about his clinical progress and discussed possible compliance issue with bedside activities and pulmonary exercise. 11/29/2020 He looks comfortable but respiratory michel he is not doing good. He remains on high flow due to considerable hypoxia. Continue to encourage to use IS and FV as directed. Ambulate inside his room as many times as he can. Routine AM Labs. Continue current Covid-19 treatment. Repeat ABG and chest x-ray this AM. PT/OT following. DVT/Stroke prophylaxis: on Eliquis. Code status is full. Prognosis is guarded at this point. May transfer him to the unit for more aggressive treatment and to closely monitor him. Updated son and about his clinical progress. 1456: D-dimer is 4.27. Chest CTA shows no PE. Patient is already on Eliquis for DVT/Stroke prophylaxis. His HR has improved after brief treatment of Dopamine gtt. 11/30/2020 He looks clinically better and in good spirits. His lungs remain worse. He is still on high flow due to considerable hypoxia. Continue to encourage to use IS and FV as directed. Ambulate inside his room as many times as he can. Routine AM Labs. Continue current Covid-19 treatment. Repeat chest x-ray in AM. PT/OT following. DVT/Stroke prophylaxis: on Eliquis. Code status is full. Prognosis is guarded at this point. Goal: Aggressive proning, use of IS/FV and ambulated inside his room as much as he can. 12/01/2020 No change in condition. His lungs remain worse. He is EZ-pap now and tolerating better. Continue to encourage to use IS and FV as directed. Ambulate inside his room as many times as he can. Routine AM Labs. Continue current Covid-19 treatment. PT/OT following. DVT/Stroke prophylaxis: on Eliquis. Code status is full. Prognosis remains guarded. Goal: Aggressive proning, use of IS/FV and ambulated inside his room as much as he can. Educated patient the importance of medical adherence to treatment. Will update son sometime today. 12/02/2020 Oxygenation is improving over the weekend. He was on high flow nasal cannula with 60 L at 85% and is now on 60%. Also he is down to 6 L bled into his CPAP with oxygen saturations in the low to mid 90s. He has completed Rocephin, azithromycin, dexamethasone, Actemra. Blood sugars are mixed controlled. This morning he was down to the 80s which is worrisome especially with stopping the dexamethasone. He had his Amaryl 4 mg twice daily restarted. Sulfonylureas have a tendency to cause hypoglycemic events. Also, blood sugars were in the 300s yesterday. He is currently on Lantus 20 units twice daily and sliding scale insulin. His mealtime insulin was stopped. Plan Continue aggressive proning and activity as tolerated. Continue incentive spirometer and Acapella. Chest x-ray as needed Continue weaning of O2 as tolerated. Stop Amaryl Start mealtime short acting insulin at 5 units with each meal in addition to sl iding scale insulin. This will start tomorrow. Continue to monitor in ICU. Anticipate discharge when he is able to be on nasal cannula O2 4 L or less.
[2020-12-02] MEDS: Melatonin 3 MG Tab PO SCH (21:49)
[2020-12-02] MEDS: Acetaminophen 325 MG Tab PO PRN (22:05)
[2020-12-03] MEDS: Zinc Sulfate 220 MG Cap PO SCH (08:21)
[2020-12-03] MEDS: Aspirin 81 MG Tab.EC PO SCH (08:21)
[2020-12-03] MEDS: Losartan 25 MG Tab PO SCH (08:22)
[2020-12-03] MEDS: Sertraline 50 MG Tab PO SCH (08:22)
[2020-12-03] MEDS: Cholecalciferol (Vitamin D3) 5,000 UNIT Cap PO SCH (08:22)
[2020-12-03] MEDS: Famotidine 20 MG Tab PO SCH ×2 (08:22→20:02)
[2020-12-03] MEDS: Rosuvastatin 10 MG Tab PO SCH (08:22)
[2020-12-03] MEDS: Apixaban 5 MG Tab PO SCH ×2 (08:23→20:01)
[2020-12-03] MEDS: Topiramate 25 MG Tab PO SCH ×2 (08:23→20:01)
[2020-12-03] MEDS: Clopidogrel 75 MG Tab PO SCH (08:23)
[2020-12-03] MEDS: Insulin Glarg,Human.Rec.Analog 100 Unit/ML SUBCUT SCH ×2 (08:27→17:11)
--- NOTE | 2020-12-03 12:18 | PCM.PN ---
- General Info Date of Service: 12/03/20 Admission Dx/Problem (Free Text): Admission Diagnosis/Problem Admission Diagnosis/Problem Hypoxia Subjective Update: Patient continues to improve. Oxygen requirements continue to lessen although he is still on high flow. We did decrease his high flow to 50 L. Appetite is good. Functional Status: Reports: Pain Controlled - Review of Systems General: Reports: No Symptoms HEENT: Reports: No Symptoms Pulmonary: Reports: Shortness of Breath Cardiovascular: Reports: No Symptoms Gastrointestinal: Reports: No Symptoms Musculoskeletal: Reports: No Symptoms Psychiatric: Reports: No Symptoms - Patient Data Vitals - Most Recent: Last Vital Signs Temp 97.5 F 12/03/20 12:00 Pulse 100 12/03/20 12:00 Resp 12 12/03/20 12:00 BP 122/95 H 12/03/20 12:00 Pulse Ox 99 12/03/20 12:00 Weight - Most Recent: 283 lb 1.6 oz I&O - Last 24 Hours: Intake & Output 12/02/20 12/03/20 12/03/20 22:59 06:59 14:59 Intake Total 1240 Balance 1240 Lab Results Last 24 Hours: Laboratory Results - last 24 hr 12/01/20 12/02/20 Range/Units 05:11 05:36 Ferritin 595 H 563 H (26-388) ng/ml Med Orders - Current: Current Medications Acetaminophen (Tylenol) 650 mg PO Q4H PRN PRN Reason: Pain (Mild 1-3)/fever Last Admin: 12/02/20 22:05 Dose: 650 mg Documented by: Albuterol/Ipratropium (Duoneb 3.0-0.5 Mg/3 Ml) 3 ml NEB Q4H PRN PRN Reason: Shortness Of Breath/wheezing Last Admin: 11/28/20 09:41 Dose: 3 ml Documented by: Apixaban (Eliquis) 5 mg PO BID [facility] Last Admin: 12/03/20 08:23 Dose: 5 mg Documented by: Aspirin (Halfprin) 81 mg PO DAILY [facility] Last Admin: 12/03/20 08:21 Dose: 81 mg Documented by: Cholecalciferol (Vitamin D3) 5,000 unit PO DAILY [facility] Last Admin: 12/03/20 08:22 Dose: 5,000 unit Documented by: Clopidogrel Bisulfate (Plavix) 75 mg PO DAILY [facility] Last Admin: 12/03/20 08:23 Dose: 75 mg Documented by: Famotidine (Pepcid) 20 mg PO BID [facility] Last Admin: 12/03/20 08:22 Dose: 20 mg Documented by: Hydralazine HCl (Apresoline) 10 mg IVPUSH Q4H PRN PRN Reason: Hypertension Last Admin: 11/29/20 22:07 Dose: 10 mg Documented by: Insulin Glargine (Lantus) 20 unit SUBCUT BID@0700,1700 [facility] Last Admin: 12/03/20 08:27 Dose: 20 units Documented by: Insulin Human Lispro (Humalog) 0 unit SUBCUT TIDAC [facility]; Protocol Last Admin: 12/03/20 12:15 Dose: Not Given Documented by: Insulin Human Lispro (Humalog) 5 unit SUBCUT TIDAC [facility] Last Admin: 12/03/20 10:13 Dose: 5 units Documented by: Losartan Potassium (Cozaar) 25 mg PO DAILY [facility] Last Admin: 12/03/20 08:22 Dose: 25 mg Documented by: Melatonin (Melatonin) 9 mg PO BEDTIME [facility] Last Admin: 12/02/20 21:49 Dose: 9 mg Documented by: Metoprolol Tartrate (Lopressor) 5 mg IVPUSH Q4H PRN PRN Reason: Tachycardia Dulaglutide [ Trulicity] 1.5 Mg Ptom 0 mg SQ Fr [facility] Last Admin: 11/29/20 12:44 Dose: Not Given Documented by: Rosuvastatin Calcium (Crestor) 10 mg PO DAILY [facility] Last Admin: 12/03/20 08:22 Dose: 10 mg Documented by: Sertraline HCl (Zoloft) 50 mg PO DAILY [facility] Last Admin: 12/03/20 08:22 Dose: 50 mg Documented by: Topiramate (Topamax) 50 mg PO BID [facility] Last Admin: 12/03/20 08:23 Dose: 50 mg Documented by: Zinc Sulfate (Zincate) 220 mg PO DAILY [facility] Last Admin: 12/03/20 08:21 Dose: 220 mg Documented by: Discontinued Medications Dexamethasone (Dexamethasone) 6 mg PO DAILY [facility] Stop: 12/01/20 09:01 Last Admin: 12/01/20 09:16 Dose: 6 mg Documented by: Furosemide (Lasix) 5 mg IVPUSH NOW ONE Stop: 11/30/20 14:01 Last Admin: 11/30/20 14:12 Dose: 5 mg Documented by: Furosemide (Lasix) 5 mg IVPUSH DAILY [facility] Stop: 12/04/20 09:01 Last Admin: 12/02/20 08:00 Dose: 5 mg Documented by: Furosemide (Lasix) 10 mg IVPUSH ONETIME ONE Stop: 11/30/20 20:01 Last Admin: 11/30/20 21:00 Dose: 10 mg Documented by: Glimepiride (Amaryl) 2 mg PO DAILY [facility] Last Admin: 11/25/20 09:04 Dose: 2 mg Documented by: Glimepiride (Amaryl) 2 mg PO BID [facility] Last Admin: 11/26/20 20:20 Dose: 2 mg Documented by: Glimepiride (Amaryl) 4 mg PO BID [facility] Last Admin: 12/02/20 07:59 Dose: 4 mg Documented by: Hydralazine HCl (Apresoline) Confirm Administered Dose 20 mg .ROUTE .[facility] ONE Stop: 11/29/20 13:20 Last Admin: 11/29/20 13:34 Dose: Not Given Documented by: Remdesivir 200 mg/ Sodium (Chloride) 250 mls @ 250 mls/hr IV ONETIME ONE Stop: 11/22/20 21:09 Last Admin: 11/22/20 23:46 Dose: 250 mls/hr Documented by: Remdesivir 100 mg/ Sodium (Chloride) 100 mls @ 100 mls/hr IV Q24H [facility] Stop: 11/26/20 21:59 Last Admin: 11/26/20 20:23 Dose: 100 mls/hr Documented by: Ceftriaxone Sodium 2 gm/ (Sodium Chloride) 100 mls @ 200 mls/hr IV Q24H [facility] Stop: 11/26/20 21:59 Last Admin: 11/26/20 21:33 Dose: 200 mls/hr Documented by: Azithromycin 500 mg/ Sodium (Chloride) 250 mls @ 250 mls/hr IV Q24H [facility] Stop: 11/24/20 21:59 Last Admin: 11/24/20 21:25 Dose: 250 mls/hr Documented by: Tocilizumab 800 mg/ Sodium (Chloride) 100 mls @ 100 mls/hr IV ONETIME ONE Stop: 11/23/20 12:59 Last Admin: 11/23/20 14:04 Dose: Not Given Documented by: Tocilizumab 800 mg/ Sodium (Chloride) 100 mls @ 100 mls/hr IV ONETIME ONE Stop: 11/23/20 14:29 Last Admin: 11/23/20 13:33 Dose: 100 mls/hr Documented by: Tocilizumab 300 mg/ Sodium (Chloride) 100 mls @ 100 mls/hr IV ONETIME ONE Stop: 11/24/20 14:29 Last Admin: 11/24/20 12:45 Dose: 100 mls/hr Documented by: Dopamine HCl/Dextrose (Dopamine In D5w 400 Mg/250 Ml) 400 mg in 250 mls @ 9.679 mls/hr IV TITRATE [facility]JO; Protocol Last Titration: 11/30/20 13:15 Dose: 0 mcg/kg/min, 0 mls/hr Documented by: Sodium Chloride (Normal Saline) 500 mls @ 50 mls/hr IV .BOLUS ONE Stop: 11/29/20 22:25 Last Admin: 11/29/20 12:53 Dose: 50 mls/hr Documented by: Sodium Chloride (Normal Saline) 100 mls @ 75 mls/hr IV ASDIRECTED JOJO Stop: 11/29/20 18:00 Last Admin: 11/29/20 14:09 Dose: 75 mls/hr Documented by: Sodium Chloride (Normal Saline) 500 mls @ 999 mls/hr IV .BOLUS ONE Stop: 11/30/20 12:28 Last Admin: 11/30/20 12:02 Dose: 999 mls/hr Documented by: Sodium Chloride (Normal Saline) Confirm Administered Dose 1,000 mls @ as directed .ROUTE .STK-MED ONE Stop: 11/30/20 12:00 Last Admin: 11/30/20 13:13 Dose: Not Given Documented by: Influenza Virus Vaccine (Fluzone Quad Syringe) 60 mcg IM .ONCE ONE Stop: 11/23/20 09:01 Last Admin: 11/29/20 13:23 Dose: Not Given Documented by: Insulin Glargine (Lantus) 7 unit SUBCUT BIDAC [facility] Last Admin: 11/23/20 17:46 Dose: 7 unit Documented by: Insulin Glargine (Lantus) 12 unit SUBCUT BIDAC [facility] Last Admin: 11/25/20 06:58 Dose: 12 units Documented by: Insulin Glargine (Lantus) 15 unit SUBCUT BIDAC [facility] Insulin Glargine (Lantus) 17 unit SUBCUT BIDAC [facility] Insulin Glargine (Lantus) 15 unit SUBCUT BIDAC [facility] Last Admin: 11/26/20 06:50 Dose: 15 units Documented by: Insulin Glargine (Lantus) 20 unit SUBCUT BIDAC [facility] Last Admin: 11/26/20 18:40 Dose: 20 units Documented by: Insulin Human Lispro (Humalog) 0 unit SUBCUT QIDACANDBED [facility]; Protocol Last Admin: 11/23/20 17:47 Dose: 8 unit Documented by: Insulin Human Lispro (Humalog) 0 unit SUBCUT QIDACANDBED [facility]; Protocol Last Admin: 11/25/20 08:12 Dose: Not Given Documented by: Insulin Human Lispro (Humalog) 5 unit SUBCUT TIDAC [facility] Last Admin: 11/24/20 17:17 Dose: 5 units Documented by: Insulin Human Lispro (Humalog) 7 unit SUBCUT TIDAC [facility] Last Admin: 11/25/20 08:12 Dose: Not Given Documented by: Insulin Human Lispro (Humalog) 15 unit SUBCUT ONETIME ONE Stop: 12/01/20 21:05 Last Admin: 12/01/20 22:57 Dose: 15 units Documented by: Iopamidol (Isovue-370 (76%)) 100 ml IVPUSH ONETIME ONE Stop: 11/29/20 13:15 Last Admin: 11/29/20 14:09 Dose: 100 ml Documented by: Metoprolol Tartrate (Lopressor) 75 mg PO ONETIME ONE Stop: 11/22/20 21:09 Last Admin: 11/22/20 23:47 Dose: 75 mg Documented by: Metoprolol Tartrate (Lopressor) 75 mg PO BID [facility] Last Admin: 11/29/20 20:24 Dose: 75 mg Documented by: Metoprolol Tartrate (Lopressor) 5 mg IVPUSH ONETIME ONE Stop: 11/29/20 20:54 Last Admin: 11/30/20 03:52 Dose: Not Given Documented by: Metoprolol Tartrate (Lopressor) 25 mg PO BID [facility] Last Admin: 11/30/20 08:44 Dose: 25 mg Documented by: Sodium Chloride (Saline Flush) 10 ml FLUSH ONETIME PRN PRN Reason: IV FLUSH Stop: 11/29/20 18:00 Last Admin: 11/29/20 14:09 Dose: 10 ml Documented by: - Exam Quality Assessment: Supplemental Oxygen General: Alert, Oriented HEENT: Pupils Equal, EOMI, Mucous Membr. Moist/[place] Neck: Supple Lungs: Normal Respiratory Effort, Rales (Bibasilar) Cardiovascular: Regular Rate, Regular Rhythm GI/Abdominal Exam: Normal Bowel Sounds, Soft, Non-Tender, No Organomegaly, No Distention, No Abnormal Bruit Extremities: Normal Inspection, Normal Range of Motion, Non-Tender, No Pedal Edema, Normal Capillary Refill Skin: Warm, Dry, Intact Psy/Mental Status: Alert, Normal Affect, Normal Mood - Patient Data Lab Results Last 24 hrs: Laboratory Results - last 24 hr 12/01/20 12/02/20 Range/Units 05:11 05:36 Ferritin 595 H 563 H (26-388) ng/ml Result Diagrams: 12/02/20 05:36 12/02/20 05:36 Sepsis Event Note - Evaluation Sepsis Screening Result: No Definite Risk - Focused Exam Vital Signs: Vital Signs Temp Pulse Resp BP BP Pulse Ox Pulse Ox 12/03/20 12:00 97.5 F 100 12 122/95 H 99 12/03/20 10:23 98 12/03/20 10:00 96.6 F L 94 21 H 106/75 96 12/03/20 08:30 12/03/20 08:22 113/83 12/03/20 08:00 97.6 F 92 13 113/83 93 L 12/03/20 06:13 95 12/03/20 01:54 98.9 F 66 19 97 Pulse Ox 12/03/20 12:00 12/03/20 10:23 12/03/20 10:00 12/03/20 08:30 94 L 12/03/20 08:22 12/03/20 08:00 12/03/20 06:13 12/03/20 01:54 - Problem List & Annotations (1) Coronary artery disease SNOMED Code(s): 93461802 Code(s): I25.10 - ATHSCL HEART DISEASE OF [place] CORONARY ARTERY W/O ANG PCTRS Status: Acute Current Visit: Yes (2) Atrial fibrillation with RVR SNOMED Code(s): 623356431873817 Code(s): I48.91 - UNSPECIFIED ATRIAL FIBRILLATION Status: Acute Current Visit: Yes (3) Diabetes mellitus SNOMED Code(s): 44108444 Code(s): E11.9 - TYPE 2 DIABETES MELLITUS WITHOUT COMPLICATIONS Status: Acute Current Visit: Yes (4) Acute hypoxemic respiratory failure due to COVID-19 SNOMED Code(s): 245528639 Code(s): U07.1 - COVID-19; J96.01 - ACUTE RESPIRATORY FAILURE WITH HYPOXIA Status: Acute Current Visit: Yes (5) COVID-19 SNOMED Code(s): 183787056 Code(s): U07.1 - COVID-19 Status: Acute Current Visit: Yes - Problem List Review Problem List Initiated/Reviewed/Updated: Yes - My Orders Last 24 Hours: My Active Orders 12/03/20 08:00 Insulin Lispro [HumaLOG] 5 unit SUBCUT TIDAC 12/04/20 05:11 C-REACTIVE PROTEIN [CHEM] AM CBC WITH AUTO DIFF [HEME] AM CMP [COMPREHENSIVE METABOLIC PN,CMP] [CHEM] AM DD [D-DIMER QUANTITATIVE] [COAG] AM MAGNESIUM [CHEM] AM PHOSPHORUS [CHEM] AM - Plan Plan:: 11/22/2020 Assessment 65-year-old male with history of coronary artery bypass and CAD, new onset atrial fibrillation, type 2 diabetes, obesity, presents to the emergency department after 6 days of feeling poorly and diagnosed with COVID-19. Unfortu nately, this puts him at high risk for complications because of his multiple comorbidities. COVID-19 pneumonia with hypoxemia Leukopenia, POA, resolved Elevated CRP of 7.7, POA, is now wnl * Risk factors: DM2, ISABEL, Class II Obese * Patient presented to the emergency department with oxygen saturations at 83% on room air * He required 2 to 3 L of FiO2 via nasal cannula to get saturations in the low 90s. * C-reactive protein was elevated at 6.6, ferritin 659, D-dimer slightly elevated at 0.61, white count low at 3.7 * Fortunately patient is a never smoker. No history of lung disease. * Repeat chest x-ray was worse yesterday * Azithromycin 500 mg IV daily completed 11/24/2020 * Rocephin 2 grams daily completed 11/26/2020 * Actemra completed 11/23/2020 * Dexamethasone 6 mg po on 04/05 * He is going backward/getting worse * Repeat CTA yesterday report read as diffuse parenchymal changes scattered throughout both lungs. No PE. * Goal is aggressive proning Atrial Flutter, Controlled HR * He may be in atrial fib/flutter * Repeat EKG shows atrial flutter with HR of 83 * Has had episode of bradycardia. He was taking 75 mg po BID but remains sensitive to 25 mg po BID. Will discontinue and may switch to Coreg instead with some alpha blockade component * On Metoprolol and Eliquis for maintenance medications * 2D echo report read as LVEF of 55%. No RWMA. RVSP is normal at 28 mmHg. No cardiac valves abnormality History of coronary artery disease with bypass graft * Patient did not take his metoprolol this morning and therefore his heart rate was above 100 with A. fib RVR * On ASA and plavix for CAD * Patient is normally on metoprolol 75 mg twice daily; rate control agent * Troponin and BNP was normal. * HR now controlled * Eliquis 5 mg po BID started 11/22/2020 fro stroke prophylaxis Type 2 diabetes * BS not controlled; now controlled * Moderate control with his last hemoglobin A1c from November 14 of 7.5% * On for oral medications to control his blood sugars * Repeat A1C is 7.8 * He is on steroid * Changes to insulin regimen: Lantus 15 units BID and continue high intensity ISS * Resume home dose Trulicity and Glimepiride * Hold home dose Synjardy for now Hypoalbuminemia Class II Obese * Albumin of 2.9 * BMI of 37 * Discussed LSM * Customer Program Specialist following Other medical problems include depression, elevated PSA with BPH, hypertension, obesity, sleep apnea, kidney stones Plan * Admit to medical floor on telemetry * Continuous pulse ox * Remdesivir for 5 days loading dose today * Dexamethasone x10 days * Rocephin 2 g daily for 5 days for COVID-19 pneumonia * Azithromycin 500 mg daily for 3 days * Pepcid, melatonin, zinc, vitamin D. All of them have shown mixed results on treatment of COVID-19 but unlikely to cause any harm. * Encourage prone positioning when awake and asleep * Convalescent plasma has not shown improvement in outcomes will therefore hold on the treatment with convalescent plasma * FiO2 to keep SPO2 between 88 and 94%. * Follow blood sugars closely and likely start long-acting insulin * Stop home oral blood sugar medications because of inconsistencies with absorption and p.o. intake when hospitalized with COVID-19 * Blood sugars will likely worsen secondary to dexamethasone. * Sliding scale insulin * Fingerstick blood sugar 4 times a day * Follow CBC, CMP, magnesium, D-dimer, CRP * Actemra 800 mg if available * Patient is at very high risk for complications secondary to his multiple comorbidities * Start Eliquis 5 mg twice daily for his new onset A. fib * Echocardiogram on Wednesday since it is not available over the weekend * Patient is likely rate controlled on his metoprolol twice daily will start it as soon as pharmacy approves it * VTE prophylaxis will be with Eliquis * CODE STATUS full code 11/23/2020 No significant change in oxygenation overnight. We will continue on COVID-19 treatment as outlined above. We will be able to obtain Actemra 800 mg for today. Patient's blood sugars are increased so we will add Lantus 7 units twice daily for today but will likely need to increase that substantially over the next few days. Continue with sliding scale insulin and 4 times daily finger blood sugars. D-dimer did decrease to normal which is reassuring. C-reactive protein unfortunately increased to 7.7. Other lab work is not substantially different from yesterday. Patient's rate has been controlled on the metoprolol 75 mg twice daily. Echocardiogram on Wednesday. Appetite so far is good. No significant change overnight. 11/24/2020 Patient is making progress. O2 requirements are decreasing and he is symptomatically better. D-dimer and C-reactive protein have both decreased. He did get Actemra yesterday at 800 mg and will get 300 mg today. Even with good appetite and regular diet his albumin has dropped to 2.8. Blood sugars right now are his biggest problems and I have aggressively increase his insulin. Lantus 12 units twice daily with Humalog 5 units with each meal and high dose sliding scale. Hemoglobin A1c was 7.8% on admission. Echocardiogram for tomorrow for his new onset A. fib. Rate has been well controlled on metoprolol. He continues on Eliquis for stroke prevention and VTE prophylaxis. Continue to follow Covid labs daily. He is on day 3 of 3 of azithromycin and day 3 of 5 of Zithromax. He is on day 3 of remdesivir. He is on day 3 of 10 of dexameth asone or until discharge. Prognosis is guarded secondary to his multiple comorbidities but he is looking better. 11/25/2020 Patient continues to do well. He is now down to 2-3L NC. However his blood glucose is not well controlled. Will make changes to his insulin regimen. We will also resume home dose Trulicity and Glimepiride. Encourage to use IS and FV as directed. Ambulate inside his room as many times as he can. Routine AM Labs. Continue current Covid-19 treatment. PT/OT following. DVT/Stroke prophylaxis: on Eliquis. 2D echo for new onset of atrial fibrillation. Code status is full. Prognosis is good at this point. 11/26/2020 He remains relatively stable. He remains on 2-3 L NC. Blood glucose remains uncontrolled. We will go up on insulin to 15 units subQ BID and Glimepiride 2 mg po BID. Encourage to use IS and FV as directed. Ambulate inside his room as many times as he can. Routine AM Labs. Continue current Covid-19 treatment. PT/OT following. DVT/Stroke prophylaxis: on Eliquis. Code status is full. Prognosis remains good. 11/27/2020 He looks clinically stable and in no acute respiratory distress. He is on 3 L NC. Blood glucose has improved. We will go up on Glimepiride to 4 mg po BID. Continue to encourage to use IS and FV as directed. Ambulate inside his room as many times as he can. Routine AM Labs. Continue current Covid-19 treatment. Repeat chest x-ray this AM.PT/OT following. DVT/Stroke prophylaxis: on Eliquis. Code status is full. Prognosis remains good. 0915: Repeat chest x-ray shows worsening appearance of chest. We will initiate proning position as many times as he can. 1715: Called and updated his about his clinical progress. Advised to have all Twan's immediately family to do social media with him, lift his spirits up and encourage him to prone as many times as he can, ambulate inside his room and use his IS and FV as directed. 11/28/2020 He looks comfortable and not in acute respiratory distress. He is now on high flow due to hypoxia on l O2. Blood glucose has improved considerably. Continue to encourage to use IS and FV as directed. Ambulate inside his room as many times as he can. Routine AM Labs. Continue current Covid-19 treatment. Repeat chest x-ray this AM. PT/OT following. DVT/Stroke prophylaxis: on Eliquis. Code status is full. Prognosis is guarded at this point. Re-educated patient about proper proning. However I feel like he does not stay long enough to benefit from it. I have gone into his room yesterday 3 times caught him on his side not on his belly/stomach. Called and updated his son and about his clinical progress and discussed possible compliance issue with bedside activities and pulmonary exercise. 11/29/2020 He looks comfortable but respiratory michel he is not doing good. He remains on high flow due to considerable hypoxia. Continue to encourage to use IS and FV as directed. Ambulate inside his room as many times as he can. Routine AM Labs. Continue current Covid-19 treatment. Repeat ABG and chest x-ray this AM. PT/OT following. DVT/Stroke prophylaxis: on Eliquis. Code status is full. Prognosis is guarded at this point. May transfer him to the unit for more aggressive treatment and to closely monitor him. Updated son and about his clinical progress. 1456: D-dimer is 4.27. Chest CTA shows no PE. Patient is already on Eliquis for DVT/Stroke prophylaxis. His HR has improved after brief treatment of Dopamine gtt. 11/30/2020 He looks clinically better and in good spirits. His lungs remain worse. He is still on high flow due to considerable hypoxia. Continue to encourage to use IS and FV as directed. Ambulate inside his room as many times as he can. Routine AM Labs. Continue current Covid-19 treatment. Repeat chest x-ray in AM. PT/OT following. DVT/Stroke prophylaxis: on Eliquis. Code status is full. Prognosis is guarded at this point. Goal: Aggressive proning, use of IS/FV and ambulated inside his room as much as he can. 12/01/2020 No change in condition. His lungs remain worse. He is EZ-pap now and tolerating better. Continue to encourage to use IS and FV as directed. Ambulate inside his room as many times as he can. Routine AM Labs. Continue current Covid-19 treatment. PT/OT following. DVT/Stroke prophylaxis: on Eliquis. Code status is full. Prognosis remains guarded. Goal: Aggressive proning, use of IS/FV and ambulated inside his room as much as he can. Educated patient the importance of medical adherence to treatment. Will update son sometime today. 12/02/2020 Oxygenation is improving over the weekend. He was on high flow nasal cannula with 60 L at 85% and is now on 60%. Also he is down to 6 L bled into his CPAP with oxygen saturations in the low to mid 90s. He has completed Rocephin, azithromycin, dexamethasone, Actemra. Blood sugars are mixed controlled. This morning he was down to the 80s which is worrisome especially with stopping the dexamethasone. He had his Amaryl 4 mg twice daily restarted. Sulfonylureas have a tendency to cause hypoglycemic events. Also, blood sugars were in the 300s yesterday. He is currently on Lantus 20 units twice daily and sliding scale insulin. His mealtime insulin was stopped. Plan Continue aggressive proning and activity as tolerated. Continue incentive spirometer and Acapella. Chest x-ray as needed Continue weaning of O2 as tolerated. Stop Amaryl Start mealtime short acting insulin at 5 units with each meal in addition to sliding scale insulin. This will start tomorrow. Continue to monitor in ICU. Anticipate discharge when he is able to be on nasal cannula O2 4 L or less. 05/05/2021 Patient continues to improve. Oxygen saturations are improving and requirements are lessening. He still requires 50 L of high flow nasal cannula at 50%. Appetite is good and has completed all Covid specific treatments. Blood sugars are well controlled and we stopped Amaryl yesterday secondary to concern for hypoglycemia now being off of dexamethasone. Plan Continue with current management Continue weaning as tolerated of O2 Follow blood sugars closely Anticipate discharge when able to get down to 4 L of nasal cannula. This is likely going to be in 3 or 4 days.
[2020-12-03] MEDS: Melatonin 3 MG Tab PO SCH (20:00)
[2020-12-04] MEDS: Topiramate 25 MG Tab PO SCH ×2 (08:54→21:07)
[2020-12-04] MEDS: Rosuvastatin 10 MG Tab PO SCH (08:54)
[2020-12-04] MEDS: Zinc Sulfate 220 MG Cap PO SCH (08:54)
[2020-12-04] MEDS: Aspirin 81 MG Tab.EC PO SCH (08:54)
[2020-12-04] MEDS: Cholecalciferol (Vitamin D3) 5,000 UNIT Cap PO SCH (08:54)
[2020-12-04] MEDS: Losartan 25 MG Tab PO SCH (08:54)
[2020-12-04] MEDS: Clopidogrel 75 MG Tab PO SCH (08:54)
[2020-12-04] MEDS: Famotidine 20 MG Tab PO SCH ×2 (08:54→21:05)
[2020-12-04] MEDS: Sertraline 50 MG Tab PO SCH (08:54)
[2020-12-04] MEDS: Apixaban 5 MG Tab PO SCH ×2 (08:54→21:05)
[2020-12-04] MEDS: Insulin Glarg,Human.Rec.Analog 100 Unit/ML SUBCUT SCH ×3 (08:55→21:07)
--- NOTE | 2020-12-04 11:49 | PCM.PN ---
- General Info Date of Service: 12/04/20 Admission Dx/Problem (Free Text): Admission Diagnosis/Problem Admission Diagnosis/Problem Hypoxia Subjective Update: Uri continues to improve. He is down to 2 L nasal cannula at rest and when sleeping he uses his CPAP with no oxygen bled in. He states he is generally feeling better. His son did suggest that we look at his anticoagulation. He is on dual platelet therapy, but only has bypass surgery no stents placed. Also, he is on Eliquis because of his atrial flutter. Also he has 7 steps that he needs to go up when he gets home and his son requested that physical therapy reevaluate him. Both of these are good suggestions. Functional Status: Reports: Pain Controlled - Review of Systems General: Reports: No Symptoms HEENT: Reports: No Symptoms Pulmonary: Reports: No Symptoms Cardiovascular: Reports: No Symptoms Gastrointestinal: Reports: No Symptoms Musculoskeletal: Reports: No Symptoms Neurological: Reports: No Symptoms Psychiatric: Reports: No Symptoms - Patient Data Vitals - Most Recent: Last Vital Signs Temp 97.3 F 12/04/20 08:52 Pulse 76 12/04/20 08:52 Resp 15 12/04/20 08:52 BP 125/98 H 12/04/20 08:54 Pulse Ox 94 L 12/04/20 09:15 Weight - Most Recent: 283 lb 8 oz I&O - Last 24 Hours: Intake & Output 12/03/20 12/04/20 12/04/20 22:59 06:59 14:59 Intake Total 2300 600 Output Total 400 350 600 Balance 1900 -350 0 Lab Results Last 24 Hours: Laboratory Results - last 24 hr 12/04/20 12/04/20 12/04/20 Range/Units 05:30 05:30 05:30 WBC 4.72 (4.23-9.07) K/mm3 RBC 4.76 (4.63-6.08) M/mm3 Hgb 14.4 (13.7-17.5) gm/dl Hct 42.7 (40.1-51.0) % MCV 89.7 (79.0-92.2) fl MCH 30.3 (25.7-32.2) pg MCHC 33.7 (32.2-35.5) g/dl RDW Std Deviation 45.3 H (35.1-43.9) fL Plt Count 182 (163-337) K/mm3 MPV 9.2 L (9.4-12.3) fl Neut % (Auto) 66.5 (34.0-67.9) % Lymph % (Auto) 20.8 L (21.8-53.1) % [place] % (Auto) 8.1 (5.3-12.2) % Eos % (Auto) 3.6 (0.8-7.0) Baso % (Auto) 0.4 (0.1-1.2) % Neut # (Auto) 3.14 (1.78-5.38) K/mm3 Lymph # (Auto) 0.98 L (1.32-3.57) K/mm3 [place] # (Auto) 0.38 (0.30-0.82) K/mm3 Eos # (Auto) 0.17 (0.04-0.54) K/mm3 Baso # (Auto) 0.02 (0.01-0.08) K/mm3 D-Dimer, Quantitative 5.21 H (0.19-0.50) mg/L Sodium 141 (136-145) mEq/L Potassium 3.7 (3.5-5.1) mEq/L Chloride 107 (98-107) mEq/L Carbon Dioxide 24 (21-32) mEq/L Anion Gap 13.7 (5-15) BUN 26 H (7-18) mg/dL Creatinine 0.9 (0.7-1.3) mg/dL Est Cr Clr Drug Dosing 96.41 mL/min Estimated GFR (MDRD) > 60 (>60) mL/min BUN/Creatinine Ratio 28.9 H (14-18) Glucose 103 (80-115) mg/dL Calcium 8.4 L (8.5-10.1) mg/dL Phosphorus 3.6 (2.6-4.7) mg/dL Magnesium 1.9 (1.8-2.4) mg/dl Total Bilirubin 0.5 (0.2-1.0) mg/dL AST 26 (15-37) U/L ALT 42 (16-63) U/L Alkaline Phosphatase 48 (46-116) U/L C-Reactive Protein <0.2 (<1.0) mg/dL Total Protein 5.7 L (6.4-8.2) g/dl Albumin 2.8 L (3.4-5.0) g/dl Globulin 2.9 gm/dL Albumin/Globulin Ratio 1.0 (1-2) Med Orders - Current: Current Medications Acetaminophen (Tylenol) 650 mg PO Q4H PRN PRN Reason: Pain (Mild 1-3)/fever Last Admin: 12/02/20 22:05 Dose: 650 mg Documented by: Albuterol/Ipratropium (Duoneb 3.0-0.5 Mg/3 Ml) 3 ml NEB Q4H PRN PRN Reason: Shortness Of Breath/wheezing Last Admin: 11/28/20 09:41 Dose: 3 ml Documented by: Apixaban (Apixaban 5 Mg Tab) 5 mg PO BID [facility] Last Admin: 12/04/20 08:54 Dose: 5 mg Documented by: Aspirin (Aspirin 81 Mg Tab.Ec) 81 mg PO DAILY [facility] Last Admin: 12/04/20 08:54 Dose: 81 mg Documented by: Cholecalciferol (Cholecalciferol (Vitamin D3) 5,000 Unit Cap) 5,000 unit PO DAILY [facility] Last Admin: 12/04/20 08:54 Dose: 5,000 unit Documented by: Clopidogrel Bisulfate (Clopidogrel 75 Mg Tab) 75 mg PO DAILY [facility] Last Admin: 12/04/20 08:54 Dose: 75 mg Documented by: Famotidine (Famotidine 20 Mg Tab) 20 mg PO BID [facility] Last Admin: 12/04/20 08:54 Dose: 20 mg Documented by: Hydralazine HCl (Apresoline) 10 mg IVPUSH Q4H PRN PRN Reason: Hypertension Last Admin: 11/29/20 22:07 Dose: 10 mg Documented by: Insulin Glargine (Lantus) 20 unit SUBCUT BID@0700,1700 [facility] Last Admin: 12/04/20 09:36 Dose: Not Given Documented by: Insulin Human Lispro (Humalog) 0 unit SUBCUT TIDAC [facility]; Protocol Last Admin: 12/04/20 06:26 Dose: Not Given Documented by: Insulin Human Lispro (Humalog) 5 unit SUBCUT TIDAC [facility] Last Admin: 12/04/20 09:00 Dose: 5 units Documented by: Losartan Potassium (Losartan 25 Mg Tab) 25 mg PO DAILY [facility] Last Admin: 12/04/20 08:54 Dose: 25 mg Documented by: Melatonin (Melatonin) 9 mg PO BEDTIME [facility] Last Admin: 12/03/20 20:00 Dose: 9 mg Documented by: Metoprolol Tartrate (Lopressor) 5 mg IVPUSH Q4H PRN PRN Reason: Tachycardia Dulaglutide [ Trulicity] 1.5 Mg Ptom 0 mg SQ Fr [facility] Last Admin: 11/29/20 12:44 Dose: Not Given Documented by: Rosuvastatin Calcium (Rosuvastatin 10 Mg Tab) 10 mg PO DAILY [facility] Last Admin: 12/04/20 08:54 Dose: 10 mg Documented by: Sertraline HCl (Sertraline 50 Mg Tab) 50 mg PO DAILY [facility] Last Admin: 12/04/20 08:54 Dose: 50 mg Documented by: Topiramate (Topiramate 25 Mg Tab) 50 mg PO BID [facility] Last Admin: 12/04/20 08:54 Dose: 50 mg Documented by: Zinc Sulfate (Zinc Sulfate 220 Mg Cap) 220 mg PO DAILY [facility] Last Admin: 12/04/20 08:54 Dose: 220 mg Documented by: Discontinued Medications Dexamethasone (Dexamethasone) 6 mg PO DAILY [facility] Stop: 12/01/20 09:01 Last Admin: 12/01/20 09:16 Dose: 6 mg Documented by: Furosemide (Lasix) 5 mg IVPUSH NOW ONE Stop: 11/30/20 14:01 Last Admin: 11/30/20 14:12 Dose: 5 mg Documented by: Furosemide (Lasix) 5 mg IVPUSH DAILY [facility] Stop: 12/04/20 09:01 Last Admin: 12/02/20 08:00 Dose: 5 mg Documented by: Furosemide (Lasix) 10 mg IVPUSH ONETIME ONE Stop: 11/30/20 20:01 Last Admin: 11/30/20 21:00 Dose: 10 mg Documented by: Glimepiride (Amaryl) 2 mg PO DAILY [facility] Last Admin: 11/25/20 09:04 Dose: 2 mg Documented by: Glimepiride (Amaryl) 2 mg PO BID [facility] Last Admin: 11/26/20 20:20 Dose: 2 mg Documented by: Glimepiride (Amaryl) 4 mg PO BID [facility] Last Admin: 12/02/20 07:59 Dose: 4 mg Documented by: Hydralazine HCl (Apresoline) Confirm Administered Dose 20 mg .ROUTE .STK-MED ONE Stop: 11/29/20 13:20 Last Admin: 11/29/20 13:34 Dose: Not Given Documented by: Remdesivir 200 mg/ Sodium (Chloride) 250 mls @ 250 mls/hr IV ONETIME ONE Stop: 11/22/20 21:09 Last Admin: 11/22/20 23:46 Dose: 250 mls/hr Documented by: Remdesivir 100 mg/ Sodium (Chloride) 100 mls @ 100 mls/hr IV Q24H [facility] Stop: 11/26/20 21:59 Last Admin: 11/26/20 20:23 Dose: 100 mls/hr Documented by: Ceftriaxone Sodium 2 gm/ (Sodium Chloride) 100 mls @ 200 mls/hr IV Q24H [facility] Stop: 11/26/20 21:59 Last Admin: 11/26/20 21:33 Dose: 200 mls/hr Documented by: Azithromycin 500 mg/ Sodium (Chloride) 250 mls @ 250 mls/hr IV Q24H [facility] Stop: 11/24/20 21:59 Last Admin: 11/24/20 21:25 Dose: 250 mls/hr Documented by: Tocilizumab 800 mg/ Sodium (Chloride) 100 mls @ 100 mls/hr IV ONETIME ONE Stop: 11/23/20 12:59 Last Admin: 11/23/20 14:04 Dose: Not Given Documented by: Tocilizumab 800 mg/ Sodium (Chloride) 100 mls @ 100 mls/hr IV ONETIME ONE Stop: 11/23/20 14:29 Last Admin: 11/23/20 13:33 Dose: 100 mls/hr Documented by: Tocilizumab 300 mg/ Sodium (Chloride) 100 mls @ 100 mls/hr IV ONETIME ONE Stop: 11/24/20 14:29 Last Admin: 11/24/20 12:45 Dose: 100 mls/hr Documented by: Dopamine HCl/Dextrose (Dopamine In D5w 400 Mg/250 Ml) 400 mg in 250 mls @ 9.679 mls/hr IV TITRATE [facility]; Protocol Last Titration: 11/30/20 13:15 Dose: 0 mcg/kg/min, 0 mls/hr Documented by: Sodium Chloride (Normal Saline) 500 mls @ 50 mls/hr IV .BOLUS ONE Stop: 11/29/20 22:25 Last Admin: 11/29/20 12:53 Dose: 50 mls/hr Documented by: Sodium Chloride (Normal Saline) 100 mls @ 75 mls/hr IV ASDIRECTED JOJO Stop: 11/29/20 18:00 Last Admin: 11/29/20 14:09 Dose: 75 mls/hr Documented by: Sodium Chloride (Normal Saline) 500 mls @ 999 mls/hr IV .BOLUS ONE Stop: 11/30/20 12:28 Last Admin: 11/30/20 12:02 Dose: 999 mls/hr Documented by: Sodium Chloride (Normal Saline) Confirm Administered Dose 1,000 mls @ as directed .ROUTE .STK-MED ONE Stop: 11/30/20 12:00 Last Admin: 11/30/20 13:13 Dose: Not Given Documented by: Influenza Virus Vaccine (Fluzone Quad 1311-1728 Syringe) 60 mcg IM .ONCE ONE Stop: 11/23/20 09:01 Last Admin: 11/29/20 13:23 Dose: Not Given Documented by: Insulin Glargine (Lantus) 7 unit SUBCUT BIDAC [facility] Last Admin: 11/23/20 17:46 Dose: 7 unit Documented by: Insulin Glargine (Lantus) 12 unit SUBCUT BIDAC [facility] Last Admin: 11/25/20 06:58 Dose: 12 units Documented by: Insulin Glargine (Lantus) 15 unit SUBCUT BIDAC [facility] Insulin Glargine (Lantus) 17 unit SUBCUT BIDAC [facility] Insulin Glargine (Lantus) 15 unit SUBCUT BIDAC [facility] Last Admin: 11/26/20 06:50 Dose: 15 units Documented by: Insulin Glargine (Lantus) 20 unit SUBCUT BIDAC [facility] Last Admin: 11/26/20 18:40 Dose: 20 units Documented by: Insulin Human Lispro (Humalog) 0 unit SUBCUT QIDACANDBED [facility]; Protocol Last Admin: 11/23/20 17:47 Dose: 8 unit Documented by: Insulin Human Lispro (Humalog) 0 unit SUBCUT QIDACANDBED [facility]; Protocol Last Admin: 11/25/20 08:12 Dose: Not Given Documented by: [facility] Last Admin: 11/24/20 17:17 Dose: 5 units Documented by: Insulin Human Lispro (Humalog) [facility] Last Admin: 11/25/20 08:12 Dose: Not Given Documented by: Insulin Human Lispro (Humalog) 15 unit SUBCUT ONETIME ONE Stop: 12/01/20 21:05 Last Admin: 12/01/20 22:57 Dose: 15 units Documented by: Iopamidol (Isovue-370 (76%)) 100 ml IVPUSH ONETIME ONE Stop: 11/29/20 13:15 Last Admin: 11/29/20 14:09 Dose: 100 ml Documented by: Metoprolol Tartrate (Lopressor) 75 mg PO ONETIME ONE Stop: 11/22/20 21:09 Last Admin: 11/22/20 23:47 Dose: 75 mg Documented by: Metoprolol Tartrate (Lopressor) 75 mg PO BID [facility] Last Admin: 11/29/20 20:24 Dose: 75 mg Documented by: Metoprolol Tartrate (Lopressor) 5 mg IVPUSH ONETIME ONE Stop: 11/29/20 20:54 Last Admin: 11/30/20 03:52 Dose: Not Given Documented by: Metoprolol Tartrate (Lopressor) 25 mg PO BID [facility] Last Admin: 11/30/20 08:44 Dose: 25 mg Documented by: Sodium Chloride (Saline Flush) 10 ml FLUSH ONETIME PRN PRN Reason: IV FLUSH Stop: 11/29/20 18:00 Last Admin: 11/29/20 14:09 Dose: 10 ml Documented by: - Exam Quality Assessment: Supplemental Oxygen General: Alert, Oriented HEENT: Pupils Equal, Mucous Membr. Moist/[place] Neck: Supple Lungs: Normal Respiratory Effort, Rales (Mild bibasilar) Cardiovascular: Regular Rate, Regular Rhythm GI/Abdominal Exam: Normal Bowel Sounds, Soft, Non-Tender, No Organomegaly, No Distention, No Abnormal Bruit Extremities: Normal Inspection, Normal Range of Motion, Non-Tender, No Pedal Edema, Normal Capillary Refill Skin: Warm, Dry, Intact Neurological: No New Focal Deficit - Patient Data Lab Results Last 24 hrs: Laboratory Results - last 24 hr 12/04/20 12/04/20 12/04/20 Range/Units 05:30 05:30 05:30 WBC 4.72 (4.23-9.07) K/mm3 RBC 4.76 (4.63-6.08) M/mm3 Hgb 14.4 (13.7-17.5) gm/dl Hct 42.7 (40.1-51.0) % MCV 89.7 (79.0-92.2) fl MCH 30.3 (25.7-32.2) pg MCHC 33.7 (32.2-35.5) g/dl RDW Std Deviation 45.3 H (35.1-43.9) fL Plt Count 182 (163-337) K/mm3 MPV 9.2 L (9.4-12.3) fl Neut % (Auto) 66.5 (34.0-67.9) % Lymph % (Auto) 20.8 L (21.8-53.1) % [place] % (Auto) 8.1 (5.3-12.2) % Eos % (Auto) 3.6 (0.8-7.0) Baso % (Auto) 0.4 (0.1-1.2) % Neut # (Auto) 3.14 (1.78-5.38) K/mm3 Lymph # (Auto) 0.98 L (1.32-3.57) K/mm3 [place] # (Auto) 0.38 (0.30-0.82) K/mm3 Eos # (Auto) 0.17 (0.04-0.54) K/mm3 Baso # (Auto) 0.02 (0.01-0.08) K/mm3 D-Dimer, Quantitative 5.21 H (0.19-0.50) mg/L Sodium 141 (136-145) mEq/L Potassium 3.7 (3.5-5.1) mEq/L Chloride 107 (98-107) mEq/L Carbon Dioxide 24 (21-32) mEq/L Anion Gap 13.7 (5-15) BUN 26 H (7-18) mg/dL Creatinine 0.9 (0.7-1.3) mg/dL Est Cr Clr Drug Dosing 96.41 mL/min Estimated GFR (MDRD) > 60 (>60) mL/min BUN/Creatinine Ratio 28.9 H (14-18) Glucose 103 (80-115) mg/dL Calcium 8.4 L (8.5-10.1) mg/dL Phosphorus 3.6 (2.6-4.7) mg/dL Magnesium 1.9 (1.8-2.4) mg/dl Total Bilirubin 0.5 (0.2-1.0) mg/dL AST 26 (15-37) U/L ALT 42 (16-63) U/L Alkaline Phosphatase 48 (46-116) U/L C-Reactive Protein <0.2 (<1.0) mg/dL Total Protein 5.7 L (6.4-8.2) g/dl Albumin 2.8 L (3.4-5.0) g/dl Globulin 2.9 gm/dL Albumin/Globulin Ratio 1.0 (1-2) Result Diagrams: 12/04/20 05:30 12/04/20 05:30 Sepsis Event Note - Evaluation Sepsis Screening Result: No Definite Risk - Focused Exam Vital Signs: Vital Signs Temp Pulse Resp BP BP Pulse Ox Pulse Ox 12/04/20 09:15 94 L 12/04/20 09:05 86 L 12/04/20 09:00 86 L 12/04/20 08:54 125/98 H 12/04/20 08:52 97.3 F 76 15 125/98 H 93 L 12/04/20 05:00 97.1 F 17 133/85 91 L 12/04/20 03:00 17 93 L 12/04/20 01:00 97.9 F 14 12/04/20 00:40 95 12/04/20 00:13 96 - Problem List & Annotations (1) Coronary artery disease SNOMED Code(s): 23463395 Code(s): I25.10 - ATHSCL HEART DISEASE OF [place] CORONARY ARTERY W/O ANG PCTRS Status: Acute Current Visit: Yes (2) Atrial fibrillation with RVR SNOMED Code(s): 195587674080796 Code(s): I48.91 - UNSPECIFIED ATRIAL FIBRILLATION Status: Acute Current Visit: Yes (3) Diabetes mellitus SNOMED Code(s): 28830947 Code(s): E11.9 - TYPE 2 DIABETES MELLITUS WITHOUT COMPLICATIONS Status: Acute Current Visit: Yes (4) Acute hypoxemic respiratory failure due to COVID-19 SNOMED Code(s): 805763415 Code(s): U07.1 - COVID-19; J96.01 - ACUTE RESPIRATORY FAILURE WITH HYPOXIA Status: Acute Current Visit: Yes (5) COVID-19 SNOMED Code(s): 220628335 Code(s): U07.1 - COVID-19 Status: Acute Current Visit: Yes - Problem List Review Problem List Initiated/Reviewed/Updated: Yes - My Orders Last 24 Hours: My Active Orders 12/04/20 09:00 Insulin Glarg,Human.Rec.Analog [LantUS] 15 unit SUBCUT BID 12/04/20 09:43 Patient Status [ADT] Routine 12/04/20 09:57 Evaluate for Home Oxygen [RT Evaluate for Home Oxygen] [RC] Click to Edit 12/04/20 11:27 OT Evaluation and Treatment [CONS] Routine PT Evaluation and Treatment [CONS] Routine - Plan Plan:: 11/22/2020 Assessment 65-year-old male with history of coronary artery bypass and CAD, new onset atrial fibrillation, type 2 diabetes, obesity, presents to the emergency department after 6 days of feeling poorly and diagnosed with COVID-19. Unfortunately, this puts him at high risk for complications because of his multiple comorbidities. COVID-19 pneumonia with hypoxemia Leukopenia, POA, resolved Elevated CRP of 7.7, POA, is now wnl * Risk factors: DM2, ISABEL, Class II Obese * Patient presented to the emergency department with oxygen saturations at 83% on room air * He required 2 to 3 L of FiO2 via nasal cannula to get saturations in the low 90s. * C-reactive protein was elevated at 6.6, ferritin 659, D-dimer slightly elevated at 0.61, white count low at 3.7 * Fortunately patient is a never smoker. No history of lung disease. * Repeat chest x-ray was worse yesterday * Azithromycin 500 mg IV daily completed 11/24/2020 * Rocephin 2 grams daily completed 11/26/2020 * Actemra completed 11/23/2020 * Dexamethasone 6 mg po on 04/05 * He is going backward/getting worse * Repeat CTA yesterday report read as diffuse parenchymal changes scattered throughout both lungs. No PE. * Goal is aggressive proning Atrial Flutter, Controlled HR * He may be in atrial fib/flutter * Repeat EKG shows atrial flutter with HR of 83 * Has had episode of bradycardia. He was taking 75 mg po BID but remains sensitive to 25 mg po BID. Will discontinue and may switch to Coreg instead with some alpha blockade component * On Metoprolol and Eliquis for maintenance medications * 2D echo report read as LVEF of 55%. No RWMA. RVSP is normal at 28 mmHg. No cardiac valves abnormality History of coronary artery disease with bypass graft * Patient did not take his metoprolol this morning and therefore his heart rate was above 100 with A. fib RVR * On ASA and plavix for CAD * Patient is normally on metoprolol 75 mg twice daily; rate control agent * Troponin and BNP was normal. * HR now controlled * Eliquis 5 mg po BID started 11/22/2020 fro stroke prophylaxis Type 2 diabetes * BS not controlled; now controlled * Moderate control with his last hemoglobin A1c from November 14 of 7.5% * On for oral medications to control his blood sugars * Repeat A1C is 7.8 * He is on steroid * Changes to insulin regimen: Lantus 15 units BID and continue high intensity ISS * Resume home dose Trulicity and Glimepiride * Hold home dose Synjardy for now Hypoalbuminemia Class II Obese * Albumin of 2.9 * BMI of 37 * Discussed LSM * [employer] following Other medical problems include depression, elevated PSA with BPH, hypertension, obesity, sleep apnea, kidney stones Plan * Admit to medical floor on telemetry * Continuous pulse ox * Remdesivir for 5 days loading dose today * Dexamethasone x10 days * Rocephin 2 g daily for 5 days for COVID-19 pneumonia * Azithromycin 500 mg daily for 3 days * Pepcid, melatonin, zinc, vitamin D. All of them have shown mixed results on treatment of COVID-19 but unlikely to cause any harm. * Encourage prone positioning when awake and asleep * Convalescent plasma has not shown improvement in outcomes will therefore hold on the treatment with convalescent plasma * FiO2 to keep SPO2 between 88 and 94%. * Follow blood sugars closely and likely start long-acting insulin * Stop home oral blood sugar medications because of inconsistencies with absorption and p.o. intake when hospitalized with COVID-19 * Blood sugars will likely worsen secondary to dexamethasone. * Sliding scale insulin * Fingerstick blood sugar 4 times a day * Follow CBC, CMP, magnesium, D-dimer, CRP * Actemra 800 mg if available * Patient is at very high risk for complications secondary to his multiple comor bidities * Start Eliquis 5 mg twice daily for his new onset A. fib * Echocardiogram on Wednesday since it is not available over the weekend * Patient is likely rate controlled on his metoprolol twice daily will start it as soon as pharmacy approves it * VTE prophylaxis will be with Eliquis * CODE STATUS full code 11/23/2020 No significant change in oxygenation overnight. We will continue on COVID-19 treatment as outlined above. We will be able to obtain Actemra 800 mg for toda y. Patient's blood sugars are increased so we will add Lantus 7 units twice daily for today but will likely need to increase that substantially over the next few days. Continue with sliding scale insulin and 4 times daily finger blood sugars. D-dimer did decrease to normal which is reassuring. C-reactive protein unfortunately increased to 7.7. Other lab work is not substantially different from yesterday. Patient's rate has been controlled on the metoprolol 75 mg twice daily. Echocardiogram on Wednesday. Appetite so far is good. No significant change overnight. 11/24/2020 Patient is making progress. O2 requirements are decreasing and he is symptomatically better. D-dimer and C-reactive protein have both decreased. He did get Actemra yesterday at 800 mg and will get 300 mg today. Even with good appetite and regular diet his albumin has dropped to 2.8. Blood sugars right now are his biggest problems and I have aggressively increase his insulin. Lantus 12 units twice daily with Humalog 5 units with each meal and high dose sliding scale. Hemoglobin A1c was 7.8% on admission. Echocardiogram for tomorrow for his new onset A. fib. Rate has been well controlled on metoprolol. He continues on Eliquis for stroke prevention and VTE prophylaxis. Continue to follow Covid labs daily. He is on day 3 of 3 of azithromycin and day 3 of 5 of Zithromax. He is on day 3 of remdesivir. He is on day 3 of 10 of dexamethasone or until discharge. Prognosis is guarded secondary to his multiple comorbidities but he is looking better. 11/25/2020 Patient continues to do well. He is now down to 2-3L NC. However his blood glucose is not well controlled. Will make changes to his insulin regimen. We will also resume home dose Trulicity and Glimepiride. Encourage to use IS and FV as directed. Ambulate inside his room as many times as he can. Routine AM Labs. Continue current Covid-19 treatment. PT/OT following. DVT/Stroke prophylax is: on Eliquis. 2D echo for new onset of atrial fibrillation. Code status is full. Prognosis is good at this point. 11/26/2020 He remains relatively stable. He remains on 2-3 L NC. Blood glucose remains uncontrolled. We will go up on insulin to 15 units subQ BID and Glimepiride 2 mg po BID. Encourage to use IS and FV as directed. Ambulate inside his room as many times as he can. Routine AM Labs. Continue current Covid-19 treatment. PT/OT following. DVT/Stroke prophylaxis: on Eliquis. Code status is full. Prognosis remains good. 11/27/2020 He looks clinically stable and in no acute respiratory distress. He is on 3 L NC. Blood glucose has improved. We will go up on Glimepiride to 4 mg po BID. Continue to encourage to use IS and FV as directed. Ambulate inside his room as many times as he can. Routine AM Labs. Continue current Covid-19 treatment. Repeat chest x-ray this AM.PT/OT following. DVT/Stroke prophylaxis: on Eliquis. Code status is full. Prognosis remains good. 0915: Repeat chest x-ray shows worsening appearance of chest. We will initiate proning position as many times as he can. 1716: Called and updated his about his clinical progress. Advised to have all Twan's immediately family to do social media with him, lift his spirits up and encourage him to prone as many times as he can, ambulate inside his room and use his IS and FV as directed. 11/28/2020 He looks comfortable and not in acute respiratory distress. He is now on high flow due to hypoxia on l O2. Blood glucose has improved considerably. Continue to encourage to use IS and FV as directed. Ambulate inside his room as many times as he can. Routine AM Labs. Continue current Covid-19 treatment. Repeat chest x-ray this AM. PT/OT following. DVT/Stroke prophylaxis: on Eliquis. Code status is full. Prognosis is guarded at this point. Re-educated patient about proper proning. However I feel like he does not stay long enough to benefit from it. I have gone into his room yesterday 3 times caught him on his side not on his belly/stomach. Called and updated his son and about his clinical progress and discussed p ossible compliance issue with bedside activities and pulmonary exercise. 11/29/2020 He looks comfortable but respiratory michel he is not doing good. He remains on high flow due to considerable hypoxia. Continue to encourage to use IS and FV as directed. Ambulate inside his room as many times as he can. Routine AM Labs. Continue current Covid-19 treatment. Repeat ABG and chest x-ray this AM. PT/OT following. DVT/Stroke prophylaxis: on Eliquis. Code status is full. Prognosis is guarded at this point. May transfer him to the unit for more aggressive treatment and to closely monitor him. Updated son and about his clinical progress. 1456: D-dimer is 4.27. Chest CTA shows no PE. Patient is already on Eliquis for DVT/Stroke prophylaxis. His HR has improved after brief treatment of Dopamine gtt. 11/30/2020 He looks clinically better and in good spirits. His lungs remain worse. He is still on high flow due to considerable hypoxia. Continue to encourage to use IS and FV as directed. Ambulate inside his room as many times as he can. Routine AM Labs. Continue current Covid-19 treatment. Repeat chest x-ray in AM. PT/OT following. DVT/Stroke prophylaxis: on Eliquis. Code status is full. Prognosis is guarded at this point. Goal: Aggressive proning, use of IS/FV and ambulated inside his room as much as he can. 12/01/2020 No change in condition. His lungs remain worse. He is EZ-pap now and tolerating better. Continue to encourage to use IS and FV as directed. Ambulate inside his room as many times as he can. Routine AM Labs. Continue current Covid-19 treatment. PT/OT following. DVT/Stroke prophylaxis: on Eliquis. Code status is full. Prognosis remains guarded. Goal: Aggressive proning, use of IS/FV and am bulated inside his room as much as he can. Educated patient the importance of medical adherence to treatment. Will update son sometime today. 12/02/2020 Oxygenation is improving over the weekend. He was on high flow nasal cannula with 60 L at 85% and is now on 60%. Also he is down to 6 L bled into his CPAP with oxygen saturations in the low to mid 90s. He has completed Rocephin, azithromycin, dexamethasone, Actemra. Blood sugars are mixed controlled. This morning he was down to the 80s which is worrisome especially with stopping the dexamethasone. He had his Amaryl 4 mg twice daily restarted. Sulfonylureas have a tendency to cause hypoglycemic events. Also, blood sugars were in the 300s yesterday. He is currently on Lantus 20 units twice daily and sliding scale insulin. His mealtime insulin was stopped. Plan Continue aggressive proning and activity as tolerated. Continue incentive spirometer and Acapella. Chest x-ray as needed Continue weaning of O2 as tolerated. Stop Amaryl Start mealtime short acting insulin at 5 units with each meal in addition to sliding scale insulin. This will start tomorrow. Continue to monitor in ICU. Anticipate discharge when he is able to be on nasal cannula O2 4 L or less. 12/03/2020 Patient continues to improve. Oxygen saturations are improving and requirements are lessening. He still requires 50 L of high flow nasal cannula at 50%. Appetite is good and has completed all Covid specific treatments. Blood sugars are well controlled and we stopped Amaryl yesterday secondary to concern for hypoglycemia now being off of dexamethasone. Plan Continue with current management Continue weaning as tolerated of O2 Follow blood sugars closely Anticipate discharge when able to get down to 4 L of nasal cannula. This is likely going to be in 3 or 4 days. 12/04/2020 Fortunately Umair has been significantly improved. He is down to 2 L nasal cannula. We will qualify him for oxygen today. Also, reviewing of his ant icoagulation therapy we will stop Plavix continue on low-dose aspirin and Eliquis. I will request physical therapy and Occupational Therapy today see him so we can plan discharge tomorrow. Also, blood sugars have been well controlled, but my concern is they may be too well controlled at this time. We will decrease his Lantus to 15 units twice daily, continue on the 5 units of rapid acting insulin with each meal and sliding scale. He will likely be able to go home on his typical regimen. He has been off of steroids for 2 days. Plan discharge tomorrow on oxygen.
[2020-12-04] MEDS: Melatonin 3 MG Tab PO SCH (21:06)
[2020-12-05 08:13] VITALS: BP 146/99; PULSE 82
[2020-12-05] MEDS: Famotidine 20 MG Tab PO SCH (08:18)
[2020-12-05] MEDS: Rosuvastatin 10 MG Tab PO SCH (08:19)
[2020-12-05] MEDS: Sertraline 50 MG Tab PO SCH (08:19)
[2020-12-05] MEDS: Aspirin 81 MG Tab.EC PO SCH (08:19)
[2020-12-05] MEDS: Cholecalciferol (Vitamin D3) 5,000 UNIT Cap PO SCH (08:19)
[2020-12-05] MEDS: Apixaban 5 MG Tab PO SCH (08:20)
[2020-12-05] MEDS: Zinc Sulfate 220 MG Cap PO SCH (08:20)
[2020-12-05] MEDS: Topiramate 25 MG Tab PO SCH (08:20)
[2020-12-05] MEDS: Insulin Glarg,Human.Rec.Analog 100 Unit/ML SUBCUT SCH (08:21)
[2020-12-05] MEDS: Losartan 25 MG Tab PO SCH (08:32)
--- NOTE | 2020-12-05 10:27 | PCM.DCSUM1 ---
<Jose A Cordero - Last Filed: 12/05/20 10:41> Discharge Summary - Hospital Course HPI Initial Comments: 65-year-old male with history of coronary artery disease, depression, obesity, sleep apnea, type 2 diabetes presents to the emergency department with increasing shortness of breath, cough, chills, body aches, anorexia, and diarrhea. Patient states that his symptoms started approximately 6 days ago. He does not know of any sick close contacts. His has been immunized for COVID-19. Patient was recently seen by his primary care provider and recent labs did show a C-reactive protein of 0.4, TSH 2.350, glycosylated hemoglobin of 7.5. He also had elevated PSA in which his primary care provider referred him to urology. In the emergency department patient was found to be in atrial fibrillation with RVR. Patient is on metoprolol and has not taken that today. Patient states he did not take any of his medications today. SARS-CoV-2 was positive. Patient had a significant hypoxemia requiring 2 to 3 L of FiO2 via nasal cannula. When he initially presented his oxygen saturations were 83%. Today his C-reactive protein is up to 6.6. His white count is slightly low at 3.68. Chest x-ray shows scattered bilateral infiltrates consistent with COVID- 19. Patient does meet SIRS criteria with his heart rate above 90 and his white blood cell count below 4. Unfortunately this is misleading because his heart rate is elevated secondary to atrial fibrillation with RVR not necessarily because of proBNP and troponin were negative. Lactic acid was low at 0.9. Diagnosis: Stroke: No - Discharge Data Discharge Date: 12/05/20 (Admit date: 11/22/20) Discharge Disposition: Home, Self-Care 01 Condition: Good - Referral to Home Health Primary Care Physician: Eliu Morgan MD - Discharge Diagnosis/Problem(s) (1) Leukopenia SNOMED Code(s): 36482012, 501878660 ICD Code: D72.819 - DECREASED WHITE BLOOD CELL COUNT, UNSPECIFIED Status: Acute Priority: Medium Current Visit: Yes Qualifiers: Leukopenia type: unspecified Qualified Code(s): D72.819 - Decreased white blood cell count, unspecified (2) Atrial flutter SNOMED Code(s): 1699951 ICD Code: I48.92 - UNSPECIFIED ATRIAL FLUTTER Status: Acute Priority: High Current Visit: Yes Qualifiers: Atrial flutter type: unspecified Qualified Code(s): I48.92 - Unspecified atrial flutter (3) Hypoalbuminemia SNOMED Code(s): 712148942 ICD Code: E88.09 - OTH DISORDERS OF PLASMA-PROTEIN METABOLISM, NEC Status: Acute Current Visit: Yes (4) Obesity SNOMED Code(s): 214702219, 987564269 ICD Code: E66.9 - OBESITY, UNSPECIFIED Status: Chronic Priority: Medium Current Visit: No Qualifiers: Obesity type: unspecified obesity type Obesity classification: adult class 2 (BMI 35 - 39.9) Serious obesity comorbidity presence: unspecified whether serious comorbidity present Body mass index: BMI 36.0-36.9 Qualified Code(s): E66.9 - Obesity, unspecified; Z68.36 - Body mass index [BMI] 36.0-36.9, adult (5) Acute hypoxemic respiratory failure due to COVID-19 SNOMED Code(s): 476017421 ICD Code: U07.1 - COVID-19; J96.01 - ACUTE RESPIRATORY FAILURE WITH HYPOXIA Status: Acute Priority: High Current Visit: Yes (6) COVID-19 SNOMED Code(s): 618463674 ICD Code: U07.1 - COVID-19 Status: Acute Priority: High Current Visit: Yes (7) Coronary artery disease SNOMED Code(s): 18993279 ICD Code: I25.10 - ATHSCL HEART DISEASE OF [place] CORONARY ARTERY W/O ANG PCTRS Status: Chronic Priority: Medium Current Visit: No Qualifiers: Coronary Disease-Associated Artery/Lesion type: unspecified vessel or lesion type [place] vs. transplanted heart: [place] heart Associated angina: angina presence unspecified Qualified Code(s): I25.10 - Atherosclerotic heart disease of [place] coronary artery without angina pectoris (8) Diabetes mellitus SNOMED Code(s): 63725885 ICD Code: E11.9 - TYPE 2 DIABETES MELLITUS WITHOUT COMPLICATIONS Status: Chronic Priority: High Current Visit: Yes Qualifiers: Diabetes mellitus type: type 2 Diabetes mellitus nursing home insulin use: unspecified nursing home insulin use status Diabetes mellitus complication status: with other specified complication Qualified Code(s): E11.69 - Type 2 diabetes mellitus with other specified complication - Patient Summary/Data Consults: Consultations 12/04/20 11:27 OT Evaluation and Treatment [CONS] Routine PT Evaluation and Treatment [CONS] Routine Labs Pending at D/C: None Recommended Follow-up Testing/Procedures: Follow-up with primary care provider within 7-10 days of discharge, sooner if needed. Hospital Course: 11/22/2020 Assessment 65-year-old male with history of coronary artery bypass and CAD, new onset atrial fibrillation, type 2 diabetes, obesity, presents to the emergency department after 6 days of feeling poorly and diagnosed with COVID-19. Unfortunately, this puts him at high risk for complications because of his multiple comorbidities. COVID-19 pneumonia with hypoxemia Leukopenia, POA, resolved Elevated CRP of 7.7, POA, is now wnl * Risk factors: DM2, ISABEL, Class II Obese * Patient presented to the emergency department with oxygen saturations at 83% on room air * He required 2 to 3 L of FiO2 via nasal cannula to get saturations in the low 90s. * C-reactive protein was elevated at 6.6, ferritin 659, D-dimer slightly elevated at 0.61, white count low at 3.7 * Fortunately patient is a never smoker. No history of lung disease. * Repeat chest x-ray was worse yesterday * Azithromycin 500 mg IV daily completed 11/24/2020 * Rocephin 2 grams daily completed 11/26/2020 * Actemra completed 11/23/2020 * Dexamethasone 6 mg po on 04/05 * He is going backward/getting worse * Repeat CTA yesterday report read as diffuse parenchymal changes scattered throughout both lungs. No PE. * Goal is aggressive proning Atrial Flutter, Controlled HR * He may be in atrial fib/flutter * Repeat EKG shows atrial flutter with HR of 83 * Has had episode of bradycardia. He was taking 75 mg po BID but remains sensitive to 25 mg po BID. Will discontinue and may switch to Coreg instead with some alpha blockade component * On Metoprolol and Eliquis for maintenance medications * 2D echo report read as LVEF of 55%. No RWMA. RVSP is normal at 28 mmHg. No cardiac valves abnormality History of coronary artery disease with bypass graft * Patient did not take his metoprolol this morning and therefore his heart rate was above 100 with A. fib RVR * On ASA and plavix for CAD * Patient is normally on metoprolol 75 mg twice daily; rate control agent * Troponin and BNP was normal. * HR now controlled * Eliquis 5 mg po BID started 11/22/2020 fro stroke prophylaxis Type 2 diabetes * BS not controlled; now controlled * Moderate control with his last hemoglobin A1c from November 14 of 7.5% * On for oral medications to control his blood sugars * Repeat A1C is 7.8 * He is on steroid * Changes to insulin regimen: Lantus 15 units BID and continue high intensity ISS * Resume home dose Trulicity and Glimepiride * Hold home dose Synjardy for now Hypoalbuminemia Class II Obese * Albumin of 2.9 * BMI of 37 * Discussed LSM * Mat Sewer following Other medical problems include depression, elevated PSA with BPH, hypertension, obesity, sleep apnea, kidney stones Plan * Admit to medical floor on telemetry * Continuous pulse ox * Remdesivir for 5 days loading dose today * Dexamethasone x10 days * Rocephin 2 g daily for 5 days for COVID-19 pneumonia * Azithromycin 500 mg daily for 3 days * Pepcid, melatonin, zinc, vitamin D. All of them have shown mixed results on treatment of COVID-19 but unlikely to cause any harm. * Encourage prone positioning when awake and asleep * Convalescent plasma has not shown improvement in outcomes will therefore hold on the treatment with convalescent plasma * FiO2 to keep SPO2 between 88 and 94%. * Follow blood sugars closely and likely start long-acting insulin * Stop home oral blood sugar medications because of inconsistencies with absorption and p.o. intake when hospitalized with COVID-19 * Blood sugars will likely worsen secondary to dexamethasone. * Sliding scale insulin * Fingerstick blood sugar 4 times a day * Follow CBC, CMP, magnesium, D-dimer, CRP * Actemra 800 mg if available * Patient is at very high risk for complications secondary to his multiple comorbidities * Start Eliquis 5 mg twice daily for his new onset A. fib * Echocardiogram on Wednesday since it is not available over the weekend * Patient is likely rate controlled on his metoprolol twice daily will start it as soon as pharmacy approves it * VTE prophylaxis will be with Eliquis * CODE STATUS full code 11/23/2020 No significant change in oxygenation overnight. We will continue on COVID-19 treatment as outlined above. We will be able to obtain Actemra 800 mg for today. Patient's blood sugars are increased so we will add Lantus 7 units twice daily for today but will likely need to increase that substantially over the next few days. Continue with sliding scale insulin and 4 times daily finger blood sugars. D-dimer did decrease to normal which is reassuring. C-reactive protein unfortunately increased to 7.7. Other lab work is not substantially different from yesterday. Patient's rate has been controlled on the metoprolol 75 mg twice daily. Echocardiogram on Wednesday. Appetite so far is good. No significant change overnight. 11/24/2020 Patient is making progress. O2 requirements are decreasing and he is symptomatically better. D-dimer and C-reactive protein have both decreased. He did get Actemra yesterday at 800 mg and will get 300 mg today. Even with good appetite and regular diet his albumin has dropped to 2.8. Blood sugars right now are his biggest problems and I have aggressively increase his insulin. Lantus 12 units twice daily with Humalog 5 units with each meal and high dose sliding scale. Hemoglobin A1c was 7.8% on admission. Echocardiogram for tomorrow for his new onset A. fib. Rate has been well controlled on metoprolol. He continues on Eliquis for stroke prevention and VTE prophylaxis. Continue to follow Covid labs daily. He is on day 3 of 3 of azithromycin and day 3 of 5 of Zithromax. He is on day 3 of remdesivir. He is on day 3 of 10 of dexamethasone or until discharge. Prognosis is guarded secondary to his multiple comorbidities but he is looking better. 11/25/2020 Patient continues to do well. He is now down to 2-3L NC. However his blood glucose is not well controlled. Will make changes to his insulin regimen. We will also resume home dose Trulicity and Glimepiride. Encourage to use IS and FV as directed. Ambulate inside his room as many times as he can. Routine AM Labs. Continue current Covid-19 treatment. PT/OT following. DVT/Stroke prophylaxis: on Eliquis. 2D echo for new onset of atrial fibrillation. Code status is full. Prognosis is good at this point. 11/26/2020 He remains relatively stable. He remains on 2-3 L NC. Blood glucose remains uncontrolled. We will go up on insulin to 15 units subQ BID and Glimepiride 2 mg po BID. Encourage to use IS and FV as directed. Ambulate inside his room as many times as he can. Routine AM Labs. Continue current Covid-19 treatment. PT/OT following. DVT/Stroke prophylaxis: on Eliquis. Code status is full. Pro gnosis remains good. 11/27/2020 He looks clinically stable and in no acute respiratory distress. He is on 3 L NC. Blood glucose has improved. We will go up on Glimepiride to 4 mg po BID. Continue to encourage to use IS and FV as directed. Ambulate inside his room as many times as he can. Routine AM Labs. Continue current Covid-19 treatment. Repeat chest x-ray this AM.PT/OT following. DVT/Stroke prophylaxis: on Eliquis. Code status is full. Prognosis remains good. 0915: Repeat chest x-ray shows worsening appearance of chest. We will initiate proning position as many times as he can. 1716: Called and updated his about his clinical progress. Advised to have all Twan's immediately family to do social media with him, lift his spirits up and encourage him to prone as many times as he can, ambulate inside his room and use his IS and FV as directed. 11/28/2020 He looks comfortable and not in acute respiratory distress. He is now on high flow due to hypoxia on l O2. Blood glucose has improved considerably. Continue to encourage to use IS and FV as directed. Ambulate inside his room as many times as he can. Routine AM Labs. Continue current Covid-19 treatment. Repeat chest x-ray this AM. PT/OT following. DVT/Stroke prophylaxis: on Eliquis. Code status is full. Prognosis is guarded at this point. Re-educated patient about proper proning. However I feel like he does not stay long enough to benefit from it. I have gone into his room yesterday 3 times caught him on his side not on his belly/stomach. Called and updated his son and about his clinical progress and discussed possible compliance issue with bedside activities and pulmonary exercise. 11/29/2020 He looks comfortable but respiratory michel he is not doing good. He remains on high flow due to considerable hypoxia. Continue to encourage to use IS and FV as directed. Ambulate inside his room as many times as he can. Routine AM Labs. Continue current Covid-19 treatment. Repeat ABG and chest x-ray this AM. PT/OT following. DVT/Stroke prophylaxis: on Eliquis. Code status is full. Prognosis is guarded at this point. May transfer him to the unit for more aggressive treatment and to closely monitor him. Updated son and about his clinical progress. 1456: D-dimer is 4.27. Chest CTA shows no PE. Patient is already on Eliquis for DVT/Stroke prophylaxis. His HR has improved after brief treatment of Dopamine gtt. 11/30/2020 He looks clinically better and in good spirits. His lungs remain worse. He is still on high flow due to considerable hypoxia. Continue to encourage to use IS and FV as directed. Ambulate inside his room as many times as he can. Routine AM Labs. Continue current Covid-19 treatment. Repeat chest x-ray in AM. PT/OT following. DVT/Stroke prophylaxis: on Eliquis. Code status is full. Prognosis is guarded at this point. Goal: Aggressive proning, use of IS/FV and ambulated inside his room as much as he can. 12/01/2020 No change in condition. His lungs remain worse. He is EZ-pap now and tolerating better. Continue to encourage to use IS and FV as directed. Ambulate inside his room as many times as he can. Routine AM Labs. Continue current Covid-19 treatment. PT/OT following. DVT/Stroke prophylaxis: on Eliquis. Code status is full. Prognosis remains guarded. Goal: Aggressive proning, use of IS/FV and ambulated inside his room as much as he can. Educated patient the importance of medical adherence to treatment. Will update son sometime today. 12/02/2020 Oxygenation is improving over the weekend. He was on high flow nasal cannula with 60 L at 85% and is now on 60%. Also he is down to 6 L bled into his CPAP with oxygen saturations in the low to mid 90s. He has completed Rocephin, azithromycin, dexamethasone, Actemra. Blood sugars are mixed controlled. This morning he was down to the 80s which is worrisome especially with stopping the dexamethasone. He had his Amaryl 4 mg twice daily restarted. Sulfonylureas have a tendency to cause hypoglycemic events. Also, blood sugars were in the 300s yesterday. He is currently on Lantus 20 units twice daily and sliding scale insulin. His mealtime insulin was stopped. Plan Continue aggressive proning and activity as tolerated. Continue incentive spirometer and Acapella. Chest x-ray as needed Continue weaning of O2 as tolerated. Stop Amaryl Start mealtime short acting insulin at 5 units with each meal in addition to sliding scale insulin. This will start tomorrow. Continue to monitor in ICU. Anticipate discharge when he is able to be on nasal cannula O2 4 L or less. 12/03/2020 Patient continues to improve. Oxygen saturations are improving and requirements are lessening. He still requires 50 L of high flow nasal cannula at 50%. Appetite is good and has completed all Covid specific treatments. Blood sugars are well controlled and we stopped Amaryl yesterday secondary to concern for hypoglycemia now being off of dexamethasone. Plan Continue with current management Continue weaning as tolerated of O2 Follow blood sugars closely Anticipate discharge when able to get down to 4 L of nasal cannula. This is likely going to be in 3 or 4 days. 12/04/2020 Fortunately Umair has been significantly improved. He is down to 2 L nasal cannula. We will qualify him for oxygen today. Also, reviewing of his anticoagulation therapy we will stop Plavix continue on low-dose aspirin and Eliquis. I will request physical therapy and Occupational Therapy today see him so we can plan discharge tomorrow. Also, blood sugars have been well controlled, but my concern is they may be too well controlled at this time. We will decrease his Lantus to 15 units twice daily, continue on the 5 units of rapid acting insulin with each meal and sliding scale. He will likely be able to go home on his typical regimen. He has been off of steroids for 2 days. Plan discharge tomorrow on oxygen. 12/05/2020 Umair continues to do very well. He has been proning and utilizing his incentive spirometer and Acapella. Plan was to qualify him for home oxygen and when it was removed it was found that his saturations remained in the 90s and quite stable. He is therefore not discharged on any oxygen but was instructed to continue to utilize his CPAP at night. Both physical and occupational therapy saw him and cleared him home for discharge with no future services. Report with plan for discharge provided to patient's primary care provider, Dr. Waters, who requested the patient stop glipizide and start short acting insulin at discharge. Patient was instructed to check his blood sugars 3 times a day with meals and he should bring this with to all medical appointments. He will be discharged on 5 mg twice daily Eliquis due to his atrial flutter and elevated D-dimer. He will also be discharged on 5 units Humalog 3 times daily with meals. Prescription also sent for zinc and vitamin D supplementation. He was instructed to discontinue his glipizide, Plavix, and metoprolol. Instructed to follow-up with his primary care provider within 7 to 10 days of discharge, sooner if needed. Instructed to continue to utilize incentive spirometer and Acapella for the next 7 to 10 days. He is discharged home today. Per Dr. Skinner, attending hospitalist we will order a 48 hour Holter monitor at discharge due to tachycardia with ambulation. - Patient Instructions Diet: Diabetic Diet Activity: As Tolerated Driving: Do Not Drive (today ) Showering/Bathing: May Shower Notify Provider of: Fever, Increased Pain, Nausea and/or Vomiting Other/Special Instructions: Folllow-up with primary care provider within 7-10 days of discharge, sooner if needed. Resume home medications as directed. We discontinued your glipizide and started you on insulin with meals per Dr. Juan warren's recommendation. Follow instructions on this. Take your blood sugars three times a day at meals. Record this on your phone as we discussed and bring this with to all medical appointments. Continue to utilize your incentive spirometer (clear/blue device you inhale thorugh) and your acapella (green tube you blow through) for 1-2 more weeks or until symptoms resolve. Should symptoms return or worsen contact your primary care provider or return to the Emergency Department. - Discharge Plan *PRESCRIPTION DRUG MONITORING PROGRAM REVIEWED*: No *COPY OF PRESCRIPTION DRUG MONITORING REPORT IN PATIENT NIRANJAN: No Prescriptions/Med Rec: Apixaban [Eliquis] 5 mg PO BID #40 tablet Insulin Lispro [HumaLOG] 5 unit SQ TIDAC #100 ml Cholecalciferol (Vitamin D3) [Vitamin D3] 5,000 unit PO DAILY #20 cap Zinc Sulfate [Zincate] 220 mg PO DAILY #20 cap Home Medications: Home Meds Aspirin [Children's Aspirin] 81 mg PO DAILY 03/27/16 [History] Dulaglutide [Trulicity] 1.5 mg SQ WEEKLY 03/27/16 [History] Losartan [Cozaar] 25 mg PO DAILY 03/27/16 [History] Rosuvastatin Calcium [Crestor] 10 mg PO DAILY 03/27/16 [History] Sertraline [Zoloft] 50 mg PO DAILY 03/27/16 [History] Empagliflozin/Metformin HCl [Synjardy Xr 25-1,000 mg Tablet] 1 each PO DAILY 09/09/18 [History] Topiramate 50 mg PO BID 11/23/20 [History] Apixaban [Eliquis] 5 mg PO BID #40 tablet 12/05/20 [Rx] Cholecalciferol (Vitamin D3) [Vitamin D3] 5,000 unit PO DAILY #20 cap 12/05/20 [Rx] Insulin Lispro [HumaLOG] 5 unit SQ TIDAC #100 ml 12/05/20 [Rx] Zinc Sulfate [Zincate] 220 mg PO DAILY #20 cap 12/05/20 [Rx] Oxygen Therapy Mode: Room Air Patient Handouts: COVID-19 Frequently Asked Questions, Prone Position Therapy, What You Should Know About COVID-19 to Protect Yourself and Others - CDC, Atrial Flutter, 10 Things You Can Do to Manage Your COVID-19 Symptoms at Home - CDC, Apixaban oral tablets, Preventing Atrial Fibrillation-Related Stroke, Sepsis, Self Care, Adult Forms: ED Department Discharge Referrals: Eliu Morgan MD [Primary Care Provider] - 12/13/20 9:30 am (Please come at least 15 minutes prior to the appointment to register & check in.) - Discharge Summary/Plan Comment DC Time >30 min.: Yes (45 mins ) - General Info Date of Service: 12/05/20 Admission Dx/Problem (Free Text: Admission Diagnosis/Problem Admission Diagnosis/Problem Hypoxia Functional Status: Reports: Pain Controlled, Tolerating Diet, Ambulating, Urinating, Incentive Spirometry, Other (Acapella ). Denies: New Symptoms - Review of Systems General: Reports: Weakness (improved ). Denies: Fever, Fatigue, Malaise, Chills HEENT: Reports: No Symptoms. Denies: Headaches, Sore Throat Pulmonary: Reports: No Symptoms. Denies: Shortness of Breath, Cough, Sputum, Wheezing Cardiovascular: Reports: No Symptoms. Denies: Chest Pain, Palpitations, Dyspnea on Exertion Gastrointestinal: Reports: No Symptoms. Denies: Abdominal Pain, Constipation, Diarrhea, Nausea, Vomiting Genitourinary: Reports: No Symptoms. Denies: Pain Musculoskeletal: Reports: No Symptoms Skin: Reports: No Symptoms. Denies: Cyanosis Neurological: Reports: No Symptoms. Denies: Confusion, Pre-Existing Deficit, Difficulty Walking, Gait Disturbance Psychiatric: Reports: No Symptoms - Patient Data Vitals - Most Recent: Last Vital Signs Temp 97.1 F 12/05/20 08:00 Pulse 82 12/05/20 08:00 Resp 20 12/05/20 08:00 BP 146/99 H 12/05/20 08:32 Pulse Ox 93 L 12/05/20 08:00 Weight - Most Recent: 130.272 kg I&O - Last 24 hours: Intake & Output 12/04/20 12/05/20 12/05/20 22:59 06:59 14:59 Intake Total 1240 200 640 Output Total 600 500 Balance 640 200 140 Lab Results - Last 24 hrs: Laboratory Results - last 24 hr 12/05/20 12/05/20 12/05/20 Range/Units 06:20 06:20 06:20 WBC 3.76 L (4.23-9.07) K/mm3 RBC 4.62 L (4.63-6.08) M/mm3 Hgb 13.8 (13.7-17.5) gm/dl Hct 41.5 (40.1-51.0) % MCV 89.8 (79.0-92.2) fl MCH 29.9 (25.7-32.2) pg MCHC 33.3 (32.2-35.5) g/dl RDW Std Deviation 45.5 H (35.1-43.9) fL Plt Count 177 (163-337) K/mm3 MPV 9.4 (9.4-12.3) fl Neut % (Auto) 60.3 (34.0-67.9) % Lymph % (Auto) 28.5 (21.8-53.1) % Becker % (Auto) 7.2 (5.3-12.2) % Eos % (Auto) 3.2 (0.8-7.0) Baso % (Auto) 0.3 (0.1-1.2) % Neut # (Auto) 2.27 (1.78-5.38) K/mm3 Lymph # (Auto) 1.07 L (1.32-3.57) K/mm3 Becker # (Auto) 0.27 L (0.30-0.82) K/mm3 Eos # (Auto) 0.12 (0.04-0.54) K/mm3 Baso # (Auto) 0.01 (0.01-0.08) K/mm3 D-Dimer, Quantitative 4.31 H (0.19-0.50) mg/L Sodium 142 (136-145) mEq/L Potassium 4.2 (3.5-5.1) mEq/L Chloride 108 H (98-107) mEq/L Carbon Dioxide 26 (21-32) mEq/L Anion Gap 12.2 (5-15) BUN 23 H (7-18) mg/dL Creatinine 0.9 (0.7-1.3) mg/dL Est Cr Clr Drug Dosing 96.41 mL/min Estimated GFR (MDRD) > 60 (>60) mL/min BUN/Creatinine Ratio 25.6 H (14-18) Glucose 125 H (80-115) mg/dL Calcium 8.3 L (8.5-10.1) mg/dL Phosphorus 4.0 (2.6-4.7) mg/dL Magnesium 1.9 (1.8-2.4) mg/dl Total Bilirubin 0.5 (0.2-1.0) mg/dL AST 29 (15-37) U/L ALT 46 (16-63) U/L Alkaline Phosphatase 43 L (46-116) U/L C-Reactive Protein < 0.2 (<1.0) mg/dL Total Protein 5.6 L (6.4-8.2) g/dl Albumin 2.8 L (3.4-5.0) g/dl Globulin 2.8 gm/dL Albumin/Globulin Ratio 1.0 (1-2) Med Orders - Current: Current Medications Acetaminophen (Tylenol) 650 mg PO Q4H PRN PRN Reason: Pain (Mild 1-3)/fever Last Admin: 12/02/20 22:05 Dose: 650 mg Documented by: Albuterol/Ipratropium (Duoneb 3.0-0.5 Mg/3 Ml) 3 ml NEB Q4H PRN PRN Reason: Shortness Of Breath/wheezing Last Admin: 11/28/20 09:41 Dose: 3 ml Documented by: Apixaban (Apixaban 5 Mg Tab) 5 mg PO BID [facility] Last Admin: 12/05/20 08:20 Dose: 5 mg Documented by: Aspirin (Aspirin 81 Mg Tab.Ec) 81 mg PO DAILY [facility] Last Admin: 12/05/20 08:19 Dose: 81 mg Documented by: Cholecalciferol (Cholecalciferol (Vitamin D3) 5,000 Unit Cap) 5,000 unit PO DAILY [facility] Last Admin: 12/05/20 08:19 Dose: 5,000 unit Documented by: Clopidogrel Bisulfate (Clopidogrel 75 Mg Tab) 75 mg PO DAILY [facility] Last Admin: 12/04/20 08:54 Dose: 75 mg Documented by: Famotidine (Famotidine 20 Mg Tab) 20 mg PO BID [facility] Last Admin: 12/05/20 08:18 Dose: 20 mg Documented by: Hydralazine HCl (Apresoline) 10 mg IVPUSH Q4H PRN PRN Reason: Hypertension Last Admin: 11/29/20 22:07 Dose: 10 mg Documented by: Insulin Glargine (Lantus) 20 unit SUBCUT BID@0700,1700 [facility] Last Admin: 12/04/20 09:36 Dose: Not Given Documented by: Insulin Human Lispro (Humalog) 0 unit SUBCUT TIDAC [facility]; Protocol Last Admin: 12/05/20 06:38 Dose: Not Given Documented by: Insulin Human Lispro (Humalog) 5 unit SUBCUT TIDAC [facility] Last Admin: 12/05/20 09:11 Dose: 5 units Documented by: Losartan Potassium (Losartan 25 Mg Tab) 25 mg PO DAILY [facility] Last Admin: 12/05/20 08:32 Dose: 25 mg Documented by: Melatonin (Melatonin) 9 mg PO BEDTIME [facility] Last Admin: 12/04/20 21:06 Dose: 9 mg Documented by: Metoprolol Tartrate (Lopressor) 5 mg IVPUSH Q4H PRN PRN Reason: Tachycardia Dulaglutide [ Trulicity] 1.5 Mg Ptom 0 mg SQ Fr [facility] Last Admin: 11/29/20 12:44 Dose: Not Given Documented by: Rosuvastatin Calcium (Rosuvastatin 10 Mg Tab) 10 mg PO DAILY [facility] Last Admin: 12/05/20 08:19 Dose: 10 mg Documented by: Sertraline HCl (Sertraline 50 Mg Tab) 50 mg PO DAILY [facility] Last Admin: 12/05/20 08:19 Dose: 50 mg Documented by: Topiramate (Topiramate 25 Mg Tab) 50 mg PO BID [facility] Last Admin: 12/05/20 08:20 Dose: 50 mg Documented by: Zinc Sulfate (Zinc Sulfate 220 Mg Cap) 220 mg PO DAILY [facility] Last Admin: 12/05/20 08:20 Dose: 220 mg Documented by: Discontinued Medications Dexamethasone (Dexamethasone) 6 mg PO DAILY [facility] Stop: 12/01/20 09:01 Last Admin: 12/01/20 09:16 Dose: 6 mg Documented by: Furosemide (Lasix) 5 mg IVPUSH NOW ONE Stop: 11/30/20 14:01 Last Admin: 11/30/20 14:12 Dose: 5 mg Documented by: Furosemide (Lasix) 5 mg IVPUSH DAILY [facility] Stop: 12/04/20 09:01 Last Admin: 12/02/20 08:00 Dose: 5 mg Documented by: Furosemide (Lasix) 10 mg IVPUSH ONETIME ONE Stop: 11/30/20 20:01 Last Admin: 11/30/20 21:00 Dose: 10 mg Documented by: Glimepiride (Amaryl) 2 mg PO DAILY [facility] Last Admin: 11/25/20 09:04 Dose: 2 mg Documented by: Glimepiride (Amaryl) 2 mg PO BID [facility] Last Admin: 11/26/20 20:20 Dose: 2 mg Documented by: Glimepiride (Amaryl) 4 mg PO BID [facility] Last Admin: 12/02/20 07:59 Dose: 4 mg Documented by: Hydralazine HCl (Apresoline) Confirm Administered Dose 20 mg .ROUTE .STK-MED ONE Stop: 11/29/20 13:20 Last Admin: 11/29/20 13:34 Dose: Not Given Documented by: Remdesivir 200 mg/ Sodium (Chloride) 250 mls @ 250 mls/hr IV ONETIME ONE Stop: 11/22/20 21:09 Last Admin: 11/22/20 23:46 Dose: 250 mls/hr Documented by: Remdesivir 100 mg/ Sodium (Chloride) 100 mls @ 100 mls/hr IV Q24H [facility] Stop: 11/26/20 21:59 Last Admin: 11/26/20 20:23 Dose: 100 mls/hr Documented by: Ceftriaxone Sodium 2 gm/ (Sodium Chloride) 100 mls @ 200 mls/hr IV Q24H [facility] Stop: 11/26/20 21:59 Last Admin: 11/26/20 21:33 Dose: 200 mls/hr Documented by: Azithromycin 500 mg/ Sodium (Chloride) 250 mls @ 250 mls/hr IV Q24H [facility] Stop: 11/24/20 21:59 Last Admin: 11/24/20 21:25 Dose: 250 mls/hr Documented by: Tocilizumab 800 mg/ Sodium (Chloride) 100 mls @ 100 mls/hr IV ONETIME ONE Stop: 11/23/20 12:59 Last Admin: 11/23/20 14:04 Dose: Not Given Documented by: Tocilizumab 800 mg/ Sodium (Chloride) 100 mls @ 100 mls/hr IV ONETIME ONE Stop: 11/23/20 14:29 Last Admin: 11/23/20 13:33 Dose: 100 mls/hr Documented by: Tocilizumab 300 mg/ Sodium (Chloride) 100 mls @ 100 mls/hr IV ONETIME ONE Stop: 11/24/20 14:29 Last Admin: 11/24/20 12:45 Dose: 100 mls/hr Documented by: Dopamine HCl/Dextrose (Dopamine In D5w 400 Mg/250 Ml) 400 mg in 250 mls @ 9.679 mls/hr IV TITRATE [facility]; Protocol Last Titration: 11/30/20 13:15 Dose: 0 mcg/kg/min, 0 mls/hr Documented by: Sodium Chloride (Normal Saline) 500 mls @ 50 mls/hr IV .BOLUS ONE Stop: 11/29/20 22:25 Last Admin: 11/29/20 12:53 Dose: 50 mls/hr Documented by: Sodium Chloride (Normal Saline) 100 mls @ 75 mls/hr IV ASDIRECTED [facility] Stop: 11/29/20 18:00 Last Admin: 11/29/20 14:09 Dose: 75 mls/hr Documented by: Sodium Chloride (Normal Saline) 500 mls @ 999 mls/hr IV .BOLUS ONE Stop: 11/30/20 12:28 Last Admin: 11/30/20 12:02 Dose: 999 mls/hr Documented by: Sodium Chloride (Normal Saline) Confirm Administered Dose 1,000 mls @ as directed .ROUTE .STK-MED ONE Stop: 11/30/20 12:00 Last Admin: 11/30/20 13:13 Dose: Not Given Documented by: Influenza Virus Vaccine (Fluzone Quad Syringe) 60 mcg IM .ONCE ONE Stop: 11/23/20 09:01 Last Admin: 11/29/20 13:23 Dose: Not Given Documented by: Insulin Glargine (Lantus) 7 unit SUBCUT BIDAC [facility] Last Admin: 11/23/20 17:46 Dose: 7 unit Documented by: Insulin Glargine (Lantus) 12 unit SUBCUT BIDAC [facility] Last Admin: 11/25/20 06:58 Dose: 12 units Documented by: Insulin Glargine (Lantus) 15 unit SUBCUT BIDAC [facility] Insulin Glargine (Lantus) 17 unit SUBCUT BIDAC [facility] Insulin Glargine (Lantus) 15 unit SUBCUT BIDAC [facility] Last Admin: 11/26/20 06:50 Dose: 15 units Documented by: Insulin Glargine (Lantus) 20 unit SUBCUT BIDAC [facility] Last Admin: 11/26/20 18:40 Dose: 20 units Documented by: Insulin Human Lispro (Humalog) 0 unit SUBCUT QIDACANDBED [facility]; Protocol Last Admin: 11/23/20 17:47 Dose: 8 unit Documented by: Insulin Human Lispro (Humalog) 0 unit SUBCUT QIDACANDBED [facility]; Protocol Last Admin: 11/25/20 08:12 Dose: Not Given Documented by: Insulin Human Lispro (Humalog) 5 unit SUBCUT TIDAC [facility] Last Admin: 11/24/20 17:17 Dose: 5 units Documented by: Insulin Human Lispro (Humalog) 7 unit SUBCUT TIDAC [facility] Last Admin: 11/25/20 08:12 Dose: Not Given Documented by: Insulin Human Lispro (Humalog) 15 unit SUBCUT ONETIME ONE Stop: 12/01/20 21:05 Last Admin: 12/01/20 22:57 Dose: 15 units Documented by: Iopamidol (Isovue-370 (76%)) 100 ml IVPUSH ONETIME ONE Stop: 11/29/20 13:15 Last Admin: 11/29/20 14:09 Dose: 100 ml Documented by: Metoprolol Tartrate (Lopressor) 75 mg PO ONETIME ONE Stop: 11/22/20 21:09 Last Admin: 11/22/20 23:47 Dose: 75 mg Documented by: Metoprolol Tartrate (Lopressor) 75 mg PO BID [facility] Last Admin: 11/29/20 20:24 Dose: 75 mg Documented by: Metoprolol Tartrate (Lopressor) 5 mg IVPUSH ONETIME ONE Stop: 11/29/20 20:54 Last Admin: 11/30/20 03:52 Dose: Not Given Documented by: Metoprolol Tartrate (Lopressor) 25 mg PO BID [facility] Last Admin: 11/30/20 08:44 Dose: 25 mg Documented by: Sodium Chloride (Saline Flush) 10 ml FLUSH ONETIME PRN PRN Reason: IV FLUSH Stop: 11/29/20 18:00 Last Admin: 11/29/20 14:09 Dose: 10 ml Documented by: - Exam Quality Assessment: Reports: DVT Prophylaxis. Denies: Supplemental Oxygen, Urine Catheter General: Reports: Alert, Oriented, Cooperative, No Acute Distress HEENT: Reports: Pupils Equal, Pupils Reactive, Mucous Membr. Moist/[place] Neck: Reports: Supple, Trachea Midline Lungs: Reports: Clear to Auscultation, Normal Respiratory Effort Cardiovascular: Reports: Regular Rate, Irregular Rhythm (A-flutter, rate controlled ) GI/Abdominal Exam: Normal Bowel Sounds, Soft, Non-Tender, No Distention (Male) Exam: Deferred Rectal (Males) Exam: Deferred Back Exam: Reports: Normal Inspection, Full Range of Motion Extremities: Normal Inspection, Normal Range of Motion, Non-Tender, No Pedal Edema, Normal Capillary Refill Skin: Reports: Warm, Dry, Intact Neurological: Reports: No New Focal Deficit Psy/Mental Status: Reports: Alert, Normal Affect, Normal Mood <Roberta Skinner - Last Filed: 12/05/20 14:34> Discharge Summary - Hospital Course Free Text/Narrative:: Patient will need close follow up; will need rate controlling medication addressed. Suggest early follow up with Cardiology. - Referral to Home Health Primary Care Physician: Eliu Morgan MD - Patient Summary/Data Consults: Consultations 12/04/20 11:27 OT Evaluation and Treatment [CONS] Routine PT Evaluation and Treatment [CONS] Routine - Patient Data Vitals - Most Recent: Last Vital Signs Temp 36.2 C 12/05/20 08:00 Pulse 82 12/05/20 08:00 Resp 20 12/05/20 08:00 BP 146/99 H 12/05/20 08:32 Pulse Ox 93 L 12/05/20 08:00 I&O - Last 24 hours: Intake & Output 12/04/20 12/05/20 12/05/20 22:59 06:59 14:59 Intake Total 1439 061 1194 Output Total 600 500 Balance 640 200 940 Lab Results - Last 24 hrs: Laboratory Results - last 24 hr 12/05/20 12/05/20 12/05/20 Range/Units 06:20 06:20 06:20 WBC 3.76 L (4.23-9.07) K/mm3 RBC 4.62 L (4.63-6.08) M/mm3 Hgb 13.8 (13.7-17.5) gm/dl Hct 41.5 (40.1-51.0) % MCV 89.8 (79.0-92.2) fl MCH 29.9 (25.7-32.2) pg MCHC 33.3 (32.2-35.5) g/dl RDW Std Deviation 45.5 H (35.1-43.9) fL Plt Count 177 (163-337) K/mm3 MPV 9.4 (9.4-12.3) fl Neut % (Auto) 60.3 (34.0-67.9) % Lymph % (Auto) 28.5 (21.8-53.1) % Becker % (Auto) 7.2 (5.3-12.2) % Eos % (Auto) 3.2 (0.8-7.0) Baso % (Auto) 0.3 (0.1-1.2) % Neut # (Auto) 2.27 (1.78-5.38) K/mm3 Lymph # (Auto) 1.07 L (1.32-3.57) K/mm3 Becker # (Auto) 0.27 L (0.30-0.82) K/mm3 Eos # (Auto) 0.12 (0.04-0.54) K/mm3 Baso # (Auto) 0.01 (0.01-0.08) K/mm3 D-Dimer, Quantitative 4.31 H (0.19-0.50) mg/L Sodium 142 (136-145) mEq/L Potassium 4.2 (3.5-5.1) mEq/L Chloride 108 H (98-107) mEq/L Carbon Dioxide 26 (21-32) mEq/L Anion Gap 12.2 (5-15) BUN 23 H (7-18) mg/dL Creatinine 0.9 (0.7-1.3) mg/dL Est Cr Clr Drug Dosing 96.41 mL/min Estimated GFR (MDRD) > 60 (>60) mL/min BUN/Creatinine Ratio 25.6 H (14-18) Glucose 125 H (80-115) mg/dL Calcium 8.3 L (8.5-10.1) mg/dL Phosphorus 4.0 (2.6-4.7) mg/dL Magnesium 1.9 (1.8-2.4) mg/dl Total Bilirubin 0.5 (0.2-1.0) mg/dL AST 29 (15-37) U/L ALT 46 (16-63) U/L Alkaline Phosphatase 43 L (46-116) U/L C-Reactive Protein < 0.2 (<1.0) mg/dL Total Protein 5.6 L (6.4-8.2) g/dl Albumin 2.8 L (3.4-5.0) g/dl Globulin 2.8 gm/dL Albumin/Globulin Ratio 1.0 (1-2) Med Orders - Current: Current Medications Acetaminophen (Tylenol) 650 mg PO Q4H PRN PRN Reason: Pain (Mild 1-3)/fever Last Admin: 12/02/20 22:05 Dose: 650 mg Documented by: Albuterol/Ipratropium (Duoneb 3.0-0.5 Mg/3 Ml) 3 ml NEB Q4H PRN PRN Reason: Shortness Of Breath/wheezing Last Admin: 11/28/20 09:41 Dose: 3 ml Documented by: Apixaban (Apixaban 5 Mg Tab) 5 mg PO BID [facility] Last Admin: 12/05/20 08:20 Dose: 5 mg Documented by: Aspirin (Aspirin 81 Mg Tab.Ec) 81 mg PO DAILY [facility] Last Admin: 12/05/20 08:19 Dose: 81 mg Documented by: Cholecalciferol (Cholecalciferol (Vitamin D3) 5,000 Unit Cap) 5,000 unit PO DAILY [facility] Last Admin: 12/05/20 08:19 Dose: 5,000 unit Documented by: Clopidogrel Bisulfate (Clopidogrel 75 Mg Tab) 75 mg PO DAILY [facility] Last Admin: 12/04/20 08:54 Dose: 75 mg Documented by: Famotidine (Famotidine 20 Mg Tab) 20 mg PO BID [facility] Last Admin: 12/05/20 08:18 Dose: 20 mg Documented by: Hydralazine HCl (Apresoline) 10 mg IVPUSH Q4H PRN PRN Reason: Hypertension Last Admin: 11/29/20 22:07 Dose: 10 mg Documented by: Insulin Glargine (Lantus) 20 unit SUBCUT BID@0700,1700 [facility] Last Admin: 12/04/20 09:36 Dose: Not Given Documented by: Insulin Human Lispro (Humalog) 0 unit SUBCUT TIDAC [facility]; Protocol Last Admin: 12/05/20 12:33 Dose: Not Given Documented by: Insulin Human Lispro (Humalog) 5 unit SUBCUT TIDAC [facility] Last Admin: 12/05/20 11:50 Dose: 5 units Documented by: Losartan Potassium (Losartan 25 Mg Tab) 25 mg PO DAILY [facility] Last Admin: 12/05/20 08:32 Dose: 25 mg Documented by: Melatonin (Melatonin) 9 mg PO BEDTIME [facility] Last Admin: 12/04/20 21:06 Dose: 9 mg Documented by: Metoprolol Tartrate (Lopressor) 5 mg IVPUSH Q4H PRN PRN Reason: Tachycardia Dulaglutide [ Trulicity] 1.5 Mg Ptom 0 mg SQ Fr [facility] Last Admin: 11/29/20 12:44 Dose: Not Given Documented by: Rosuvastatin Calcium (Rosuvastatin 10 Mg Tab) 10 mg PO DAILY [facility] Last Admin: 12/05/20 08:19 Dose: 10 mg Documented by: Sertraline HCl (Sertraline 50 Mg Tab) 50 mg PO DAILY [facility] Last Admin: 12/05/20 08:19 Dose: 50 mg Documented by: Topiramate (Topiramate 25 Mg Tab) 50 mg PO BID [facility] Last Admin: 12/05/20 08:20 Dose: 50 mg Documented by: Zinc Sulfate (Zinc Sulfate 220 Mg Cap) 220 mg PO DAILY [facility] Last Admin: 12/05/20 08:20 Dose: 220 mg Documented by: Discontinued Medications Dexamethasone (Dexamethasone) 6 mg PO DAILY [facility] Stop: 12/01/20 09:01 Last Admin: 12/01/20 09:16 Dose: 6 mg Documented by: Furosemide (Lasix) 5 mg IVPUSH NOW ONE Stop: 11/30/20 14:01 Last Admin: 11/30/20 14:12 Dose: 5 mg Documented by: Furosemide (Lasix) 5 mg IVPUSH DAILY [facility] Stop: 12/04/20 09:01 Last Admin: 12/02/20 08:00 Dose: 5 mg Documented by: Furosemide (Lasix) 10 mg IVPUSH ONETIME ONE Stop: 11/30/20 20:01 Last Admin: 11/30/20 21:00 Dose: 10 mg Documented by: Glimepiride (Amaryl) 2 mg PO DAILY [facility] Last Admin: 11/25/20 09:04 Dose: 2 mg Documented by: Glimepiride (Amaryl) 2 mg PO BID [facility] Last Admin: 11/26/20 20:20 Dose: 2 mg Documented by: Glimepiride (Amaryl) 4 mg PO BID [facility] Last Admin: 12/02/20 07:59 Dose: 4 mg Documented by: Hydralazine HCl (Apresoline) Confirm Administered Dose 20 mg .ROUTE .STK-MED ONE Stop: 11/29/20 13:20 Last Admin: 11/29/20 13:34 Dose: Not Given Documented by: Remdesivir 200 mg/ Sodium (Chloride) 250 mls @ 250 mls/hr IV ONETIME ONE Stop: 11/22/20 21:09 Last Admin: 11/22/20 23:46 Dose: 250 mls/hr Documented by: Remdesivir 100 mg/ Sodium (Chloride) 100 mls @ 100 mls/hr IV Q24H [facility] Stop: 11/26/20 21:59 Last Admin: 11/26/20 20:23 Dose: 100 mls/hr Documented by: Ceftriaxone Sodium 2 gm/ (Sodium Chloride) 100 mls @ 200 mls/hr IV Q24H [facility] Stop: 11/26/20 21:59 Last Admin: 11/26/20 21:33 Dose: 200 mls/hr Documented by: Azithromycin 500 mg/ Sodium (Chloride) 250 mls @ 250 mls/hr IV Q24H [facility] Stop: 11/24/20 21:59 Last Admin: 11/24/20 21:25 Dose: 250 mls/hr Documented by: Tocilizumab 800 mg/ Sodium (Chloride) 100 mls @ 100 mls/hr IV ONETIME ONE Stop: 11/23/20 12:59 Last Admin: 11/23/20 14:04 Dose: Not Given Documented by: Tocilizumab 800 mg/ Sodium (Chloride) 100 mls @ 100 mls/hr IV ONETIME ONE Stop: 11/23/20 14:29 Last Admin: 11/23/20 13:33 Dose: 100 mls/hr Documented by: Tocilizumab 300 mg/ Sodium (Chloride) 100 mls @ 100 mls/hr IV ONETIME ONE Stop: 11/24/20 14:29 Last Admin: 11/24/20 12:45 Dose: 100 mls/hr Documented by: Dopamine HCl/Dextrose (Dopamine In D5w 400 Mg/250 Ml) 400 mg in 250 mls @ 9.679 mls/hr IV TITRATE [facility]; Protocol Last Titration: 11/30/20 13:15 Dose: 0 mcg/kg/min, 0 mls/hr Documented by: Sodium Chloride (Normal Saline) 500 mls @ 50 mls/hr IV .BOLUS ONE Stop: 11/29/20 22:25 Last Admin: 11/29/20 12:53 Dose: 50 mls/hr Documented by: Sodium Chloride (Normal Saline) 100 mls @ 75 mls/hr IV ASDIRECTED [facility] Stop: 11/29/20 18:00 Last Admin: 11/29/20 14:09 Dose: 75 mls/hr Documented by: Sodium Chloride (Normal Saline) 500 mls @ 999 mls/hr IV .BOLUS ONE Stop: 11/30/20 12:28 Last Admin: 11/30/20 12:02 Dose: 999 mls/hr Documented by: Sodium Chloride (Normal Saline) Confirm Administered Dose 1,000 mls @ as directed .ROUTE .STK-MED ONE Stop: 11/30/20 12:00 Last Admin: 11/30/20 13:13 Dose: Not Given Documented by: Influenza Virus Vaccine (Fluzone Quad Syringe) 60 mcg IM .ONCE ONE Stop: 11/23/20 09:01 Last Admin: 11/29/20 13:23 Dose: Not Given Documented by: Insulin Glargine (Lantus) 7 unit SUBCUT BIDAC [facility] Last Admin: 11/23/20 17:46 Dose: 7 unit Documented by: Insulin Glargine (Lantus) 12 unit SUBCUT BIDAC [facility] Last Admin: 11/25/20 06:58 Dose: 12 units Documented by: Insulin Glargine (Lantus) 15 unit SUBCUT BIDAC [facility] Insulin Glargine (Lantus) 17 unit SUBCUT BIDAC [facility] Insulin Glargine (Lantus) 15 unit SUBCUT BIDAC [facility] Last Admin: 11/26/20 06:50 Dose: 15 units Documented by: Insulin Glargine (Lantus) 20 unit SUBCUT BIDAC [facility] Last Admin: 11/26/20 18:40 Dose: 20 units Documented by: Insulin Human Lispro (Humalog) 0 unit SUBCUT QIDACANDBED [facility]; Protocol Last Admin: 11/23/20 17:47 Dose: 8 unit Documented by: Insulin Human Lispro (Humalog) 0 unit SUBCUT QIDACANDBED [facility]; Protocol Last Admin: 11/25/20 08:12 Dose: Not Given Documented by: Insulin Human Lispro (Humalog) 5 unit SUBCUT TIDAC [facility] Last Admin: 11/24/20 17:17 Dose: 5 units Documented by: Insulin Human Lispro (Humalog) 7 unit SUBCUT TIDAC [facility] Last Admin: 11/25/20 08:12 Dose: Not Given Documented by: Insulin Human Lispro (Humalog) 15 unit SUBCUT ONETIME ONE Stop: 12/01/20 21:05 Last Admin: 12/01/20 22:57 Dose: 15 units Documented by: Iopamidol (Isovue-370 (76%)) 100 ml IVPUSH ONETIME ONE Stop: 11/29/20 13:15 Last Admin: 11/29/20 14:09 Dose: 100 ml Documented by: Metoprolol Tartrate (Lopressor) 75 mg PO ONETIME ONE Stop: 11/22/20 21:09 Last Admin: 11/22/20 23:47 Dose: 75 mg Documented by: Metoprolol Tartrate (Lopressor) 75 mg PO BID [facility] Last Admin: 11/29/20 20:24 Dose: 75 mg Documented by: Metoprolol Tartrate (Lopressor) 5 mg IVPUSH ONETIME ONE Stop: 11/29/20 20:54 Last Admin: 11/30/20 03:52 Dose: Not Given Documented by: Metoprolol Tartrate (Lopressor) 25 mg PO BID [facility] Last Admin: 11/30/20 08:44 Dose: 25 mg Documented by: Sodium Chloride (Saline Flush) 10 ml FLUSH ONETIME PRN PRN Reason: IV FLUSH Stop: 11/29/20 18:00 Last Admin: 11/29/20 14:09 Dose: 10 ml Documented by:
[2020-12-05] MEDS ORDERED: FLU Vacc QV2020-21(65YR UP)/PF 240 MCG/0.7 ML Syringe IM ONE (11:00)
== END 2020-12-05 12:15 | disposition home or self-care (01) | DRG 137 ==
LOC: JD.ED 17:09 → JD.MS 20:09 → JD.ICU 11-29 12:03
PROVIDERS: ADMIT Family Medicine; ATTEND Family Medicine
PROC: 8E0ZXY6 Isolation (ICD-10-PCS; 2020-11-22)
PROC: XW033E5 Introduction of Remdesivir Anti-infective into Peripheral Vein, Percutaneous Approach, New Technology Group 5 (ICD-10-PCS; 2020-11-22)
PROC: 5A0955A Assistance with Respiratory Ventilation, Greater than 96 Consecutive Hours, High Flow/Velocity Cannula (ICD-10-PCS; principal; 2020-11-28)
PROC: 3E02340 Introduction of Influenza Vaccine into Muscle, Percutaneous Approach (ICD-10-PCS; 2020-12-05)
DX: U07.1 COVID-19 (principal); J96.01 Acute respiratory failure with hypoxia; J12.82 Pneumonia due to coronavirus disease 2019; I25.10 Atherosclerotic heart disease of native coronary artery without angina pectoris; E66.9 Obesity, unspecified; G47.30 Sleep apnea, unspecified; I48.92 Unspecified atrial flutter; E88.09 Other disorders of plasma-protein metabolism, not elsewhere classified; E78.00 Pure hypercholesterolemia, unspecified; I10 Essential (primary) hypertension; E11.65 Type 2 diabetes mellitus with hyperglycemia; N40.0 Benign prostatic hyperplasia without lower urinary tract symptoms; Z23 Encounter for immunization; Z68.36 Body mass index [BMI] 36.0-36.9, adult; Z79.82 Long term (current) use of aspirin; Z79.899 Other long term (current) drug therapy; Z87.442 Personal history of urinary calculi
CPT/HCPCS: 0240U; 36415; 36600; 71045; 71045-26; 71275; 71275-26; 80053; 82728; 82803; 82947; 82962; 83036; 83605; 83615; 83735; 83880; 84100; 84145; 84484; 85007; 85025; 85027; 85379; 85610; 86140; 87040; 90662; 93005; 93010; 93306; 94640; 94667; 94668; 94761; 94762; 97161-GP; 97165-GO; 99223; 99232; 99233; 99239; 99284; 99285-25; A9270-GY; G0008; J0360; J0456; J0696; J1265; J1815-GY; J1940; J3262; J7030; J7040; J7050; J7620-GY; J8540; Q9967

== ENCOUNTER 2024-01-11 17:07 | Emergency (ER) | payer MEDICARE, OTHER ==
[2024-01-11 17:25] VITALS: PULSE 87
[2024-01-11] MEDS: Sodium Chloride 0.9% 10 ML Syringe FLUSH PRN (18:01)
[2024-01-11 18:32] LABS: BASOPHILS PERCENT AUTO 0.4 % (0.0-1.0); EOSINOPHILS ABSOLUTE AUTO 0.2 K/mm3 (0.0-0.4); EOSINOPHILS PERCENT AUTO 1.8 % (0.0-6.0); HEMATOCRIT 37.8 % (42.0-52.0); HEMOGLOBIN 12.6 gm/dl (14.0-18.0); IMMATURE GRAN ABSOLUTE AUTO 0.03 K/mm3 (0.00-0.05); IMMATURE GRAN PERCENT AUTO 0.4 % (0.0-0.4); LYMPHOCYTES ABSOLUTE AUTO 1.1 K/mm3 (1.0-4.8); LYMPHOCYTES PERCENT AUTO 13.8 % (24.0-44.0); MEAN CORPUSCULAR HEMOGLOBIN 29.7 pg (28.0-32.0); MEAN CORPUSCULAR HGB CONC 33.3 g/dl (32.0-36.0); MEAN CORPUSCULAR VOLUME 89.2 fl (83.0-99.0); MEAN PLATELET VOLUME 8.9 fl (9.4-12.4); MONOCYTES ABSOLUTE AUTO 0.6 K/mm3 (0.0-0.8); MONOCYTES PERCENT AUTO 7.4 % (0.0-8.0); NEUTROPHILS ABSOLUTE AUTO 6.2 K/mm3 (1.8-7.7); NEUTROPHILS PERCENT AUTO 76.2 % (41.0-71.0); PLATELET COUNT,PLT 200 K/mm3 (150-400); RED BLOOD CELL COUNT 4.24 M/mm3 (4.52-5.90); WHITE BLOOD CELL COUNT,WBC 8.19 K/mm3 (3.9-11.3)
[2024-01-11 18:51] LABS: INR 0.98; PROTHROMBIN TIME 10.5 SECONDS (9.7-12.0)
[2024-01-11 18:52] LABS: PTT,PARTIAL THROMBOPLSTIN TIME 28.7 SECONDS (21.7-31.4)
[2024-01-11 18:53] LABS: A/G RATIO 0.8 (1-2); ALBUMIN 3.4 g/dl (3.4-5.0); ANION GAP 16.8 (5-15); BUN/CREATININE RATIO 26.4 (14-18); CALCIUM 9.4 mg/dL (8.5-10.1); CREATININE 1.1 mg/dL (0.7-1.3); EST CRCL DRUG DOSING (CG) 74.73 mL/min; MAGNESIUM 2.3 mg/dL (1.8-2.4); POTASSIUM,K 3.8 mEq/L (3.5-5.1); PROTEIN TOTAL,TP 7.6 g/dl (6.4-8.2)
[2024-01-11] MEDS: cefTRIAXone 2 GM in Sodium Chloride 0.9% 100 ML IV ONE (19:16)
[2024-01-11 19:59] VITALS: BP 151/73
== END 2024-01-11 20:00 | disposition home or self-care (01) ==
LOC: JD.ED 17:07
DX: L03.116 Cellulitis of left lower limb (principal); I10 Essential (primary) hypertension; E78.00 Pure hypercholesterolemia, unspecified; E11.9 Type 2 diabetes mellitus without complications; E66.9 Obesity, unspecified; Z86.16 Personal history of COVID-19; Z95.1 Presence of aortocoronary bypass graft; Z79.82 Long term (current) use of aspirin; Z79.899 Other long term (current) drug therapy; Z79.4 Long term (current) use of insulin; Z79.01 Long term (current) use of anticoagulants; Z79.85 Long-term (current) use of injectable non-insulin antidiabetic drugs; Z68.35 Body mass index [BMI] 35.0-35.9, adult
CPT/HCPCS: 36415; 71046; 80053; 83735; 85025; 85610; 85730; 93971; 96365; 99284; J0696; J3490; 99283